=== PATIENT | male | born 1965 | race Caucasian/White ===

== ENCOUNTER 2017-05-22 06:19 | Day surgery (SDC) | payer MEDICARE, MEDICAID ==
[2017-05-19 12:24] VITALS: BMI 47.4
--- NOTE | 2017-05-22 05:51 | HP ---
HISTORY OF PRESENT ILLNESS: Chapin Brown is a 52-year-old male, dialyzes Monday, , a monday at [facility]. He has a hemodialysis catheter that has malfunctioned, they have used Cathflo, cannot get it to work, and plan is to remove the old and place a new one to day. Patient, on 02/21/2017, underwent left zukjf-blh-jomh amputation for a diabetic infection in l t foot and osteomyelitis and placement of right femoral vein Trialysis catheter by Dr. Hernandez on . Again, on 03/01/2017, placed a right internal jugular vein hemodialysis catheter, then pr ovided a right arm fistula, performing a thrombectomy of the basilic vein (previous IV access), righ t arm primary AV fistula perforating branch of basilic vein to proximal radial artery. Excellent ca liber of radial artery was noted with a very large basilic vein. It was recognized at that time he would need a basilic vein transposition fistula. The patient has been dialyzed and has had problems with his catheter, assembler body asked the dialysis unit, [facility], to access his fistula right, which was unsuccessful. I have informed them that this should not be accessed again until i t is transposed. Plan is to replace his hemodialysis catheter today and then next week right arm ba silic vein transposition fistula will be performed as an outpatient. He understands the risks and b enefits and consents. He has acquired prosthesis for his amputation, right leg. He has almost full extension, but not quite. ALLERGIES: None. TOBACCO: None. ALCOHOL: None. SOCIAL HISTORY: Patient is a resident of [facility], [facility]. No history of smoking. He has lived with his sister prior to going to [facility]. PAST MEDICAL HISTORY: Diabetes mellitus, type 2; hypertension; dyslipidemia; obesity; history of ri ght great toe amputation done in 2011; prior cardiac stress test, 5 years ago, essentially normal; h istory of left knee injury during football; right shoulder surgery; dyslipidemia. MEDICATIONS: 1. MiraLax. 2. Dulcolax p.r.n. 3. p.r.n.. 4. Cepacol p.r.n. 5. Tylenol p.r.n.. 6. Tramadol p.r.n. 7. Atorvastatin 80 mg evening. 8. Metoprolol 25 mg b.i.d. 9. Amlodipine 5 mg b.i.d. 10. Hydralazine 50 mg t.i.d. 11. Clonidine 0.1 mg p.r.n. 12. Protonix daily. 13. Tums p.r.n. 14. Zofran p.r.n. REVIEW OF SYSTEMS: Ten-point noncontributory. PHYSICAL EXAMINATION: VITAL SIGNS: Blood pressure 149/62, pulse 59, temperature 97.9 degrees. GENERAL: Arrives in my office in a wheelchair. LUNGS: Clear to auscultation. CARDIAC: Regular rate and rhythm without murmur or gallop. ABDOMEN: Soft, nontender. EXTREMITIES: Hemodialysis catheter, right IJ. The exit site healthy. Right arm fistula, good thri ll and bruit, well-healed surgical incision. Left uilra-fma-omju amputation status, wound well heal ed, stump gas brazer in place. ASSESSMENT AND PLAN: 1. Dysfunctional dialysis catheter. Plan removal of old and placement of new today. 2. In need of basilic vein transposition fistula. We will plan next week. 3. Left clkxs-vly-dbpk amputation status has a prosthesis. 4. Diabetes mellitus. 5. Hypertension. 6. [facility] senior living resident. 7. Dialysis, Monday, , and Monday at [facility], assembler body, Dr. Arredondo.
[2017-05-22] MEDS ORDERED: Protamine Sulfate 50 MG/5 ML VIAL ONE (06:54)
[2017-05-22] MEDS ORDERED: Heparin 5,000 UNITS/ML VIAL ONE (06:54)
[2017-05-22] MEDS ORDERED: Bupivacaine PF 0.5% 30 ML VIAL ONE (06:54)
[2017-05-22] MEDS ORDERED: CEFAZOLIN/Water 2 GM/20 ML SYRINGE ONE (06:56)
[2017-05-22] MEDS ORDERED: Lidocaine 2% w/Epinephrine 1:200K 20 ML VIAL ONE (06:58)
[2017-05-22] MEDS ORDERED: Fentanyl 100 MCG/2 ML VIAL ONE ×2 (07:02→07:43)
[2017-05-22] MEDS ORDERED: Midazolam HCl 2 mg/2 ml Vial ONE ×2 (07:02→07:43)
[2017-05-22 07:15] LABS: Anion Gap 10 mmol/L (10-20); Carbon Dioxide 32 mmol/L (22-29); Chloride 98 mmol/L (98-107)
[2017-05-22] MEDS ORDERED: Insulin Regular 300 UNITS/3 ML VIAL ONE (07:21)
[2017-05-22] MEDS ORDERED: Propofol 200 MG/20 ML VIAL ONE (08:05)
[2017-05-22] MEDS ORDERED: Bupivacaine 0.25% HCL 30 ML VIAL ONE (08:38)
[2017-05-22] MEDS ORDERED: Propofol 500 MG/50 ML VIAL ONE ×2 (08:45→09:30)
--- NOTE | 2017-05-22 10:14 | OP ---
DATE OF PROCEDURE: 05/22/2017 PREOPERATIVE DIAGNOSES: End-stage renal disease in need of basilic vein transposition fistula (thi s has been accessed prior to my approval at the dialysis unit). PROCEDURE: Right arm basilic vein transposition fistula. SURGEON: Dr. Clemente Cope ANESTHESIA: Intravenous sedation and regional anesthesia, local 0.5% Marcaine 30 mL, 0.25% Marcaine 25 mL, 1% Xylocaine with epinephrine, 30 mL total volume mixture used. ESTIMATED BLOOD LOSS: 30 mL. BLOOD TRANSFUSED: None. FINDINGS: Excellent vein. NOTE: Retrograde antecubital vein was slipped over to use for the procedure. PROCEDURE: The patient taken to the operating room where under the above-mentioned anesthesia, righ t upper extremity was prepared with ChloraPrep, draped in routine fashion. Incision made from the p roximal volar forearm across the antecubital fossa into the right axilla. Incision was carried down through the skin and subcutaneous tissue through the basilic vein, dissected free, unroofed from th e proximal forearm to the axilla. The nerves kept free of harm. Hemostasis gained with cautery and clips. Branches divided between 4-0 and 3-0 silk ties and clips. Vein mobilized entirely, marked with a marking pen and a Julianna-Wick tunneler used to create a tunnel from the antecubital fossa late ral to the surgical incision into the axilla. A 12 mm head was used then changed to a 6 mm head wit h the vein was transected at the arterial origin near the proximal volar forearm, marked with a teto ing pen and flushed with heparinized saline solution, connected to the tunneler, brought through the tunnel, released from the tunnel and flushed with heparinized saline solution noted to be in good o rientation. The stump of the harvested basilic vein was closed with continuous to and fro suture of 6-0 Prolene locking suture. Retrograde antecubital vein dissected free. Stump ligated with 2-0 si lk tie, transected and flushed and had excellent flow. It was flipped over and an end-to-end anasto mosis to the basilic vein created after 6000 units of heparin administered an adequate circulation t adrián allowed. Vascular clamp applied. Both ends were spatulated and anastomosis created with contin uous suture of 6-0 Prolene. Once anastomosis was complete, good hemostasis noted. Surgicel applied . The patient was given 50 mg of protamine by Anesthesia. He had good Doppler signal and palpation revealed excellent fistula. Good hemostasis noted. Surgicel placed in the harvest bed. Subcutane ous tissues approximated with 3-0 Monocryl, skin with josephine. Sterile dressing applied. Local ane sthetic infiltrated into skin and subcutaneous tissue about the operative site to facilitate the reg ional anesthesia. The patient tolerated the procedure well.
[2017-05-22] MEDS ORDERED: HYDROcodone/Acetaminophen 5/325 mg Tablet ONE (11:15)
[2017-05-22] MEDS ORDERED: Heparin 10,000 UNITS/ 10 ML VIAL ONE (11:43)
--- NOTE | 2017-05-22 11:45 | EKG ---
Test Reason : PREOP Blood Pressure : / mmHG Vent. Rate : 061 BPM Atrial Rate : 061 BPM P-R Int : 188 ms QRS Dur : 112 ms QT Int : 474 ms P-R-T Axes : 069 -05 118 degrees QTc Int : 477 ms Normal sinus rhythm Prolonged QT Abnormal ECG When compared with ECG of 20-FEB-2017 19:15, T wave inversion more evident in Lateral leads Confirmed by DR. Jessica RONQUILLO ([id number]) on 05/22/2017 11:44:48 AM Referred By: MARIXA Confirmed By:DR. Jessica RONQUILLO
--- OUTSIDE RECORDS SUMMARY | 2017-05-24 14:44 | XMS | Clinical Summary ---
:1965 Author Organization [facility] Address [address] [place] [address] Phone Care Team Providers Name Role Phone , Primary Care Provider Unavailable Allergies No Known Allergies Current Medications Prescription Sig. Disp. Refills Start Date End Date Status aspirin 81 MG EC Take 81 mg by mouth Active tablet daily. insulin aspart Inject 0.03 mLs (3 60 Syringe 0 05/06/2016 Active (NOVOLOG) 100 Units total) unit/mL InPn subcutaneously 3 (three) times daily before meals. insulin detemir Inject 0.15 mLs (15 90 packet 0 05/06/2016 Active (LEVEMIR) 100 Units total) unit/mL (3 mL) subcutaneously InPn injection nightly. amLODIPine Take 1 tablet (10 mg 90 tablet 0 05/06/2016 (NORVASC) 10 MG total) by mouth 7 tablet daily. Active Problems Problem Noted Date Foot abscess 04/29/2016 Hyperglycemia 04/28/2016 Open wound of foot, left, initial encounter 04/28/2016 Diabetes mellitus, type 2 (HCC) Benign essential HTN Hypercholesteremia Social History Tobacco Use Types Packs/Day Years Used Date Never Smoker Alcohol Use Drinks/Week oz/Week Comments Yes socially Sex Assigned at Date Recorded Not on file Last Filed Vital Signs Vital Sign Reading Time Taken Blood Pressure 142/65 05/06/2016 1:00 PM CDT Pulse 50 05/06/2016 1:00 PM CDT Temperature 36.5 C (97.7 F) 05/06/2016 1:00 PM CDT Respiratory Rate 18 05/05/2016 11:53 PM CDT Oxygen Saturation 99% 05/06/2016 1:00 PM CDT Inhaled Oxygen Concentration - - Weight 143 kg (315 lb 3.2 oz) 05/02/2016 4:00 AM CDT Height 190.5 cm (6' 3") 04/29/2016 8:36 AM CDT Body Mass Index 39.4 05/02/2016 4:00 AM CDT Plan of Treatment Not on file Results Not on filefrom Last 3 Months
== END 2017-05-22 12:50 ==
LOC: SDC 06:19
PROVIDERS: ATTEND Specialist
DX: E11.22 Type 2 diabetes mellitus with diabetic chronic kidney disease (principal); I12.0 Hypertensive chronic kidney disease with stage 5 chronic kidney disease or end stage renal disease; N18.6 End stage renal disease; K21.9 Gastro-esophageal reflux disease without esophagitis; E78.5 Hyperlipidemia, unspecified; Z79.4 Long term (current) use of insulin; Z79.899 Other long term (current) drug therapy; Z89.512 Acquired absence of left leg below knee; Z82.49 Family history of ischemic heart disease and other diseases of the circulatory system; Z83.3 Family history of diabetes mellitus; Z80.0 Family history of malignant neoplasm of digestive organs
CPT/HCPCS: 36416; 80051; 93005; 93010; J1644; J1815; J2250; J2704; J2720; J3010; S0020

== ENCOUNTER 2017-07-03 05:50 | Day surgery (SDC) | payer MEDICARE, MEDICAID ==
--- NOTE | 2017-06-29 22:18 | HP ---
HISTORY OF PRESENT ILLNESS: Chapin Brown is a 52-year-old male patient who dialyzes at [facility] on Monday, , Monday, followed by Dr. Arredondo. Patient underwent a right arm fis mya performing a thrombectomy of basilic vein (previous IV access) and a right arm primary fistula w ith perforating branch of the basilic vein to the proximal radial artery, excellent caliber radial ar aarti was noted with a very large basilic vein, it was recognized at that time he would need a basilic vein transposition fistula. The patient has been dialyzed and has had problems with his catheter. Certified Home Health Aide asked them to access his fistula at the dialysis center and the patient never followed u p with me after the operation. He was told postoperatively that he would need a basilic vein transpo sition fistula. By the time I saw him, I informed that she is not to access his fistula again. He h as had a previous amputation of his right leg and has a prosthesis. The patient was taken to the ope rating room on 05/22/2017 undergoing right basilic vein transposition fistula. Dissection was diffic ult due to previous access attempts. He had a good thrill after the procedure and was discharged amber e. The patient states that he was told that he did not have a thrill sometime in the weeks ensuing, but he never reported to see me until followup date 06/26/2017. By this time, his thrill and fistula had resolved. On 02/27/2017 marking ultrasound obtained revealed cephalic vein right 3.1, 3.0, 3.5 and 2.6 antecubital fossa and basilic vein 6.5, 6.5, and 8.4 and a clot in the antecubital fossa, whi ch was removed at that time formation of his fistula. On his left arm, his cephalic vein had been pr eviously accessed and measurements include 4.4 mm nonvisualized mid arm and distal arm cephalic vein left and antecubital fossa and proximal forearm. Basilic vein on the left was 7.6, 9.0, 9.1 mm and 5 .2 mm, antecubital fossa 5.4, proximal forearm 4.1 mm and 4.3 mm. Plan at this time is to perform a left arm fistula or graft. He understands the risks and benefits and consents. The patient is left handed and reluctant to have a fistula in the arm, but this is best chance for nightmute vein fistula, w e reassured him that great care will be taken, but there are risk of ischemia and thrombosis and poss ibility of placing a prosthetic graft. ALLERGIES: None. TOBACCO: None. ALCOHOL: None. SOCIAL: Patient is a resident at a [facility], [facility] and [facility]. SOCIAL HISTORY: He has lived with his sister prior to staying in [facility]. PAST MEDICAL HISTORY: Diabetes mellitus type 2, hypertension, dyslipidemia, obesity, history of righ t great toe amputation in 2011, prior cardiac stenting 5 years ago, history of left knee injury durin g football, right shoulder surgery, dyslipidemia. MEDICATIONS: MiraLax, Dulcolax p.r.n., Cepacol, Tylenol, tramadol, atorvastatin 80 mg evening, metop rolol 25 b.i.d., amlodipine 5 mg b.i.d., hydralazine 50 t.i.d., clonidine 0.1 mg p.r.n., Protonix ayaan ly, Tums p.r.n., Zofran p.r.n. PHYSICAL EXAMINATION: VITAL SIGNS: Blood pressure 148/59, pulse 66, temperature 98.4 degrees. LUNGS: Clear to auscultation. CARDIAC: Regular rate and rhythm without murmur or gallop. ABDOMEN: Soft, nontender. EXTREMITIES: Well-healed incision in medial right arm. No thrill or bruit in the right arm, basilic vein fistula previously placed. Left palpable radial pulses bilaterally. ASSESSMENT AND PLAN: 1. Thrombosed fistula right arm, mechanical dysfunction of fistula. We will plan placement of left arm fistula or graft. He may need a staged fistula in the future. Cephalic vein by ultrasound is no t adequate. We will evaluate him intraoperatively under regional anesthesia and intravenous sedation . He may need a prosthetic graft or a staged fistula pending operative findings.
[2017-06-30 15:07] VITALS: BMI 43.8
[2017-07-03] MEDS ORDERED: Heparin 5,000 UNITS/ML VIAL ONE (06:36)
[2017-07-03] MEDS ORDERED: Bupivacaine/Epinephrine 0.25% 30 ML VIAL ONE (06:36)
[2017-07-03] MEDS ORDERED: Protamine Sulfate 50 MG/5 ML VIAL ONE ×2 (06:36→16:09)
[2017-07-03] MEDS ORDERED: Midazolam HCl 2 mg/2 ml Vial ONE ×2 (07:09→07:17)
[2017-07-03] MEDS ORDERED: Fentanyl 100 MCG/2 ML VIAL ONE ×2 (07:09→07:17)
[2017-07-03 07:13] LABS: Anion Gap 13 mmol/L (10-20); BUN (Urea Nitrogen) 46 mg/dL (8.4-25.7); Calc. Creatinine Clearance 45 mL/min (70-130); Calcium 9.7 mg/dL (7.8-10.44); Carbon Dioxide 28 mmol/L (22-29); Chloride 99 mmol/L (98-107); Estimated GFR-MDRD 19
[2017-07-03] MEDS ORDERED: CEFAZOLIN/Water 2 GM/20 ML SYRINGE ONE (07:23)
[2017-07-03 07:25] LABS: #Eosinphils 0.3 thou/uL (0.0-0.7); #Monocytes 0.6 thou/uL (0.11-0.59); #Neutrophils 5.5 thou/uL (1.40-6.50); %Basophils 0.6 % (0.0-1.0); %Eosinophils 3.7 % (0.0-10.0); %Lymphocytes 13.5 % (21.0-51.0); %Monocytes 8.2 % (0.0-10.0); Hematocrit 33.4 % (42.0-52.0); Mean Platelet Volume 7.7 fL (7.4-10.4); Red Blood Cell (RBC) Count 3.72 mill/uL (4.70-6.10); White Blood Cell (WBC) Count 7.5 thou/uL (4.8-10.8)
[2017-07-03] MEDS ORDERED: Insulin Regular 300 UNITS/3 ML VIAL ONE (07:31)
--- NOTE | 2017-07-03 09:27 | OP ---
PREOPERATIVE DIAGNOSES: End-stage renal disease, status post left below the knee amputation, right a rm dialysis fistula transposition basilic vein type, thrombosed malfunction of dialysis fistula. POSTOPERATIVE DIAGNOSES: End-stage renal disease, status post left below the knee amputation, right arm dialysis fistula transposition basilic vein type, thrombosed malfunction of dialysis fistula. PROCEDURES: Left upper extremity arteriovenous fistula basilic vein, wrist to ulnar artery, outflow basilic vein, calibrated to a 4.5 mm coronary dilator without obstruction, excellent Doppler signal a t the end of the procedure. Most likely, we will need transposition in the future to provide better access. SURGEON: Dr. Clemente Cope ANESTHESIA: General LMA. Local 0.25% Marcaine with epinephrine, 30 mL, mixed with 2% Xylocaine, 10 mL. PROCEDURE IN DETAIL: Patient taken to the operating room where under general anesthesia (The patient refused regional), his left upper extremity was prepared with ChloraPrep, draped in routine fashion. Local anesthetic infiltrated into skin and subcutaneous tissue about the operative site. Incision made over the basilic vein which was very large, visibly seen in the dorsal medial left arm. Incisio n was made at the wrist level and carried down through the skin and subcutaneous tissue. The vein di ssected free, dividing branch between 4-0 silk ties and clips. It was dissected free down to the wri st. It was mobilized, stump ligated with 3-0 silk tie and divided and spatulated and interrogated wi th coronary dilators, passing coronary dilators from a 2.5 mm to a 4.5 mm coronary dilator without ob struction. It was flushed with heparinized saline solution. The patient was given 5000 units of hep georgina intravenously. Ulnar artery dissected free, dividing small medial branch between clips and ties , 4-0 silk and artery mobilized, clamped proximally and distally with vascular clamps. Longitudinal arteriotomy made sharply and elongated with Quiles scissors and basilic vein likewise spatulated accor dingly and continuous suture of 6-0 Prolene used for the anastomosis. Once the anastomosis was compl ete, vascular clamps were released and there was excellent flow in the fistula evident by Doppler int errogation. Good hemostasis obtained with 6-0 Prolene. The patient was given 25 mg of protamine int ravenously by Anesthesia. Surgicel applied. Subcutaneous tissues approximated with 3-0 Monocryl, sk in with subdermal 4-0 Monocryl and DermaGlue applied.
[2017-07-03] MEDS ORDERED: Heparin 10,000 UNITS/ 10 ML VIAL ONE ×2 (10:05→16:09)
[2017-07-03] MEDS ORDERED: Succinylcholine Chloride 20 MG/ML 10 ml SYRINGE FS ONE (16:09)
[2017-07-03] MEDS ORDERED: Propofol 200 MG/20 ML VIAL ONE (16:09)
[2017-07-03] MEDS ORDERED: Ondansetron HCl/PF 4 MG/2 ML Vial ONE (16:09)
[2017-07-03] MEDS ORDERED: ePHEDrine/0.9% NaCl/PF SYRINGE 50 mg/10 ml ONE (16:09)
[2017-07-03] MEDS ORDERED: Lidocaine 1% PF 5 ML VIAL ONE (16:09)
[2017-07-03] MEDS ORDERED: PHENYLEPHRINE-NS 100 MCG/ML 10 ML SYRINGE ONE (16:09)
== END 2017-07-03 11:23 | disposition home or self-care (01) ==
LOC: SDC 05:50
PROVIDERS: ATTEND Specialist
PROC: 031A0ZF Bypass Left Ulnar Artery to Lower Arm Vein, Open Approach (ICD-10-PCS; principal; 2017-07-03)
DX: T82.868A Thrombosis due to vascular prosthetic devices, implants and grafts, initial encounter (principal); I12.0 Hypertensive chronic kidney disease with stage 5 chronic kidney disease or end stage renal disease; E11.22 Type 2 diabetes mellitus with diabetic chronic kidney disease; N18.6 End stage renal disease; E78.5 Hyperlipidemia, unspecified; E66.9 Obesity, unspecified; Z68.41 Body mass index [BMI] 40.0-44.9, adult; Z89.512 Acquired absence of left leg below knee; Z98.890 Other specified postprocedural states; Z95.5 Presence of coronary angioplasty implant and graft; Z79.899 Other long term (current) drug therapy; Z79.4 Long term (current) use of insulin; Z99.2 Dependence on renal dialysis
CPT/HCPCS: 36416; 80048; 85025; J1644; J1815; J2001; J2250; J2405; J2704; J2720; J3010

== ENCOUNTER 2017-07-13 06:05 | Emergency (ER) | payer MEDICARE, MEDICAID ==
[2017-07-13] MEDS ORDERED: Ondansetron ODT 4 MG TAB ONE (06:13)
[2017-07-13] MEDS ORDERED: Adacel (T-DAP) 0.5 ML VIAL ONE (06:26)
[2017-07-13] MEDS ORDERED: Ondansetron HCl/PF 4 MG/2 ML Vial ONE (06:26)
[2017-07-13 06:54] LABS: #Eosinphils 0.3 thou/uL (0.0-0.7); #Lymphocytes 0.6 thou/uL (1.20-3.40); #Monocytes 0.9 thou/uL (0.11-0.59); #Neutrophils 10.9 thou/uL (1.40-6.50); %Eosinophils 2.3 % (0.0-10.0); %Lymphocytes 4.7 % (21.0-51.0); %Monocytes 7.3 % (0.0-10.0); Hematocrit 37.1 % (42.0-52.0); Mean Platelet Volume 7.2 fL (7.4-10.4); Red Blood Cell (RBC) Count 4.12 mill/uL (4.70-6.10); White Blood Cell (WBC) Count 12.7 thou/uL (4.8-10.8)
[2017-07-13 07:10] LABS: Troponin I 0.057 ng/mL (< 0.028)
[2017-07-13 07:25] LABS: BUN (Urea Nitrogen) 46 mg/dL (8.4-25.7); Carbon Dioxide 19 mmol/L (22-29)
[2017-07-13 07:29] LABS: Chloride 103 mmol/L (98-107)
[2017-07-13 07:30] LABS: Calcium 9.9 mg/dL (7.8-10.44); Magnesium 2.3 mg/dL (1.6-2.6)
[2017-07-13 07:31] LABS: Globulin 4.1 g/dL (2.4-3.5); Protein, Total 8.2 g/dL (6.0-8.3)
[2017-07-13 07:32] LABS: Anion Gap 16 mmol/L (10-20)
[2017-07-13 07:33] LABS: Bilirubin, Total 0.9 mg/dL (0.2-1.2)
[2017-07-13 07:34] LABS: Alkaline Phosphatase 102 U/L (40-150); Phosphorus 3.4 mg/dL (2.3-4.7)
--- NOTE | 2017-07-13 07:34 | RAD ---
PORTABLE AP CHEST XRAY: DATE: 07/13/17. HISTORY: Nausea and vomiting. Post fall with laceration to the head. COMPARISON: 03/01/17. FINDINGS: There is a tunneled right internal jugular vein hemodialysis catheter again noted in place. The left internal jugular vein central venous catheter has been removed. The cardiac silhouette is magnified by projection. Pulmonary vasculature is within normal limits. The lungs are clear. No other inter sue change from prior study. IMPRESSION: No acute cardiopulmonary process. POS: [facility]
[2017-07-13 07:35] LABS: Calc. Creatinine Clearance 0 mL/min (70-130); Estimated GFR-MDRD 20
[2017-07-13 07:36] LABS: AST (SGOT) 15 U/L (5-34)
--- NOTE | 2017-07-13 07:36 | CT ---
CT HEAD WITHOUT IV CONTRAST: Date: 07-13-17 History: Vomiting post fall. Laceration of the head. Comparison: 02-25-17 FINDINGS: There is an area of encephalomalacia in the right occipital lobe in the region of prior infarction wi thin distribution of the right posterior cerebral artery. Remote lacunar infarction left basal gangli a is also again present. There is no evidence of an acute cortical infarction, hemorrhage, mass effec t, or midline shift. There is mild cerebral volume loss again present. No other interval change from prior exam. IMPRESSION: 1. No acute intracranial abnormalities demonstrated. 2. Stable remote lacunar infarction left basal ganglia. 3. Encephalomalacia right occipital lobe related to remote area of infarction. POS: [facility]
[2017-07-13 07:37] LABS: ALT (SGPT) 12 U/L (8-55); CK (CPK) 135 U/L (30-200); Lipase 95 U/L (8-78)
[2017-07-13] MEDS ORDERED: Lidocaine 1% w/Epinephrine 1:100K 20 ML VIAL ONE (07:42)
--- NOTE | 2017-07-13 07:46 | CT ---
NONCONTRAST CT CERVICAL SPINE: Date: 07-13-17 History: Vomiting after a fall. Patient hit head and has laceration. Technique: Contiguous axial CT images are obtained through the cervical spine from the skull base to the T2-3 level. Sagittal and coronal reformat images are provided. FINDINGS: There is no evidence of a fracture or subluxation involving the cervical spine. Osteophyte is seen an terior at the C4-5 level. There is no significant bony encroachment of the central spinal canal or ne ural foramina. Prevertebral soft tissues are within normal limits. Mild vascular calcifications are seen in the carotid arteries. Lung apices appear clear. IMPRESSION: No acute fracture or subluxation involving the cervical spine. POS: [facility]
[2017-07-13] MEDS ORDERED: cloNIDine 0.1 MG TAB ONE (08:15)
== END 2017-07-13 08:58 | disposition home or self-care (01) ==
LOC: ERS 06:05
DX: S01.112A Laceration without foreign body of left eyelid and periocular area, initial encounter (principal); I12.9 Hypertensive chronic kidney disease with stage 1 through stage 4 chronic kidney disease, or unspecified chronic kidney disease; E10.22 Type 1 diabetes mellitus with diabetic chronic kidney disease; N18.9 Chronic kidney disease, unspecified; E78.5 Hyperlipidemia, unspecified; R19.7 Diarrhea, unspecified; R11.2 Nausea with vomiting, unspecified; Z23 Encounter for immunization; Z79.899 Other long term (current) drug therapy; W18.30XA Fall on same level, unspecified, initial encounter
CPT/HCPCS: 12001; 70450; 71010; 72125; 80053; 82274; 82553; 83630; 83690; 83735; 84100; 84484; 85025; 87045; 87046; 87324; 87328; 87329; 87449; 87899; 90471; 90715; 93005; J2001; J2405; Q0162

== ENCOUNTER 2017-08-21 05:32 | Day surgery (SDC) | payer MEDICARE, MEDICAID ==
--- NOTE | 2017-08-15 14:40 | HP ---
HISTORY OF PRESENT ILLNESS: Chapin Brown is a 52-year-old male patient who lives at [facility] in [place], dialyzes at [facility], Monday, , and Monday. The maria dolores ent has end-stage renal disease, history of left sgwcf-yjm-sngz amputation and has a hemodialysis cat heter. He has had right basilic vein transposition fistula, eventually had graft, this is thrombosed and nonsalvageable. More recently, he underwent a left ulnar artery basilic vein fistula at the [facility]. Plan is to transpose this in the forearm. He understands the risks and benefits. In the past, we used general anesthesia because he needs 6 hours as she is an amputation patient. MEDICATIONS: Diphenhydramine 25 mg as needed, Cepacol as needed, MiraLax as needed, Colace as needed , loperamide as needed, Zofran as needed, simethicone as needed, Prostat 30 mg twice daily, clonidine 0.1 mg at bedtime and q.i.d. p.r.n., metoprolol 25 mg twice daily, amlodipine 5 mg twice daily, ator vastatin 80 mg a day, Levemir insulin twice day, hydralazine 25 mg 3 times a day, Protonix 40 mg a da y, Tums 500 mg tablets 1-2 tabs orally with meals once or twice a day, and tramadol as needed. PAST SURGICAL HISTORY: Right arm fistula, thrombectomy of basilic vein and right arm primary fistula perforating branch to the basilic vein with proximal radial artery excellent caliber and radial cristina ry was noted and very large basilic vein was recognized at that time. He would need a basilic vein t ransposition fistula. Patient had problems with his catheter and they accessed his fistula at the [facility], and the patient never followed up with me after the operation, he was told that he would need a basilic vein transposition by the time I see him. The patient underwent 05/22/2017 b asilic vein transposition fistula, right. Dissection was difficult due to previous access attempts. He had a good thrill at the procedure and was discharged home. The patient said he was told he did not have a thrill, sometime in weeks ensuin g, but he never reported to see me and nobody called. By this time I saw him, his fistula had thromb osed. It was felt they could not salvage it. His left cephalic vein had been previously accessed an d measurements include 4 mm nonvisualized mid arm distal cephalic vein left antecubital fossa proxima l forearm basilic vein on the left, was of good caliber. The patient was taken to the operating rece ntly, left wrist ulnar artery basilic vein fistula performed. A 4.5 coronary dilators accommodated t his. This was performed 07/03/2017. Patient reports today and his fistula has good thrill and bruit . His surgical wound risks is well healed. Plan is to transpose left wrist basilic vein fistula. Kayley solis understands the risks and benefits and consents. ALLERGIES: None. TOBACCO: None. ALCOHOL: None. SOCIAL HISTORY: Patient is a resident of [facility], [facility] and [facility] . PAST MEDICAL HISTORY: Diabetes mellitus, hypertension, dyslipidemia, obesity, history of right great toe amputation 19/07/2017, prior cardiac stenting five years ago, history of left knee injury during football, right shoulder surgery, and dyslipidemia. PHYSICAL EXAMINATION: HEENT: Unremarkable. LUNGS: Clear to auscultation. CARDIAC: Regular rate and rhythm without murmur or gallop. ABDOMEN: Soft, nontender, obese, amputation stump well healed, sap bpc developer in place, left basilic vein fistula forearm good thrill and bruit. ASSESSMENT AND PLAN: Plan to be basilic vein transposition fistula left forearm. He understands the risks and benefits and consents. He dialyses Monday, and Monday at [facility]. We will plan this as an outpatient on nondialysis day.
[2017-08-18 14:50] VITALS: BMI 46.3
[2017-08-21] MEDS ORDERED: Bupivacaine 0.25% HCL 30 ML VIAL ONE (06:45)
[2017-08-21] MEDS ORDERED: Protamine Sulfate 50 MG/5 ML VIAL ONE (06:45)
[2017-08-21] MEDS ORDERED: Heparin 5,000 UNITS/ML VIAL ONE (06:45)
[2017-08-21] MEDS ORDERED: Lidocaine 2% w/Epinephrine 1:200K 20 ML VIAL ONE (06:46)
[2017-08-21 06:49] LABS: #Basophils 0.1 thou/uL (0.0-0.2); #Eosinphils 0.3 thou/uL (0.0-0.7); #Lymphocytes 1.2 thou/uL (1.20-3.40); #Monocytes 0.7 thou/uL (0.11-0.59); #Neutrophils 4.8 thou/uL (1.40-6.50); %Basophils 1.3 % (0.0-1.0); %Eosinophils 3.9 % (0.0-10.0); %Lymphocytes 17.7 % (21.0-51.0); %Monocytes 9.2 % (0.0-10.0); %Neutrophils 67.9 % (42.0-75.0); Hemoglobin 11.6 g/dL (14.0-18.0); Mean Corpuscular Hemoglobin 30.6 pg (27.0-31.0); Mean Corpuscular Volume 87.4 fl (80.0-94.0); Mean Platelet Volume 7.7 fL (7.4-10.4); Platelet Count 234 thou/uL (130-400); RBC Distribution Width 13.3 % (11.5-14.5)
[2017-08-21] MEDS ORDERED: Midazolam HCl 2 mg/2 ml Vial ONE (07:01)
[2017-08-21] MEDS ORDERED: Fentanyl 100 MCG/2 ML VIAL ONE ×2 (07:01→07:26)
[2017-08-21 07:06] LABS: Anion Gap 17 mmol/L (10-20); BUN (Urea Nitrogen) 56 mg/dL (8.4-25.7); Calc. Creatinine Clearance 36 mL/min (70-130); Calcium 9.2 mg/dL (7.8-10.44); Carbon Dioxide 23 mmol/L (22-29); Chloride 95 mmol/L (98-107); Estimated GFR-MDRD 14; Glucose 333 mg/dL (70-105); Potassium 3.8 mmol/L (3.5-5.1); Sodium 131 mmol/L (136-145)
[2017-08-21] MEDS ORDERED: CEFAZOLIN/Water 2 GM/20 ML SYRINGE ONE (07:28)
[2017-08-21] MEDS ORDERED: Insulin Regular 300 UNITS/3 ML VIAL ONE (07:36)
--- NOTE | 2017-08-21 10:52 | OP ---
DATE OF PROCEDURE: 08/21/2017 PREOPERATIVE DIAGNOSIS: End-stage renal disease, left forearm basilic vein fistula in need of transp osition. POSTOPERATIVE DIAGNOSIS: End-stage renal disease, left forearm basilic vein fistula in need of trans position. PROCEDURE: Left forearm basilic vein transposition fistula. SURGEON: Dr. Clemente Cope ANESTHESIA: Regional TIVA. ESTIMATED BLOOD LOSS: 25 mL. PROCEDURE IN DETAIL: The patient was taken to the operating room where under regional anesthesia, le ft upper extremity was prepared with ChloraPrep, draped in routine fashion. Incision made from overl desiree the ulnar artery at the wrist along the basilic vein course dorsal medial forearm, carried up to the medial upper arm distally and carried down through the skin and subcutaneous tissue. Basilic ve in dissected free, dividing branch between 4-0 silk ties and clips. Vein marked to prevent torsion. A tunnel was then created between the antecubital area in the wrist using a 12 mm tunneler. The pat ient was given 6000 units of heparin intravenously. The vein was then transected at the antecubital area, flushed with heparinized saline solution and then connected to the tunneler, brought through th e tunnel and reanastomosis at the antecubital area end-to-end, spatulating both ends using continuous suture of 6-0 Prolene for the anastomosis. After completing anastomosis, a good Doppler signal was noted. Good hemostasis obtained with the cautery. The patient given 25 mg of protamine intravenousl y by Anesthesia. Surgicel placed in the harvest bed and subcutaneous tissues approximated with 3-0 M onocryl, skin with josephine. Sterile dressing applied.
[2017-08-21] MEDS ORDERED: Heparin 10,000 UNITS/ 10 ML VIAL ONE ×4 (12:21→14:49)
[2017-08-21] MEDS ORDERED: Bupivacaine HCl 0.5%/Epinephrine 1:200,000/PF 30 ml Vial ONE (14:12)
[2017-08-21] MEDS ORDERED: Lidocaine 1% PF 5 ML VIAL ONE (14:49)
[2017-08-21] MEDS ORDERED: Ondansetron HCl/PF 4 MG/2 ML Vial ONE (14:49)
[2017-08-21] MEDS ORDERED: Propofol 200 MG/20 ML VIAL ONE (14:49)
--- NOTE | 2017-08-22 23:34 | EKG ---
Test Reason : PREOP Blood Pressure : / mmHG Vent. Rate : 056 BPM Atrial Rate : 056 BPM P-R Int : 208 ms QRS Dur : 118 ms QT Int : 482 ms P-R-T Axes : 026 -21 042 degrees QTc Int : 465 ms Sinus bradycardia Non-specific intra-ventricular conduction delay Nonspecific T wave abnormality Prolonged QT Abnormal ECG When compared with ECG of 13-JUL-2017 06:33, No significant change was found Confirmed by Lidia HASKINS ([id number]) on 08/22/2017 11:34:30 PM Referred By: MARIXA Confirmed By:Lidia HASKINS
== END 2017-08-21 12:45 | disposition home or self-care (01) ==
LOC: SDC 05:32
PROVIDERS: ATTEND Specialist
PROC: 05SC0ZZ Reposition Left Basilic Vein, Open Approach (ICD-10-PCS; principal; 2017-08-21)
DX: E11.22 Type 2 diabetes mellitus with diabetic chronic kidney disease (principal); N18.6 End stage renal disease; I12.0 Hypertensive chronic kidney disease with stage 5 chronic kidney disease or end stage renal disease; E78.5 Hyperlipidemia, unspecified; E66.9 Obesity, unspecified; Z68.42 Body mass index [BMI] 45.0-49.9, adult; Z79.4 Long term (current) use of insulin; Z79.899 Other long term (current) drug therapy; Z99.2 Dependence on renal dialysis; Z89.512 Acquired absence of left leg below knee; Z89.411 Acquired absence of right great toe; Z98.890 Other specified postprocedural states
CPT/HCPCS: 36416; 80048; 85025; 93005; 93010; J0670; J1644; J1815; J2001; J2250; J2405; J2704; J2720; J3010; S0020

== ENCOUNTER 2017-11-22 06:32 | Day surgery (SDC) | payer MEDICARE, MEDICAID ==
[2017-11-21 12:48] VITALS: BMI 47.0
[2017-11-22 08:08] VITALS: BP 156/68; TEMP 97.6
--- NOTE | 2017-11-22 10:30 | SPC ---
LEFT UPPER EXTREMITY DIALYSIS FISTULOGRAM: History: Renal failure. Inadequate function left upper extremity dialysis fistula. FINDINGS: After explaining the procedure and answering all questions, the left forearm was prepped and draped i n the usual sterile fashion. Sterile technique, local anesthesia, and a 22 gauge needle were used to gain access to the peripheral portion of the left upper extremity dialysis fistula. A 5 Maori sheath was placed for imaging. Serial imaging was performed. Fluoro time equals 0.6 minutes. There is good contrast flow through the forearm basilic fistula. Several scattered small collaterals arise from the venous outflow at the level of the humerus and axilla, without significant steal of fl ow. Superior vena cava is patent. Attempts were made to reflux the arterial end flow but were unsuccessful due to the vigorous flow. Ca theter was removed and hemostatis was obtained using direct pressure. Patient tolerated the procedure well and was eventually dismissed in good condition. IMPRESSION: 1. Good flow and function of left upper extremity dialysis fistula. POS: AD
[2017-11-22] MEDS ORDERED: Iopamidol 300 61% 100 ML VIAL FS ONE (15:13)
== END 2017-11-22 09:00 | disposition home or self-care (01) ==
LOC: SPEC 06:32
PROVIDERS: ATTEND Specialist
PROC: B51W1ZZ Fluoroscopy of Dialysis Shunt/Fistula using Low Osmolar Contrast (ICD-10-PCS; principal; 2017-11-22)
DX: Z45.2 Encounter for adjustment and management of vascular access device (principal); I12.0 Hypertensive chronic kidney disease with stage 5 chronic kidney disease or end stage renal disease; E11.22 Type 2 diabetes mellitus with diabetic chronic kidney disease; N18.6 End stage renal disease; Z99.2 Dependence on renal dialysis; Z79.4 Long term (current) use of insulin; Z79.899 Other long term (current) drug therapy
CPT/HCPCS: 36901

== ENCOUNTER 2018-10-15 07:29 | Day surgery (SDC) | payer MEDICARE, MEDICAID ==
[2018-10-15 09:38] VITALS: BP 176/60; TEMP 97.7
--- NOTE | 2018-10-15 10:50 | SPC ---
LEFT UPPER EXTREMITY FISTULOGRAM: HISTORY: Difficulty with fistula. COMPARISON: 11/22/2017. EXPOSURE: 1.1 minute. [id number]=*^cm2. FINDINGS: Successful left upper extremity fistulogram. There is patency throughout the fistulogram. There is evidence of stenosis or collateralization. There was manual pressure to allow for reflux of contrast . However, contrast did not reflux into the arterial inflow due to brisk flow. TECHNIQUE: Consent was obtained to perform a left upper extremity fistulogram with possible angioplasty. The le ft arm was prepped and draped in sterile fashion. 1% Lidocaine, buffered with sodium bicarbonate was used for local anesthesia. A micropuncture needle was used to cannulate the fistula. Under fluoros copy, a fistulogram was performed. No immediate postprocedure complication. IMPRESSION: Good flow and function of left upper extremity dialysis fistula. POS: JAVON
== END 2018-10-15 09:20 | disposition home or self-care (01) ==
LOC: SPEC 07:29
PROVIDERS: ATTEND Radiology Diagnostic Radiology
PROC: B51W1ZZ Fluoroscopy of Dialysis Shunt/Fistula using Low Osmolar Contrast (ICD-10-PCS; principal; 2018-10-15)
DX: T82.9XXA Unspecified complication of cardiac and vascular prosthetic device, implant and graft, initial encounter (principal); N19 Unspecified kidney failure; Z79.4 Long term (current) use of insulin; Z79.2 Long term (current) use of antibiotics; Z79.899 Other long term (current) drug therapy
CPT/HCPCS: 36901

== ENCOUNTER 2018-12-18 20:38 | Observation (INO) | payer MEDICARE, MEDICAID ==
[2018-12-18 21:11] LABS: #Basophils 0.1 thou/uL (0.0-0.2); #Eosinphils 0.1 thou/uL (0.0-0.7); #Lymphocytes 0.5 thou/uL (1.20-3.40); #Monocytes 0.8 thou/uL (0.11-0.59); #Neutrophils 11.1 thou/uL (1.40-6.50); %Basophils 0.7 % (0.0-1.0); %Eosinophils 0.6 % (0.0-10.0); %Lymphocytes 3.9 % (21.0-51.0); %Monocytes 6.7 % (0.0-10.0); %Neutrophils 88.2 % (42.0-75.0); Hemoglobin 10.2 g/dL (14.0-18.0); Mean Corpuscular Hemoglobin 29.5 pg (27.0-31.0); Mean Corpuscular Volume 86.7 fL (78.0-98.0); Mean Platelet Volume 7.6 fL (7.4-10.4); Platelet Count 237 thou/uL (130-400); RBC Distribution Width 13.8 % (11.5-14.5); Red Blood Cell (RBC) Count 3.46 mill/uL (4.70-6.10); White Blood Cell (WBC) Count 12.6 thou/uL (4.8-10.8)
[2018-12-18 21:32] LABS: ALT (SGPT) 13 U/L (8-55); AST (SGOT) 17 U/L (5-34); Albumin 4.3 g/dL (3.5-5.0); Alkaline Phosphatase 87 U/L (40-150); Anion Gap 14 mmol/L (10-20); BUN (Urea Nitrogen) 26 mg/dL (8.4-25.7); Bilirubin, Total 0.8 mg/dL (0.2-1.2); Calc. Creatinine Clearance 0 mL/min (70-130); Calcium 9.6 mg/dL (7.8-10.44); Carbon Dioxide 33 mmol/L (22-29); Chloride 96 mmol/L (98-107); Estimated GFR-MDRD 20; Globulin 4.2 g/dL (2.4-3.5); Glucose 135 mg/dL (70-105); Protein, Total 8.5 g/dL (6.0-8.3); Sodium 139 mmol/L (136-145)
[2018-12-18] MEDS ORDERED: Acetaminophen 500 MG TAB ONE (21:34)
--- NOTE | 2018-12-18 21:35 | RAD ---
AP view chest. HISTORY: Chest pain AP view chest obtained on 12/18/2018 and comparison made to previous exam from 07/13/2017 AP view chest mistreats marked cardiomegaly. This may represent possible cardiomyopathy. Correlate [facility] echocardiography. No evidence of effusions seen. IMPRESSION: marked cardiomegaly and vascular congestion.
[2018-12-18] MEDS ORDERED: Morphine 2 MG/ML SYRINGE ONE (21:45)
[2018-12-18] MEDS ORDERED: Aspirin 81 mg Enteric Coated Tablet ONE (21:46)
[2018-12-18 21:53] LABS: CKMB 3.2 ng/mL (0-6.6)
[2018-12-18] MEDS ORDERED: Piperacillin/Tazobactam 2.25 GM VIAL ONE (21:59)
--- NOTE | 2018-12-18 23:34 | PDOC.FPRHP ---
- History of Present Illness Chief Complaint: Chest pain History of Present Illness: This is a 53 yo male with a pmh of HLD, DM2, HTN, ESRD who presents to the ED with a cc of chest pain that has been going on for the last 8 hours. He states the pain started when he was at dialysis. He states the pain feels like pressure , like someone is sitting on his chest. The pain is in the center of his chest with no radiation. He reports he has not had this chest pain before. He denies previous heart work up. He denies dizziness, SOB, lightheadedness. Reports fever and chills. Reports non productive cough. Nothing has made this pain better or worse Reports he has been treating his leg for a few months with abx cream and wrap it. Pt is coming from [facility]. ED Course: Aspirin, morphine, vanc, zosyn, 1L bolus, tylenol - Allergies/Adverse Reactions Allergies Allergy/AdvReac Type Severity Reaction Status Date / Time No Known Allergies Allergy Verified 10/15/18 09:31 - Home Medications Medication Instructions Recorded Confirmed Type Atorvastatin Calcium [Lipitor] 80 mg PO DAILY 11/27/16 10/15/18 History Metoprolol Succinate [Toprol XL] 25 mg PO BID 11/27/16 10/15/18 History Amlodipine Besylate [amLODIPine 5 mg PO BID 05/19/17 10/15/18 History Besylate] Insulin Detemir 100 UNITS/ML 85 unit SQ HS 05/19/17 10/15/18 History [Levemir] Insulin Detemir 100 UNITS/ML 85 unit SQ QAM 05/19/17 10/15/18 History [Levemir] Pantoprazole [Protonix] 20 mg PO DAILY-AC 05/19/17 10/15/18 History hydrALAZINE HCl [Hydralazine HCl] 50 mg PO TID 05/19/17 10/15/18 History Acetaminophen [Tylenol Regular 1 tab PO Q4HR PRN 08/18/17 10/15/18 History Strength] Benzocaine/Menthol [Cepacol Sore 1 shanti PO BID PRN 08/18/17 10/15/18 History Throat Lozenge] Calcium Carbonate [Tums] 2 tab PO Q6HR PRN 08/18/17 10/15/18 History Loperamide HCl [Loperamide] 1 cap PO ASDIR PRN 08/18/17 10/15/18 History Metoclopramide HCl [Reglan] 1 tab PO Q6HR PRN 08/18/17 10/15/18 History Ondansetron [Zofran ODT] 1 tab PO Q6HR PRN 08/18/17 10/15/18 History Polyethylene Glycol 3350 [Miralax] 17 gm PO DAILY PRN 08/18/17 10/15/18 History Simethicone 1 tab PO TID PRN 08/18/17 10/15/18 History cloNIDine HCl [cloNIDine HCl ER] 1 tab PO Q6HR PRN 08/18/17 10/15/18 History diphenhydrAMINE [Benadryl] 1 cap PO Q6HR PRN 08/18/17 10/15/18 History guaiFENesin [Guaifenesin] 10 ml PO Q4HR PRN 08/18/17 10/15/18 History Darbepoetin Igor in Polysorbat 60 mcg SC Q7D 11/21/17 10/15/18 History [Aranesp] Docusate [Colace] 100 mg PO BID PRN 11/21/17 10/15/18 History Insulin Regular [HumuLIN R] 5 unit SC TID-WM 11/21/17 10/15/18 History Clindamycin HCl 300 mg PO TID 10/15/18 10/15/18 History Cyanocobalamin (Vitamin B-12) 1,000 mcg PO DAILY 10/15/18 10/15/18 History [Vitamin B12] Gabapentin 200 mg PO QID 10/15/18 10/15/18 History Linagliptin [Tradjenta] 5 mg PO DAILY 10/15/18 10/15/18 History - History PMHx: HLD, ESRD, DM1, HTN PSHx: BKA Left, right big toe, dialysis, left knee, right shoulder, right arm/ left arm FHx: No family history of heart dx, lung cancer Social: Denies smoking, reports previous alcohol not current, denies drug us - Review of Systems General: reports: fever/chills, weight/appetite/sleep changes (Snoring), fatigue. denies: night sweats Eyes: denies: eye pain, vision changes ENT: denies: nasal congestion, rhinorrhea Respiratory: reports: other (Snores at night, never had a sleep study). denies : cough, congestion, shortness of breath Cardiovascular: reports: chest pain, edema. denies: palpitation Gastrointestinal: denies: nausea, vomiting, diarrhea, constipation Skin: reports: rashes, lesions (right lower extremity, he reports it is better than before) Musculoskeletal: reports: pain (left groin pain, similar to a muscle strain) Neurological: denies: numbness, syncope Psychological: denies: depression - Vital signs BP: 116/78 HR: 89 RR: 19 Tmax: 99.1 Pox: 95% on ra Wt: 165 kg - Physical Exam Constitutional: NAD, awake, alert and oriented, other (morbidly obese) HEENT: normocephalic and atraumatic, PERRLA, EOMI, conjunctiva clear, grossly normal hearing, MMM Neck: supple, FROM, trachea midline, no LAD Chest: no-tender to palpation, no lesions Heart: RRR, normal S1/S2, no murmurs/rubs/gallops Lungs: CTAB, no respiratory distress, no wheezing Abdomen: non-tender, bowel sounds present, no masses/distention, other ( enduration of lower panus with no ttp or erythemia) Musculoskeletal: normal structure, normal tone, ROM grossly normal Neurological: no focal deficit, CN II-XII intact Skin: good turgor Heme/Lymphatic: no unusual bruising or bleeding, no purpura Psychiatric: normal mood and affect, good judgment and insight FMR H&P: Results - Labs Result Diagrams: 12/18/18 20:57 12/18/18 20:57 Lab results: WBC 12.6 thou/uL (4.8-10.8) H 12/18/18 20:57 Hgb 10.2 g/dL (14.0-18.0) L 12/18/18 20:57 Hct 30.0 % (42.0-52.0) L 12/18/18 20:57 MCV 86.7 fL (78.0-98.0) 12/18/18 20:57 Plt Count 237 thou/uL (130-400) 12/18/18 20:57 Neutrophils % 88.2 % (42.0-75.0) H 12/18/18 20:57 Sodium 139 mmol/L (136-145) 12/18/18 20:57 Potassium 4.0 mmol/L (3.5-5.1) 12/18/18 20:57 Chloride 96 mmol/L (98-107) L 12/18/18 20:57 Carbon Dioxide 33 mmol/L (22-29) H 12/18/18 20:57 BUN 26 mg/dL (8.4-25.7) H 12/18/18 20:57 Creatinine 3.28 mg/dL (0.7-1.3) H 12/18/18 20:57 Glucose 135 mg/dL (70-105) H 12/18/18 20:57 Lactic Acid 2.1 mmol/L (0.5-2.2) 12/18/18 21:51 Calcium 9.6 mg/dL (7.8-10.44) 12/18/18 20:57 Total Bilirubin 0.8 mg/dL (0.2-1.2) 12/18/18 20:57 AST 17 U/L (5-34) 12/18/18 20:57 ALT 13 U/L (8-55) 12/18/18 20:57 Alkaline Phosphatase 87 U/L (40-150) 12/18/18 20:57 CK-MB (CK-2) 3.2 ng/mL (0-6.6) 12/18/18 20:57 Serum Total Protein 8.5 g/dL (6.0-8.3) H 12/18/18 20:57 Albumin 4.3 g/dL (3.5-5.0) 12/18/18 20:57 Lipase 79 U/L (8-78) H 12/18/18 20:57 - EKG Interpretation EKG: T wave inversions consistent with previous - Radiology Interpretation Chest x-ray Status: report reviewed by me (marked cardiomegaly and vascular congestion) FMR H&P: A/P - Plan his is a 53 yo male with a pmh of HLD, DM2, HTN, ESRD Atypical chest pain ACS R/O -Admit to tele obs -S/P aspirin -Initial troponin 0.035, trend x3 -CXR: Marked cardiomegaly and vascular congestion -Heart score of 5 -Stress test in the AM Fever likely 2/2 cellulitis of RLE -WBC 12.6 -Pending procal -UA pending -S/P vanc and zosyn in ED -Continue abx -Chronic infection vs venous stasis, consider punch biopsy outpt HTN -Continue home meds -Hold BB for stress test DM2 -Continue home meds -ACHS glu checks -moderate SSI ESRD -Consult High[facility] HLD -Continue home atorvastatin Undiagnosed FANTASMA -Consider outpt sleep study Code: full Prophylaxis: lovenox Family: none at bedside Diet: HH, NPO after midnight Fluids SL Disposition: DC in 1-2 days PCP: Dr. Jackman FMR H&P: Upper Level - Pertinent history Pt is a 53 y/o M with ESRD, DM2 presenting w chest pain. Sharp and substernal, but now resolved with morphine. Also describes associated fever. States he has not felt good, but no other pains. - Plan Date/Time: 12/18/18 2429 I, Daniel Salazar, have evaluated this patient and agree with findings/plan as outlined by campus interviews intern resident. Pertinent changes/additions are listed here. # Atypical chest pain ACS R/O - Heart Score 5, Stress in AM. Extensive RF's Initial trops and EKG unremarkable, but will trend. ASA given # Cellulitis of RLE - Continue Broad spectrum abx. Could be chronic changes seen , but significant area or warmth and erythema. Pending UA as another source of fever; Negative CXR. # HTN - No acute issues, will resume home medications # DM2 - Continue home insulin and monitor closely # ESRD -Consult [facility] for HD # HLD -Continue home atorvastatin # Hx/o CVA- Continue ASA/Statin. No acute deficits. # Probably FANTASMA-Recommend outpt sleep study
[2018-12-19] MEDS ORDERED: Acetaminophen 650 MG Suppository PR PRN (01:29)
[2018-12-19] MEDS ORDERED: Ondansetron ODT 4 MG TAB PO PRN ×2 (01:29→05:35)
[2018-12-19] MEDS ORDERED: Dextrose 50% Abboject 50 ML SYRINGE SLOW IVP PRN (01:29)
[2018-12-19] MEDS ORDERED: Dextrose 5% in Water 1,000 ML IV PRN (01:29)
[2018-12-19] MEDS ORDERED: Nitroglycerin 0.4 MG TAB (25 Tab Bottle) PO PRN (01:29)
[2018-12-19] MEDS ORDERED: Acetaminophen 325 MG TAB PO PRN ×2 (01:29→05:35)
[2018-12-19] MEDS ORDERED: HumaLOG 300 UNITS/3 ML VIAL SC PRN ×2 (01:29)
[2018-12-19 01:50] VITALS: BMI 42.6
[2018-12-19 02:15] LABS: #Eosinphils 0.1 thou/uL (0.0-0.7); #Lymphocytes 0.8 thou/uL (1.20-3.40); #Monocytes 1.3 thou/uL (0.11-0.59); #Neutrophils 9.2 thou/uL (1.40-6.50); %Basophils 0.4 % (0.0-1.0); %Eosinophils 0.5 % (0.0-10.0); %Lymphocytes 7.3 % (21.0-51.0); %Monocytes 11.6 % (0.0-10.0); %Neutrophils 80.2 % (42.0-75.0); Hemoglobin 9.2 g/dL (14.0-18.0); Mean Corpuscular Hemoglobin 28.9 pg (27.0-31.0); Mean Corpuscular Volume 87.5 fL (78.0-98.0); Mean Platelet Volume 7.7 fL (7.4-10.4); Platelet Count 203 thou/uL (130-400); RBC Distribution Width 13.8 % (11.5-14.5); Red Blood Cell (RBC) Count 3.18 mill/uL (4.70-6.10); White Blood Cell (WBC) Count 11.4 thou/uL (4.8-10.8)
[2018-12-19 02:30] LABS: Lactic Acid 1.6 mmol/L (0.5-2.2)
[2018-12-19 02:49] LABS: Anion Gap 13 mmol/L (10-20); BUN (Urea Nitrogen) 29 mg/dL (8.4-25.7); Calc. Creatinine Clearance 48 mL/min (70-130); Calcium 8.9 mg/dL (7.8-10.44); Carbon Dioxide 32 mmol/L (22-29); Cardiac Risk 6.5 (Less than 4.5); Chloride 97 mmol/L (98-107); Cholesterol 123 mg/dl (< 200 Desired); Estimated GFR-MDRD 16; Glucose 144 mg/dL (70-105); HDL Cholesterol 19 mg/dL (>60 Neg Risk); LDL Cholesterol, Calculated 72 mg/dL; Potassium 4.1 mmol/L (3.5-5.1); Sodium 138 mmol/L (136-145); Triglycerides 161 mg/dL (Less than 150)
[2018-12-19] MEDS ORDERED: Loperamide HCl 2 MG CAP PO PRN (05:35)
[2018-12-19] MEDS ORDERED: Docusate 100 MG CAP PO PRN (05:35)
[2018-12-19] MEDS ORDERED: Cepastat Lozenges 1 LOZ PO PRN (05:35)
[2018-12-19] MEDS ORDERED: CLONIDINE HCL PO PRN (05:35)
[2018-12-19] MEDS ORDERED: Simethicone Chewable 80 MG TAB PO PRN (05:35)
[2018-12-19] MEDS ORDERED: Acetaminophen 500 MG TAB PO PRN (05:35)
[2018-12-19] MEDS ORDERED: Polyethylene Glycol 3350 17 GM Packet PO PRN (05:35)
[2018-12-19] MEDS ORDERED: diphenhydrAMINE 25 MG CAP PO PRN (05:35)
[2018-12-19] MEDS ORDERED: Diabetic Tussin 200 MG/10 ML UDCUP PO PRN (05:35)
[2018-12-19] MEDS ORDERED: Metoclopramide HCl 10 MG TAB PO PRN (05:35)
[2018-12-19] MEDS ORDERED: DARBEPOETIN ALFA IN POLYSORBAT 60 MCG SC SCH (05:45)
[2018-12-19] MEDS ORDERED: Gabapentin 100 MG CAP PO SCH (05:45)
[2018-12-19] MEDS ORDERED: traMADol HCl 50 MG TAB PO SCH (05:45)
[2018-12-19] MEDS ORDERED: Piperacillin/Tazobactam 2.25 GM in Sodium Chloride 0.9% 100 ML IVPB SCH (06:00)
[2018-12-19] MEDS ORDERED: Non-Formulary Item 1 EACH (Insulin Detemir 100 Units/Ml [Levemir] 80 UNIT) SQ SCH (09:00)
--- NOTE | 2018-12-19 10:46 | PQF ---
CLINICAL DOCUMENTATION IMPROVEMENT CLARIFICATION FORM: ICD-10 Updated PLEASE DO AN ADDENDUM TO THE PROGRESS NOTE WITH ANY DOCUMENTATION UPDATES OR ADDITIONS AND CARRY THROUGH TO DC SUMMARY. THANK YOU. DATE: 12/20/18 ATTN : DR. HUANG Please exercise your independent, professional judgment in responding to the clarification form. Clinical indicators are provided on the bottom of this form for your review Please check appropriate box(s) to clarify if the following diagnosis has been ruled in or ruled out: "SEPSIS" [ ] Ruled in diagnosis [ ] Continue to treat [ ] Resolved [ x ] Ruled out diagnosis [ ] Cannot rule out diagnosis [ ] Other diagnosis [ ] Unable to determine In addition, please specify: Present on Admission (POA): [ ] Yes [ x] No [ ] Unable to determine For continuity of documentation, please document condition throughout progress notes and discharge summary. Thank You. CLINICAL INDICATORS - SIGNS / SYMPTOMS / LABS ER NOTE: "SEPSIS" TEMP 102.2 WBC 12.6 RISKS: CELLULITIS RLE DIABETES TREATMENT: IV VANCOMYCIN (ER) IV ZOSYN (ER-PRESENT) IV FLUIDS (ER) BLOOD CULTURES (This form is maintained as a part of the permanent medical record) [employer] Win[employer] Viewer 2015 [employer]. All Rights Reserved [email or web address] Office: [phone] SANDRINE
[2018-12-19] MEDS: Insulin Regular 300 UNITS/3 ML VIAL SC SCH ×3 (11:11→19:10)
[2018-12-19] MEDS: Amlodipine 5 MG TAB PO SCH ×2 (11:11→20:50)
[2018-12-19] MEDS: Alogliptin 6.25 MG TAB PO SCH (11:11)
[2018-12-19] MEDS: Insulin Glargine 80 UNITS in Pre-Filled Syringe SC SCH ×3 (11:12→20:50)
[2018-12-19] MEDS: Gabapentin 100 MG CAP PO SCH ×4 (11:12→20:50)
[2018-12-19] MEDS: Atorvastatin Calcium 40 MG TAB PO SCH (11:12)
[2018-12-19] MEDS: Famotidine 20 MG TAB PO SCH (11:12)
[2018-12-19] MEDS: hydrALAZINE 25 MG TAB PO SCH ×3 (11:12→20:50)
--- NOTE | 2018-12-19 11:42 | HP ---
HISTORY OF PRESENT ILLNESS: I have discussed the case with Dr. Beck Blount. I have examined the patient. I agree with Dr. Blount's assessment and plan. Mr. Brown is a 53-year-old man on end-stage renal disease, dialysis. He had some chest discomfort like "someone was sitting on my chest." He has had this pain for the last 8 hours prior to admission. He is admitted for evaluation and cardiology evaluation. PHYSICAL EXAMINATION: VITAL SIGNS: On exam, his blood pressure is 116/78, heart rate 90, respirations 19, temperature 99.1, room air pulse ox 95%. GENERAL: He is awake, alert, no distress. CARDIAC: Heart rhythm regular. No gallop or murmur. LUNGS: Breath sound diminished, but clear. No rales or wheezes noted. ABDOMEN: Very obese, but flat. No guarding, rebound, or rigidity. EXTREMITIES: Possible mild cellulitis versus stasis dermatitis, right lower extremity. Neurologic: No focal deficits. LABORATORY DATA: White count initially 12,600, hemoglobin 10.2, hematocrit 30 with an MCV of 86.7. His chemistries; sodium is 138, potassium 4.1, chloride 97, bicarb 32, BUN 29, creatinine 3.83. Troponin initially was 0.035. Others pending. ASSESSMENT: Chest pain. PLAN: Admit for stress testing. Job ID: [id number]
[2018-12-19 12:50] LABS: Hep C IgG Ab Non-Reactive (NonReactive)
[2018-12-19] MEDS: traMADol HCl 50 MG TAB PO PRN (12:59)
[2018-12-19] MEDS: Clindamycin 150 MG CAP PO SCH ×3 (12:59→20:52)
[2018-12-19] MEDS ORDERED: Regadenoson 0.4 MG/5 ML SYRINGE ONE (16:06)
[2018-12-19] MEDS ORDERED: EPOETIN ALFA-EPBX (ESRD) 10,000 UNIT/ML VIAL IVP SCH (16:30)
--- NOTE | 2018-12-19 19:48 | CON ---
DATE OF CONSULTATION: 12/19/2018 CONSULTING PHYSICIAN: Dr. Yates. REASON FOR CONSULTATION: End-stage renal disease evaluation. REASON FOR ADMISSION: Chest pain. HISTORY OF PRESENT ILLNESS: A 53-year-old male with history of end-stage renal disease, hypertension, and type 2 diabetes, came to the hospital. Chest pain has been evaluated. Nephrology consulted, on maintenance dialysis. The patient gets dialysis Monday, , and Monday and due for dialysis tomorrow. The patient is feeling better chest pain barboza and is complaining of right hip pain. The patient is noncompliant with fluid restriction and dialysis, and brings increased amount of fluid each time with huge weight gains. No nausea or vomiting. No palpitation. No abdominal pain. No problem with urination. No skin rash. No fever or chills reported. PAST MEDICAL HISTORY: Positive for end-stage renal disease on hemodialysis Monday, , and Monday; diabetes, hyperlipidemia, and hypertension. PAST SURGICAL HISTORY: Amputation, dialysis access placement, and right shoulder surgery. HOME MEDICATIONS: Include, 1. Atorvastatin. 2. Metoprolol. 3. Amlodipine. 4. Insulin. 5. Hydralazine. 6. Calcium carbonate. 7. Loperamide. 8. Reglan. 9. MiraLAX. 10. Clonidine. 11. Clindamycin. ALLERGIES: NO KNOWN DRUG ALLERGIES. SOCIAL HISTORY: No smoking, alcohol, or illicit drug use. FAMILY HISTORY: No history of any kidney disease. REVIEW OF SYSTEMS: CONSTITUTIONAL: Negative for weight loss or gain, ability to conduct usual activities. SKIN: Negative for rash, itching. EYES: Negative for double vision, pain. ENT/MOUTH: Negative for nose bleeding, neck stiffness, pain, tenderness. CARDIOVASCULAR: Negative for palpitations, dyspnea on exertion, orthopnea. RESPIRATORY: Negative for shortness of breath, wheezing, cough, hemoptysis, fever or night sweats. GASTROINTESTINAL: Negative for poor appetite, abdominal pain, heartburn, nausea, vomiting, constipation, or diarrhea. GENITOURINARY: Negative for urgency, frequency, dysuria, nocturia. MUSCULOSKELETAL: Negative for pain, swelling. NEUROLOGIC/PSYCHIATRIC: Negative for anxiety, depression. ALLERGY/IMMUNOLOGIC: Negative for skin rash, bleeding tendency. PHYSICAL EXAMINATION: GENERAL: This is an obese male, in no apparent distress. VITAL SIGNS: Temperature 98.6, pulse 68, respiratory rate 20, and blood pressure 134/69. HEENT: Atraumatic and normocephalic. Oral mucosa is moist. NECK: Supple. CV: S1 and S2 heard. Rate and rhythm regular. RESPIRATORY: Clear. GI: Abdomen is soft. MUSCULOSKELETAL: 1+ edema. DERMATOLOGIC: No skin rash. NEUROLOGIC: Alert and awake. PSYCHIATRIC: Normal mood and affect. LABORATORY DATA: Hemoglobin is 9.2. Potassium 4.1, BUN is 29, and creatinine is 3.8. ASSESSMENT AND PLAN: 1. End-stage renal disease. Continue on dialysis as tolerated. 2. Edema, controlled. 3. Hypertension. 4. Anemia. 5. Morbid obesity. Plan to continue on dialysis as tolerated. Thank you for the consult. Job ID: [id number]
[2018-12-19] MEDS: Acetaminophen 500 MG TAB PO SCH ×2 (19:57→20:52)
[2018-12-20] MEDS: traMADol HCl 50 MG TAB PO PRN ×2 (02:17→12:30)
[2018-12-20] MEDS: Clindamycin 150 MG CAP PO SCH ×2 (06:09→12:31)
[2018-12-20] MEDS: Acetaminophen 500 MG TAB PO SCH ×2 (06:09→12:31)
--- NOTE | 2018-12-20 08:49 | PRG ---
DATE OF SERVICE: 12/20/2018 SUBJECTIVE: Patient was seen and examined at bedside and overnight events noted. Patient denies any shortness of breath or chest pain or palpitation. No history of nausea or vomiting or diarrhea or fever or chills or cramps. OBJECTIVE: GENERAL: This is a morbidly obese male in no apparent distress. VITAL SIGNS: Temperature 98.9. Pulse 71. Respiratory rate 18. Blood pressure 138/63. HEENT: Atraumatic, normocephalic. Oral mucosa is moist NECK: Supple. CARDIOVASCULAR: S1, S2 heard. Rate and rhythm regular. RESPIRATORY: Clear to auscultation. GASTROINTESTINAL: Abdomen is soft. MUSCULOSKELETAL: No tenderness. No edema. DERMATOLOGIC: No skin rash. NEUROLOGIC: Alert and awake and oriented X3. No focal neurologic deficits. Moving all the extremities. PSYCHIATRIC: Mood and affect normal. LABORATORY DATA: None done today. ASSESSMENT AND PLAN: 1. End-stage renal disease. Continue on dialysis. We will have dialysis . 2. Edema, controlled. 3. Hypertension, stable. 4. Anemia. We will monitor. 5. Morbid obesity. 6. Plan to continue dialysis today and TTS as tolerated. Job ID: [id number]
--- NOTE | 2018-12-20 08:57 | PDOC.FM ---
- Subjective Subjective: Pt reports feeling well, no concerns or complaints. He feels ready for dialysis today and his stress test. - Objective Vital Signs & Weight: Vital Signs (12 hours) Temp Pulse Resp BP BP Pulse Ox 12/20/18 07:34 98.9 F 71 18 123/58 L 95 12/20/18 03:58 98.7 F 72 18 138/63 95 Weight Weight 154.845 kg I&O: 12/19/18 12/20/18 12/21/18 06:59 06:59 06:59 Intake Total 100 640 Output Total 0 880 Balance 100 -240 Result Diagrams: 12/19/18 01:59 12/19/18 01:59 Phys Exam - Physical Examination Constitutional: NAD HEENT: moist MMs, sclera anicteric Neck: supple, full ROM Respiratory: no wheezing, clear to auscultation bilateral Cardiovascular: RRR, no significant murmur Gastrointestinal: soft, positive bowel sounds Musculoskeletal: pulses present Neurological: normal sensation Psychiatric: normal affect Skin: normal turgor Deviation from normal: RLE: erythema improved markedly Dx/Plan (1) ESRD (end stage renal disease) on dialysis Code(s): N18.6 - END STAGE RENAL DISEASE; Z99.2 - DEPENDENCE ON RENAL DIALYSIS Status: Acute (2) Chest pain Code(s): R07.9 - CHEST PAIN, UNSPECIFIED Status: Acute (3) DM type 2 (diabetes mellitus, type 2) Status: Chronic (4) Diabetic nephropathy Status: Chronic (5) Morbid obesity with BMI of 40.0-44.9, adult Code(s): E66.01 - MORBID (SEVERE) OBESITY DUE TO EXCESS CALORIES; Z68.41 - BODY MASS INDEX (BMI) 40.0-44.9, ADULT Status: Chronic - Plan Plan: Typical chest pain likely 2/2 MSK A- pt has multiple complaints of muskuloskeletal pain. trops neg x3. CXR shows no reasons for acute pain, heart score 5. Echo unconcerning. P- continue ASA -stress test today -monitor for recurrence of pain -possible DC after stress Fever likely 2/2 cellulitis of RLE A- WBC 12.6, Pt on clinda since 12/19. S/P vanc and zosyn in ED. Likely some component of stasis involved. 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
--- NOTE | 2018-12-20 09:09 | STRESS ---
Acquisition Time: 2018-12-19 12:16:17 Total Exercise Time: 00:01:00 Test Indications: CHEST PAIN Medications: Protocol: LEXISCAN Max HR: 081 BPM 49% of Pred: 165 BPM Max BP: 156/096 mmHG Max Work Load: 1.0 METS RESTING ECG: NORMAL SINUS RHYTHM AT 71 BPM SYMTPOMS: NONE NORMAL BP RESPONSE ECTOPY: NONE ECG STRESS: NO SIGNIFICANT CHANGES INTERPRETATION: NEGATIVE ECG/AWAIT NUCLEAR IMAGES FOR DEFINITIVE DIAGNOSIS Confirmed by FABY ADAMS ([id number]), web editor ABISAI AMBROSE ([id number]) on 12/20/2018 9:08:48 AM Referred By: DO Eliseo MENDIOLA Confirmed By:FABY ADAMS
[2018-12-20] MEDS ORDERED: Aspirin 81 mg Enteric Coated Tablet PO SCH (10:15)
[2018-12-20] MEDS ORDERED: Heparin 1,000 UNITS/ML VIAL ONE (11:11)
--- NOTE | 2018-12-20 12:21 | PRG ---
DATE OF SERVICE: Mr. Brown is in dialysis, in no distress other than complaining of his bilateral hip pain, which is chronic. He had the pharmaceutical stress part of his heart workup today, but the nuclear study is still pending. We will await these results if he is willing to participate in obtaining them. He states that he cannot sit on a flat table because of his hip pains and may not get the nuclear portion done. Job ID: [id number]
[2018-12-20] MEDS: Alogliptin 6.25 MG TAB PO SCH (12:32)
[2018-12-20] MEDS: Atorvastatin Calcium 40 MG TAB PO SCH (12:32)
[2018-12-20] MEDS: Famotidine 20 MG TAB PO SCH (12:33)
[2018-12-20] MEDS: Gabapentin 100 MG CAP PO SCH ×2 (12:36→14:25)
[2018-12-20] MEDS: Insulin Regular 300 UNITS/3 ML VIAL SC SCH ×2 (12:40→14:47)
[2018-12-20] MEDS: Amlodipine 5 MG TAB PO SCH (12:40)
[2018-12-20] MEDS: hydrALAZINE 25 MG TAB PO SCH ×2 (12:41→15:20)
[2018-12-20] MEDS: Insulin Glargine 80 UNITS in Pre-Filled Syringe SC SCH ×2 (12:41→15:20)
[2018-12-20] MEDS ORDERED: Heparin 5,000 UNITS/ML VIAL SC SCH (15:00)
[2018-12-20 15:45] VITALS: BP 164/83; TEMP 98.2
[2018-12-21] MEDS ORDERED: Aspirin 81 mg Enteric Coated Tablet PO SCH (09:00)
--- NOTE | 2018-12-21 10:54 | DIS ---
DATE OF ADMISSION: 12/19/2018 DATE OF DISCHARGE: 12/20/2018 RESIDENT: Dr. Dean Melendez. CONSULT: Nephrology, Dr. Waterman. PROCEDURES PERFORMED: 1. Dialysis. 2. On 12/18/2018 chest x-ray, impression marked cardiomegaly and vascular congestion. 3. Stress test refused. PRIMARY DIAGNOSIS: Atypical chest pain likely secondary to musculoskeletal etiology. SECONDARY DIAGNOSES: 1. Fever secondary to cellulitis on venous stasis of right lower extremity. 2. Hypertension. 3. Type 2 diabetes. 4. End-stage renal disease. 5. Hyperlipidemia. DISCHARGE MEDICATIONS: 1. Atorvastatin 80 mg p.o. daily. 2. Pantoprazole 20 mg p.o. daily. 3. Hydralazine 50 mg p.o. t.i.d. 4. Amlodipine 5 mg p.o. b.i.d. 5. Insulin detemir subcu t.i.d. 6. Tums 1 to 2 tabs p.o. q.6 hours p.r.n. 7. Reglan 1 tab p.o. q.6 hours p.r.n. 8. Simethicone one tab p.o. t.i.d. p.r.n. 9. Loperamide one cap p.o. p.r.n. as directed. 10. Zofran 1 tab p.o. q.6 hours p.r.n. 11. Guaifenesin 10 mL p.o. q.4 hours p.r.n. 12. Benadryl 1 cap p.o. q.6 hours p.r.n. 13. Tylenol 2 tabs q.4 hours p.r.n. 14. Clonidine 0.1 mg ER 12 hours one tab p.o. q.6 hours p.r.n. 15. MiraLAX 17 g packet p.o. daily p.r.n. 16. Insulin Humulin 5 units subcutaneous t.i.d. with meals. 17. Darbepoetin 60 mcg subcu every seven days. 18. Colace 100 mg p.o. b.i.d. p.r.n. 19. Gabapentin 200 mg p.o. q.i.d. 20. Linagliptin 5 mg p.o. daily. 21. Tramadol 50 mg p.o. q.i.d. p.r.n. 22. Metoprolol 25 mg p.o. b.i.d. 23. Clindamycin 300 mg p.o. q.6 hours for seven days. 24. Aspirin 81 mg p.o. daily. DISCONTINUED MEDICATIONS: None. HISTORY OF PRESENT ILLNESS/HOSPITAL COURSE: This is a 53-year-old male with history of end-stage renal disease on dialysis, who presented with atypical chest pain. It was likely secondary to musculoskeletal reasons but was admitted for chest pain rule out because of HeartScore of 5. Troponins were negative. Meanwhile, the patient complained of musculoskeletal hip pain being his chief complaint. The patient did receive dialysis and when brought to get stress test, the patient refused stress test. I think that it would be too painful to lay on the table even though it was a pharmacologic stress test and it was explained that he would not have to exercise and could be given pain medications prior to stress test. The patient still refused and stated that he wanted to go home. Despite risks, risk of such discharge were explained to the patient in detail, and the patient verbalized understanding still expressing desire to leave. Of note, the patient also had fever in the ER and was noted to have some erythema on right lower extremity. The patient had exam mostly consistent with stasis dermatitis, but it was thought that the patient also had some overlying cellulitis. The patient was started on clindamycin and showed some improvement. The patient also received vancomycin and Zosyn in the ED. The patient was eventually discharged with clindamycin. All other chronic medical problems were controlled with home medications as listed above. DISCHARGE CONDITION: Stable. DISCHARGE INSTRUCTIONS: Location: Home. Activity: As tolerated. Diet: Healthy heart renal diet. FOLLOWUP VISITS: Follow up with Dr. Jackman, Dr. Waterman, and with dialysis. Job ID: [id number]
== END 2018-12-20 17:14 | disposition home or self-care (01) ==
LOC: ERS 20:38 → 2NO 12-19 01:05 → INTOOBSV 12-19 01:05
PROVIDERS: ADMIT Student in an Organized Health Care Education/Training Program; ATTEND Student in an Organized Health Care Education/Training Program
DX: R07.89 Other chest pain (principal); L03.115 Cellulitis of right lower limb; I12.0 Hypertensive chronic kidney disease with stage 5 chronic kidney disease or end stage renal disease; E11.22 Type 2 diabetes mellitus with diabetic chronic kidney disease; N18.6 End stage renal disease; D63.1 Anemia in chronic kidney disease; E78.5 Hyperlipidemia, unspecified; E11.21 Type 2 diabetes mellitus with diabetic nephropathy; E66.01 Morbid (severe) obesity due to excess calories; Z86.73 Personal history of transient ischemic attack (TIA), and cerebral infarction without residual deficits; Z68.41 Body mass index [BMI] 40.0-44.9, adult; Z79.4 Long term (current) use of insulin; Z79.899 Other long term (current) drug therapy; Z99.2 Dependence on renal dialysis
CPT/HCPCS: 71045; 78452; 80048; 80053; 80061; 82553 ×2; 82962 ×2; 83605 ×2; 83690; 83880; 84145; 84484 ×3; 85025 ×2; 86803; 87040; 93005; 93017; 93306; 96365; 96366; 96367; 96375; 99285; A9500; G0378; 36415; 36416; 90935; G0257; J1644; J1815; J1825; J2270; J2543; J2785; J3370; J3490; Q0162

== ENCOUNTER 2018-12-23 11:13 | Emergency (ER) | payer MEDICARE, MEDICAID ==
--- NOTE | 2018-12-23 11:59 | RAD ---
EXAM: Single view of the chest HISTORY: Fever COMPARISON: 12/18/2018 FINDINGS: Single view of the chest shows an enlarged but stable cardiomediastinal silhouette. There i s no evidence of consolidation, mass, or pleural effusion. The bones are unremarkable. IMPRESSION: Cardiomegaly
[2018-12-23 12:05] LABS: #Basophils 0.1 thou/uL (0.0-0.2); #Eosinphils 0.1 thou/uL (0.0-0.7); #Lymphocytes 1.1 thou/uL (1.20-3.40); #Monocytes 1.3 thou/uL (0.11-0.59); #Neutrophils 9.5 thou/uL (1.40-6.50); %Basophils 0.7 % (0.0-1.0); %Eosinophils 0.9 % (0.0-10.0); %Lymphocytes 9.1 % (21.0-51.0); %Monocytes 10.4 % (0.0-10.0); Hemoglobin 9.2 g/dL (14.0-18.0); Mean Corpuscular HGB CONC 33.5 g/dL (32.0-36.0); Mean Corpuscular Hemoglobin 29.7 pg (27.0-31.0); Mean Corpuscular Volume 88.7 fL (78.0-98.0); Mean Platelet Volume 7.8 fL (7.4-10.4); Platelet Count 247 thou/uL (130-400); RBC Distribution Width 13.6 % (11.5-14.5); Red Blood Cell (RBC) Count 3.09 mill/uL (4.70-6.10)
[2018-12-23 12:23] LABS: ALT (SGPT) 31 U/L (8-55); AST (SGOT) 39 U/L (5-34); Albumin 3.6 g/dL (3.5-5.0); Alkaline Phosphatase 102 U/L (40-150); Anion Gap 18 mmol/L (10-20); BUN (Urea Nitrogen) 43 mg/dL (8.4-25.7); Bilirubin, Total 1.1 mg/dL (0.2-1.2); Calc. Creatinine Clearance 0 mL/min (70-130); Calcium 9.2 mg/dL (7.8-10.44); Carbon Dioxide 29 mmol/L (22-29); Chloride 96 mmol/L (98-107); Estimated GFR-MDRD 11; Globulin 4.2 g/dL (2.4-3.5); Glucose 96 mg/dL (70-105); Potassium 4.1 mmol/L (3.5-5.1); Protein, Total 7.8 g/dL (6.0-8.3); Sodium 139 mmol/L (136-145)
[2018-12-23] MEDS ORDERED: cefTRIAXone\\ROCEPHIN 1 GM VIAL ONE (12:29)
[2018-12-23] MEDS ORDERED: Acetaminophen 500 MG TAB ONE (12:56)
[2018-12-23] MEDS ORDERED: traMADol HCl 50 MG TAB ONE (12:56)
[2018-12-23 13:26] LABS: Bilirubin Small (Negative); Blood, Urine Negative (Negative); Clarity CLOUDY (Clear); Glucose, Urine (Dipstick) Negative (Negative); Leukocyte Trace (Negative); Nitrite Negative (Negative); Protein, Urine (Dipstick) 30 mg/dL (Neg-Trace); Specific Gravity, Urine 1.023 (1.002-1.036); Urobilinogen 0.2 mg/dL (0.2-1.0)
[2018-12-23 13:27] LABS: Bacteria/HPF None Seen HPF (None Seen)
[2018-12-23 13:28] LABS: Pathc Cast-AUWi Flag 7.75 (0-2.49)
[2018-12-23 13:45] LABS: Hyaline Casts/LPF 4-6 HYALINE CAST LPF (0-3 Hyaline); Squamous Epithelial 0-3 HPF (0-3)
== END 2018-12-23 15:55 ==
LOC: ERS 11:13
DX: I12.0 Hypertensive chronic kidney disease with stage 5 chronic kidney disease or end stage renal disease (principal); N18.6 End stage renal disease; E11.22 Type 2 diabetes mellitus with diabetic chronic kidney disease; Z79.4 Long term (current) use of insulin
CPT/HCPCS: 36415; 71045; 80053; 81003; 81015; 83605; 85025; 87040; 87086; 87804; 96365; C1776; J0696

== ENCOUNTER 2019-01-01 11:02 | Inpatient (IN) | payer MEDICARE, MEDICAID ==
--- NOTE | 2019-01-01 11:48 | RAD ---
Exam: Chest one view HISTORY:Dyspnea. Shortness of breath x3 days. Patient missed dialysis. Comparison: 12/23/2018 FINDINGS: Cardiac silhouette:Markedly enlarged cardiac silhouette. Pulmonary vessels: Normal Costophrenic angles: Obscuration the left hemidiaphragm due to pleural and parenchymal changes. LUNGS: Opacification in the left lung base. Pneumothorax: None Osseous abnormalities: None IMPRESSION: 1. Cardiomegaly. Opacification of the left lung base which may be due to pleural effusion with superi mposed atelectasis, pneumonia or aspiration.
[2019-01-01 12:06] LABS: #Basophils 0.1 thou/uL (0.0-0.2); #Eosinphils 0.1 thou/uL (0.0-0.7); #Lymphocytes 0.7 thou/uL (1.20-3.40); #Monocytes 1.1 thou/uL (0.11-0.59); #Neutrophils 13.1 thou/uL (1.40-6.50); %Basophils 0.8 % (0.0-1.0); %Eosinophils 0.8 % (0.0-10.0); %Lymphocytes 4.8 % (21.0-51.0); %Monocytes 7.2 % (0.0-10.0); %Neutrophils 86.4 % (42.0-75.0); Hemoglobin 9.5 g/dL (14.0-18.0); Mean Corpuscular HGB CONC 34.1 g/dL (32.0-36.0); Mean Corpuscular Hemoglobin 29.7 pg (27.0-31.0); Mean Corpuscular Volume 87.1 fL (78.0-98.0); Mean Platelet Volume 7.2 fL (7.4-10.4); Platelet Count 412 thou/uL (130-400); RBC Distribution Width 14.9 % (11.5-14.5); Red Blood Cell (RBC) Count 3.19 mill/uL (4.70-6.10); White Blood Cell (WBC) Count 15.2 thou/uL (4.8-10.8)
[2019-01-01 12:39] LABS: ALT (SGPT) 32 U/L (8-55); AST (SGOT) 30 U/L (5-34); Albumin 3.5 g/dL (3.5-5.0); Alkaline Phosphatase 125 U/L (40-150); Anion Gap 21 mmol/L (10-20); BUN (Urea Nitrogen) 92 mg/dL (8.4-25.7); Bilirubin, Total 1.1 mg/dL (0.2-1.2); Calc. Creatinine Clearance 0 mL/min (70-130); Calcium 8.5 mg/dL (7.8-10.44); Carbon Dioxide 24 mmol/L (22-29); Chloride 92 mmol/L (98-107); Estimated GFR-MDRD 6; Globulin 3.8 g/dL (2.4-3.5); Glucose 128 mg/dL (70-105); Magnesium 2.4 mg/dL (1.6-2.6); Potassium 4.5 mmol/L (3.5-5.1); Protein, Total 7.3 g/dL (6.0-8.3); Sodium 132 mmol/L (136-145)
[2019-01-01] MEDS ORDERED: Azithromycin 500 MG VIAL ONE ×2 (12:43→13:26)
[2019-01-01] MEDS ORDERED: Aspirin Chewable 81 MG TAB ONE (12:43)
[2019-01-01] MEDS ORDERED: cefTRIAXone\\ROCEPHIN 2 GM VIAL ONE ×2 (12:44→12:46)
--- NOTE | 2019-01-01 12:57 | PDOC.FPRHP ---
- History of Present Illness Chief Complaint: SOB History of Present Illness: 53 yo M [place] resident with ESRD on HD comes in for SOB past 3 days. Is TTR HD, last session Monday. Has been having SOB the past 3 days, associated with dry cough. Denies fevers, chills. Endorses fluid/diet compliance. Denies chest pain , no lower extremity swelling worse than normal. Of note, patient has left BKA and chronic venous stasis of RLE. In the ER, he was found to be hypoxic at 85% and put on 4L NC. He was given was 1L NS, rocephin and azithromycin, ASA. Dr. Waterman was consulted who plans urgent dialysis. - Allergies/Adverse Reactions Allergies Allergy/AdvReac Type Severity Reaction Status Date / Time No Known Allergies Allergy Verified 01/01/19 14:55 - Home Medications Medication Instructions Recorded Confirmed Type Atorvastatin Calcium [Lipitor] 80 mg PO DAILY 11/27/16 12/19/18 History Amlodipine Besylate [amLODIPine 5 mg PO BID 05/19/17 12/19/18 History Besylate] Insulin Detemir 100 UNITS/ML 80 unit SQ TID 05/19/17 12/19/18 History [Levemir] Pantoprazole [Protonix] 20 mg PO DAILY-AC 05/19/17 12/19/18 History hydrALAZINE HCl [Hydralazine HCl] 50 mg PO TID 05/19/17 12/19/18 History Acetaminophen [Tylenol Regular 2 tab PO Q4HR PRN 08/18/17 12/19/18 History Strength] Benzocaine/Menthol [Cepacol Sore 1 shanti PO BID PRN 08/18/17 12/19/18 History Throat Lozenge] Calcium Carbonate [Tums] 1 - 2 tab PO Q6HR PRN 08/18/17 12/19/18 History Loperamide HCl [Loperamide] 1 cap PO ASDIR PRN 08/18/17 12/19/18 History Metoclopramide HCl [Reglan] 1 tab PO Q6HR PRN 08/18/17 12/19/18 History Ondansetron [Zofran ODT] 1 tab PO Q6HR PRN 08/18/17 12/19/18 History Polyethylene Glycol 3350 [Miralax] 17 gm PO DAILY PRN 08/18/17 12/19/18 History Simethicone 1 tab PO TID PRN 08/18/17 12/19/18 History cloNIDine HCl [cloNIDine HCl ER] 1 tab PO Q6HR PRN 08/18/17 12/19/18 History diphenhydrAMINE [Benadryl] 1 cap PO Q6HR PRN 08/18/17 12/19/18 History guaiFENesin [Guaifenesin] 10 ml PO Q4HR PRN 08/18/17 12/19/18 History Darbepoetin Igor in Polysorbat 60 mcg SC Q7D 11/21/17 12/19/18 History [Aranesp] Docusate [Colace] 100 mg PO BID PRN 11/21/17 12/19/18 History Insulin Regular [HumuLIN R Vial] 5 unit SC TID-WM 11/21/17 12/19/18 History Gabapentin 200 mg PO QID 10/15/18 12/19/18 History Linagliptin [Tradjenta] 5 mg PO DAILY 10/15/18 12/19/18 History Acetaminophen [Tylenol Extra 500 mg PO QID PRN 12/19/18 12/19/18 History Strength] Metoprolol Tartrate 25 mg PO BID 12/19/18 12/19/18 History traMADol HCl [Tramadol HCl] 50 mg PO QID PRN 12/19/18 12/19/18 History Aspirin [Ecotrin Low Strength] 81 mg PO DAILY #14 tab 12/20/18 Rx Clindamycin [Cleocin] 300 mg PO 0030,0630,1230,1830 7 12/20/18 Rx Days #28 cap - History PMHx: HLD, ESRD on TTR HD, DM1, HTN PSHx: BKA left, right big toe, ESRD on HD, left knee, right shoulder, right arm /left arm FHx: No fam hx of heart dz, lung cancer Social: Denies smoking, previous alcohol use, kelly drug use - Review of Systems General: denies: fever/chills, weight/appetite/sleep changes ENT: denies: nasal congestion Respiratory: reports: cough, shortness of breath Cardiovascular: reports: orthopnea. denies: chest pain, palpitation, edema Gastrointestinal: denies: nausea, vomiting, diarrhea, GI bleeding Genitourinary: denies: dysuria Skin: reports: rashes. denies: lesions, jaundice Musculoskeletal: denies: pain, tenderness, swelling Neurological: denies: syncope Psychological: denies: anxiety, depression - Vital signs BP: 121/78, Pulse: 66, Resp: 20, Temp: 98.2 (Oral), Pain: 0, O2 sat: 93 on 4L Oxygen, Time: 01/01/2019 13:36. - Physical Exam Constitutional: awake, alert and oriented -Constitutional: obese, mild distress from breathing HEENT: normocephalic and atraumatic, PERRLA, EOMI, no scleral icterus Neck: supple, FROM Chest: no-tender to palpation Heart: RRR, normal S1/S2 Lungs: good air movement -Lungs: dec left lower lobe sounds inspiratory crackles b/l Abdomen: soft, non-tender Musculoskeletal: normal structure, normal tone, ROM grossly normal -Musculoskeletal: left BKA Neurological: no focal deficit Skin: capillary refill <2 seconds -Skin: chronic venous stasis of RLE with edema 2+ to knee right foot big toe amputation Heme/Lymphatic: no unusual bruising or bleeding Psychiatric: normal mood and affect FMR H&P: Results - Labs Result Diagrams: 01/01/19 11:38 01/01/19 11:38 Lab results: WBC 15.2 thou/uL (4.8-10.8) H 01/01/19 11:38 Hgb 9.5 g/dL (14.0-18.0) L 01/01/19 11:38 Hct 27.8 % (42.0-52.0) L 01/01/19 11:38 MCV 87.1 fL (78.0-98.0) 01/01/19 11:38 Plt Count 412 thou/uL (130-400) H 01/01/19 11:38 Neutrophils % 86.4 % (42.0-75.0) H 01/01/19 11:38 Sodium 132 mmol/L (136-145) L 01/01/19 11:38 Potassium 4.5 mmol/L (3.5-5.1) 01/01/19 11:38 Chloride 92 mmol/L (98-107) L 01/01/19 11:38 Carbon Dioxide 24 mmol/L (22-29) 01/01/19 11:38 BUN 92 mg/dL (8.4-25.7) H 01/01/19 11:38 Creatinine 9.04 mg/dL (0.7-1.3) H 01/01/19 11:38 Glucose 128 mg/dL (70-105) H 01/01/19 11:38 Lactic Acid 1.2 mmol/L (0.5-2.2) 01/01/19 11:38 Calcium 8.5 mg/dL (7.8-10.44) 01/01/19 11:38 Total Bilirubin 1.1 mg/dL (0.2-1.2) 01/01/19 11:38 AST 30 U/L (5-34) 01/01/19 11:38 ALT 32 U/L (8-55) 01/01/19 11:38 Alkaline Phosphatase 125 U/L (40-150) 01/01/19 11:38 B-Natriuretic Peptide 179.6 pg/mL (0-100) H 01/01/19 11:38 Serum Total Protein 7.3 g/dL (6.0-8.3) 01/01/19 11:38 Albumin 3.5 g/dL (3.5-5.0) 01/01/19 11:38 - EKG Interpretation EKG: no acute changes from prior EKG NSR - Radiology Interpretation Chest x-ray Status: image reviewed by me, report reviewed by me Additional comment: left lower lobe atelcatsis vs. effusion vs. PNA FMR H&P: A/P - Problem List (1) ESRD (end stage renal disease) Current Visit: No Status: Acute Code(s): N18.6 - END STAGE RENAL DISEASE (2) Volume overload Current Visit: No Status: Acute Code(s): E87.70 - FLUID OVERLOAD, UNSPECIFIED Comment: Probably iatrogenic in the setting of CKD (3) DM type 2 (diabetes mellitus, type 2) Current Visit: No Status: Chronic (4) Morbid obesity with BMI of 40.0-44.9, adult Current Visit: No Status: Chronic Code(s): E66.01 - MORBID (SEVERE) OBESITY DUE TO EXCESS CALORIES; Z68.41 - BODY MASS INDEX (BMI) 40.0-44.9, ADULT (5) Anemia in ESRD (end-stage renal disease) Current Visit: Yes Status: Acute Code(s): N18.6 - END STAGE RENAL DISEASE; D63.1 - ANEMIA IN CHRONIC KIDNEY DISEASE (6) S/P BKA (below knee amputation) unilateral Current Visit: Yes Status: Acute Code(s): Z89.519 - ACQUIRED ABSENCE OF UNSPECIFIED LEG BELOW KNEE - Plan 53 yo M with ESRD on TTS HD with acute hypoxic respiratory insufficiency #Acute hypoxic respiratory insufficiency on 4L -85% in ED, placed on 4L, not normally on home O2 -likely 2/2 ESRD fluid overload vs. PNA vs. PE -CXR: left sided pleural effusion vs. atelctasis vs. PNA -Afebrile but WBC 15. No bands, could be stress response versus begining signs of infection. s/p: rocephin & azithromycin in ER, will obtain procal to determine whether need to continue abx. Blood cultures otained -Consider fluid overload in light of ESRD, BNP 179. Complaint with HD. Creatinine 9, Dr. Waterman consulted who plans for urgent HD -Wells PE score of 3 due to immobility (left BKA) and prior hx of unprovoked/ provoked DVT. Non-hypoxic on 4L. Not tachycardic nor tachypneic. EKG with no acute changes compared to one from two weeks ago. Will obtain Ddimer and reassess after HD. If breathing unimproved, will obtain CTA with contrast to definitevely r/o PE -Will admit to IMCU in order to monitor for decompensation while arranging for HD. IF patient stabilizes after can consider transfer out this evening or tomorrow. #ESRD on TTS HD -Follows with Dr. Waterman, has been on HD for 17 mos -Continue HD #IDDM2 -continue home meds -ACHS accuchecks -SS to cover #cHTN -continue home medications #HLD -home meds #Chronic venous stasis of right lower extremity -feet elevation -expect improvement with HD #Anemia of ESRD -continue Aranesp dvt ppx: lovenox PCP: Dr. Jackman Dispo: >2 midnights , IMCU FMR H&P: Upper Level - Pertinent history Chapin Brown is a 53 year old M with a PMH of ESRD on // HD (pt of Dr. Waterman), HTN, HLD, DM2, hx of DVT who presented to the ED with a 4 day history of progressive worsening dyspnea and cough. He states that he has been compliant with fluid restrictions and he attended his normally scheduled HD on Monday but he did not go today because he was not feeling well so he decided come to the ER. He denies any productive cough, fever, chills, chest pain, n/v EKG from December 18, 2018 was reviewed and there are no new EKG changes today. In the ER, Dr. Waterman was consulted by ERMD and he recommended hemodialysis. ERMD was concerned for possible pneumonia and pt was given 2 g Rocephin IV, 500 mg IV azithromycin, 1 L NS, and aspirin. - Pertinent findings Laboratory Tests 01/01/19 01/01/19 01/01/19 11:38 11:38 11:38 WBC 15.2 H RBC 3.19 L Hgb 9.5 L Hct 27.8 L Plt Count 412 H Neutrophils % 86.4 H Sodium 132 L Potassium 4.5 Chloride 92 L Carbon Dioxide 24 Anion Gap 21 H BUN 92 H Creatinine 9.04 H Glucose 128 H Lactic Acid 1.2 Calcium 8.5 Magnesium 2.4 Total Bilirubin 1.1 AST 30 ALT 32 Alkaline Phosphatase 125 Troponin I B-Natriuretic Peptide 01/01/19 01/01/19 01/01/19 11:38 11:38 14:28 WBC RBC Hgb Hct Plt Count Neutrophils % Sodium Potassium Chloride Carbon Dioxide Anion Gap BUN Creatinine Glucose Lactic Acid Calcium Magnesium Total Bilirubin AST ALT Alkaline Phosphatase Troponin I 0.024 0.020 B-Natriuretic Peptide 179.6 H - Plan Date/Time: 01/01/19 1257 I, Abelarod Alfonso MD, have evaluated this patient and agree with findings/plan as outlined by landscape maintenance internship resident. Pertinent changes/additions are listed here. Acute hypoxic respiratory failure: - 4 day hx of cough/dyspnea, O2 sat 85% in ED, currently 96% on 4L - likely 2/2 fluid overload from ESRD, admit to IMCU - r/o pneumonia with procal and ddimer, consider CTA if positive - given empiric rocephin and azithromycin in ED - Blood cultures drawn - Dr. Waterman consulted and patient will undergo hemodialysis today - If no improvement in respiratory status, will investigate alternative causes - repeat CXR in AM - Wells PE score of 3 due to immobility (left BKA) and prior hx of unprovoked/ provoked DVT. Non-hypoxic on 4L. ESRD on // HD - Follows with Dr. Waterman - no dangerous electrolyte abnormalities today - plan to undergo normally schedule HD today with goal to remove fluid that may be contributing to poor resp status IDDM2 - continue home meds - ACHS accuchecks - SSI - diabetic diet cHTN - home medications HLD - home meds Anemia of ESRD - continue Aranesp dvt ppx: lovenox PCP: Dr. Jackman Dispo: >2 midnights , IMCU Addendum - Attending - Attending Attestation Date/Time: 01/01/19 3191 I personally evaluated the patient and discussed the management with Dr. Velez. See separate note. I agree with the History, Examination, Assessment and Plan documented above with any addition or exceptions noted below.
--- NOTE | 2019-01-01 14:58 | PDOC.EVN ---
Event Note - Event Note Event Note: Date/Time: 01/01/19 3256 I personally evaluated the patient and discussed the management with Dr. Velez at time of admission. I agree with the History, Examination, Assessment and Plan documented above with any addition or exceptions noted below. Recieved empiric tx for pneumonia in ER. Residents exam suggest pulmonary edema. After HD we will reassess and consider CT scan of chest to better eval for pleural effusion/consolodation. History and clincial data not consistent with PE but he has risk factors. Admit to IMCU until diagnosis confirmed.
[2019-01-01] MEDS ORDERED: Heparin 10,000 UNITS/ 10 ML VIAL ONE (15:00)
[2019-01-01] MEDS ORDERED: Dextrose 50% Abboject 50 ML SYRINGE SLOW IVP PRN (15:51)
[2019-01-01] MEDS ORDERED: Insulin Regular 300 UNITS/3 ML VIAL SC PRN (15:51)
[2019-01-01] MEDS ORDERED: HumaLOG 300 UNITS/3 ML VIAL SC PRN (15:51)
[2019-01-01] MEDS ORDERED: Dextrose 5% in Water 1,000 ML IV PRN (15:51)
[2019-01-01] MEDS: Acetaminophen 325 MG TAB PO PRN ×2 (17:17→23:22)
[2019-01-01 18:11] LABS: Troponin I 0.028 ng/mL (< 0.028)
[2019-01-01] MEDS: Heparin 5,000 UNITS/ML VIAL SC SCH (21:37)
[2019-01-01 22:35] LABS: Strep pneumo Urine Ag NEGATIVE (NEGATIVE)
--- NOTE | 2019-01-01 23:29 | PDOC.EVN ---
Event Note - Event Note Event Note: Patient evaluated after dialysis 5400 ml removed lungs with crackle to LLL BS improved compared to pre- dialysis, Oxygen requirement decreased to 2L/M from 4 L/M. Patient however is not subjectively improved c/o still feels short of breath. Procalcitonin 0.69 and Dimer notably elevated at 14.83 will proceed with CTA if body habitus permits to r/o PE
--- NOTE | 2019-01-02 01:31 | PDOC.EVN ---
Event Note - Event Note Event Note: Patient uncooperative in CT suite, refusing to lay down flat and becoming combative with nursing staff. Spoke with patient about this and he is adamant that he will not lay down at this time. Advised that I cannot definitively test for pulmonary embolism, which is indicated given his D-dimer and symptoms. At the very least I will need to put him on the heparin DVT/PE protocol. He agrees with this plan. Will discuss again in the AM possibly getting the CTA.
[2019-01-02 01:42] LABS: #Basophils 0.1 thou/uL (0.0-0.2); #Eosinphils 0.1 thou/uL (0.0-0.7); #Lymphocytes 0.6 thou/uL (1.20-3.40); #Monocytes 0.9 thou/uL (0.11-0.59); #Neutrophils 11.4 thou/uL (1.40-6.50); %Basophils 0.5 % (0.0-1.0); %Eosinophils 0.7 % (0.0-10.0); %Lymphocytes 4.4 % (21.0-51.0); %Neutrophils 87.5 % (42.0-75.0); Hemoglobin 8.9 g/dL (14.0-18.0); Mean Corpuscular HGB CONC 32.8 g/dL (32.0-36.0); Mean Corpuscular Hemoglobin 28.9 pg (27.0-31.0); Mean Corpuscular Volume 88.2 fL (78.0-98.0); Mean Platelet Volume 6.5 fL (7.4-10.4); Platelet Count 365 thou/uL (130-400); RBC Distribution Width 14.7 % (11.5-14.5); Red Blood Cell (RBC) Count 3.08 mill/uL (4.70-6.10)
[2019-01-02 01:48] LABS: INR-International Normal Ratio 1.3; PTT 40.2 SEC (22.9-36.1); Prothrombin Time 16.7 SEC (12.0-14.7)
--- NOTE | 2019-01-02 01:53 | CON ---
DATE OF CONSULTATION: REASON FOR CONSULTATION: End stage renal disease, for maintenance hemodialysis. HISTORY OF PRESENT ILLNESS: This is a 53-year-old gentleman with past medical history for end stage renal disease who presented to the hospital with increasing dyspnea and missed dialysis. The patient denies any nausea or vomiting. PAST MEDICAL HISTORY: Significant for hypertension, end stage renal disease, diabetes mellitus, BKA on the left, AV fistula, tunneled dialysis catheter. FAMILY HISTORY: Negative for ESRD. ALLERGIES: REVIEWED. MEDICATIONS: Home medications list reviewed. REVIEW OF SYSTEMS: A 15-point review of systems was performed and was negative except for positives noted above. GENERAL: HEAD: NECK: No swelling or lumps. NOSE: No epistaxis or discharge. EYES: No diplopia or pain. 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 NEUROPSYCHIATIC SYSTEMS: No suicidal ideation. No ideation. SKIN: Denies any rash or ulcer. CONSTITUTIONAL: No fever or chills. PHYSICAL EXAMINATION: GENERAL: The patient is awake and alert. VITAL SIGNS: Afebrile, pulse 75, breathing is 16, blood pressure 113/77. MENTAL STATUS: Fair. HEAD/NECK: Normocephalic. Atraumatic. EYES: EOMI. No deformity. EARS: Clear. No ulcers. NOSE: Intact. No lesions. MOUTH: Clear. No discharge. THROAT: Clear. No exudate. LUNGS: Clear. No crackles. CARDIAC: S1, S2. No rub. ABDOMEN: Benign. Bowel sounds positive. GENITALIA/RECTUM: Garcia absent. BACK/EXTREMITIES: Edema 0+. NEUROLOGICAL: Alert and motor intact. SKIN: LYMPHATICS: LABORATORY DATA: Reviewed. ASSESSMENT AND PLAN: 1. Stage 3 chronic kidney disease, planned dialysis. 2. Hypertension, stable. 3. Anemia, stable. Medication based on GFR appropriate. 4. Dyspnea, work up per primary team. Job ID: [id number]
[2019-01-02 02:04] LABS: Anion Gap 18 mmol/L (10-20); BUN (Urea Nitrogen) 44 mg/dL (8.4-25.7); Calc. Creatinine Clearance 32 mL/min (70-130); Carbon Dioxide 27 mmol/L (22-29); Chloride 95 mmol/L (98-107); Estimated GFR-MDRD 11; Glucose 203 mg/dL (70-105); Sodium 136 mmol/L (136-145)
[2019-01-02] MEDS: Heparin 10,000 UNITS/ 10 ML VIAL SLOW IVP SCH ×2 (02:19→16:07)
[2019-01-02] MEDS: Heparin 25,000 units/D5W 500 ML IVPB SCH ×2 (02:20→16:08)
[2019-01-02] MEDS ORDERED: Vancomycin HCl 750 MG in Sodium Chloride 0.9% 250 ML 250 ML IVPB SCH (06:45)
[2019-01-02] MEDS ORDERED: Vancomycin HCl 1.5 GM in Sodium Chloride 0.9% 250 ML 300 ML IVPB SCH (06:45)
[2019-01-02] MEDS ORDERED: Vancomycin HCl 1.25 GM in Sodium Chloride 0.9% 250 ML 250 ML IVPB SCH (06:45)
[2019-01-02] MEDS ORDERED: Vancomycin HCl 1 GM in Premix Bag 1 BAG IVPB SCH (06:45)
[2019-01-02] MEDS ORDERED: Vancomycin Sliding Scale 1 EACH FS ONE (06:45)
[2019-01-02] MEDS ORDERED: HOLD VANCOMYCIN FOR LEVEL >20 FS SCH (06:45)
--- NOTE | 2019-01-02 06:49 | PDOC.FM ---
- Subjective Subjective: Had 5L pulled off of HD yesterday. Still SOB on 2L. Doesn't want to lie flat for V/Q or CTA. No chest pain. - Objective Vital Signs & Weight: Vital Signs (12 hours) Temp Pulse Ox 01/02/19 03:49 98.6 F 01/01/19 23:43 98.2 F 01/01/19 19:50 98.0 F 01/01/19 19:30 96 Weight Weight 149.459 kg Most Recent Monitor Data Heart Rate from ECG 80 NIBP 132/75 NIBP BP-Mean 94 Respiration from ECG 21 SpO2 96 Result Diagrams: 01/02/19 01:35 01/02/19 01:35 Phys Exam - Physical Examination Constitutional: NAD HEENT: PERRLA, moist MMs Neck: full ROM crackles on left side, dec breath sounds on right, no wheezing Cardiovascular: RRR, no significant murmur edema, chronic venous stasis of RLE Neurological: non-focal, moves all 4 limbs Psychiatric: normal affect, A&O x 3 Dx/Plan (1) ESRD (end stage renal disease) Code(s): N18.6 - END STAGE RENAL DISEASE Status: Acute (2) Volume overload Code(s): E87.70 - FLUID OVERLOAD, UNSPECIFIED Status: Acute (3) DM type 2 (diabetes mellitus, type 2) Status: Chronic (4) Morbid obesity with BMI of 40.0-44.9, adult Code(s): E66.01 - MORBID (SEVERE) OBESITY DUE TO EXCESS CALORIES; Z68.41 - BODY MASS INDEX (BMI) 40.0-44.9, ADULT Status: Chronic (5) Anemia in ESRD (end-stage renal disease) Code(s): N18.6 - END STAGE RENAL DISEASE; D63.1 - ANEMIA IN CHRONIC KIDNEY DISEASE Status: Acute (6) S/P BKA (below knee amputation) unilateral Code(s): Z89.519 - ACQUIRED ABSENCE OF UNSPECIFIED LEG BELOW KNEE Status: Acute (7) Acute on chronic respiratory failure with hypoxia Code(s): J96.21 - ACUTE AND CHRONIC RESPIRATORY FAILURE WITH HYPOXIA Status: Acute - Plan Plan: 53 yo M with ESRD on TTS HD with acute hypoxic respiratory insufficiency #Acute hypoxic respiratory insufficiency on 4L -85% in ED, placed on 4L, not normally on home O2 -likely 2/2 ESRD fluid overload vs. PNA vs. PE -CXR: left sided pleural effusion vs. atelctasis vs. PNA -5L taken off yesterday, however still requiring 2L -PNA: Less likely with WBC and procal still elevated but trending down. Continue Rocephin & Azithromycin. Will add Vancomycin to cover MRSA if patient develops fever or still unimproved after HD. -Will repeat CXR to reassess improvement -Will admit to IMCU in order to monitor for decompensation while arranging for HD and CTA, pulm consulted recs appreciated #Concern for PE -Wells PE score of 3 (immobility and hx of DVT), Ddimer 14 -Not tachypneic nor tachycardic, but new 2L oxygen requirment -Pt refusing CTA/V/Q scan -Already on therapeutic heparin, will obtain lower extremity dopplers #ESRD on TTS HD -Follows with Dr. Waterman, has been on HD for 17 mos -Continue HD #IDDM2 -continue home meds -ACHS accuchecks -SS to cover #cHTN -continue home medications #HLD -home meds #Chronic venous stasis of right lower extremity -feet elevation -expect improvement with HD #Anemia of ESRD -continue Aranesp dvt ppx: therapeutic heparin PCP: Dr. Jackman Dispo: >2 midnights , IMCU
[2019-01-02 08:38] LABS: PTT 118.7 SEC (22.9-36.1)
[2019-01-02 08:44] LABS: Vancomycin, Trough Less than 1.1 ug/mL
[2019-01-02] MEDS ORDERED: Enoxaparin Sodium 30 MG/0.3 ML SYRINGE SC SCH (09:00)
[2019-01-02] MEDS ORDERED: Vancomycin HCl 1 GM in Sodium Chloride 0.9% 250 ML 250 ML IVPB SCH ×2 (09:30→22:00)
[2019-01-02] MEDS: Azithromycin 250 MG TAB PO SCH (10:26)
[2019-01-02] MEDS: Heparin 5,000 UNITS/ML VIAL SC SCH (10:26)
--- NOTE | 2019-01-02 11:39 | CON ---
DATE OF CONSULTATION: 01/02/2019 REASON FOR CONSULTATION: Shortness of breath. HISTORY OF PRESENT ILLNESS: The patient is a 53-year-old, who resides at a residential in [place]. He came to the hospital yesterday with increasing shortness of breath. His housing inspector indicates that he missed a dialysis session. The patient claims that he did not miss any dialysis sessions. In any event, the patient underwent emergent dialysis yesterday and had 5 L of fluid removed and his breathing improved. He is still not able to lie down flat because he says he is extremely short of breath when he does that. He says he has no previous history of lung disease. He is quite obese, but has never had any type of testing for FANTASMA. He says he snores, but does not know whether or not he has had witnessed apnea. PAST MEDICAL HISTORY: 1. End-stage renal disease, requiring hemodialysis. 2. Diabetes mellitus. 3. Diabetic retinopathy. 4. Hypertension. 5. Peripheral vascular disease. 6. Hyperlipidemia. PAST SURGICAL HISTORY: He has had a left the below-knee amputation, right big toe amputation. He has had an AV fistula placement. He has had right shoulder surgery, left knee surgery. FAMILY MEDICAL HISTORY: His incision is unremarkable for lung disease. SOCIAL HISTORY: Nonsmoker. Does not consume alcohol. 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 MEDICATIONS PRIOR TO ADMISSION: 1. Atorvastatin 80 mg daily. 2. Amlodipine 5 mg b.i.d. 3. Levemir insulin 80 units t.i.d. 4. Protonix 20 mg daily. 5. Hydralazine 50 mg t.i.d. 6. Acetaminophen 1000 mg every 4 hours as needed. 7. Reglan 10 mg every 6 hours as needed. 8. Aranesp 60 mcg every 7 days subcu. 9. Sliding scale insulin. 10. Gabapentin 100 mg four times day. 11. Tradjenta 5 mg daily. 12. Metoprolol 25 mg b.i.d. 13. Tramadol 50 mg every 6 hours as needed. 14. Aspirin 81 mg daily. 15. Clindamycin. REVIEW OF SYSTEMS: Denies fever, chills, nausea, vomiting, hematemesis, melena, hematochezia, hematuria, or dysuria. ALLERGIES: NONE. PHYSICAL EXAMINATION: VITAL SIGNS: Temperature 97.8, pulse 75, blood pressure 111/70, O2 saturation 99%. The patient is 6 feet 3 inches, weighs 329 pounds. HEENT: His pupils are reactive. Sclerae are muddy. Oropharynx, class 4 Mallampati airway. NECK: No adenopathy. No JVD. LUNGS: Inspiratory crackles at both bases. CARDIAC: S1, S2. Regular. ABDOMEN: Obese. Soft, nontender. EXTREMITIES: Left below-knee amputation. He has stasis changes in the right distal leg. LABORATORY DATA: White blood cell count 13, hematocrit 27.1, and platelet count 365. INR 1.3, PTT 40.2. Sodium 136, potassium 4, chloride 95, CO2 of 27, BUN 44, creatinine 5.5, glucose 203. Procalcitonin 0.54. D-dimer is 14.8. IMAGING STUDIES: His chest x-ray shows extensive cardiomegaly. Last echo done 2 weeks ago showed an EF of about 50% to 55% with a trivial pericardial effusion. ASSESSMENT: 1. Chronic renal failure with volume overload. 2. Acute on chronic hypoxic respiratory failure, which is improved with dialysis. 3. Remote history of a deep vein thrombosis according to the patient. 4. Doubt pneumonitis. RECOMMENDATION: 1. I would suggest Doppler exam of the lower extremities to evaluate for DVT. 2. If the patient could somehow lie down and do a CT angio, that would be preferable, but if he cannot, the Doppler would be the next best thing. 3. I do not think he is infected, so I would suggest stopping his antibiotics. 4. If nothing else is found, I would consider repeating his echocardiogram to make sure that his pericardial effusion is not increased in size. 5. As an outpatient, he needs a sleep study to workup for possible sleep apnea. 6. The patient probably needs further dialysis today. Job ID: [id number]
--- NOTE | 2019-01-02 11:52 | RAD ---
Exam: Chest one view: HISTORY: Shortness of breath COMPARISON: 01/01/2019 FINDINGS: Marked but overall stable cardiomegaly with bilateral vascular congestion and blunting of the costoph renic angles. No new confluent pneumonia. IMPRESSION: Marked but overall stable cardiomegaly with bilateral vascular congestion and probable small pleural effusions
[2019-01-02] MEDS ORDERED: cefTRIAXone\\ROCEPHIN 2 GM in Sodium Chloride 0.9% 100 ML IVPB SCH (13:00)
[2019-01-02] MEDS ORDERED: Polyethylene Glycol 3350 17 GM Packet PO PRN (14:46)
--- NOTE | 2019-01-02 15:18 | PRG ---
DATE OF SERVICE: 01/02/2019 SUBJECTIVE: A 53-year-old gentleman, being seen for end-stage kidney disease. The patient denies any nausea, vomiting, or chest pain. OBJECTIVE: CONSTITUTIONAL: The patient is awake and alert. VITAL SIGNS: Afebrile, pulse 77, breathing 16, and blood pressure 127/76. GENERAL APPEARANCE AND MENTAL STATUS: Fair. HEAD/NECK: Normocephalic. Atraumatic. EYES: EOMI. No deformity. EARS: Clear. No ulcers. NOSE: Intact. No lesions. MOUTH: Clear. No discharge. THROAT: Clear. No exudate. LUNGS: Clear. No crackles. CARDIAC: S1, S2. No rub. ABDOMEN: Benign. Bowel sounds positive. GENITALIA/RECTUM: Garcia absent. BACK/EXTREMITIES: Edema 0+. NEUROLOGICAL: Alert and motor intact. SKIN: LYMPHATICS: LABORATORY DATA: Labs show hemoglobin 8.9. ASSESSMENT AND PLAN: 1. Stage 6 chronic kidney disease, plan dialysis. 2. Hypertension, stable. 3. Anemia, stable. 4. Congestive heart failure. Plan dialysis. Job ID: [id number]
[2019-01-02] MEDS ORDERED: diphenhydrAMINE 25 MG CAP PO PRN (16:00)
[2019-01-02] MEDS ORDERED: Calcium Carbonate 500 MG ChewTAB PO PRN (16:00)
[2019-01-02] MEDS ORDERED: Diabetic Tussin 200 MG/10 ML UDCUP PO PRN (16:00)
[2019-01-02] MEDS ORDERED: Darbepoetin Alfa in Polysorbat 25 MCG/ML VIAL SC SCH (17:00)
[2019-01-02] MEDS ORDERED: Docusate 100 MG CAP PO PRN (21:00)
[2019-01-02] MEDS ORDERED: Simethicone Chewable 80 MG TAB PO PRN (21:00)
[2019-01-03] MEDS: Heparin 25,000 units/D5W 500 ML IVPB SCH (04:15)
[2019-01-03 04:22] LABS: Anion Gap 17 mmol/L (10-20); BUN (Urea Nitrogen) 55 mg/dL (8.4-25.7); Calc. Creatinine Clearance 31 mL/min (70-130); Calcium 8.9 mg/dL (7.8-10.44); Carbon Dioxide 28 mmol/L (22-29); Chloride 95 mmol/L (98-107); Estimated GFR-MDRD 10; Glucose 240 mg/dL (70-105); Potassium 4.2 mmol/L (3.5-5.1); Sodium 136 mmol/L (136-145)
--- NOTE | 2019-01-03 05:41 | PDOC.FM ---
- Subjective Subjective: NAEO. Off of oxygen this morning. Denies fevers, chills. Feels better, closer to baseline. - Objective Vital Signs & Weight: Vital Signs (12 hours) Temp Pulse Ox 01/03/19 03:00 99.2 F 01/02/19 23:00 99.5 F 01/02/19 20:00 95 01/02/19 19:00 99.1 F Weight Weight 149.459 kg Most Recent Monitor Data Heart Rate from ECG 68 NIBP 116/74 NIBP BP-Mean 88 Respiration from ECG 18 SpO2 100 I&O: 01/01/19 01/02/19 01/03/19 06:59 06:59 06:59 Intake Total 480 1410 Output Total 5800 3000 Balance -5320 -1590 Result Diagrams: 01/03/19 07:22 01/03/19 03:43 Phys Exam - Physical Examination Constitutional: NAD HEENT: PERRLA, moist MMs Respiratory: no wheezing CTAB Cardiovascular: RRR, no significant murmur Gastrointestinal: soft, non-tender left lower extremity amputation Neurological: non-focal Skin: cap refill <2 seconds Dx/Plan (1) ESRD (end stage renal disease) Code(s): N18.6 - END STAGE RENAL DISEASE Status: Acute (2) Volume overload Code(s): E87.70 - FLUID OVERLOAD, UNSPECIFIED Status: Acute (3) DM type 2 (diabetes mellitus, type 2) Status: Chronic (4) Morbid obesity with BMI of 40.0-44.9, adult Code(s): E66.01 - MORBID (SEVERE) OBESITY DUE TO EXCESS CALORIES; Z68.41 - BODY MASS INDEX (BMI) 40.0-44.9, ADULT Status: Chronic (5) Anemia in ESRD (end-stage renal disease) Code(s): N18.6 - END STAGE RENAL DISEASE; D63.1 - ANEMIA IN CHRONIC KIDNEY DISEASE Status: Acute (6) S/P BKA (below knee amputation) unilateral Code(s): Z89.519 - ACQUIRED ABSENCE OF UNSPECIFIED LEG BELOW KNEE Status: Acute (7) Acute on chronic respiratory failure with hypoxia Code(s): J96.21 - ACUTE AND CHRONIC RESPIRATORY FAILURE WITH HYPOXIA Status: Acute - Plan Plan: 53 yo M with ESRD on TTS HD with acute hypoxic respiratory insufficiency #Acute hypoxic respiratory insufficiency on 4L -85% in ED, placed on 4L, not normally on home O2 -likely 2/2 ESRD fluid overload vs. PNA vs. PE -CXR repeat this AM with some pleural effusion, better than prior. -Procal elevated but no WBC, afebrile, CXR yesterday negative for confluent PNA - pt clinically improved after HD. Will d/c abx -CXR shows cardiomegaly, will obtain TTE to reassess despite recent one showing minimal pericardial effusion, normal EF -Once CTA performed can consider transition out to floors #Concern for PE -Wells PE score of 3 (immobility and hx of DVT), Ddimer 14 -Still requiring intermittent nasal canula use -Pt okay with CTA -replace order to definitively rule out PE -Dopplers negative for DVT -Already on therapeutic heparin #IDDM2 -elevated glucose -ACHS accuchecks, was not given SS yesterday -communicated with nurse to continue covering with mild SS today #ESRD on TTS HD -Follows with Dr. Waterman, has been on HD for 17 mos -Continue HD -7L pulled off in total -Negative balance #cHTN -BP stable, off home meds -continue monitoring, don't want to cause hypotension by restarting all of HTN meds #HLD -home meds #Chronic venous stasis of right lower extremity -feet elevation -expect improvement with HD #Anemia of ESRD -continue Aranesp dvt ppx: therapeutic heparin PCP: Dr. Jackman Dispo: >2 midnights , IMCU
[2019-01-03] MEDS ORDERED: HumaLOG 300 UNITS/3 ML VIAL SC PRN (05:48)
[2019-01-03] MEDS: HumaLOG 300 UNITS/3 ML VIAL SC PRN ×2 (05:51→11:39)
[2019-01-03 07:40] LABS: #Basophils 0.1 thou/uL (0.0-0.2); #Eosinphils 0.1 thou/uL (0.0-0.7); #Lymphocytes 0.8 thou/uL (1.20-3.40); #Monocytes 1.3 thou/uL (0.11-0.59); #Neutrophils 6.7 thou/uL (1.40-6.50); %Basophils 0.7 % (0.0-1.0); %Eosinophils 1.1 % (0.0-10.0); %Lymphocytes 9.1 % (21.0-51.0); %Neutrophils 75.1 % (42.0-75.0); Hemoglobin 7.6 g/dL (14.0-18.0); Mean Corpuscular HGB CONC 31.3 g/dL (32.0-36.0); Mean Corpuscular Hemoglobin 28.7 pg (27.0-31.0); Mean Corpuscular Volume 91.5 fL (78.0-98.0); Mean Platelet Volume 7.3 fL (7.4-10.4); Platelet Count 300 thou/uL (130-400); Red Blood Cell (RBC) Count 2.65 mill/uL (4.70-6.10); White Blood Cell (WBC) Count 8.9 thou/uL (4.8-10.8)
--- NOTE | 2019-01-03 07:41 | ULT ---
BILATERAL LOWER EXTREMITY VENOUS DOPPLER: 01/02/19 HISTORY: Evaluate for deep venous thrombosis. Edema and pain. COMPARISON: None. TECHNIQUE: Real time coreas scale, color Doppler and spectral analysis of the of the right common femoral, femoral , proximal portion of the greater saphenous and deep femoral veins as well as the popliteal and poste rior tibial veins. The left common femoral, femoral and popliteal vein was interrogated. Normal flow, augmentation, and compression. IMPRESSION: No deep venous thrombosis. POS: TPC
[2019-01-03] MEDS: Pantoprazole 40 MG GRANULES PACKET PO SCH (08:21)
[2019-01-03] MEDS: Azithromycin 250 MG TAB PO SCH (08:32)
[2019-01-03] MEDS ORDERED: Atorvastatin Calcium 40 MG TAB PO SCH (09:00)
--- NOTE | 2019-01-03 09:45 | RAD ---
Exam: Chest one view HISTORY:Shortness of breath. Comparison: 01/02/2019, 01/01/2019, 520 6T FINDINGS: Cardiac silhouette:Persistent marked cardiomegaly. Pulmonary vessels: Upper normal. Costophrenic angles: Obscuration the left hemidiaphragm suggesting pleural effusion. LUNGS: Bibasilar left greater than right parenchymal changes. Partial obscuration of the right heart border possibly due to middle lobe infiltrate. Pneumothorax: None Osseous abnormalities: None IMPRESSION: 1. Congestive heart failure. Marked cardiomegaly.
--- NOTE | 2019-01-03 11:07 | CT ---
Contrast-enhanced CT chest. HISTORY: Shortness of breath evaluate for pulmonary emboli. Contrast-enhanced CTA chest performed with 2-D and 3-D reconstruction images performed. Areas of the patchy airspace opacity seen in the left upper lobe compatible some possible pulmonary e di or pneumonia. Coronary artery calcifications are visualized. A small left-sided pleural effusion is seen. Areas of left lower lobe consolidation seen. No evidence of filling defects seen in the pulmonary arteries to suggest pulmonary emboli. There is a massive pericardial effusion seen. Hyper dense area seen in the gallbladder lumen compatible with gallstones. Moderate degree of mediastinal lymphadenopathy seen. IMPRESSION: 1: Left upper lobe and left lower lobe airspace opacities. 2: Mediastinal lymphadenopathy. 3: Massive pericardial effusion. 4: Cholelithiasis.
--- NOTE | 2019-01-03 11:35 | PRG ---
DATE OF SERVICE: 01/03/2019 SUBJECTIVE: The patient is sitting up in bed. He was able to lay down last night. He got dialysis again yesterday. He says he is breathing better. His Doppler of the lower extremities was negative for DVT. OBJECTIVE: VITAL SIGNS: His temperature is 99.0, pulse 75, blood pressure 148/88, and O2 saturation 93%. HEENT: Unremarkable. NECK: No adenopathy or JVD. LUNGS: Clear. CARDIAC: S1 and S2, regular. ABDOMEN: Soft, obese, and nontender. EXTREMITIES: Decreased edema. LABORATORY DATA: White blood cell count 8.9, hematocrit 24.3, platelet count 300. PTT 64.2. Sodium 136, potassium 4.2, chloride 95, CO2 of 28, BUN 55, creatinine 5.7, and glucose 240. ASSESSMENT: The patient presented with fluid overload from noncompliance with dialysis. He is now better from respiratory standpoint after dialysis. There is no documented deep venous thrombosis in the lower extremities. Therefore, I doubt he has any type of pulmonary embolism. RECOMMENDATIONS: He is stable enough transfer to the floor. I would recommend discontinuing the heparin drip and just putting him on twice daily subcu heparin. I do not see any indication of infection and we, therefore, recommend discontinuing antibiotics. Job ID: [id number]
[2019-01-03] MEDS ORDERED: Alogliptin 25 MG TAB PO SCH (12:00)
[2019-01-03] MEDS ORDERED: Alogliptin 6.25 MG TAB PO SCH (12:00)
--- NOTE | 2019-01-03 12:24 | PQF ---
DATE: 01-03-19 ATTN: DR. ROSARIO SOL Please exercise your independent, professional judgment in responding to the clarification form. Clinical indicators are provided on the bottom of this form for your review Please check appropriate box(s): HEART FAILURE: A. TYPE: [ ] Systolic / HFrEF [ x] Diastolic / HFpEF [ ] Combined Systolic / Diastolic B. ACUITY [ ] Acute [ ] Acute on Chronic [ ] Chronic [ ] Other diagnosis [ ] Unable to determine In addition, please specify: Present on Admission (POA): [ ] Yes [ x] No [ ] Unable to determine For continuity of documentation, please document condition throughout progress notes and discharge summary. Thank You. CLINICAL INDICATORS - SIGNS / SYMPTOMS / LABS: ER DX: PNEUMONIA, HYPOXIA H&P: ESRD, VOLUME OVERLOAD, ACUTE HYPOXIC RESPIRATORY FAILURE LIKELY 2/2 FLUID OVERLOAD FROM ESRD VS PNA VS PE BNP: 01-01-19: 179.6 CXR: 01-03-19: IMPRESSION: CHF. MARKED CARDIOMEGALY CONSULT NOTE DR. PRIDE 01-02-19: CONGESTIVE HEART FAILURE. PLAN DIALYSIS. RISKS: ER: HX OF DM, HTN, HYPERLIPIDEMIA, ESRD, WITH SOB TREATMENTS: CARDIAC MONITORING RT ASSESSMENT 01-01-19: O2 3-5 L NC (This form is maintained as a part of the permanent medical record) 2014 [email or web address]. All Rights Reserved JUNAID [email or web address] Office: [phone] SANDRINE
--- NOTE | 2019-01-03 13:03 | PRG ---
DATE OF SERVICE: 01/03/2019 SUBJECTIVE: A 53-year-old gentleman, being seen for end-stage kidney disease. The patient denies any nausea, vomiting, or chest pain. OBJECTIVE: CONSTITUTIONAL: The patient is awake and alert. VITAL SIGNS: Afebrile, pulse 74, breathing 16, and blood pressure . GENERAL APPEARANCE AND MENTAL STATUS: Fair. HEAD/NECK: Normocephalic. Atraumatic. EYES: EOMI. No deformity. EARS: Clear. No ulcers. NOSE: Intact. No lesions. MOUTH: Clear. No discharge. THROAT: Clear. No exudate. LUNGS: Clear. No crackles. CARDIAC: S1, S2. No rub. ABDOMEN: Benign. Bowel sounds positive. GENITALIA/RECTUM: Garcia absent. BACK/EXTREMITIES: Edema 0+. NEUROLOGICAL: Alert and motor intact. SKIN: LYMPHATICS: LABORATORY DATA: Reviewed. ASSESSMENT AND PLAN: 1. Stage chronic kidney disease. Plan dialysis. 2. Hypertension, stable. 3. Anemia. We would recommend transfusion. 4. Medication based on GFR appropriate. Job ID: [id number]
[2019-01-03] MEDS: cloNIDine 0.1 MG TAB PO SCH ×2 (14:24→21:46)
[2019-01-03] MEDS: Heparin 5,000 UNITS/ML VIAL SC SCH ×2 (14:26→21:46)
[2019-01-03] MEDS: Acetaminophen 325 MG TAB PO PRN (21:43)
--- NOTE | 2019-01-04 01:48 | CON ---
DATE OF CONSULTATION: HISTORY OF PRESENT ILLNESS: Mr. Chapin Brown is a 53-year-old white male with end-stage renal disease on dialysis. He apparently is a detention resident and is admitted for increased shortness of breath for the last several days. He denies any chest discomfort. He denies any fever or chills. He apparently has been noncompliant with fluid intake. In the emergency room, he was hypoxic with O2 saturation of 85%. He has undergone urgent dialysis and his shortness of breath has improved. Today, he underwent chest CTA. He had left upper lobe and left lower lobe opacities, mediastinal lymphadenopathy, cholelithiasis, but no evidence of pulmonary embolism. Coronary artery calcifications were visualized. He also had a fairly large pericardial effusion. Echocardiogram has been ordered, however, has not been performed at this time. PAST MEDICAL HISTORY: End-stage renal disease on dialysis, diabetes, hyperlipidemia, hypertension. OPERATIONS: Left knee, right shoulder, BKA on the left. SOCIAL HISTORY: He does not smoke or drink. FAMILY HISTORY: I take care of his father Silver Brown who has had a coronary stent placement. REVIEW OF SYSTEMS: A 10-point review of systems is otherwise unremarkable. PHYSICAL EXAMINATION: VITAL SIGNS: Blood pressure 148/88 with a paradox of 6, pulse of 70. HEENT: PERRL. NECK: Supple. CHEST: Reveals decreased breath sounds at the base. CARDIOVASCULAR: S1, S2 normal without any S3, S4 or murmur. There is no rub. ABDOMEN: Obese, normal bowel sounds. No tenderness. EXTREMITIES: Revealed 2+ edema of the right leg, 2+ edema of the left stump. NEUROLOGIC: Grossly intact except for his vision. LABORATORY DATA: EKG reveals normal sinus rhythm with low voltage QRS. Nonspecific T wave changes. Chest CT findings as noted above. Hemoglobin is 7.6, hematocrit 24.3, white count 8900, platelets 300,000, Sodium 136, Potassium 4.2, chloride 95, carbon dioxide 28, BUN 55, creatinine 5.77. Troponin I is normal. BNP 179.6. IMAGING: Chest x-ray reveals massive cardiomegaly, effusions and increased pulmonary vascularity. IMPRESSION: 1. Pericardial effusion, probably [id number] although echocardiography has not been performed. At the present time, I do not find any evidence of tamponade. 2. End-stage renal disease on dialysis. 3. Hypertension. 4. Hyperlipidemia. 5. Diabetes. 6. Status post left feysu-awu-tmsb amputation. 7. Obesity. PLAN: The patient will continue dialysis with significant volume. The effusion will decrease in size. Certainly, if he demonstrates evidence of tamponade, consideration should be given to a pericardial window and pericardial biopsy. I will follow the patient with you. Job ID: [id number] MTDD
[2019-01-04 02:05] LABS: #Basophils 0.1 thou/uL (0.0-0.2); #Eosinphils 0.2 thou/uL (0.0-0.7); #Monocytes 1.2 thou/uL (0.11-0.59); #Neutrophils 7.4 thou/uL (1.40-6.50); %Basophils 0.7 % (0.0-1.0); %Eosinophils 1.9 % (0.0-10.0); %Lymphocytes 10.5 % (21.0-51.0); %Monocytes 12.2 % (0.0-10.0); %Neutrophils 74.7 % (42.0-75.0); Hemoglobin 8.9 g/dL (14.0-18.0); Mean Corpuscular HGB CONC 32.9 g/dL (32.0-36.0); Mean Corpuscular Hemoglobin 28.8 pg (27.0-31.0); Mean Corpuscular Volume 87.4 fL (78.0-98.0); Mean Platelet Volume 7.2 fL (7.4-10.4); Platelet Count 348 thou/uL (130-400); RBC Distribution Width 14.5 % (11.5-14.5)
[2019-01-04 02:18] LABS: Anion Gap 16 mmol/L (10-20); BUN (Urea Nitrogen) 42 mg/dL (8.4-25.7); Calc. Creatinine Clearance 40 mL/min (70-130); Calcium 8.8 mg/dL (7.8-10.44); Carbon Dioxide 27 mmol/L (22-29); Chloride 97 mmol/L (98-107); Estimated GFR-MDRD 14; Glucose 197 mg/dL (70-105); Potassium 4.3 mmol/L (3.5-5.1); Sodium 136 mmol/L (136-145)
--- NOTE | 2019-01-04 06:29 | PDOC.FM ---
- Subjective Subjective: NAEO. Breathing much improved, states he's feeling close to baseline. Still difficult to lay flat. Had HD yesterday. - Objective MAR Reviewed: Yes Vital Signs & Weight: Vital Signs (12 hours) Temp Pulse Resp BP Pulse Ox 01/03/19 23:34 97.8 F 01/03/19 22:38 97.8 F 69 13 133/94 H 01/03/19 21:55 98.5 F 72 21 H 144/85 H 01/03/19 21:40 98.9 F 74 18 137/80 01/03/19 20:00 98 01/03/19 19:00 99.0 F Weight Weight 148 kg Most Recent Monitor Data Heart Rate from ECG 64 NIBP 137/82 NIBP BP-Mean 100 Respiration from ECG 24 SpO2 96 I&O: 01/02/19 01/03/19 01/04/19 06:59 06:59 06:59 Intake Total 480 2257.2 830 Output Total 5800 3500 150 Balance -5320 -1242.8 680 Result Diagrams: 01/04/19 01:45 01/04/19 01:45 Phys Exam - Physical Examination Constitutional: NAD obese HEENT: PERRLA, moist MMs fine crackles on the left decreased heart sounds Gastrointestinal: soft, non-tender LLE amputation, right big toe amputation Neurological: non-focal Skin: cap refill <2 seconds Dx/Plan (1) ESRD (end stage renal disease) Code(s): N18.6 - END STAGE RENAL DISEASE Status: Acute (2) Volume overload Code(s): E87.70 - FLUID OVERLOAD, UNSPECIFIED Status: Acute (3) DM type 2 (diabetes mellitus, type 2) Status: Chronic (4) Morbid obesity with BMI of 40.0-44.9, adult Code(s): E66.01 - MORBID (SEVERE) OBESITY DUE TO EXCESS CALORIES; Z68.41 - BODY MASS INDEX (BMI) 40.0-44.9, ADULT Status: Chronic (5) Anemia in ESRD (end-stage renal disease) Code(s): N18.6 - END STAGE RENAL DISEASE; D63.1 - ANEMIA IN CHRONIC KIDNEY DISEASE Status: Acute (6) S/P BKA (below knee amputation) unilateral Code(s): Z89.519 - ACQUIRED ABSENCE OF UNSPECIFIED LEG BELOW KNEE Status: Acute (7) Acute on chronic respiratory failure with hypoxia Code(s): J96.21 - ACUTE AND CHRONIC RESPIRATORY FAILURE WITH HYPOXIA Status: Acute - Plan Plan: 53 yo M with ESRD on TTS HD with acute hypoxic respiratory insufficiency #Acute hypoxic respiratory insufficiency on 4L -85% in ED, placed on 4L, not normally on home O2 -PE ruled out, PNA unlikely (abbreviated abx course) -Respiratory status has been improving with aggressive fluid removal with HD, progressive CXR have shown dec. pleural effusions -Pericardial effusion and ESRD can be contributing to AHRF, pending TTE to further assess -Overall pt much improved, weans himself off of O2 past two days has been sitting up without it, non hypoxic -can consider discharge once TTE returns and no need for surgical intervention #Pericardial effusion -Per CTA -Pending TTE -No signs of tamponade, Dr. Carballo on board -Dr. Waterman on board, further recs appreciated #IDDM2 -elevated glucose -resume alogliptin, getting 30 units long acting today #Anemia of ESRD -continue Aranesp -s/p 1 PRBC -continue H/H #ESRD on TTS HD -Follows with Dr. Waterman, has been on HD for 17 mos -Continue HD -7L pulled off in total -Negative balance #cHTN -BP stable, will start resuming home meds #HLD -home meds #Chronic venous stasis of right lower extremity -feet elevation -expect improvement with HD #Concern for PE, ruled out -Wells PE score of 3 (immobility and hx of DVT), Ddimer 14 -Still requiring intermittent nasal canula use -Pt okay with CTA -replace order to definitively rule out PE -Dopplers negative for DVT -Already on therapeutic heparin dvt ppx: heparin 5000U TID PCP: Dr. Jackman Dispo: >2 midnights , IMCU Addendum - Attending - Attending Attestation Date/Time: 01/04/19 7549 I personally evaluated the patient and discussed the management with Dr. Velez. I agree with the History, Examination, Assessment and Plan documented above with any addition or exceptions noted below. 53 yo M with ESRD on HD found to have substantial pericardial effusion, for evla by CV surg.
[2019-01-04] MEDS: HumaLOG 300 UNITS/3 ML VIAL SC PRN (06:30)
[2019-01-04] MEDS ORDERED: Insulin Glargine 29 UNITS in Pre-Filled Syringe 1 EACH SC SCH (09:00)
[2019-01-04] MEDS ORDERED: Non-Formulary Item 1 EACH (Linagliptin [Tradjenta] 5 MG) PO SCH (09:00)
[2019-01-04] MEDS ORDERED: Non-Formulary Item 1 EACH (Hydralazine Hcl [Hydralazine Hcl] 50 MG) PO SCH (09:00)
--- NOTE | 2019-01-04 10:00 | PRG ---
DATE OF SERVICE: 01/04/2019 SUBJECTIVE: He seems to be doing well. He has been diagnosed with a massive pericardial effusion, still waiting on disposition on that. OBJECTIVE: VITAL SIGNS: Temperature is 98.2, pulse 70, and blood pressure 135/77. HEENT: Unremarkable. NECK: No JVD. LUNGS: Fairly clear. HEART: Muzzled heart sounds. ABDOMEN: Obese and soft. EXTREMITIES: Left kcjfc-fek-ulsn amputation. LABORATORY DATA: White blood cell count 10, hematocrit 27.1, and platelet count 348. Sodium 136, potassium 4.3, BUN 42, creatinine 4.3, and glucose 197. ASSESSMENT: Pericardial effusion. PLAN: I would recommend discontinuing his heparin for the time being. Cardiology is involved and will make further decision regarding the window versus continued treatment with hemodialysis. We will continue following him as long as he is in the [facility]. Job ID: [id number]
[2019-01-04] MEDS: Pantoprazole 40 MG GRANULES PACKET PO SCH (11:13)
[2019-01-04] MEDS: Metoprolol Tartrate 25 MG TAB PO SCH ×2 (11:14→21:53)
[2019-01-04] MEDS: cloNIDine 0.1 MG TAB PO SCH ×3 (11:14→21:52)
[2019-01-04] MEDS: Aspirin 81 mg Enteric Coated Tablet PO SCH (11:14)
[2019-01-04] MEDS: hydrALAZINE 25 MG TAB PO SCH (11:14)
--- NOTE | 2019-01-04 13:06 | PRG ---
DATE OF SERVICE: 01/04/2019 SUBJECTIVE: This is a 53-year-old gentleman, being seen for end-stage renal disease. The patient denied, nausea, vomiting, or chest pain. OBJECTIVE: CONSTITUTIONAL: The patient is awake and alert. VITAL SIGNS: Afebrile. Pulse breathing 16, blood pressure 156/75. GENERAL APPEARANCE AND MENTAL STATUS: Fair. HEAD/NECK: Normocephalic. Atraumatic. EYES: EOMI. No deformity. EARS: Clear. No ulcers. NOSE: Intact. No lesions. MOUTH: Clear. No discharge. THROAT: Clear. No exudate. LUNGS: Clear. No crackles. CARDIAC: S1, S2. No rub. ABDOMEN: Benign. Bowel sounds positive. GENITALIA/RECTUM: Garcia absent. BACK/EXTREMITIES: Edema 0+. NEUROLOGICAL: Alert and motor intact. SKIN: LYMPHATICS: LABORATORY DATA: Reviewed. ASSESSMENT AND PLAN: 1. Stage chronic kidney disease, stable. 2. Hypertension, stable. 3. Anemia, stable. 4. Medications based on GFR, appropriate. Job ID: [id number]
[2019-01-04] MEDS ORDERED: Fentanyl 100 MCG/2 ML VIAL ONE ×2 (15:36→18:45)
[2019-01-04] MEDS ORDERED: Bupivacaine HCl 0.5%/Epinephrine 1:200,000/PF 30 ml Vial ONE (15:37)
[2019-01-04] MEDS ORDERED: Midazolam HCl 2 mg/2 ml Vial ONE (15:58)
[2019-01-04] MEDS ORDERED: Norepinephrine 4 MG/4 ML VIAL ONE (15:59)
[2019-01-04] MEDS ORDERED: Ketamine 50 MG/ML (10ML VIAL) ONE (15:59)
[2019-01-04] MEDS ORDERED: SUGAMMADEX SODIUM 200 MG/2 ML VIAL ONE (17:56)
[2019-01-04] MEDS ORDERED: Ondansetron PF 4 MG/2 ML Vial ONE (18:31)
[2019-01-04] MEDS ORDERED: Promethazine HCl 25 MG/ML VIAL ONE (18:31)
--- NOTE | 2019-01-04 18:35 | RAD ---
RADIOGRAPH CHEST 1 VIEW: DATE: 01/04/2019 TIME: 6:15 PM HISTORY: 53-year-old male status post pericardial window for pericardial effusion COMPARISON: 01/03/2019 FINDINGS: There continues to be severe enlargement of the transverse cardiac shadow diameter, shown to be due t o large pericardial effusion on yesterday's CT angiogram. This severe widening may have minimally improved. There continues to be left pleural effusion and left lower lobe atelectasis, which may have both worsened. New mild patchy infiltrate-like density at left upper lobe. No pneumothorax identified. IMPRESSION: 1. Large pericardial effusion. 2. Interval worsening of left lower lobe atelectasis. 3. Left pleural effusion. 4. New small patchy infiltrate-like density at left upper lobe. 5. No pneumothorax.
[2019-01-04 18:58] LABS: BF Color Red; Body Fluid Source Pericardial Fluid; Clarity Cloudy/Turbid (Clear); Tube # EDTA; WBC Background Count 0.01
[2019-01-04 18:59] LABS: RBC Count-Automated 658000 /cumm; WBC/NonHematic-Auto 701 /cumm
[2019-01-04] MEDS ORDERED: Non-Formulary Medication 1 EACH PO PRN (19:53)
[2019-01-04] MEDS ORDERED: Promethazine HCl 25 MG/ML VIAL IM/IV PRN (19:53)
[2019-01-04] MEDS ORDERED: Ondansetron HCl/PF 4 MG/2 ML Vial IVP PRN (19:53)
[2019-01-04 20:41] LABS: BF Segmented Neutrophils 66 %; Cell Count Non Hematic 7 %; Eosinophils 1 %; Lymphocytes 26 %
[2019-01-04] MEDS ORDERED: Amiodarone 150 MG, Admixture Fee 1 EACH in Dextrose 5% in Water 100 ML IVPB SCH (20:45)
[2019-01-04] MEDS ORDERED: Amiodarone 450 MG, Admixture Fee 1 EACH in Dextrose 5% in Water 250 ML IVPB SCH (21:00)
[2019-01-04 21:24] LABS: Anion Gap 19 mmol/L (10-20); BUN (Urea Nitrogen) 59 mg/dL (8.4-25.7); Calc. Creatinine Clearance 35 mL/min (70-130); Calcium 8.9 mg/dL (7.8-10.44); Carbon Dioxide 24 mmol/L (22-29); Chloride 98 mmol/L (98-107); Estimated GFR-MDRD 12; Glucose 183 mg/dL (70-105); Magnesium 2.1 mg/dL (1.6-2.6); Potassium 4.4 mmol/L (3.5-5.1); Sodium 137 mmol/L (136-145)
[2019-01-04 21:26] LABS: ALT (SGPT) 27 U/L (8-55); AST (SGOT) 30 U/L (5-34); Albumin 3.2 g/dL (3.5-5.0); Alkaline Phosphatase 106 U/L (40-150); Bilirubin, Direct 0.7 mg/dL (0.1-0.3); Bilirubin, Total 1.1 mg/dL (0.2-1.2); Magnesium 1.9 mg/dL (1.6-2.6); Protein, Total 7.4 g/dL (6.0-8.3)
[2019-01-04] MEDS: Atorvastatin Calcium 40 MG TAB PO SCH (21:51)
[2019-01-05] MEDS ORDERED: traMADol HCl 50 MG TAB PO PRN (02:18)
[2019-01-05 05:47] LABS: Anion Gap 15 mmol/L (10-20); BUN (Urea Nitrogen) 63 mg/dL (8.4-25.7); Calc. Creatinine Clearance 34 mL/min (70-130); Calcium 8.8 mg/dL (7.8-10.44); Carbon Dioxide 26 mmol/L (22-29); Chloride 97 mmol/L (98-107); Estimated GFR-MDRD 12; Glucose 176 mg/dL (70-105); Potassium 4.2 mmol/L (3.5-5.1); Sodium 134 mmol/L (136-145)
--- NOTE | 2019-01-05 05:53 | PDOC.FM ---
- Subjective Subjective: Pt with new onset afib after returning from PACU. Given amiodoraone bolus, now in NSR. Reports breathing improved. NO issues or concerns. Chest tube in place - Objective MAR Reviewed: Yes Vital Signs & Weight: Vital Signs (12 hours) Temp Pulse BP Pulse Ox 01/05/19 03:07 98.1 F 01/05/19 00:00 94 L 01/04/19 23:00 98.5 F 01/04/19 21:52 112/84 01/04/19 20:00 94 L 01/04/19 18:17 105 H Weight Admit Weight 149.459 kg Weight 146.3 kg Most Recent Monitor Data Heart Rate from ECG 67 NIBP 127/89 NIBP BP-Mean 101 Respiration from ECG 20 SpO2 97 I&O: 01/03/19 01/04/19 01/05/19 06:59 06:59 06:59 Intake Total 2257.2 830 1120 Output Total 3500 150 550 Balance -1242.8 680 570 Result Diagrams: 01/05/19 06:35 01/05/19 04:45 Phys Exam - Physical Examination Constitutional: NAD obese HEENT: PERRLA, moist MMs Respiratory: no wheezing, clear to auscultation bilateral Cardiovascular: RRR, no significant murmur chronic evnous stasis, tube in chest , serosanguinous drainage Neurological: non-focal, moves all 4 limbs left AKA Dx/Plan (1) Pericardial effusion Code(s): I31.3 - PERICARDIAL EFFUSION (NONINFLAMMATORY) Status: Acute (2) ESRD (end stage renal disease) Code(s): N18.6 - END STAGE RENAL DISEASE Status: Acute (3) Volume overload Code(s): E87.70 - FLUID OVERLOAD, UNSPECIFIED Status: Acute (4) DM type 2 (diabetes mellitus, type 2) Status: Chronic (5) Morbid obesity with BMI of 40.0-44.9, adult Code(s): E66.01 - MORBID (SEVERE) OBESITY DUE TO EXCESS CALORIES; Z68.41 - BODY MASS INDEX (BMI) 40.0-44.9, ADULT Status: Chronic (6) Anemia in ESRD (end-stage renal disease) Code(s): N18.6 - END STAGE RENAL DISEASE; D63.1 - ANEMIA IN CHRONIC KIDNEY DISEASE Status: Acute (7) S/P BKA (below knee amputation) unilateral Code(s): Z89.519 - ACQUIRED ABSENCE OF UNSPECIFIED LEG BELOW KNEE Status: Acute (8) Acute on chronic respiratory failure with hypoxia Code(s): J96.21 - ACUTE AND CHRONIC RESPIRATORY FAILURE WITH HYPOXIA Status: Acute - Plan Plan: 53 yo M with ESRD on TTS HD with acute hypoxic respiratory insufficiency #Acute hypoxic respiratory insufficiency on 4L -85% in ED, placed on 4L, not normally on home O2 -PE ruled out, PNA unlikely (abbreviated abx course) -Pericardial windows on 01/04 -Still requiring 4L, non hypoxic -Will repeat CXR this AM to assess pleural effusion #Pericardial effusion -Per TTE -s/p pericardial window, POD 1 -Dr. Brar on board, further recs appreciated #Afib, paroxysmal -s/p amiodarone bolus -no amiodarone gtt for now since in NSR -Dr. Kumar on board, recs appreciated #IDDM2 -accuchecks 189-203 -resume alogliptin, getting 30 units long acting today -will titrate up as needed #Anemia of ESRD -continue Aranesp -s/p 1 PRBC -continue H/H #ESRD on TTS HD -Follows with Dr. Waterman, has been on HD for 17 mos -Continue HD -7L pulled off in total -Negative balance #cHTN -BP stable, resumed home meds #HLD -home meds #Chronic venous stasis of right lower extremity -feet elevation -expect improvement with HD #Concern for PE, ruled out -Wells PE score of 3 (immobility and hx of DVT), Ddimer 14 -Still requiring intermittent nasal canula use -Pt okay with CTA -replace order to definitively rule out PE -Dopplers negative for DVT -Already on therapeutic heparin dvt ppx: heparin TID PCP: Dr. Jackman Dispo: >2 midnights , IMCU
[2019-01-05] MEDS ORDERED: Insulin Glargine 30 UNITS in Pre-Filled Syringe 1 EACH SC SCH (05:55)
[2019-01-05] MEDS: HumaLOG 300 UNITS/3 ML VIAL SC PRN ×2 (06:42→12:21)
[2019-01-05 06:44] LABS: #Basophils 0.1 thou/uL (0.0-0.2); #Eosinphils 0.1 thou/uL (0.0-0.7); #Lymphocytes 0.8 thou/uL (1.20-3.40); #Monocytes 1.2 thou/uL (0.11-0.59); #Neutrophils 10.1 thou/uL (1.40-6.50); %Basophils 0.6 % (0.0-1.0); %Eosinophils 1.2 % (0.0-10.0); %Lymphocytes 6.2 % (21.0-51.0); %Monocytes 9.9 % (0.0-10.0); %Neutrophils 82.1 % (42.0-75.0); Hemoglobin 9.2 g/dL (14.0-18.0); Mean Corpuscular HGB CONC 32.2 g/dL (32.0-36.0); Mean Corpuscular Volume 86.8 fL (78.0-98.0); Mean Platelet Volume 6.9 fL (7.4-10.4); Platelet Count 364 thou/uL (130-400); RBC Distribution Width 14.5 % (11.5-14.5); Red Blood Cell (RBC) Count 3.28 mill/uL (4.70-6.10); White Blood Cell (WBC) Count 12.3 thou/uL (4.8-10.8)
[2019-01-05] MEDS: Pantoprazole 40 MG GRANULES PACKET PO SCH (07:51)
--- NOTE | 2019-01-05 08:13 | RAD ---
XR Chest 1 View Portable History: [Pleural effusion] Comparison: Radiograph prior day Findings: Heart size mildly enlarged. Enlarging right pleural effusion which is ybzp-cq-rxpzgzja size and moderate/large left pleural effusion. Mild pulmonary edema. No pneumothorax. Impression: Worsening pulmonary and pleural effusions. Large pericardial effusion.
[2019-01-05] MEDS: Metoprolol Tartrate 25 MG TAB PO SCH ×2 (08:55→20:13)
[2019-01-05] MEDS: hydrALAZINE 25 MG TAB PO SCH (08:55)
[2019-01-05] MEDS: cloNIDine 0.1 MG TAB PO SCH ×3 (08:55→20:12)
[2019-01-05] MEDS: Aspirin 81 mg Enteric Coated Tablet PO SCH (08:55)
[2019-01-05] MEDS ORDERED: Heparin 10,000 UNITS/ 10 ML VIAL ONE (09:00)
--- NOTE | 2019-01-05 11:32 | PRG ---
DATE OF SERVICE: 01/05/2019 SUBJECTIVE: This is a 53-year-old gentleman, being seen for end-stage renal disease. The patient denied nausea, vomiting, or chest pain. OBJECTIVE: CONSTITUTIONAL: The patient is awake and alert. VITAL SIGNS: Afebrile, pulse 60, breathing 16, blood pressure 112/84. GENERAL APPEARANCE AND MENTAL STATUS: Fair. HEAD/NECK: Normocephalic. Atraumatic. EYES: EOMI. No deformity. EARS: Clear. No ulcers. NOSE: Intact. No lesions. MOUTH: Clear. No discharge. THROAT: Clear. No exudate. LUNGS: Clear. No crackles. CARDIAC: S1, S2. No rub. ABDOMEN: Benign. Bowel sounds positive. GENITALIA/RECTUM: Garcia absent. BACK/EXTREMITIES: Edema 0+. NEUROLOGICAL: Alert and motor intact. SKIN: LYMPHATICS: LABORATORY DATA: Reviewed. ASSESSMENT AND PLAN: 1. Stage chronic kidney disease, stable. 2. Hypertension, stable. 3. Anemia, stable. 4. Uremic pericardial effusion. Recommend compliance with dialysis. Noncompliance is a major issue. Job ID: [id number]
[2019-01-05] MEDS: Heparin 5,000 UNITS/ML VIAL SC SCH ×2 (15:42→20:13)
[2019-01-05] MEDS: Atorvastatin Calcium 40 MG TAB PO SCH (20:12)
[2019-01-05 20:16] VITALS: BP 131/74
--- NOTE | 2019-01-05 20:59 | PRG ---
DATE OF SERVICE: 01/05/2019 SUBJECTIVE: Mr. Brown is being dialyzed when I evaluated him earlier today. He is in no distress. He was having no hypotension with dialysis. OBJECTIVE: VITAL SIGNS: He is afebrile. Blood pressure 131/74, heart rate is in the 60s, and respiratory rates in the 20s. GENERAL: He is in no distress, laying on his left side. LUNGS: Clear. HEART: Regular rhythm. ABDOMEN: Soft. EXTREMITIES: 2+ edema. LABORATORY DATA: White count 12.3, hemoglobin 9.2, platelets 364. Sodium 134, potassium 4.2, chloride 97, bicarb 26, BUN 63, and creatinine 5.15. I am told he had a pericardial window and I will see an operative note for this. He is felt to have a large uremic pericardial effusion. Apparently, he is noncompliant. Apparently, he had perioperative was started on amiodarone, but he converted back to sinus rhythm. Other problems include zywzm-dti-murl amputation in the past, diabetes, obesity, diabetic retinopathy, hypertension, peripheral vascular disease, right big toe amputation, vascular access procedures in the past, and several orthopedic procedures. Continue to follow the other physicians caring for him. He appears to be stable at this time. Job ID: [id number]
[2019-01-06 03:58] VITALS: BMI 39.4
[2019-01-06 04:54] LABS: #Eosinphils 0.1 thou/uL (0.0-0.7); #Lymphocytes 0.8 thou/uL (1.20-3.40); #Neutrophils 7.9 thou/uL (1.40-6.50); %Basophils 0.2 % (0.0-1.0); %Eosinophils 1.5 % (0.0-10.0); %Lymphocytes 8.3 % (21.0-51.0); %Monocytes 10.4 % (0.0-10.0); %Neutrophils 79.6 % (42.0-75.0); Hemoglobin 9.2 g/dL (14.0-18.0); Mean Corpuscular HGB CONC 32.6 g/dL (32.0-36.0); Mean Corpuscular Hemoglobin 28.5 pg (27.0-31.0); Mean Corpuscular Volume 87.6 fL (78.0-98.0); Platelet Count 351 thou/uL (130-400); RBC Distribution Width 14.5 % (11.5-14.5); Red Blood Cell (RBC) Count 3.22 mill/uL (4.70-6.10); White Blood Cell (WBC) Count 9.9 thou/uL (4.8-10.8)
[2019-01-06 05:14] LABS: Anion Gap 16 mmol/L (10-20); BUN (Urea Nitrogen) 42 mg/dL (8.4-25.7); Calc. Creatinine Clearance 38 mL/min (70-130); Calcium 8.8 mg/dL (7.8-10.44); Carbon Dioxide 25 mmol/L (22-29); Chloride 97 mmol/L (98-107); Estimated GFR-MDRD 14; Glucose 161 mg/dL (70-105); Potassium 3.9 mmol/L (3.5-5.1); Sodium 134 mmol/L (136-145)
[2019-01-06] MEDS: HumaLOG 300 UNITS/3 ML VIAL SC PRN ×2 (06:27→12:17)
[2019-01-06] MEDS ORDERED: Insulin Glargine 38 UNITS in Pre-Filled Syringe 1 EACH SC SCH (06:44)
--- NOTE | 2019-01-06 06:49 | PDOC.FM ---
- Subjective Subjective: NAEO. Had 4L pulled off of HD yesterday. Reports breathing much improved. Able to lay down flat without oxygen. Not quite back to baseline. - Objective MAR Reviewed: Yes Vital Signs & Weight: Vital Signs (12 hours) Temp BP Pulse Ox 01/06/19 04:29 98.6 F 01/05/19 23:49 97.4 F L 01/05/19 20:12 131/74 01/05/19 20:00 98 01/05/19 19:40 99.0 F Weight Admit Weight 149.459 kg Weight 144 kg Most Recent Monitor Data Heart Rate from ECG 68 NIBP 142/72 NIBP BP-Mean 95 Respiration from ECG 15 SpO2 96 I&O: 01/04/19 01/05/19 01/06/19 06:59 06:59 06:59 Intake Total 830 1120 820 Output Total 624 279 2208 Balance 680 979 -8891 Result Diagrams: 01/06/19 04:16 01/06/19 04:16 Phys Exam - Physical Examination Constitutional: NAD morbidly obese HEENT: PERRLA, moist MMs Neck: full ROM bibasilar crackles Cardiovascular: RRR, no significant murmur Gastrointestinal: soft, non-tender tube from chest, minimal serosanguinous drainage Neurological: non-focal, moves all 4 limbs Psychiatric: normal affect, A&O x 3 Skin: cap refill <2 seconds Dx/Plan (1) Pericardial effusion Code(s): I31.3 - PERICARDIAL EFFUSION (NONINFLAMMATORY) Status: Acute (2) ESRD (end stage renal disease) Code(s): N18.6 - END STAGE RENAL DISEASE Status: Acute (3) Volume overload Code(s): E87.70 - FLUID OVERLOAD, UNSPECIFIED Status: Acute (4) DM type 2 (diabetes mellitus, type 2) Status: Chronic (5) Morbid obesity with BMI of 40.0-44.9, adult Code(s): E66.01 - MORBID (SEVERE) OBESITY DUE TO EXCESS CALORIES; Z68.41 - BODY MASS INDEX (BMI) 40.0-44.9, ADULT Status: Chronic (6) Anemia in ESRD (end-stage renal disease) Code(s): N18.6 - END STAGE RENAL DISEASE; D63.1 - ANEMIA IN CHRONIC KIDNEY DISEASE Status: Acute (7) S/P BKA (below knee amputation) unilateral Code(s): Z89.519 - ACQUIRED ABSENCE OF UNSPECIFIED LEG BELOW KNEE Status: Acute (8) Acute on chronic respiratory failure with hypoxia Code(s): J96.21 - ACUTE AND CHRONIC RESPIRATORY FAILURE WITH HYPOXIA Status: Acute - Plan Plan: 53 yo M with ESRD on TTS HD with acute hypoxic respiratory insufficiency #Acute hypoxic respiratory insufficiency on 4L -85% in ED, placed on 4L, not normally on home O2 -PE ruled out, PNA unlikely (abbreviated abx course) -Pericardial window on 01/04 -Clinically improving with aggressive HD and s/p pericardial window -Will repeat CXR this AM to assess pleural effusion since had HD yesterday -Will try weaning O2 -If stays another night will order CPAP #Uremic Pericardial effusion -Per TTE -s/p pericardial window, POD 2 -Dr. Brar on board, further recs appreciated - HD yesterday, 4L pulled off #Afib, paroxysmal, resolved -s/p amiodarone bolus -no amiodarone gtt for now since in NSR -Dr. Kumar on board, recs appreciated #IDDM2 -accuchecks 189-203 -resume alogliptin, inc. lantus to 38 units -added meal time short acting insulin -will titrate up as needed #Anemia of ESRD -continue Aranesp -s/p 1 PRBC -continue H/H #ESRD on TTS HD -Follows with Dr. Waterman, has been on HD for 17 mos -Continue HD #cHTN -BP stable, resumed home meds #HLD -home meds #Chronic venous stasis of right lower extremity -feet elevation -expect improvement with HD #Concern for PE, ruled out -Wells PE score of 3 (immobility and hx of DVT), Ddimer 14 -Still requiring intermittent nasal canula use -Pt okay with CTA -replace order to definitively rule out PE -Dopplers negative for DVT -Already on therapeutic heparin dvt ppx: heparin TID PCP: Dr. Jackman Dispo: Stable
--- NOTE | 2019-01-06 08:25 | RAD ---
XR Chest 1 View Portable History: [Dyspnea] Comparison: Radiograph prior day Findings: Heart size is markedly enlarged with a component of pericardial effusion. Pleural effusions are similar. Moderate edema. No pneumothorax. No acute osseous abnormality. Remote right clavicular injury. Impression: Unchanged examination of the chest.
[2019-01-06] MEDS: Insulin Regular 300 UNITS/3 ML VIAL SC SCH ×2 (08:40→12:17)
[2019-01-06 09:02] VITALS: TEMP 98.4
[2019-01-06] MEDS: Heparin 5,000 UNITS/ML VIAL SC SCH (09:09)
[2019-01-06] MEDS: Pantoprazole 40 MG GRANULES PACKET PO SCH (09:10)
[2019-01-06] MEDS: cloNIDine 0.1 MG TAB PO SCH (09:11)
[2019-01-06] MEDS: Aspirin 81 mg Enteric Coated Tablet PO SCH (09:11)
[2019-01-06] MEDS: hydrALAZINE 25 MG TAB PO SCH (09:11)
[2019-01-06] MEDS: Metoprolol Tartrate 25 MG TAB PO SCH (09:11)
--- NOTE | 2019-01-06 11:30 | PRG ---
DATE OF SERVICE: 01/06/2019 SUBJECTIVE: A 53-year-old gentleman being seen for end-stage renal disease. The patient denies any nausea, vomiting, or chest pain. OBJECTIVE: CONSTITUTIONAL: On examination, the patient is awake, alert. VITAL SIGNS: Afebrile, pulse 95, breathing 16, and blood pressure 131/94. GENERAL APPEARANCE AND MENTAL STATUS: Fair. HEAD/NECK: Normocephalic. Atraumatic. EYES: EOMI. No deformity. EARS: Clear. No ulcers. NOSE: Intact. No lesions. MOUTH: Clear. No discharge. THROAT: Clear. No exudate. LUNGS: Clear. No crackles. CARDIAC: S1, S2. No rub. ABDOMEN: Benign. Bowel sounds positive. GENITALIA/RECTUM: Garcia absent. BACK/EXTREMITIES: Edema 0+. NEUROLOGICAL: Alert and motor intact. LABORATORY DATA: Reviewed. ASSESSMENT AND PLAN: 1. Stage 6 chronic kidney disease. Plan dialysis per schedule. 2. Hypertension, stable. 3. Anemia, stable. 4. Medications based on glomerular filtration rate are appropriate. Job ID: [id number]
--- NOTE | 2019-01-06 21:18 | PRG ---
DATE OF SERVICE: 01/06/2019 SUBJECTIVE: Chapin Brown was evaluated earlier today. He is in no distress. He is doing clinically well. It is anticipated he might go home. There has been no change in his exam. IMPRESSION: Status post uremic pericardial effusion requiring a pericardial window. We will sign off. Job ID: [id number]
--- NOTE | 2019-01-07 09:20 | OP ---
DATE OF PROCEDURE: 01/04/2019 PREOPERATIVE DIAGNOSIS: Pericardial effusion. POSTOPERATIVE DIAGNOSIS: Pericardial effusion secondary to uremic pericarditis. PROCEDURE PERFORMED: Pericardial window. ANESTHESIA: General. FINDINGS: The patient had a 1000 mL of bloody-appearing fluid with fibrinous exudate on the surface of the heart as well as on the pericardial surface and heart was stuck to the pericardium and making placement of a long drain impossible. DESCRIPTION OF PROCEDURE: After prepping and draping, incision was made just below the xiphoid process, dividing the fascia and then using blunt and sharp dissection, a plane developed posterior to the sternum. Pericardium was palpated, but was at least 2.5 inches from the fascia. Tediously with blunt dissection and [employer] personnel associate, the pericardium was finally entered in one small area and about a liter of bloody fluid was removed. The opening was then enlarged and some fibrinous exudate removed from the right ventricle, and sent for permanent section. Unfortunately, I could not advance a drain into the pericardial sac and was unable to get my finger into the pericardial sac due to the distance between the fascia and the pericardium. A 19 Dwain drain was advanced gently into the pericardial well, but only for about 1 inch and would not go further. Fascia was then reapproximated with interrupted Vicryl suture and the subcutaneous tissue and skin were closed in layers. Job ID: [id number]
--- NOTE | 2019-01-07 12:51 | PRG ---
DATE OF SERVICE: 01/06/2019 ADDENDUM: Please see note from Dr. Velez for which I agree. The patient was seen, evaluated, and discussed and examined with the residents by bedside. This gentleman, as we saw him this morning, was having his pericardial drain removed by Dr. Brar. Still getting dialysis, got a lot of fluid off again yesterday and oxygen level has been good. In general, was doing fine, may be able to go back to the custodial facility that current management in the next day or so. Otherwise, some supportive care and continuing on the same medications. Job ID: [id number]
--- NOTE | 2019-01-07 15:26 | DIS ---
DATE OF ADMISSION: 01/01/2019 DATE OF DISCHARGE: 01/06/2019 ADMITTING ATTENDING: Dean Husain MD DISCHARGE ATTENDING: Dean Husain MD RESIDENT: Myriam Velez MD, PGY-1. PROCEDURES AND IMAGIN. CTA: Massive pericardial effusion. Negative for pulmonary embolism. 2. Transthoracic echo, ejection fraction 55% to 60%. Diastolic dysfunction. Severe pericardial effusion. 3. Pericardial window with Dr. Brar. 4. Venogram negative for deep venous thrombosis. PRIMARY DIAGNOSES: 1. Acute hypoxic respiratory failure requiring 4 L secondary to fluid overload. 2. Uremic pericardial effusion, status post pericardial window. 3. Fluid overload secondary to end-stage renal disease, requiring hemodialysis. 4. Paroxysmal atrial fibrillation, resolved. SECONDARY DIAGNOSES: 1. Insulin-dependent diabetes mellitus 2. 2. Anemia of end-stage renal disease. 3. End-stage renal disease on TTS hemodialysis. 4. Chronic hypertension. 5. Hyperlipidemia. 6. Chronic venous stasis of right lower extremity. 7. Concern for pulmonary embolism, ruled out. DISCHARGE MEDICATIONS: New home medications include: 1. Glargine 38 units subcu q.a.m. Resume home medications: 1. Atorvastatin 80 mg p.o. daily. 2. Protonix 20 mg p.o. daily. 3. Hydralazine 50 mg p.o. daily. 4. Metoclopramide. 5. Simethicone. 6. Loperamide. 7. Zofran 1 tab p.o. q.6 hours p.r.n. for nausea. 8. Guaifenesin 10 mL p.o. q.4 hours p.r.n. for cough, congestion. 9. Cepacol sore throat lozenges. 10. Benadryl 1 cap p.o. q.6 hours p.r.n. for allergic reaction. 11. Acetaminophen 2 tabs p.o. q.4 hours p.r.n. for fever or pain. 12. Clonidine one tab p.o. t.i.d. 13. MiraLAX 17 g p.o. daily p.r.n. for constipation. 14. Humulin 5 units subcu t.i.d. with meals. 15. Darbepoetin meghan 60 mcg subcu q.7 days. 16. Colace. 17. Tradjenta 5 mg p.o. daily. 18. Metoprolol tartrate 25 mg p.o. b.i.d. 19. Aspirin 81 mg p.o. b.i.d. DISCONTINUED MEDICATIONS: Levemir 80 units subcu t.i.d. HISTORY OF PRESENT ILLNESS/HOSPITAL COURSE: Mr. Chapin Brown is a 53-year-old senior care patient with ESRD on hemodialysis, who presents to the ER for feeling short of breath. He is found to be hypoxic at 85% and put on 4 L nasal cannula. Chest x-ray imaging showed left lobe effusion. There is concern for PE since the patient has left BKA and is static and obese. Due to inability to tolerate lying flat for the CTA, it was not performed on admission. He had an elevated D-dimer. Eventually, he was admitted for hypoxic respiratory failure to the unit. Venogram negative for DVT. CTA negative for PE. However, there was a massive pericardial effusion found. Cardiovascular surgery was consulted and patient underwent a pericardial window. During this time, he also was aggressively dialyzed with Dr. Waterman. Serial chest x-ray imaging showed pleural effusion that did not improve. However, clinically, his respiratory status improved back to baseline, no longer requiring supplemental O2. Shortly after the pericardial window, the patient went into atrial fibrillation. Cardiology was consulted and received bolus of amiodarone, which resolved the atrial fibrillation. For the rest of hospitalization, he remained in normal sinus rhythm and was not sent home on any medication . It was thought that patient had uremic pericardial effusion likely due to his severe ESRD. He is instructed to continue hemodialysis and follow up with both Dr. Brar and Dr. Waterman . In addition, the patient's insulin was changed due to lower requirement which is listed above. Please titrate as needed. DISPOSITION: Stable. DISCHARGE INSTRUCTIONS: 1. Location: retirement. 2. Diet: Heart healthy, low-sodium, fluid-restricted, carb consistent. 3. Activity: Ad sarita as tolerated. FOLLOWUP: 1. Please follow up with Dr. Farrar in 3 to 5 days. 2. Please follow up with Dr. Waterman to continue regular hemodialysis. 3. Please follow up with Dr. Brar for post pericardial window checkup. 4. Please titrate insulin as needed for diabetes. Job ID: [id number]
--- NOTE | 2019-01-07 15:52 | PRG ---
DATE OF SERVICE: 01/05/2019 ADDENDUM: SUBJECTIVE: This is a 53-year-old gentleman with dialysis, who has been in the ICU after having a pericardial window done for a severe pericardial effusion. It sounds like we think it is all from just either noncompliance with dialysis or just under diuresis with dialysis. Postoperatively, did go into atrial fibrillation, but ended up getting amiodarone bolus and sounds like potentially x2, which put him back in a sinus rhythm, and because of the extremely high dose of amiodarone, none was restarted, but tolerated it fine. No issues or arrhythmias, now back in sinus rhythm. Breathing is better, less short of breath. Not complaining of any pain today. OBJECTIVE: CHEST: Clear. CARDIOVASCULAR: Extremely distant heart sounds, but is regular on the monitor. EXTREMITIES: Show trace to 1+ pitting edema. Little bit of stasis dermatitis. PLAN: Plan is to continue supportive care in the ICU. Continue monitoring heart, make sure that he did not go back in atrial fibrillation and continue drainage of the pericardium to the drain that Cardiovascular Surgery put in. He is on DVT prophylaxis and is back on all his home medications for diabetes, etc. Job ID: [id number]
--- NOTE | 2019-01-08 08:53 | EKG ---
Test Reason : STAT TACHYCARDIA Blood Pressure : / mmHG Vent. Rate : 097 BPM Atrial Rate : 100 BPM P-R Int : 000 ms QRS Dur : 116 ms QT Int : 380 ms P-R-T Axes : 000 -22 170 degrees QTc Int : 482 ms Atrial fibrillation Prolonged QT Abnormal ECG When compared with ECG of 01-JAN-2019 11:23, (Unconfirmed) Atrial fibrillation has replaced Sinus rhythm ST now depressed in Lateral leads Inverted T waves have replaced nonspecific T wave abnormality in Lateral leads Confirmed by CJ QUICK, DR. Pepe ([id number]) on 01/08/2019 8:53:19 AM Referred By: Stanislav BAILEY Confirmed By:DR. Afshin CORONA MD
== END 2019-01-06 12:45 | DRG 270 ==
LOC: ERS 11:02 → IMCU/EMU 14:53
PROVIDERS: ADMIT Family Medicine; ATTEND Family Medicine
PROC: B50DYZZ Plain Radiography of Bilateral Lower Extremity Veins using Other Contrast (ICD-10-PCS; principal; 2019-01-01)
PROC: 0W9D00Z Drainage of Pericardial Cavity with Drainage Device, Open Approach (ICD-10-PCS; 2019-01-04)
DX: I13.2 Hypertensive heart and chronic kidney disease with heart failure and with stage 5 chronic kidney disease, or end stage renal disease (principal); N18.6 End stage renal disease; J96.21 Acute and chronic respiratory failure with hypoxia; J18.9 Pneumonia, unspecified organism; I50.30 Unspecified diastolic (congestive) heart failure; I31.3 Pericardial effusion (noninflammatory); I32 Pericarditis in diseases classified elsewhere; E11.22 Type 2 diabetes mellitus with diabetic chronic kidney disease; Z99.2 Dependence on renal dialysis; Z91.15 Patient's noncompliance with renal dialysis; Z89.512 Acquired absence of left leg below knee; I87.8 Other specified disorders of veins; E78.5 Hyperlipidemia, unspecified; E11.319 Type 2 diabetes mellitus with unspecified diabetic retinopathy without macular edema; Z86.718 Personal history of other venous thrombosis and embolism; E11.51 Type 2 diabetes mellitus with diabetic peripheral angiopathy without gangrene; D63.1 Anemia in chronic kidney disease; E66.01 Morbid (severe) obesity due to excess calories; Z68.39 Body mass index [BMI] 39.0-39.9, adult
CPT/HCPCS: 36415; 36416; 36430; 71045; 71275; 80048; 80053; 80076; 80202; 83605; 83735; 83880; 84145; 84443; 84484; 85025; 85060; 85379; 85610; 85730; 86850; 86900; 86901; 87040; 87070; 87149; 87205; 87899; 89051; 93005; 93010; 93306; 93970; 94660; 96365; 96367; J0282; J0456; J0670; J0696; J0881; J1644; J1815; J1825; J2250; J2405; J2550; J3010; J3370; J3490; J7050; J7070; P9016

== ENCOUNTER 2019-09-13 23:33 | Inpatient (IN) | payer MEDICARE, MEDICAID ==
--- NOTE | 2019-09-13 23:58 | RAD ---
Exam: Chest one view HISTORY:Dyspnea Comparison: 01/06/2019 FINDINGS: Cardiac silhouette:Cardiomegaly. Aorta: Unremarkable Pulmonary vessels: Normal Costophrenic angles: Clear LUNGS: Diffuse interstitial and alveolar opacities, superimposed upon chronic change. Correlate for e di or infiltrate. Pneumothorax: None Osseous abnormalities: None IMPRESSION: 1. Presumed congestive heart failure, given cardiomegaly. Superimposed pneumonia cannot be excluded. Continued surveillance is recommended
[2019-09-14 00:10] LABS: #Basophils 0.1 thou/uL (0.0-0.2); #Eosinphils 0.3 thou/uL (0.0-0.7); #Lymphocytes 1.3 thou/uL (1.20-3.40); #Monocytes 0.5 thou/uL (0.11-0.59); #Neutrophils 5.5 thou/uL (1.40-6.50); %Eosinophils 4.5 % (0.0-10.0); %Lymphocytes 17.1 % (21.0-51.0); %Monocytes 5.9 % (0.0-10.0); %Neutrophils 71.5 % (42.0-75.0); Hemoglobin 12.2 g/dL (14.0-18.0); Mean Corpuscular HGB CONC 35.5 g/dL (32.0-36.0); Mean Corpuscular Hemoglobin 31.8 pg (27.0-31.0); Mean Corpuscular Volume 89.5 fL (78.0-98.0); Mean Platelet Volume 9.1 fL (7.4-10.4); Platelet Count 199 thou/uL (130-400); RBC Distribution Width 12.2 % (11.5-14.5); Red Blood Cell (RBC) Count 3.82 mill/uL (4.70-6.10); White Blood Cell (WBC) Count 7.6 thou/uL (4.8-10.8)
[2019-09-14 00:25] LABS: Actual Bicarbonate (HCO3a) 18.3 mEq/L (22-28); Analyzer IN Cardio ER; Base Excess (BEa) -8.4 mEq/L (-2.0 to +3.0); CO2 Tension 42.3 mmHg (35.0-45.0); Calcium, Ionized 1.19 mmol/L (1.12-1.30); Carboxyhemoglobin (COHb) 0.1 gm% (0.0-3.0); Hemoglobin (Hb) 12.3 g/dL (14.0-18.0); O2 Tension (PaO2) 88.3 mmHg (80.0-100.0); Potassium - ABG Lab 4.97 mmol/L (3.70-5.30); pH, Arterial 7.25 (7.35-7.45)
[2019-09-14 00:26] LABS: ALV-art Gradient 144.025 (0-20); Puncture Site RRA
[2019-09-14 00:29] LABS: ALT (SGPT) 13 U/L (8-55); AST (SGOT) 14 U/L (5-34); Albumin 4.1 g/dL (3.5-5.0); Alkaline Phosphatase 87 U/L (40-110); Anion Gap 14 mmol/L (10-20); BUN (Urea Nitrogen) 49 mg/dL (8.4-25.7); Bilirubin, Total 0.6 mg/dL (0.2-1.2); Calc. Creatinine Clearance 0 mL/min (70-130); Calcium 8.4 mg/dL (7.8-10.44); Carbon Dioxide 17 mmol/L (22-29); Chloride 107 mmol/L (98-107); Estimated GFR-MDRD 20; Globulin 3.3 g/dL (2.4-3.5); Glucose 433 mg/dL (70-105); Potassium 5.2 mmol/L (3.5-5.1); Protein, Total 7.4 g/dL (6.0-8.3); Sodium 133 mmol/L (136-145)
[2019-09-14 00:51] LABS: CKMB 6.1 ng/mL (0-6.6)
[2019-09-14] MEDS ORDERED: Furosemide 40 MG/4 ML VIAL ONE (01:18)
--- NOTE | 2019-09-14 02:32 | PDOC.FPRHP ---
- History of Present Illness Chief Complaint: shortness of breath History of Present Illness: 54yo CM with h/o IDDMII s/p R BKA, ESRD, HTN who presents for acute onset SOB earlier in the day on 09/13. Pt states he was previous dialysis patient for 3 years, followed by Dr. Arredondo, but about 2 weeks ago was taken off HD 2/2 recovery of his kidneys. He states he has always produced urine, even on HD. States was going well off dialysis until acute onset of dyspnea today. Endorses dry cough over past 3 days. Denies any fever/chills, CP, n/v, diarrhea/ constipation, abd pain, ANDINO, vision changes. Does endorse acute orthopnea, unable to lie flat at all. However no previous orthopnea or PND. ED Course: CXR with cardiomegaly and diffuse interstitial infiltrates and pulm edma. Dr. Arredondo contacted by EDMD and plan for urgent dialysis. Satting mid 80s on BiPap. Admitted to CCU for close management. - Allergies/Adverse Reactions Allergies Allergy/AdvReac Type Severity Reaction Status Date / Time No Known Allergies Allergy Verified 01/01/19 14:55 - Home Medications Medication Instructions Recorded Confirmed Type Atorvastatin Calcium [Lipitor] 80 mg PO DAILY 11/27/16 01/01/19 History Pantoprazole [Protonix] 20 mg PO DAILY-AC 05/19/17 01/01/19 History hydrALAZINE HCl [Hydralazine HCl] 50 mg PO DAILY 05/19/17 01/01/19 History Acetaminophen [Tylenol Regular 2 tab PO Q4HR PRN 08/18/17 01/01/19 History Strength] Benzocaine/Menthol [Cepacol Sore 1 shanti PO BID PRN 08/18/17 01/01/19 History Throat Lozenge] Calcium Carbonate [Tums] 1 - 2 tab PO Q6HR PRN 08/18/17 01/01/19 History Loperamide HCl [Loperamide] 1 cap PO ASDIR PRN 08/18/17 01/01/19 History Metoclopramide HCl [Reglan] 1 tab PO Q6HR PRN 08/18/17 01/01/19 History Ondansetron [Zofran ODT] 1 tab PO Q6HR PRN 08/18/17 01/01/19 History Polyethylene Glycol 3350 [Miralax] 17 gm PO DAILY PRN 08/18/17 01/01/19 History Simethicone 1 tab PO TID PRN 08/18/17 01/01/19 History cloNIDine HCl [cloNIDine HCl ER] 1 tab PO TID 08/18/17 01/01/19 History diphenhydrAMINE [Benadryl] 1 cap PO Q6HR PRN 08/18/17 01/01/19 History guaiFENesin [Guaifenesin] 10 ml PO Q4HR PRN 08/18/17 01/01/19 History Darbepoetin Igor in Polysorbat 60 mcg SC Q7D 11/21/17 01/01/19 History [Aranesp] Docusate [Colace] 100 mg PO BID PRN 11/21/17 01/01/19 History Insulin Regular [HumuLIN R Vial] 5 unit SC TID-WM 11/21/17 01/01/19 History Linagliptin [Tradjenta] 5 mg PO DAILY 10/15/18 01/01/19 History Metoprolol Tartrate 25 mg PO BID 12/19/18 01/01/19 History Aspirin [Ecotrin Low Strength] 81 mg PO DAILY #14 tab 12/20/18 01/01/19 Rx Insulin Glargine [Lantus Vial] 38 units SC QAM vial 01/06/19 Rx Comments: Pt unsure of home medications, some home meds rec'ed from previous admission. Pt does state he takes 110u for levamir daily - History PMHx: IDDMII, ESRD on HD (taken off 2 wks ago), HTN, HLD, RLE venous stasis, Paroxysmal afib in December 201809/01 pericardial effusion PSHx: L BKA, pericardial window 12/2018, L lower arm fistula, R great toe amputation FHx: No FM heart failure Social: Lives with sister. No history of drugs, EtOH, tob. - Review of Systems General: reports: fatigue. denies: fever/chills, weight/appetite/sleep changes , night sweats Eyes: denies: vision changes ENT: denies: nasal congestion, rhinorrhea Respiratory: reports: cough, shortness of breath, exercise intolerance. denies : congestion Cardiovascular: reports: orthopnea. denies: chest pain, palpitation, edema, paroxysmal nocturnal dyspnea Gastrointestinal: denies: nausea, vomiting, diarrhea, constipation, abdominal pain Skin: denies: rashes - Vital signs BP: 190/90 HR: 70 RR: 30 Tmax: 97 Pox: 83% on RA Wt: 128kg - Physical Exam Constitutional: NAD, awake, alert and oriented, well developed, other (obese, on Bipap without any resipatory distress) HEENT: PERRLA, EOMI, conjunctiva clear, grossly normal vision, grossly normal hearing, MMM Neck: supple, trachea midline Heart: RRR, normal S1/S2, no murmurs/rubs/gallops, pulses present, no edema Lungs: CTAB, no rales/rhonchi, no wheezing, no retractions, other (decreased aeration throughout, no focal consolidation, no distress on Bipap) Abdomen: soft, non-tender, bowel sounds present, no masses/distention Musculoskeletal: normal structure, normal tone, other (L BKA) Neurological: no focal deficit Skin: other (chronic venous changes to RLE, decreased pulses to RLE) Psychiatric: normal mood and affect, good judgment and insight, intact recent and remote memory FMR H&P: Results - Labs Result Diagrams: 09/13/19 23:57 09/13/19 23:57 Lab results: WBC 7.6 thou/uL (4.8-10.8) 09/13/19 23:57 Hgb 12.2 g/dL (14.0-18.0) L 09/13/19 23:57 Hct 34.2 % (42.0-52.0) L 09/13/19 23:57 MCV 89.5 fL (78.0-98.0) 09/13/19 23:57 Plt Count 199 thou/uL (130-400) 09/13/19 23:57 Neutrophils % 71.5 % (42.0-75.0) 09/13/19 23:57 ABG pH 7.25 (7.35-7.45) L* 09/14/19 00:17 ABG pCO2 42.3 mmHg (35.0-45.0) 09/14/19 00:17 ABG pO2 88.3 mmHg (80.0-100.0) 09/14/19 00:17 Sodium 133 mmol/L (136-145) L 09/13/19 23:57 Potassium 5.2 mmol/L (3.5-5.1) H 09/13/19 23:57 Chloride 107 mmol/L (98-107) 09/13/19 23:57 Carbon Dioxide 17 mmol/L (22-29) L 09/13/19 23:57 BUN 49 mg/dL (8.4-25.7) H 09/13/19 23:57 Creatinine 3.23 mg/dL (0.7-1.3) H 09/13/19 23:57 Glucose 433 mg/dL (70-105) H 09/13/19 23:57 Calcium 8.4 mg/dL (7.8-10.44) 09/13/19 23:57 Total Bilirubin 0.6 mg/dL (0.2-1.2) 09/13/19 23:57 AST 14 U/L (5-34) 09/13/19 23:57 ALT 13 U/L (8-55) 09/13/19 23:57 Alkaline Phosphatase 87 U/L (40-110) 09/13/19 23:57 CK-MB (CK-2) 6.1 ng/mL (0-6.6) 09/13/19 23:57 B-Natriuretic Peptide 671.2 pg/mL (0-100) H 09/13/19 23:57 Serum Total Protein 7.4 g/dL (6.0-8.3) 09/13/19 23:57 Albumin 4.1 g/dL (3.5-5.0) 09/13/19 23:57 - EKG Interpretation EK lead EKG shows, first degree AV Block, Rate (beats per minute): 93, with no ectopics, Conduction with, nonspecific intraventricular conduction delay, ST, consider lateral ischemia, T waves, consider lateral ischemia, Charlton normal, - Radiology Interpretation Chest x-ray Status: image reviewed by me, report reviewed by me (cardiomegaly, suggestive CHF, diffuse interstitial infiltrates) FMR H&P: A/P - Problem List (1) Acute on chronic respiratory failure with hypoxia Current Visit: Yes Status: Acute Code(s): J96.21 - ACUTE AND CHRONIC RESPIRATORY FAILURE WITH HYPOXIA (2) ESRD (end stage renal disease) on dialysis Current Visit: Yes Status: Acute Code(s): N18.6 - END STAGE RENAL DISEASE; Z99.2 - DEPENDENCE ON RENAL DIALYSIS (3) Anemia in ESRD (end-stage renal disease) Current Visit: Yes Status: Chronic Code(s): N18.6 - END STAGE RENAL DISEASE ; D63.1 - ANEMIA IN CHRONIC KIDNEY DISEASE (4) DM type 2 (diabetes mellitus, type 2) Current Visit: Yes Status: Chronic Qualifiers: Diabetes mellitus termination clerk insulin use: with fpc use Diabetes mellitus complication status: with circulatory complication (5) Morbid obesity with BMI of 40.0-44.9, adult Current Visit: Yes Status: Chronic Code(s): E66.01 - MORBID (SEVERE) OBESITY DUE TO EXCESS CALORIES; Z68.41 - BODY MASS INDEX (BMI) 40.0-44.9, ADULT - Plan 54yo CM with h/o IDDMII s/p R BKA, ESRD, HTN who presents for acute hypoxic respiratory failure #Acute hypoxic respiratory failure - satting 85% on RA, CXR with pulmonary edema, cardiomegaly, suspected CHF - placed on Bipap and now satting well without acute respiratory distress - 2wks off dialysis, suspect 2/2 ESRD volume overload as well as possible newonset CHF - Admit to CCU for monitoring on BiPap - Elevated BNP to 671, Echo ordered - TSH pending #ESRD with acute pulmonary edema - Dr. Arredondo consulted from ED, plan for urgent dialysis, apprec recs and assistance - Has fistula on L UE - monitor lytes - Cr 3.23 #Suspected new-onset CHF - BNP 671, acute pulmonary edema and acute hypoxic respiratory failure per above - Echo ordered - strict I's and O's with daily weights - monitor volume status post dialysis - consider cardiology consult #Elevated trop - no CP sxs, nonspecific ST and T wave changes on EKG - will trend trops #IDDMII - States uses 110u levemir at home - will place on hyperglycemic protocol, q6h accuchecks while NPO - will cont lantus at 100u with aggressive SS #HTN - elevated BP on presentation - per record review was previously only on metoprolol for BP - will likely need titration of BP meds #HLD - cont home lipitor #h/o Afib - Paroxysmal with pericardial effusion in hospitalization in December 2018 post procedure - currently sinus, will cont to monitor on tele #Anemia of chronic disease and ESRD - stable, hb 12.2 PCP: [facility] - [place] Code: Full Diet: NPO until respiratory status improves IVF: SL VTE: Heparin Disposition/LOS: Admit to CCU for acute hypoxic resp failure, urgent dialysis. Expected LOS > 48hrs. FMR H&P: Upper Level - Pertinent history 54 year old male presents with sudden onset shortness of breath just prior to arrival. Patient states he was feeling fine up to this point. He has had a dry cough for the past 3-4 days but no associated fever, chills, congestion, chest pain, N/V, abdominal pain. Patient has a history of ESRD on HD. He has been on HD for the last 3 years but was taken off 2 weeks ago as his kidney function had improved. He has been doing well up until this afternoon. Patient does endorse orthopnea currently, but he has not experienced it up to this point. - Pertinent findings General: Alert and oriented x3. Talking through BiPAP but appears comfortable. HEENT: MMM Resp: Bilateral basilar crackles, does not appear to be in any respiratory distress on BiPAP, satting well Card: SUNIL heard on auscultation, RRR Abdomen: Obese, non-tender Ext: Left AKA, no skin changes. RLE with no edema but chronic venous changes noted - Plan Date/Time: 09/14/19221 IShaniqua, have evaluated this patient and agree with findings/plan as outlined by research intern resident. Pertinent changes/additions are listed here. Acute hypoxic respiratory failure 2/2 pulmonary edema from possible new onset CHF vs. worsening ESRD - Satting 80's on room air, placed on BiPAP and sats improved - CXR consistent with bilateral pulmonary edema - Suspect new onset CHF; will obtain echo - Patient going for emergent dialysis, Dr. Milner contacted in ED - Patient does produce urine and can undergo diuresis with lasix if needed - Will consult pulm in AM if patient stays in ICU Suspect new onset CHF - Will obtain echo - HF meds as indicated - Strict I&O's - Daily weights - Fluid restriction when able to take PO ESRD with acute pulmonary edema - Dr. Arredondo consulted from ED, plan for urgent dialysis, apprec recs and assistance - Has fistula on L UE - Monitor electrolytes - Cr 3.23 Elevated trop - No CP sxs, nonspecific ST and T wave changes on EKG, ST depression leads V5, V6 with no reciprocal changes - Will trend trops IDDMII - States uses 110u levemir at home - Will place on hyperglycemic protocol, q6h accuchecks while NPO - Will cont lantus at 100u with aggressive SS HTN - Elevated BP on presentation - Per record review was previously only on metoprolol for BP - Will likely need titration of BP meds HLD - Continue home statin h/o Afib - Paroxysmal with pericardial effusion in hospitalization in December 2018 post procedure - Currently sinus, will cont to monitor on telemetry Anemia of chronic disease and ESRD - Stable, Hb 12.2 DVT PPX: Heparin Code status: Full Dispo: Admit to CCU. Anticipate LOS >48 hours.
[2019-09-14] MEDS ORDERED: Acetaminophen 650 MG Suppository PR PRN (04:53)
[2019-09-14] MEDS ORDERED: HumaLOG 300 UNITS/3 ML VIAL SC PRN (04:53)
[2019-09-14] MEDS ORDERED: CCU Electrolyte Replacement 1 EACH IVPB ONE (04:53)
[2019-09-14] MEDS ORDERED: Dextrose 50% Abboject 50 ML SYRINGE SLOW IVP PRN (04:53)
[2019-09-14] MEDS ORDERED: Calcium Carbonate 500 MG ChewTAB PO PRN (04:53)
[2019-09-14] MEDS ORDERED: Acetaminophen 325 MG TAB PO PRN (04:53)
[2019-09-14] MEDS ORDERED: Dextrose 5% in Water 1,000 ML IV PRN (04:53)
[2019-09-14] MEDS ORDERED: Magnesium 2 GM/50 ML 2 GM in Premix Bag 1 BAG IVPB PRN (05:05)
[2019-09-14] MEDS ORDERED: PHOS-NAK 1 PKT PACK PO PRN ×2 (05:05)
[2019-09-14] MEDS ORDERED: Potassium Chloride 40 MEQ in Premix Bag 1 BAG IVPB PRN (05:05)
[2019-09-14] MEDS ORDERED: Potassium Phosphate 9 MMOL in Sodium Chloride 0.9% 100 ML IVPB PRN (05:05)
[2019-09-14] MEDS ORDERED: Potassium Chloride 20 MEQ TAB PO PRN (05:05)
[2019-09-14] MEDS ORDERED: Potassium Phosphate 12 MMOL in Sodium Chloride 0.9% 250 ML 250 ML IV PRN (05:05)
[2019-09-14] MEDS ORDERED: CCU ELECTROLYTE REPLACEMENT PROTOCOL FS PRN (05:05)
[2019-09-14] MEDS ORDERED: Potassium Chloride 40 MEQ in Sodium Chloride 0.9% 250 ML 250 ML IVPB PRN (05:05)
[2019-09-14] MEDS ORDERED: Potassium Phosphate 15 MMOL in Sodium Chloride 0.9% 250 ML 250 ML IV PRN (05:05)
[2019-09-14] MEDS ORDERED: Magnesium Oxide 400 MG TAB PO PRN ×2 (05:05)
[2019-09-14 07:09] LABS: HBSAB Concentration 1.93 mIU/mL; HBSAg Index 0.14 S/CO (0-0.99); Hep B Core Total Ab Non-Reactive (NonReactive); Hep B Core Total Index 0.06 S/CO (0-0.79); Hep B Surf AB Non-Reactive (NonReactive); Hep B Surf Ag Non-Reactive S/CO (NonReactive)
[2019-09-14 08:11] LABS: Hemoglobin A1c 12.4 % (4.0-6.0)
[2019-09-14 08:13] LABS: ALT (SGPT) 10 U/L (8-55); AST (SGOT) 12 U/L (5-34); Albumin 3.7 g/dL (3.5-5.0); Alkaline Phosphatase 73 U/L (40-110); Anion Gap 14 mmol/L (10-20); BUN (Urea Nitrogen) 29 mg/dL (8.4-25.7); Calc. Creatinine Clearance 0 mL/min (70-130); Calcium 8.6 mg/dL (7.8-10.44); Carbon Dioxide 25 mmol/L (22-29); Chloride 102 mmol/L (98-107); Estimated GFR-MDRD 30; Globulin 3.3 g/dL (2.4-3.5); Glucose 258 mg/dL (70-105); Phosphorus 3.1 mg/dL (2.3-4.7); Potassium 4.1 mmol/L (3.5-5.1); Sodium 137 mmol/L (136-145)
[2019-09-14] MEDS ORDERED: HumaLOG 300 UNITS/3 ML VIAL ONE (08:45)
[2019-09-14] MEDS ORDERED: Heparin 1,000 UNITS/ML VIAL ONE (08:46)
[2019-09-14] MEDS ORDERED: Famotidine 20 MG TAB ONE (08:46)
[2019-09-14] MEDS ORDERED: Insulin Glargine 100 UNITS in Pre-Filled Syringe 1 EACH SC SCH (09:00)
[2019-09-14] MEDS: Famotidine 20 MG TAB PO SCH (09:17)
[2019-09-14] MEDS ORDERED: Furosemide 100 MG/10 ML VIAL SLOW IVP SCH (09:30)
[2019-09-14] MEDS ORDERED: Furosemide 20 MG/2 ML VIAL ONE (09:40)
[2019-09-14] MEDS: Heparin 5,000 UNITS/ML VIAL SC SCH ×3 (09:50→20:31)
[2019-09-14] MEDS: Insulin Glargine 50 UNITS in Pre-Filled Syringe 1 EACH SC SCH (12:00)
--- NOTE | 2019-09-14 14:59 | PRG ---
DATE OF SERVICE: Please see the note done by Dr. Beck Blount this morning, for which I agree. The patient was seen, evaluated, discussed, and examined with the residents by bedside. Overnight, he tolerated BiPAP, tolerated dialysis, and is breathing much better, able to get him off BiPAP this morning. Lungs sounded a lot clearer as well and less edema. So basically, anticipate just nasal cannula O2 today and get him back on dialysis and I imagined he will probably be able to be discharged back on dialysis soon. We will just monitor his breathing and monitor electrolytes today. Job ID: [id number]
--- NOTE | 2019-09-14 15:51 | CON ---
DATE OF CONSULTATION: REASON FOR CONSULTATION: Hyperkalemia, respiratory failure. HISTORY OF PRESENT ILLNESS: This is a very pleasant 54-year-old gentleman, seen a few days ago, presented to the hospital after being off dialysis and sudden onset of shortness of breath. The patient denies any nausea at this time, but is having severe dyspnea and can give no further history. PAST MEDICAL HISTORY: Significant for end-stage renal disease, hypertension, anemia, BKA, diabetes mellitus, venous stasis, and pericardial window. SOCIOECONOMIC HISTORY: No alcohol or drug use. FAMILY HISTORY: Negative for ESRD. REVIEW OF SYSTEMS: Unobtainable. PHYSICAL EXAMINATION: CONSTITUTIONAL: On examination, the patient is resting. VITAL SIGNS: Afebrile, pulse 80, breathing 16, and blood pressure 170/80. GENERAL APPEARANCE AND MENTAL STATUS: Fair. HEAD/NECK: Normocephalic. Atraumatic. EYES: EOMI. No deformity. EARS: Clear. No ulcers. NOSE: Intact. No lesions. MOUTH: Clear. No discharge. THROAT: Clear. No exudate. LUNGS: Clear. No crackles. CARDIAC: S1, S2. No rub. ABDOMEN: Benign. Bowel sounds positive. GENITALIA/RECTUM: Garcia absent. BACK/EXTREMITIES: Edema 0+. NEUROLOGICAL: Alert and motor intact. SKIN: LYMPHATICS: LABORATORY DATA: Reviewed. ASSESSMENT AND PLAN: 1. Stage 6 chronic kidney disease with respiratory failure. Plan urgent dialysis. 2. Hyperkalemia. Plan dialysis. 3. Anemia, stable. 4. Medications based on glomerular filtration rate are appropriate. Job ID: [id number]
[2019-09-14] MEDS: hydrALAZINE 25 MG TAB PO SCH (18:37)
[2019-09-15 04:07] LABS: #Basophils 0.1 thou/uL (0.0-0.2); #Eosinphils 0.4 thou/uL (0.0-0.7); #Lymphocytes 1.8 thou/uL (1.20-3.40); #Monocytes 0.6 thou/uL (0.11-0.59); #Neutrophils 4.5 thou/uL (1.40-6.50); %Basophils 1.3 % (0.0-1.0); %Eosinophils 5.7 % (0.0-10.0); %Monocytes 8.5 % (0.0-10.0); %Neutrophils 60.4 % (42.0-75.0); Hemoglobin 10.6 g/dL (14.0-18.0); Mean Corpuscular HGB CONC 35.6 g/dL (32.0-36.0); Mean Corpuscular Hemoglobin 31.6 pg (27.0-31.0); Mean Corpuscular Volume 88.7 fL (78.0-98.0); Mean Platelet Volume 9.1 fL (7.4-10.4); Platelet Count 155 thou/uL (130-400); RBC Distribution Width 12.1 % (11.5-14.5); Red Blood Cell (RBC) Count 3.34 mill/uL (4.70-6.10); White Blood Cell (WBC) Count 7.5 thou/uL (4.8-10.8)
[2019-09-15 04:24] LABS: Anion Gap 12 mmol/L (10-20); BUN (Urea Nitrogen) 37 mg/dL (8.4-25.7); Calc. Creatinine Clearance 52 mL/min (70-130); Calcium 8.3 mg/dL (7.8-10.44); Carbon Dioxide 24 mmol/L (22-29); Chloride 104 mmol/L (98-107); Estimated GFR-MDRD 21; Glucose 101 mg/dL (70-105); Potassium 3.7 mmol/L (3.5-5.1); Sodium 136 mmol/L (136-145)
[2019-09-15 04:47] VITALS: BMI 37.6
--- NOTE | 2019-09-15 06:03 | HP ---
ADDENDUM: Please see the history and physical done by the resident, which I agree. The patient was seen, evaluated, discussed and examined with the resident at bedside. HISTORY OF PRESENT ILLNESS: This is a 54-year-old gentleman who was on dialysis consistently until about two weeks ago. According to the patient, Nephrology told him that his kidney function had improved, so they thought he can get off dialysis and then slowly has been having more shortness of breath that worsened over the last three days to the point of almost respiratory distress, came in to the emergency room with obvious pulmonary edema and is now on BiPAP, but breathing a lot better on the BiPAP. Renal has already been called for emergent dialysis. Denies fever recently. Denies chest pain, just the tightness. No other shortness of breath. Past medical history, past surgical history, current medications, social history, and review of systems all per the resident's history and physical for which I agree. PHYSICAL EXAMINATION: VITAL SIGNS: Blood pressure is stable. GENERAL: Sitting upright and leaning forward, wearing the BiPAP, breathing fairly comfortable, was able to speak even into the BiPAP. Alert and oriented x3. Obese. ENT: Conjunctivae not particularly pale. Anicteric. NECK: No JVD or lymphadenopathy. CHEST: Slightly decreased breath sounds, but overall not too bad. HEART: Regular rate and rhythm. ABDOMEN: Benign. EXTREMITIES: Left leg amputation. Right leg 1+ pitting edema. LABORATORY DATA: Chest x-ray is significant for obvious pulmonary edema. Blood workup significant for hemoglobin being slightly low at 12.2. Blood gas shows a metabolic acidosis with a pH of 7.25 and pCO2 fine at 42 and a PO2 of 88, that is on the BiPAP. Basic metabolic panel shows potassium high at 5.2, sodium low at 133, bicarb of 17, chloride of 107, so a non-anion gap acidosis. Sugar is 433, creatinine is 3.2. Troponin level is high. BNP is high at 671. ASSESSMENT: 1. Pulmonary edema, likely from end-stage renal disease and his lack of dialysis. 2. End-stage renal disease, off dialysis now for a few weeks. 3. Obesity. 4. Diabetes. 5. History of pericardial effusion, even had a pericardial window last summer. PLAN: Admitted to the ICU wearing BiPAP. Emergent dialysis. Renal has been consulted. We will certainly resume his home medication, then watch him closely for any respiratory compromise. Job ID: [id number]
--- NOTE | 2019-09-15 06:14 | PDOC.FM ---
- Subjective Subjective: Pt states his breathing is much better. He denies chest pain this morning. - Objective MAR Reviewed: Yes Vital Signs & Weight: Vital Signs (12 hours) Temp Pulse Resp BP BP Pulse Ox 09/15/19 04:42 98 09/15/19 04:00 98.3 F 61 23 H 152/69 H 98 09/15/19 00:00 73 168/81 H 09/14/19 20:28 98.7 F 70 17 175/83 H 95 09/14/19 20:05 95 09/14/19 18:37 70 Weight Weight 136.667 kg I&O: 09/13/19 09/14/19 09/15/19 06:59 06:59 06:59 Intake Total 600 Output Total 700 Balance -100 Result Diagrams: 09/15/19 03:39 09/15/19 03:39 Phys Exam - Physical Examination Constitutional: NAD sitting up in bed HEENT: moist MMs Neck: no JVD Respiratory: no wheezing, clear to auscultation bilateral Cardiovascular: RRR 2/6 systolic murmur Gastrointestinal: soft, no distention, positive bowel sounds Musculoskeletal: edema present Neurological: moves all 4 limbs Psychiatric: A&O x 3 Skin: cap refill <2 seconds Dx/Plan (1) Acute on chronic respiratory failure with hypoxia Code(s): J96.21 - ACUTE AND CHRONIC RESPIRATORY FAILURE WITH HYPOXIA Status: Acute (2) ESRD (end stage renal disease) on dialysis Code(s): N18.6 - END STAGE RENAL DISEASE; Z99.2 - DEPENDENCE ON RENAL DIALYSIS Status: Acute (3) Anemia in ESRD (end-stage renal disease) Code(s): N18.6 - END STAGE RENAL DISEASE; D63.1 - ANEMIA IN CHRONIC KIDNEY DISEASE Status: Chronic (4) DM type 2 (diabetes mellitus, type 2) Status: Chronic Qualifiers: Diabetes mellitus long term care social worker insulin use: with senior living use Diabetes mellitus complication status: with circulatory complication (5) Morbid obesity with BMI of 40.0-44.9, adult Code(s): E66.01 - MORBID (SEVERE) OBESITY DUE TO EXCESS CALORIES; Z68.41 - BODY MASS INDEX (BMI) 40.0-44.9, ADULT Status: Chronic (6) ESRD (end stage renal disease) Code(s): N18.6 - END STAGE RENAL DISEASE Status: Acute - Plan Plan: This is a 54 yo male with a pmh of IDDMw, ESRD on HD, HTN Plan: Likely discharge once cleared by nephrology. Will titrate BP meds. Acute hypoxic respiratory failure 2/2 fluid overload from ESRD -S/P dialysis, O2 sat at 98 on room air -Pt will likely need to continue dialysis ESRD -Dr. Arredondo consulted -Continue HD HFpEF -Strict I&Os, daily weights Elevated troponin -Likely related to stress and ESRD IDDM2 -Lantus 100u with aggressive SSI -Hypoglycemic protocol in place HTN -Continue home meds HLD -Continue lipitor Hx of Afib -Will monitor Anemia of chronic disease -Continue epogen injections outpt
[2019-09-15] MEDS ORDERED: CLONIDINE HCL PO SCH (09:00)
[2019-09-15] MEDS: Famotidine 20 MG TAB PO SCH (09:34)
[2019-09-15] MEDS: Atorvastatin Calcium 40 MG TAB PO SCH (09:34)
[2019-09-15] MEDS: hydrALAZINE 25 MG TAB PO SCH ×2 (09:35→21:08)
[2019-09-15] MEDS: Heparin 5,000 UNITS/ML VIAL SC SCH ×3 (09:35→21:08)
[2019-09-15] MEDS: Insulin Glargine 50 UNITS in Pre-Filled Syringe 1 EACH SC SCH ×2 (09:36→09:39)
[2019-09-15] MEDS: Metoprolol Tartrate 25 MG TAB PO SCH (09:38)
[2019-09-15] MEDS: NIFEdipine XL 30 MG TAB PO SCH (09:41)
[2019-09-15] MEDS ORDERED: Ondansetron PF 4 MG/2 ML Vial IVP PRN (09:46)
[2019-09-15] MEDS ORDERED: Ondansetron PF 4 MG/2 ML Vial IVP SCH (10:00)
[2019-09-15] MEDS ORDERED: CLONIDINE HCL 0.1 MG PO SCH (14:06)
--- NOTE | 2019-09-15 15:15 | PRG ---
DATE OF SERVICE: 09/15/2019 SUBJECTIVE: This is a 54-year-old male, being seen for stage chronic kidney disease. The patient denied nausea, vomiting, or chest pain. The patient is making urine. OBJECTIVE: CONSTITUTIONAL: The patient is awake and alert. VITAL SIGNS: Afebrile, pulse 62, breathing 16, and blood pressure 161/74. GENERAL APPEARANCE AND MENTAL STATUS: Fair. HEAD/NECK: Normocephalic. Atraumatic. EYES: EOMI. No deformity. EARS: Clear. No ulcers. NOSE: Intact. No lesions. MOUTH: Clear. No discharge. THROAT: Clear. No exudate. LUNGS: Clear. No crackles. CARDIAC: S1, S2. No rub. ABDOMEN: Benign. Bowel sounds positive. GENITALIA/RECTUM: Garcia absent. BACK/EXTREMITIES: Edema 0+. NEUROLOGICAL: Alert and motor intact. SKIN: LYMPHATICS: LABORATORY DATA: Hemoglobin 10.6. Creatinine 3.0. ASSESSMENT AND PLAN: 1. Chronic kidney disease stage , stable. 2. Hypertension, stable. 3. Anemia, stable. 4. Congestive heart failure, management per primary team. Continue aggressive diuresis and 1.5 L fluid restriction. Job ID: [id number]
--- NOTE | 2019-09-15 17:34 | PRG ---
DATE OF SERVICE: 09/15/2019 Please see note from Dr. Beck Blount, for which I agree. The patient is seen, evaluated, discussed and examined with the residents by bedside. Basically, this gentleman is doing great off BiPAP, sleeping comfortably, lying flat. Had the emergent diuresis, got the fluid off and seems fine now. There is some question of he had an episode of ventricular tachycardia, but on further looking at the strip, it was a run of SVT. It is not that unusual and entirely asymptomatic, so we are going to see what Renal says. I assume he is going to get back on dialysis t.i.weekly., but we will see if they want to dialyze him before he leaves. Otherwise, probably he is ready to go today. Job ID: [id number]
[2019-09-15] MEDS: HumaLOG 300 UNITS/3 ML VIAL SC PRN ×2 (17:51→21:09)
[2019-09-16] MEDS ORDERED: hydrALAZINE 25 MG TAB PO SCH (03:30)
[2019-09-16 04:35] LABS: Anion Gap 12 mmol/L (10-20); BUN (Urea Nitrogen) 45 mg/dL (8.4-25.7); Calc. Creatinine Clearance 50 mL/min (70-130); Calcium 8.5 mg/dL (7.8-10.44); Carbon Dioxide 23 mmol/L (22-29); Chloride 104 mmol/L (98-107); Estimated GFR-MDRD 20; Glucose 121 mg/dL (70-105); Potassium 3.8 mmol/L (3.5-5.1); Sodium 135 mmol/L (136-145)
[2019-09-16 04:37] LABS: #Basophils 0.1 thou/uL (0.0-0.2); #Eosinphils 0.4 thou/uL (0.0-0.7); #Lymphocytes 1.5 thou/uL (1.20-3.40); #Monocytes 0.7 thou/uL (0.11-0.59); #Neutrophils 4.6 thou/uL (1.40-6.50); %Basophils 1.3 % (0.0-1.0); %Lymphocytes 21.2 % (21.0-51.0); %Monocytes 9.2 % (0.0-10.0); %Neutrophils 63.3 % (42.0-75.0); Hemoglobin 10.3 g/dL (14.0-18.0); Mean Corpuscular HGB CONC 36.2 g/dL (32.0-36.0); Mean Corpuscular Hemoglobin 31.9 pg (27.0-31.0); Mean Corpuscular Volume 88.1 fL (78.0-98.0); Mean Platelet Volume 9.1 fL (7.4-10.4); Platelet Count 178 thou/uL (130-400); Red Blood Cell (RBC) Count 3.24 mill/uL (4.70-6.10); White Blood Cell (WBC) Count 7.3 thou/uL (4.8-10.8)
[2019-09-16] MEDS ORDERED: Furosemide 40 MG/4 ML VIAL SLOW IVP SCH (06:00)
--- NOTE | 2019-09-16 06:52 | PDOC.FM ---
- Subjective Subjective: He is doing well. He says he is not SOB. He feels well. He has no complaints. He denies any swelling. - Objective MAR Reviewed: Yes Vital Signs & Weight: Vital Signs (12 hours) Temp Pulse Resp BP Pulse Ox 09/16/19 04:33 62 09/16/19 04:30 98 09/16/19 03:18 97.3 F L 62 16 178/84 H 98 09/15/19 23:43 71 159/74 H 09/15/19 21:08 65 09/15/19 20:30 97.9 F 67 17 182/79 H 96 Weight Weight 137.257 kg I&O: 09/14/19 09/15/19 09/16/19 06:59 06:59 06:59 Intake Total 600 720 Output Total 700 600 Balance -100 120 Result Diagrams: 09/16/19 03:58 09/16/19 03:58 EKG Reviewed by me: Yes (Sinus rhythm, 70s) Phys Exam - Physical Examination Constitutional: NAD HEENT: moist MMs, oral pharynx no lesions Neck: no nodes, supple Respiratory: no wheezing, no rales, no rhonchi, clear to auscultation bilateral Cardiovascular: RRR, no significant murmur Gastrointestinal: soft, non-tender, positive bowel sounds Musculoskeletal: no edema Moves all 3 limbs Psychiatric: normal affect Skin: no rash, normal turgor Dx/Plan (1) Acute on chronic respiratory failure with hypoxia Code(s): J96.21 - ACUTE AND CHRONIC RESPIRATORY FAILURE WITH HYPOXIA Status: Acute (2) Anemia in ESRD (end-stage renal disease) Code(s): N18.6 - END STAGE RENAL DISEASE; D63.1 - ANEMIA IN CHRONIC KIDNEY DISEASE Status: Chronic (3) DM type 2 (diabetes mellitus, type 2) Status: Chronic Qualifiers: Diabetes mellitus half-way insulin use: with half-way use Diabetes mellitus complication status: with circulatory complication (4) CKD (chronic kidney disease) stage 4, GFR 15-29 ml/min Code(s): N18.4 - CHRONIC KIDNEY DISEASE, STAGE 4 (SEVERE) Status: Chronic - Plan Plan: This is a 54 yo male with a pmh of IDDMw, ESRD on HD, HTN 1. Acute hypoxic respiratory failure 2/2 fluid overload from ESRD * S/P dialysis, O2 sat at 100 on room air 2. ESRD/CKD IV * Dr. Arredondo consulted * Recommends diuresis * Fluid restrict * Lasix PO 40 daily 3. HFpEF * Strict I&Os, daily weights 4. Elevated troponin * Likely related to stress and ESRD 5. IDDM2 * Lantus 100u with aggressive SSI * Hypoglycemic protocol in place 6. HTN * Continue home meds * Increased Nifedipine from 30 to 60 7. HLD * Continue lipitor 8. Hx of Afib * Will monitor 9. Anemia of chronic disease * Continue epogen injections outpt Code Status: Full Lines: SL DVT PPx: Heparin PCP: [facility]- JOSE GUADALUPE Dispo: Tele obs, Likely discharge once cleared by nephrology. Will monitor BP. LOS < 48H.
[2019-09-16] MEDS: Heparin 5,000 UNITS/ML VIAL SC SCH ×3 (09:33→20:53)
[2019-09-16] MEDS: NIFEdipine XL 60 MG TAB PO SCH ×2 (09:34→12:51)
[2019-09-16] MEDS: Insulin Glargine 50 UNITS in Pre-Filled Syringe 1 EACH SC SCH ×2 (12:34→12:35)
[2019-09-16] MEDS: Atorvastatin Calcium 40 MG TAB PO SCH (12:45)
[2019-09-16] MEDS: Famotidine 20 MG TAB PO SCH (12:46)
[2019-09-16] MEDS: Metoprolol Tartrate 25 MG TAB PO SCH (12:46)
--- NOTE | 2019-09-16 12:46 | PRG ---
DATE OF SERVICE: 09/16/2019 SUBJECTIVE: Patient was seen and examined at bedside and overnight events noted. Patient denies any shortness of breath or chest pain or palpitation. No history of nausea or vomiting or diarrhea or fever or chills or cramps. OBJECTIVE: GENERAL: This is an obese male, in no apparent distress. VITAL SIGNS: Temperature 97. Pulse 70. Respiratory rate 14. Blood pressure 134/86. HEENT: Atraumatic, normocephalic. Oral mucosa is moist NECK: Supple. CARDIOVASCULAR: S1, S2 heard. Rate and rhythm regular. RESPIRATORY: Clear to auscultation. GASTROINTESTINAL: Abdomen is soft. MUSCULOSKELETAL: No tenderness. No edema. DERMATOLOGIC: No skin rash. NEUROLOGIC: Alert and awake and oriented X3. No focal neurologic deficits. Moving all the extremities. PSYCHIATRIC: Mood and affect normal. LABORATORY DATA: Potassium 3.8, BUN is 45, creatinine is 3.1. ASSESSMENT AND PLAN: 1. Acute kidney injury on chronic kidney stage 4. Had one session of dialysis. He is stable on diuretics. 2. Fluid overload, stable. Advised to limit fluid intake. Continue on Lasix 40 p.o. daily. 3. Anemia. Monitor hemoglobin. 4. Cardiorenal syndrome. 5. Plan is to hold dialysis and monitor cardiorespiratory status, on fluid restriction, and Lasix 40 mg p.o. daily to b.i.d. Plan discussed with the rest and we will follow. Job ID: [id number] MTDD
[2019-09-16] MEDS: NIFEdipine XL 30 MG TAB PO SCH (12:47)
[2019-09-16] MEDS: hydrALAZINE 25 MG TAB PO SCH ×2 (12:47→20:52)
--- NOTE | 2019-09-16 12:53 | PRG ---
DATE OF SERVICE: 09/16/2019 ADDENDUM: This is an addendum to the note of Dr. Chris Salgado. Mr. Brown is a pleasant 54-year-old man with advanced stage 6 CKD. He had recently had his dialysis discontinued as he was making urine. He shortly thereafter, within a few days, developed acute onset of shortness of breath that necessitated a visit here to the ER. He was given appropriate treatment and subsequently seen by Nephrology who took him for urgent dialysis. This morning, he is awake, alert, pleasant, no distress, no shortness of breath, and we are awaiting further input from Nephrology regarding the need for either further dialysis or discharge home. Job ID: [id number]
--- NOTE | 2019-09-16 16:17 | PQF ---
CLINICAL DOCUMENTATION IMPROVEMENT CLARIFICATION FORM: ICD-10 Updated PLEASE DO AN ADDENDUM TO THE PROGRESS NOTE WITH ANY DOCUMENTATION UPDATES OR ADDITIONS AND CARRY THROUGH TO DC SUMMARY. THANK YOU. DATE: 09/16/2019; 09/17/2019 ATTN: Dr. Chris Salgado/ Attending Dr. Yates Please exercise your independent, professional judgment in responding to the clarification form. Clinical indicators are provided on the bottom of this form for your review Please check appropriate box(s): HEART FAILURE: A. ACUITY [ ] Acute [ ] Acute on Chronic [ x ] Chronic B. TYPE [ ] Systolic / HFrEF [ x ] Diastolic / HFpEF [ ] Combined Systolic / Diastolic [ ] Other diagnosis [ ] Unable to determine In addition, please specify: Present on Admission (POA): [ x ] Yes [ ] No [ ] Unable to determine For continuity of documentation, please document condition throughout progress notes and discharge summary. Thank You. CLINICAL INDICATORS - SIGNS / SYMPTOMS / LABS / RESULTS AND LOCATION IN EMR H&P 09/14: Acute hypoxic respiratory failure. CXR with pulmonary edema, cardiomegaly, suspected CHF PN 09/16: Acute hypoxic respiratory failure 2/ fluid overload from ESRD HFpEF RISKS: H&P 09/14: PMHx: IDDM 2, ESRD on HD (taken off 2 wks ago), HTN TREATMENT: H&P 09/14: Admit to CCU for acute hypoxic resp failure, urgent dialysis. MAR: Order 09/15-09/16: Lasix 40mg slow IVP MAR: Order 09/16: Lasix 40 mg po daily Thank you, Umu (This form is maintained as a part of the permanent medical record) 2015 [employer]. All Rights Reserved Umu Negro RN, BSN [email or web address] Office: [phone] [facility] HOSPITALTimmy
[2019-09-16] MEDS: HumaLOG 300 UNITS/3 ML VIAL SC PRN ×2 (16:25→20:54)
[2019-09-17 04:17] LABS: #Basophils 0.1 thou/uL (0.0-0.2); #Eosinphils 0.3 thou/uL (0.0-0.7); #Lymphocytes 1.5 thou/uL (1.20-3.40); #Monocytes 0.7 thou/uL (0.11-0.59); %Basophils 1.5 % (0.0-1.0); %Eosinophils 4.2 % (0.0-10.0); %Lymphocytes 19.9 % (21.0-51.0); %Monocytes 9.1 % (0.0-10.0); %Neutrophils 65.4 % (42.0-75.0); Hemoglobin 10.7 g/dL (14.0-18.0); Mean Corpuscular HGB CONC 36.3 g/dL (32.0-36.0); Mean Platelet Volume 9.1 fL (7.4-10.4); Platelet Count 187 thou/uL (130-400); RBC Distribution Width 11.9 % (11.5-14.5); Red Blood Cell (RBC) Count 3.34 mill/uL (4.70-6.10); White Blood Cell (WBC) Count 7.6 thou/uL (4.8-10.8)
[2019-09-17 04:18] LABS: Anion Gap 14 mmol/L (10-20); BUN (Urea Nitrogen) 52 mg/dL (8.4-25.7); Calc. Creatinine Clearance 46 mL/min (70-130); Carbon Dioxide 22 mmol/L (22-29); Chloride 104 mmol/L (98-107); Estimated GFR-MDRD 18; Glucose 262 mg/dL (70-105); Potassium 4.4 mmol/L (3.5-5.1); Sodium 136 mmol/L (136-145)
--- NOTE | 2019-09-17 06:02 | PDOC.FM ---
- Subjective Subjective: He is doing well this morning. Denies SOB or edema. He says he was feeling warm this morning. - Objective MAR Reviewed: Yes Vital Signs & Weight: Vital Signs (12 hours) Temp Pulse Resp BP BP Pulse Ox 09/17/19 04:31 98 09/17/19 04:08 97.8 F 62 18 177/81 H 98 09/16/19 23:15 153/74 H 09/16/19 20:45 98.1 F 66 17 144/70 H 98 Weight Weight 136.894 kg I&O: 09/15/19 09/16/19 09/17/19 06:59 06:59 06:59 Intake Total 742 395 6767 Output Total 824 369 9637 Balance -100 120 -754 Result Diagrams: 09/17/19 03:45 09/17/19 03:45 EKG Reviewed by me: Yes (Sinus rhythm in the 60s) Phys Exam - Physical Examination Constitutional: NAD HEENT: PERRLA, moist MMs Neck: no nodes, no JVD Respiratory: no wheezing, no rales, no rhonchi, clear to auscultation bilateral Cardiovascular: RRR Gastrointestinal: soft, non-tender, positive bowel sounds Musculoskeletal: no edema, pulses present Neurological: moves all 4 limbs Lymphatic: no nodes Psychiatric: normal affect Skin: no rash, normal turgor Dx/Plan (1) Acute on chronic respiratory failure with hypoxia Code(s): J96.21 - ACUTE AND CHRONIC RESPIRATORY FAILURE WITH HYPOXIA Status: Acute (2) Anemia in ESRD (end-stage renal disease) Code(s): N18.6 - END STAGE RENAL DISEASE; D63.1 - ANEMIA IN CHRONIC KIDNEY DISEASE Status: Chronic (3) DM type 2 (diabetes mellitus, type 2) Status: Chronic Qualifiers: Diabetes mellitus fpc insulin use: with fpc use Diabetes mellitus complication status: with circulatory complication (4) CKD (chronic kidney disease) stage 4, GFR 15-29 ml/min Code(s): N18.4 - CHRONIC KIDNEY DISEASE, STAGE 4 (SEVERE) Status: Chronic - Plan Plan: This is a 54 yo male with a pmh of IDDMw, ESRD on HD, HTN 1. Acute hypoxic respiratory failure 2/2 fluid overload from ESRD * S/P dialysis, O2 sat at 100 on room air 2. ESRD/CKD IV * Dr. Arredondo consulted * Recommends diuresis with PO lasix * Fluid restriction at 1500 mL * Lasix PO 40 daily 3. HFpEF * Strict I&Os, daily weights 4. Elevated troponin * Likely related to stress and ESRD 5. IDDM2 * Lantus 100u with aggressive SSI * Hypoglycemic protocol in place 6. HTN * Continue home meds * Increased Nifedipine from 30 to 60 7. HLD * Continue lipitor 8. Hx of Afib * Will monitor 9. Anemia of chronic disease * Continue epogen injections outpt Code Status: Full Lines: SL DVT PPx: Heparin PCP: JAY SHI Dispo: Tele obs, Likely discharge today with close f/u with nephrololy. LOS < 48H.
[2019-09-17] MEDS ORDERED: Furosemide 40 MG TAB PO SCH (07:30)
[2019-09-17] MEDS ORDERED: NIFEdipine XL 60 MG TAB PO SCH (09:00)
[2019-09-17] MEDS: Heparin 5,000 UNITS/ML VIAL SC SCH (09:14)
[2019-09-17] MEDS: Insulin Glargine 50 UNITS in Pre-Filled Syringe 1 EACH SC SCH (09:14)
[2019-09-17] MEDS: Famotidine 20 MG TAB PO SCH (09:15)
[2019-09-17] MEDS: Atorvastatin Calcium 40 MG TAB PO SCH (09:15)
[2019-09-17] MEDS: Metoprolol Tartrate 25 MG TAB PO SCH (09:16)
[2019-09-17] MEDS: hydrALAZINE 25 MG TAB PO SCH (09:16)
[2019-09-17 09:21] VITALS: TEMP 97.9
[2019-09-17 11:34] VITALS: BP 153/70
--- NOTE | 2019-09-17 11:54 | PRG ---
DATE OF SERVICE: 09/17/2019 Mr. Brown is sitting in his wheelchair, in no distress. He is in need of no further dialysis and will be discharged today. Job ID: [id number]
--- NOTE | 2019-09-17 17:25 | PRG ---
DATE OF SERVICE: SUBJECTIVE: Patient was seen and examined at bedside and overnight events noted. Patient denies any shortness of breath or chest pain or palpitation. No history of nausea or vomiting or diarrhea or fever or chills or cramps. OBJECTIVE: GENERAL: This is an obese male, in no apparent distress. VITAL SIGNS: Temperature 97.9. Heart rate 62. Respiratory rate 20. Blood pressure 153/70. HEENT: Atraumatic, normocephalic. Oral mucosa is moist NECK: Supple. CARDIOVASCULAR: S1, S2 heard. Rate and rhythm regular. RESPIRATORY: Clear to auscultation. GASTROINTESTINAL: Abdomen is soft. MUSCULOSKELETAL: No tenderness. No edema. DERMATOLOGIC: No skin rash. NEUROLOGIC: Alert and awake and oriented X3. No focal neurologic deficits. Moving all the extremities. PSYCHIATRIC: Mood and affect normal. LABORATORY DATA: Potassium 4.4, BUN is 52, and creatinine is 3.5. ASSESSMENT AND PLAN: 1. Acute kidney injury on chronic kidney disease, stage 4. Renal function stable. 2. Edema with fluid overload. Limit fluid intake and okay with Lasix 40 mg p.o. daily to every other day. Advised patient to monitor fluid status closely and if started having shortness of air, report to the ER immediately. 3. Anemia. 4. Cardiorenal syndrome. 5. The patient was recently taken off dialysis, seems to be a doing stable and fluid status is controlled with Lasix. Plan to have close monitor as outpatient. The patient was advised to show up to the ER if started having shortness of breath. Job ID: [id number]
--- NOTE | 2019-09-17 20:06 | DIS ---
DATE OF ADMISSION: 09/14/2019 DATE OF DISCHARGE: 09/17/2019 RESIDENT: Chris Salgado MD ADMITTING ATTENDING: Jamie Alexander MD DISCHARGE ATTENDING: Henry Yates MD CONSULTS: * Nephrology seen by Dr. Waterman and Dr. Arredondo. Currently want to hold off on dialysis, although the patient received dialysis initially on admission. We can continue on dose of Lasix of 40 mg daily and fluid restriction of 1500 mL daily. Follow up with them in the office next Monday. PROCEDURES PERFORMED: * Chest x-ray on 09/13 shows presumed congestive heart failure, given cardiomegaly, superimposed pneumonia cannot be excluded. Continued surveillance. * Echo on 09/14 showed EF of 55% to 60%. Grade 2/3 diastolic dysfunction. Mild tricuspid regurg. Could not assess for regional wall motion abnormalities. PRIMARY DIAGNOSES: 1. Acute hypoxic respiratory failure secondary to fluid overload from end-stage renal disease/chronic kidney disease stage IV 2. Heart failure with preserved ejection fraction 3. Elevated troponins. SECONDARY DIAGNOSES: 1. Diabetes type 2 2. Hypertension 3. Hyperlipidemia 4. History of atrial fibrillation 5. Anemia of chronic disease. DISCHARGE MEDICATIONS: Continue home medications except Procardia should be increased from 30 to 60 mg daily and started on Lasix 40 mg p.o. daily. DISCONTINUED MEDICATIONS: Heparin, IV Lasix, Tums, Tylenol. HISTORY OF PRESENT ILLNESS: The patient is a 54-year-old male with a history of diabetes type 2 status post right BKA, end-stage renal disease, hypertension, who presents for acute onset shortness of breath earlier in the day on 09/13. The patient states he was a previous dialysis patient for the past three years followed by Dr. Arredondo, but about two weeks ago was taken off hemodialysis secondary to recovery of his kidneys. He states he has always produced urine even on hemodialysis. States he was doing well off dialysis until acute onset of shortness of breath today. Endorses dry cough over the past three days. Denies any fevers, chills, chest pain, nausea, vomiting, diarrhea, constipation , abdominal pain, headache, or vision changes. Does endorse acute orthopnea, unable to lie flat at all, however. No previous orthopnea or paroxysmal nocturnal dyspnea. In the ED, chest x-ray shows cardiomegaly and diffuse interstitial infiltrates and pulmonary edema. Dr. Arredondo contacted by emergency room doctor and plan for urgent dialysis saturating mid 80s on BiPAP and admitted to CCU for close management initially. 1. Acute hypoxic respiratory failure secondary to end-stage renal disease/ chronic kidney disease stage 4. * The patient was initially on BiPAP, but received dialysis in the ED and has been off BiPAP since the first day of admission. * After dialysis he was on 1.5 L of oxygen , but is currently saturating 90s to 100s onroom air. 2. End-stage renal disease/chronic kidney disease 4. * Dr. Arredondo was consulted. * He recommended diuresis with IV initially, then p.o. Lasix. * Continue fluid restriction at 1500 mL. * Sent home with 40 mg of p.o. Lasix daily. * We will follow up with Dr. Arredondo in next week. 3. Heart failure with preserved ejection fraction, has been having a negative output, has no signs of edema or fluid overload currently. 4. Elevated troponin, likely related to stress and end-stage renal disease. * Troponins trended down during hospital stay and were indeterminate. 5. Diabetes type 2. * Lantus 100 units with aggressive sliding scale insulin. * Continue home doses. 6. Hypertension. * Continue home medications except for nifedipine, which was increased from 30 to 60. 7. Hyperlipidemia. * Continue Lipitor. 8. History of atrial fibrillation. * Pt was sinus rhythm during hospital stay; therefore, no anticoagulation at d/ c. 9. Anemia of chronic disease. * Continue Epogen injections as an outpatient. DISPOSITION: Stable. DISCHARGE INSTRUCTIONS: 1. Location: Home. 2. Activity: As tolerated. 3. Diet: Heart healthy, low-sodium, diabetic diet. 4. Followup: Cardiac rehab in [place] at the [facility] on 09/27/2019 at 1:00 p.m., Dr. Edgar Carballo in 2 to 3 weeks, and Dr. Arredondo on 09/24. Job ID: [id number] [facility]
--- NOTE | 2019-09-18 21:45 | PQF ---
[employer] Crystal Reports [employer] CORINNE ARREDONDO [id number] [facility]286 [id number] CLINICAL DOCUMENTATION CLARIFICATION FORM: POST DISCHARGE Addendum to original discharge summary date: ____ Late entry note date: __ DATE: 09/18/19 ATTN:Corinne Arredondo Please exercise your independent, professional judgment in responding to the clarification form. Clinical indicators are provided on the bottom of this form for your review Can you please further clarify the Etiology of Pulmonary Edema? Please check appropriate box(s): [ ] Acute Pulmonary Edema due to Acute respiratory failure [ x ] Acute Pulmonary Edema due to VIKKI on ESRD [ ] Acute Pulmonary Edema due to CHF Exacerbation [ ] Chronic Pulmonary Edema due to CHF [ ] Other diagnosis [ ] Unable to determine In addition, please specify: Present on Admission (POA): [x ] Yes [ ] No [ ] Unable to determine For continuity of documentation, please document condition throughout progress notes and discharge summary. Thank You. CLINICAL INDICATORS - SIGNS / SYMPTOMS / LABS Family H and P pg.1- Shortness of breath H and P pg.1- CXR with cardiomegaly and diffuse interstitial infiltrates and pulm edema. Family H and P pg.5- ESRD with acute Pulmonary Edema Family H and P pg.5- Suspected new-onset CHF Family H and P pg.5- BNP 671, acute pulmonary edema and acute hypoxic respiratory failure H and P pg.1- Pulmonary edema, likely from ESRD and his lack of dialysis DS pg.1- Acute respiratory failure 2/2 fluid overload from ESRD RISK FACTORS ESRD- H and P pg.1 HTN- H and P pg.1 Acute on chronic respiratory failure with hypoxia- H and P pg.4 Morbid Obesity- H and P pg.5 CHF- DS [g.2 DM type2 DS pg.2 TREATMENTS: BiPAP- H and P pg.2 Emergent Dialysis- H and P pg.2 Chest X ray 09/13 Nephrology Consult- 09/14 Furosemide (Lasix) 40mg IV- MAR (This form is maintained as a part of the permanent medical record) 2014 [employer] All Rights Reserved [email or web address]
== END 2019-09-17 14:52 | disposition home or self-care (01) | DRG 682 ==
LOC: ERS 23:33 → ERHOLD 09-14 00:58 → 2NO 09-14 11:31
PROVIDERS: ADMIT Family Medicine; ATTEND Family Medicine
PROC: 5A09457 Assistance with Respiratory Ventilation, 24-96 Consecutive Hours, Continuous Positive Airway Pressure (ICD-10-PCS; principal; 2019-09-14)
PROC: 5A1D70Z Performance of Urinary Filtration, Intermittent, Less than 6 Hours Per Day (ICD-10-PCS; 2019-09-14)
DX: N17.9 Acute kidney failure, unspecified (principal); J96.21 Acute and chronic respiratory failure with hypoxia; J81.0 Acute pulmonary edema; I13.2 Hypertensive heart and chronic kidney disease with heart failure and with stage 5 chronic kidney disease, or end stage renal disease; Z68.41 Body mass index [BMI] 40.0-44.9, adult; I47.1 Supraventricular tachycardia; I50.32 Chronic diastolic (congestive) heart failure; N18.6 End stage renal disease; E11.22 Type 2 diabetes mellitus with diabetic chronic kidney disease; E78.5 Hyperlipidemia, unspecified; I87.8 Other specified disorders of veins; I48.0 Paroxysmal atrial fibrillation; D63.1 Anemia in chronic kidney disease; E66.01 Morbid (severe) obesity due to excess calories; E87.5 Hyperkalemia; Z79.4 Long term (current) use of insulin; Z99.2 Dependence on renal dialysis; Z79.899 Other long term (current) drug therapy; Z89.511 Acquired absence of right leg below knee; Z79.82 Long term (current) use of aspirin
CPT/HCPCS: 36415; 36416; 71045; 80048; 80053; 82553; 82805; 83036; 83735; 83880; 84100; 84443; 84484; 85025; 86704; 86706; 87340; 90935; 93005; 93306; 94660; 96374; G0257; J1644; J1815; J1940; J3475; J3490

== ENCOUNTER 2019-09-18 23:40 | Observation (INO) | payer MEDICARE, MEDICAID ==
[2019-09-18] MEDS ORDERED: Nitroglycerin 2% Ointment 1 INCH/1 GM Packet ONE (23:56)
[2019-09-19 00:22] LABS: #Basophils 0.1 thou/uL (0.0-0.2); #Eosinphils 0.3 thou/uL (0.0-0.7); #Lymphocytes 1.2 thou/uL (1.20-3.40); #Monocytes 0.4 thou/uL (0.11-0.59); #Neutrophils 5.9 thou/uL (1.40-6.50); %Basophils 1.2 % (0.0-1.0); %Eosinophils 3.4 % (0.0-10.0); %Lymphocytes 15.3 % (21.0-51.0); %Monocytes 5.6 % (0.0-10.0); %Neutrophils 74.5 % (42.0-75.0); Hemoglobin 10.5 g/dL (14.0-18.0); Mean Corpuscular HGB CONC 33.5 g/dL (32.0-36.0); Mean Corpuscular Hemoglobin 29.9 pg (27.0-31.0); Mean Corpuscular Volume 89.3 fL (78.0-98.0); Platelet Count 200 thou/uL (130-400); RBC Distribution Width 12.1 % (11.5-14.5); White Blood Cell (WBC) Count 7.9 thou/uL (4.8-10.8)
[2019-09-19 01:29] LABS: Albumin 3.6 g/dL (3.5-5.0)
[2019-09-19 01:30] LABS: Chloride 109 mmol/L (98-107); Potassium 5.2 mmol/L (3.5-5.1); Sodium 138 mmol/L (136-145)
[2019-09-19 01:31] LABS: Calcium 8.9 mg/dL (7.8-10.44)
[2019-09-19 01:32] LABS: Globulin 3.7 g/dL (2.4-3.5); Glucose 217 mg/dL (70-105); Protein, Total 7.3 g/dL (6.0-8.3)
[2019-09-19 01:33] LABS: Anion Gap 14 mmol/L (10-20); Bilirubin, Total 0.6 mg/dL (0.2-1.2); Carbon Dioxide 20 mmol/L (22-29)
[2019-09-19 01:34] LABS: Alkaline Phosphatase 64 U/L (40-110)
[2019-09-19 01:35] LABS: Calc. Creatinine Clearance 0 mL/min (70-130); Estimated GFR-MDRD 17
[2019-09-19 01:36] LABS: BUN (Urea Nitrogen) 61 mg/dL (8.4-25.7)
[2019-09-19 01:37] LABS: ALT (SGPT) 13 U/L (8-55); AST (SGOT) 21 U/L (5-34)
[2019-09-19] MEDS ORDERED: Enoxaparin Sodium 40 MG/0.4 ML SYRINGE ONE (01:38)
[2019-09-19] MEDS ORDERED: Furosemide 40 MG/4 ML VIAL ONE (01:38)
[2019-09-19] MEDS ORDERED: Enoxaparin Sodium 100 MG/ML SYRINGE ONE (01:38)
[2019-09-19] MEDS ORDERED: Aspirin Chewable 81 MG TAB ONE (01:38)
[2019-09-19] MEDS ORDERED: Enoxaparin Sodium 30 MG/0.3 ML SYRINGE ONE (02:42)
--- NOTE | 2019-09-19 03:56 | PDOC.FPRHP ---
- History of Present Illness Chief Complaint: dyspnea History of Present Illness: 54yo CM with h/o HFpEF, IDDMII s/p L BKA, ESRD, HTN who presents for acute onset SOB earlier in the day on 09/18. Recently discharged from [facility] for volume overload 2/2 ESRD and HFpEF requiring urgent dialysis. Since discharge pt states he was doing well until earlier today. On discharge pt recommended 1500cc /day fluid restriction and lasix 40 PO daily. Pt states he has been drinking 2000cc/day and has not started taking his lasix. Denies any CP, fever/chills, cough, congestion, LE edema, abd pain, PND or orthopnea. States he has been urinating well without any hestitation, decreased stream, or dysuria. ED Course: Received lasix with resolution of dyspnea and states he is now at baseline. Satting well on RA. - Allergies/Adverse Reactions Allergies Allergy/AdvReac Type Severity Reaction Status Date / Time No Known Allergies Allergy Verified 09/14/19 12:03 - Home Medications Medication Instructions Recorded Confirmed Type Atorvastatin Calcium [Lipitor] 80 mg PO DAILY 11/27/16 09/19/19 History hydrALAZINE HCl [Hydralazine HCl] 50 mg PO BID 05/19/17 09/19/19 History cloNIDine HCl [cloNIDine HCl ER] 1 tab PO TID 08/18/17 09/19/19 History Darbepoetin Igor in Polysorbat 60 mcg SC Q7D 11/21/17 09/19/19 History [Aranesp] Insulin Regular [HumuLIN R Vial] 5 unit SC TID-WM 11/21/17 09/19/19 History Linagliptin [Tradjenta] 5 mg PO DAILY 10/15/18 09/19/19 History Metoprolol Tartrate 25 mg PO DAILY 12/19/18 09/19/19 History Insulin Detemir [Levemir] 110 unit SQ TID 09/14/19 09/19/19 History Furosemide [Lasix] 40 mg PO DAILY-AC 30 Days #30 tab 09/17/19 09/19/19 Rx NIFEdipine [Procardia XL] 60 mg PO DAILY 30 Days #30 tab 09/17/19 09/19/19 Rx - History PMHx: HFpEF, IDDMII, ESRD on HD (taken off 2 wks ago), HTN, HLD, RLE venous stasis, Paroxysmal afib in December 201809/01 pericardial effusion PSHx: L BKA, pericardial window 12/2018, L lower arm fistula, R great toe amputation FHx: No FM heart failure Social: Lives with sister. No history of drugs, EtOH, tob. - Review of Systems General: denies: fever/chills, weight/appetite/sleep changes, fatigue Eyes: denies: vision changes Respiratory: reports: shortness of breath. denies: cough, congestion Cardiovascular: denies: chest pain, palpitation, edema, paroxysmal nocturnal dyspnea, orthopnea Gastrointestinal: denies: nausea, vomiting, diarrhea, constipation, abdominal pain Genitourinary: denies: incontinence, dysuria Skin: denies: rashes - Vital signs BP: 137/57 HR: 93 RR: 15 Tmax: 97.8 Pox: 95% on RA Wt: 121kg - Physical Exam Constitutional: NAD, awake, alert and oriented, well developed HEENT: conjunctiva clear, grossly normal vision, grossly normal hearing, MMM Neck: supple, trachea midline Heart: RRR, normal S1/S2, pulses present, no edema, other (2/6 SUNIL) Lungs: no respiratory distress, good air movement, no wheezing, no retractions, other (no focal consolidation, pt lying on left side with mild crackles on L) Abdomen: soft, non-tender Musculoskeletal: normal structure, normal tone, other (L BKA) Neurological: no focal deficit Skin: no rash/lesions Psychiatric: normal mood and affect, good judgment and insight, intact recent and remote memory FMR H&P: Results - Labs Result Diagrams: 09/18/19 23:59 09/19/19 01:04 Lab results: WBC 7.9 thou/uL (4.8-10.8) 09/18/19 23:59 Hgb 10.5 g/dL (14.0-18.0) L 09/18/19 23:59 Hct 31.2 % (42.0-52.0) L 09/18/19 23:59 MCV 89.3 fL (78.0-98.0) 09/18/19 23:59 Plt Count 200 thou/uL (130-400) 09/18/19 23:59 Neutrophils % 74.5 % (42.0-75.0) 09/18/19 23:59 Sodium 138 mmol/L (136-145) 09/19/19 01:04 Potassium 5.2 mmol/L (3.5-5.1) H 09/19/19 01:04 Chloride 109 mmol/L (98-107) H 09/19/19 01:04 Carbon Dioxide 20 mmol/L (22-29) L 09/19/19 01:04 BUN 61 mg/dL (8.4-25.7) H 09/19/19 01:04 Creatinine 3.81 mg/dL (0.7-1.3) H 09/19/19 01:04 Glucose 217 mg/dL (70-105) H 09/19/19 01:04 Calcium 8.9 mg/dL (7.8-10.44) 09/19/19 01:04 Total Bilirubin 0.6 mg/dL (0.2-1.2) 09/19/19 01:04 AST 21 U/L (5-34) 09/19/19 01:04 ALT 13 U/L (8-55) 09/19/19 01:04 Alkaline Phosphatase 64 U/L (40-110) 09/19/19 01:04 CK-MB (CK-2) 4.0 ng/mL (0-6.6) 09/18/19 23:59 B-Natriuretic Peptide 476.2 pg/mL (0-100) H 09/19/19 00:06 Serum Total Protein 7.3 g/dL (6.0-8.3) 09/19/19 01:04 Albumin 3.6 g/dL (3.5-5.0) 09/19/19 01:04 - EKG Interpretation EKG: Sinus bradycardia, Rate (beats per minute): 58, ST segments normal, T waves normal, [place] normal, Clinical impression:, non-specific EKG, Left ventricular hypertrophy with repolarization abnormality. - Radiology Interpretation Chest x-ray Status: image reviewed by me (Mild increased BL lower lob pulmonary interstial markings suggestive of fluid overload, no focal consolidation or pleural effusion. Comparing to previous hospitalization CXR, not as volume overloaded.) FMR H&P: A/P - Problem List (1) Volume overload Current Visit: Yes Status: Acute Code(s): E87.70 - FLUID OVERLOAD, UNSPECIFIED Comment: Probably iatrogenic in the setting of CKD (2) (HFpEF) heart failure with preserved ejection fraction Current Visit: Yes Status: Chronic Code(s): I50.30 - UNSPECIFIED DIASTOLIC ( CONGESTIVE) HEART FAILURE (3) ESRD (end stage renal disease) Current Visit: Yes Status: Chronic Code(s): N18.6 - END STAGE RENAL DISEASE (4) S/P BKA (below knee amputation) unilateral Current Visit: Yes Status: Chronic Code(s): Z89.519 - ACQUIRED ABSENCE OF UNSPECIFIED LEG BELOW KNEE (5) DM type 2 (diabetes mellitus, type 2) Current Visit: Yes Status: Chronic Qualifiers: Diabetes mellitus correction insulin use: with rn long term care use Diabetes mellitus complication status: with circulatory complication - Plan 54yo CM with h/o HFpEF, IDDMII s/p L BKA, ESRD, HTN who presents for volume overload 2/2 medication and fluid restriction noncompliance. #Volume overload 2/2 HFpEF - Sx of dyspnea, found to have mild interstitial lung markings on exam - satting mid to high 90s on RA - BNP 476, lower than previous admission (600s) - Given lasix 40 in ED with resolution of sxs - Pt states he has not been adhering to fluid restriction, has been restricting to 2L/day when recommended to restrict to 1.5L/day - Pt also states has not been taking lasix since discharge 3 days ago - will restart home lasix in AM - monitor resp staus - HF clinic consult and CM for HH to assist with resources as outpatient to prevent future admissions and assist with medication compliance - Echo at recent admission with EF 55/60%, grade 2/3 diastolic dysfunction - cont home medications - strict I's and O's, daily weights, fluid restrict - will need close OP monitoring #Elevated trop 2/2 ESRD and HFpEF - no CP, no acute changes on EKG - Trops appear at baseline, will trend and monitor on tele #ESRD - Known to Dr. Arredondo, had recent dialysis 2/2 volume overload at recent hospitalization, does not appear in similar state - will monitor fluid status - Cr 3.81 which appears near baseline #IDDMII - States uses 110u levemir at home - will place on hyperglycemic protocol, ACHS accuchecks - will cont lantus at 100u with aggressive SS - needs close monitoring of home insulin regime as patient states uses levemir TID and instructed levemir is usually not dosed this way and recommended dosing similar to hospitalization as doing well at previous hospitalization #HTN - Cont nifedipine from previous hospitalization - On clonidine and metoprolol for BP control. Holding clonidine 2/2 risk of rebound HTN, consider changing regime. Metoprolol tartrate usually BID dosing, consider change if BP tolerates. - Has HFpEF, consider spirinolactone in future - monitor and adjust as necessary #HLD - cont home lipitor #h/o Afib - Paroxysmal with pericardial effusion in hospitalization in December 2018 post procedure - currently sinus, will cont to monitor on tele #Anemia of chronic disease and ESRD - stable, hb 12.2 - on Epo PCP: [facility] - [place] Code: Full Diet: HH, 1500cc/day fluid restriction IVF: SL VTE: Heparin Disposition/LOS: Admit to tele obs for volume overload. Restart home lasix and fluid restriction. Anticipate LOS <48hrs. FMR H&P: Upper Level - Pertinent history 54yo CM with h/o HFpEF, IDDMII s/p L BKA, ESRD, HTN who presents for acute onset SOB earlier in the day on 09/18. Recently discharged from [facility] for acute hypoxic respiratory failure due to volume overload 2/2 ESRD and HFpEF requiring urgent dialysis. Since discharge pt states he was doing well until earlier today. On discharge it was recoemmended pt limit fluid intake to 1500cc/day and take lasix 40 PO daily. Pt states he has been drinking 2000cc/day and has not started taking his lasix. Denies any CP, fever/chills, cough, congestion, LE edema, abd pain, PND or orthopnea. States he has been urinating well without any hestitation, decreased stream, or dysuria. - Pertinent findings General: Alert and oriented x3. No acute distress. HEENT: MMM. Card: 10/03 SUNIL. RRR. Resp: Bibasilar crackles. No respiratory distress. Abdomen: Obese, soft, non-tender Ext: Left BKA. No edema of right LE. - Plan Date/Time: 09/19/19 0356 Shaniqua Mckeon, have evaluated this patient and agree with findings/plan as outlined by legal intern resident. Pertinent changes/additions are listed here. Volume overload 2/2 HFpEF and ESRD and non-compliance with medication - Sx of dyspnea, found to have mild interstitial lung markings on exam, improved from recent hospitalization - Satting mid to high 90s on RA - BNP 476, lower than previous admission (600s) - Given lasix 40 in ED with resolution of sxs - Pt states he has not been adhering to fluid restriction, has been restricting to 2L/day when recommended to restrict to 1.5L/day - Pt also states has not been taking lasix since discharge 3 days ago - Will restart home lasix in AM - HF clinic consult and CM for HH to assist with resources as outpatient to prevent future admissions and assist with medication compliance - Echo at recent admission with EF 55/60%, grade 2/3 diastolic dysfunction - Cont home medications - strict I's and O's, daily weights, fluid restrict Elevated trop 2/2 ESRD and HFpEF - No CP, no acute changes on EKG - Appears at baseline ESRD - Known to Dr. Arredondo, had recent dialysis 2/2 volume overload at recent hospitalization - Will monitor fluid status - Cr 3.81 which appears near baseline - Patient taken off dialysis 2 weeks ago; he had urgent dialysis during recent hospitalization but no plans for dialysis scheduled at this point going forward IDDMII - States uses 110u levemir at home - Will place on hyperglycemic protocol, ACHS accuchecks - Will cont lantus at 100u with aggressive SS - Needs close monitoring of home insulin regimen as patient states uses levemir TID and instructed levemir is usually not dosed this way and recommended dosing similar to hospitalization as doing well at previous hospitalization - Needs good med rec on d/c HTN - Cont nifedipine from previous hospitalization - On clonidine and metoprolol for BP control. Holding clonidine 2/2 risk of rebound HTN, consider changing regimen. Metoprolol tartrate usually BID dosing, consider change if BP tolerates. - Monitor and adjust as necessary HLD - Cont home lipitor h/o Afib - Paroxysmal with pericardial effusion in hospitalization in December 2018 post procedure - Currently sinus, will cont to monitor on tele Anemia of chronic disease and ESRD - stable, hb 12.2 - on Epogen DVT PPX: Lovenox Code: Full Dispo: Obs on telemetry. Anticipate LOS <48 hours.
[2019-09-19 04:47] LABS: Troponin I 0.067 ng/mL (< 0.028)
[2019-09-19] MEDS ORDERED: Acetaminophen 325 MG TAB PO PRN (05:03)
[2019-09-19] MEDS ORDERED: Dextrose 5% in Water 1,000 ML IV PRN (05:03)
[2019-09-19] MEDS ORDERED: Dextrose 50% Abboject 50 ML SYRINGE SLOW IVP PRN (05:03)
[2019-09-19] MEDS ORDERED: Calcium Carbonate 500 MG ChewTAB PO PRN (05:03)
[2019-09-19] MEDS ORDERED: HumaLOG 300 UNITS/3 ML VIAL SC PRN ×2 (05:03)
[2019-09-19] MEDS ORDERED: Furosemide 40 MG TAB PO SCH (07:30)
--- NOTE | 2019-09-19 07:52 | RAD ---
Portable frontal chest radiograph: 09/18/2019 COMPARISON: 09/13/2019 HISTORY: Difficulty breathing FINDINGS: Stable prominent diffuse interstitial opacity bilaterally. No pneumothorax. No large volume pleural effusion. Stable prominence of the cardiac silhouette. IMPRESSION: Stable nonspecific diffuse interstitial opacity with prominence of the cardiac silhouette . Findings may represent acute on chronic interstitial disease, including interstitial pneumonitis and/or acute interstitial edema.
[2019-09-19 08:19] LABS: Anion Gap 15 mmol/L (10-20); BUN (Urea Nitrogen) 60 mg/dL (8.4-25.7); Calc. Creatinine Clearance 0 mL/min (70-130); Calcium 8.8 mg/dL (7.8-10.44); Carbon Dioxide 18 mmol/L (22-29); Chloride 110 mmol/L (98-107); Estimated GFR-MDRD 17; Glucose 187 mg/dL (70-105); Potassium 5.1 mmol/L (3.5-5.1); Sodium 138 mmol/L (136-145)
[2019-09-19 08:23] LABS: Troponin I 0.067 ng/mL (< 0.028)
[2019-09-19] MEDS ORDERED: NIFEdipine XL 60 MG TAB PO SCH (09:00)
[2019-09-19] MEDS ORDERED: Atorvastatin Calcium 40 MG TAB PO SCH (09:00)
[2019-09-19] MEDS ORDERED: Insulin Glargine 100 UNITS in Pre-Filled Syringe 1 EACH SC SCH (09:00)
[2019-09-19] MEDS ORDERED: Metoprolol Tartrate 25 MG TAB PO SCH (09:00)
[2019-09-19] MEDS ORDERED: Insulin Glargine 50 UNITS in Pre-Filled Syringe 1 EACH SC SCH (09:00)
[2019-09-19] MEDS ORDERED: Alogliptin 25 MG TAB PO SCH (09:00)
[2019-09-19] MEDS ORDERED: hydrALAZINE 25 MG TAB PO SCH (09:00)
[2019-09-19] MEDS ORDERED: Alogliptin 6.25 MG TAB PO SCH (09:00)
[2019-09-19 09:07] VITALS: BMI 37.6
[2019-09-19] MEDS: Heparin 5,000 UNITS/ML VIAL SC SCH ×2 (11:00→15:57)
--- NOTE | 2019-09-19 11:55 | HP ---
I have examined the patient and discussed the case with Dr. Florencio Salgado. I agree with his assessment and plan. Mr. Brown is a 54-year-old white male patient, recently released from this hospital with a fluid overload state related to stage 5 CKD. He did not parts picker Lasix as instructed and became volume overloaded again. He was also not fluid restricting himself. He presented back to ER early this morning with acute pulmonary congestion. He was given some Lasix and already feels and looks much better. PHYSICAL EXAMINATION: VITAL SIGNS: Blood pressure is now 137/60, his heart rate is 85, respirations are 15 and not labored, and his room air pulse ox is 95%. GENERAL: He is awake and alert. He is in no distress and certainly not in any respiratory distress. EAR, NOSE, AND THROAT: Mucous membranes moist. No erythema. NECK: Supple. CARDIAC: PMI is in the fifth intercostal space, S4 gallop, 2/6 systolic ejection murmur. LUNGS: Clear, but diminished without rales or wheezes. No distress or use of accessory muscles. ABDOMEN: Flat and soft. NEUROLOGICAL: He has no focal deficits. LABORATORY DATA: His white count is 7900, hemoglobin 10.5, and hematocrit 31.2. Chemistries; sodium 138, potassium 5.2, chloride 109, bicarb 20, BUN 61, and creatinine 3.81. Troponins level at 0.067. His BNP slightly elevated at 476. DIAGNOSTIC DATA: His chest x-ray demonstrated a prominent cardiac silhouette and chronic interstitial changes. He may have had a mild degree of interstitial edema as well. ASSESSMENT: Mild hypervolemia secondary to medical noncompliance. PLAN: He already feels better after his Lasix. We will get complex case manager to see him to try to arrange him getting his medications, and afterwards, he will be discharged. Job ID: [id number]
[2019-09-19] MEDS ORDERED: Insulin Glargine 34 UNITS in Pre-Filled Syringe 1 EACH SC SCH (12:30)
[2019-09-19 15:30] VITALS: BP 149/68; TEMP 97.7
[2019-09-20] MEDS ORDERED: Insulin Glargine 34 UNITS in Pre-Filled Syringe 1 EACH SC SCH (09:00)
--- NOTE | 2019-09-23 11:20 | DIS ---
DATE OF ADMISSION: 09/19/2019 DATE OF DISCHARGE: 09/19/2019 This is a readmission from previous discharge on 09/17. The patient was discharged and sent home with Lasix 40 mg daily, which he never picked up. He also did not adhere to his 1500 mL restriction and instead was adhering to 2000 mL restriction. For more information, you can refer to discharge summary from 09/17/2019. The patient was given 40 mg IV Lasix during this hospitalization and set up with the [facility] and home health as well as he was set up with a mail delivery service that would provide his prescription since he was unable to get his medication because he did not have a ride. However, during this hospitalization, we discovered that the patient was not getting the medications from the pharmacies who provided, so we sent home. We sent his medications to the mail delivery service. He was sent home with: 1. Hydralazine 50 mg p.o. b.i.d. 2. Clonidine one tab p.o. t.i.d. 3. Procardia 60 mg p.o. daily. 4. Metoprolol Tartrate 25 mg daily. 5. Tradjenta 5 mg daily. 6. Lantus 34 units q.a.m. 7. Lasix 40 mg daily. 8. subcu q.7 days. 9. Lipitor 80 mg daily. It was also discovered on this hospital stay that he was not sure of his current insulin regimen, so the patient was sent home with a long-acting insulin Lantus 34 units instead of the patient's Levemir, so the patient would have increased compliance. Please refer to the dictation from hospital stay on 09/17 for further information. Job ID: [id number]
== END 2019-09-19 16:51 | disposition home or self-care (01) ==
LOC: ERS 23:40 → ERHOLD 09-19 02:17 → 2SW 09-19 08:42
PROVIDERS: ADMIT Family Medicine; ATTEND Family Medicine
DX: I13.2 Hypertensive heart and chronic kidney disease with heart failure and with stage 5 chronic kidney disease, or end stage renal disease (principal); E11.22 Type 2 diabetes mellitus with diabetic chronic kidney disease; N18.6 End stage renal disease; I50.32 Chronic diastolic (congestive) heart failure; D63.1 Anemia in chronic kidney disease; E87.70 Fluid overload, unspecified; E78.5 Hyperlipidemia, unspecified; I48.0 Paroxysmal atrial fibrillation; Z79.4 Long term (current) use of insulin; Z79.899 Other long term (current) drug therapy; Z89.411 Acquired absence of right great toe; Z89.512 Acquired absence of left leg below knee; Z91.14 Patient's other noncompliance with medication regimen; Z91.19 Patient's noncompliance with other medical treatment and regimen; Z99.2 Dependence on renal dialysis
CPT/HCPCS: 36415; 36416; 71045; 80053; 82553; 83880; 84484; 85025; 93005; 94640; 96372; 96374; G0378; J1644; J1650; J1815; J1940; J7620

== ENCOUNTER 2019-09-26 06:41 | Inpatient (IN) | payer MEDICARE, MEDICAID ==
[2019-09-26 07:20] LABS: #Basophils 0.1 thou/uL (0.0-0.2); #Eosinphils 0.2 thou/uL (0.0-0.7); #Lymphocytes 0.9 thou/uL (1.20-3.40); #Monocytes 0.5 thou/uL (0.11-0.59); #Neutrophils 5.3 thou/uL (1.40-6.50); %Basophils 0.9 % (0.0-1.0); %Eosinophils 3.2 % (0.0-10.0); %Lymphocytes 12.8 % (21.0-51.0); %Monocytes 7.7 % (0.0-10.0); %Neutrophils 75.4 % (42.0-75.0); Hemoglobin 11.7 g/dL (14.0-18.0); Mean Corpuscular HGB CONC 35.4 g/dL (32.0-36.0); Mean Corpuscular Volume 90.3 fL (78.0-98.0); Mean Platelet Volume 8.9 fL (7.4-10.4); Platelet Count 194 thou/uL (130-400); RBC Distribution Width 12.3 % (11.5-14.5); Red Blood Cell (RBC) Count 3.67 mill/uL (4.70-6.10); White Blood Cell (WBC) Count 7.1 thou/uL (4.8-10.8)
[2019-09-26 07:29] LABS: ALT (SGPT) 13 U/L (8-55); AST (SGOT) 12 U/L (5-34); Albumin 4.1 g/dL (3.5-5.0); Alkaline Phosphatase 80 U/L (40-110); Anion Gap 16 mmol/L (10-20); BUN (Urea Nitrogen) 51 mg/dL (8.4-25.7); Bilirubin, Total 0.6 mg/dL (0.2-1.2); Calc. Creatinine Clearance 0 mL/min (70-130); Calcium 9.3 mg/dL (7.8-10.44); Carbon Dioxide 18 mmol/L (22-29); Chloride 110 mmol/L (98-107); Estimated GFR-MDRD 20; Globulin 3.7 g/dL (2.4-3.5); Glucose 289 mg/dL (70-105); Protein, Total 7.8 g/dL (6.0-8.3); Sodium 139 mmol/L (136-145)
--- NOTE | 2019-09-26 07:39 | RAD ---
EXAM: XR Chest 1 View Portable PROVIDED CLINICAL HISTORY: Dyspnea COMPARISON: 09/18/2019 FINDINGS: Cardiac silhouette remains enlarged. Prominence of the pulmonary vasculature and pulmonary interstiti um redemonstrated. Bilateral perihilar airspace disease, predominating at the right lower lung zone. Blunting of each costophrenic angle may reflect pleural fluid. There is no evidence for pneumot horax. IMPRESSION: Findings compatible with congestive failure and alveolar edema. Superimposed infectious process canno t be excluded. Follow-up is recommended.
[2019-09-26 07:40] LABS: Actual Bicarbonate (HCO3a) 19.4 mEq/L (22-28); Analyzer IN Cardio ER; Base Excess (BEa) -5.5 mEq/L (-2.0 to +3.0); CO2 Tension 36.2 mmHg (35.0-45.0); Calcium, Ionized 1.21 mmol/L (1.12-1.30); Carboxyhemoglobin (COHb) 0.3 gm% (0.0-3.0); Hemoglobin (Hb) 11.4 g/dL (14.0-18.0); O2 Tension (PaO2) 66.4 mmHg (80.0-100.0); Potassium - ABG Lab 5.09 mmol/L (3.70-5.30); pH, Arterial 7.35 (7.35-7.45)
[2019-09-26 07:41] LABS: Puncture Site RRA
[2019-09-26 07:52] LABS: CKMB 4.4 ng/mL (0-6.6)
[2019-09-26] MEDS ORDERED: Ondansetron PF 4 MG/2 ML Vial ONE (08:25)
[2019-09-26] MEDS ORDERED: Furosemide 40 MG/4 ML VIAL ONE (08:49)
[2019-09-26] MEDS ORDERED: Nitroglycerin 2% Ointment 1 INCH/1 GM Packet ONE (08:52)
--- NOTE | 2019-09-26 10:32 | PDOC.FPRHP ---
- History of Present Illness Chief Complaint: SOB History of Present Illness: 54YOM with a PMH significant for HFpEF w/ 2/3 diastolic dysfunction, cardiorenal syndrome w/ CKD IV, HTN & IDDMII who presents to the ED with a CC of sudden onset SOB at home around 0500 today. Reports he was just sitting at home and suddenly felt short of breath so came to the ED to be evaluated. Was reportedly hypoxic into the 80s on RA on arrival to the ED so was placed on BiPap for respiratory support & has been maintaining sats in the mid to low 90s on Bipap since. Per chart review the patient was recently admitted x2 this month for similar complaints requiring HD for volume overload the first visit and only temporary Bipap the most recent time. Patient reports up until this AM he was in his usual state of health. Reports he has been compliant with his home meds since his most recent d/c. Denies any sore throat, arthralgias, fever/ chills, abdominal or leg swelling, N/V/D or chest pain. Does endorse associated cough productive of clear sputum & runny and stuffy nose. No hemoptysis. No recent sick contacts. ED Course: 40m IV lasix x1, nitropaste, zofran - Allergies/Adverse Reactions Allergies Allergy/AdvReac Type Severity Reaction Status Date / Time No Known Allergies Allergy Verified 09/14/19 12:03 - Home Medications Medication Instructions Recorded Confirmed Type cloNIDine HCl [cloNIDine HCl ER] 1 tab PO TID 08/18/17 09/19/19 History Darbepoetin Igor in Polysorbat 60 mcg SC Q7D 11/21/17 09/19/19 History [Aranesp] Atorvastatin Calcium [Lipitor] 80 mg PO DAILY 30 Days #30 tablet 09/19/19 Rx Furosemide [Lasix] 40 mg PO DAILY-AC 30 Days #30 tab 09/19/19 Rx Insulin Glargine [Lantus Vial] 34 units SC QAM 30 Days #1 vial 09/19/19 Rx Linagliptin [Tradjenta] 5 mg PO DAILY 30 Days #30 tablet 09/19/19 Rx Metoprolol Tartrate 25 mg PO DAILY 30 Days #30 tablet 09/19/19 Rx NIFEdipine [Procardia XL] 60 mg PO DAILY 30 Days #30 tab 09/19/19 Rx hydrALAZINE HCl [Hydralazine HCl] 50 mg PO BID 30 Days #60 tablet 09/19/19 Rx - History PMHx: HFpEF (55-60% on 09/14 w/ 09/02 diastolic dysfunction), IDDMII, HTN, CKD IV, HLD, h/o paroxysmal a fib s/p pericardial window in 2019, anemia of chronic disease, RLE venous stasis PSHx: left aka /2 DMII infection, pericardial window December of 2018, L lower arm fistula placement & removal, R great to amputation FHx: Father & sister- HTN Social: No TAD. Former heavy EtOH use when in the [employer]. Lives in [place] with his sister - Review of Systems General: denies: fever/chills, weight/appetite/sleep changes, fatigue Eyes: denies: eye pain, vision changes ENT: reports: nasal congestion, rhinorrhea Respiratory: reports: cough, shortness of breath Cardiovascular: denies: chest pain, edema, paroxysmal nocturnal dyspnea, orthopnea Gastrointestinal: denies: nausea, vomiting, diarrhea, abdominal pain Genitourinary: reports: other (no hematuria). denies: dysuria Skin: denies: rashes, itching Musculoskeletal: denies: pain, arthritis/arthralgias Neurological: denies: numbness, weakness Psychological: denies: anxiety, depression - Vital signs BP: 152/57 HR: 68 RR: 20 Tmax: Pox: 93% on BiPap - Physical Exam Constitutional: NAD, awake, alert and oriented, well developed, other ( breathing comfortably on Bipap) HEENT: normocephalic and atraumatic, grossly normal vision, grossly normal hearing, normal nasal mucosa, MMM Heart: RRR, normal S1/S2, no murmurs/rubs/gallops, no edema Lungs: CTAB, no respiratory distress, good air movement, no rales/rhonchi, no wheezing, other (no crackles) Abdomen: soft, non-tender, bowel sounds present, no masses/distention Musculoskeletal: normal structure, ROM grossly normal, other (left AKA & R toe amputation; RLE erythema but no warmth, TTP or pitting edema noted) Neurological: no focal deficit, CN II-XII intact (grossly) Skin: no rash/lesions, good turgor, no jaundice Heme/Lymphatic: no unusual bruising or bleeding, no purpura, no petechia, no LAD Psychiatric: normal mood and affect, good judgment and insight, intact recent and remote memory FMR H&P: Results - Labs Result Diagrams: 09/26/19 07:04 09/26/19 07:04 Lab results: WBC 7.1 thou/uL (4.8-10.8) 09/26/19 07:04 Hgb 11.7 g/dL (14.0-18.0) L 09/26/19 07:04 Hct 33.2 % (42.0-52.0) L 09/26/19 07:04 MCV 90.3 fL (78.0-98.0) 09/26/19 07:04 Plt Count 194 thou/uL (130-400) 09/26/19 07:04 Neutrophils % 75.4 % (42.0-75.0) H 09/26/19 07:04 ABG pH 7.35 (7.35-7.45) 09/26/19 07:38 ABG pCO2 36.2 mmHg (35.0-45.0) 09/26/19 07:38 ABG pO2 66.4 mmHg (80.0-100.0) L 09/26/19 07:38 Sodium 139 mmol/L (136-145) 09/26/19 07:04 Potassium 5.0 mmol/L (3.5-5.1) 09/26/19 07:04 Chloride 110 mmol/L (98-107) H 09/26/19 07:04 Carbon Dioxide 18 mmol/L (22-29) L 09/26/19 07:04 BUN 51 mg/dL (8.4-25.7) H 09/26/19 07:04 Creatinine 3.24 mg/dL (0.7-1.3) H 09/26/19 07:04 Glucose 289 mg/dL (70-105) H 09/26/19 07:04 Calcium 9.3 mg/dL (7.8-10.44) 09/26/19 07:04 Total Bilirubin 0.6 mg/dL (0.2-1.2) 09/26/19 07:04 AST 12 U/L (5-34) 09/26/19 07:04 ALT 13 U/L (8-55) 09/26/19 07:04 Alkaline Phosphatase 80 U/L (40-110) 09/26/19 07:04 CK-MB (CK-2) 4.4 ng/mL (0-6.6) 09/26/19 07:04 B-Natriuretic Peptide 827.2 pg/mL (0-100) H 09/26/19 07:04 Serum Total Protein 7.8 g/dL (6.0-8.3) 09/26/19 07:04 Albumin 4.1 g/dL (3.5-5.0) 09/26/19 07:04 - EKG Interpretation EKG: Nonspecific ST & T wave changes but NL rate & rhythm - Radiology Interpretation Chest x-ray Status: image reviewed by me, report reviewed by me (pulmonary edema & vascular congestion c/w CHF exacerbation but underlying infection cannot be excluded) FMR H&P: A/P - Problem List (1) Acute respiratory failure with hypoxia Current Visit: Yes Status: Acute Code(s): J96.01 - ACUTE RESPIRATORY FAILURE WITH HYPOXIA (2) Normocytic anemia Current Visit: Yes Status: Acute Code(s): D64.9 - ANEMIA, UNSPECIFIED (3) Hypertension Current Visit: Yes Status: Acute Code(s): I10 - ESSENTIAL (PRIMARY) HYPERTENSION (4) Hyperlipidemia Current Visit: Yes Status: Acute Code(s): E78.5 - HYPERLIPIDEMIA, UNSPECIFIED (5) CHF exacerbation Current Visit: Yes Status: Acute Code(s): I50.9 - HEART FAILURE, UNSPECIFIED (6) (HFpEF) heart failure with preserved ejection fraction Current Visit: No Status: Chronic Code(s): I50.30 - UNSPECIFIED DIASTOLIC ( CONGESTIVE) HEART FAILURE (7) CKD (chronic kidney disease) stage 4, GFR 15-29 ml/min Current Visit: No Status: Chronic Code(s): N18.4 - CHRONIC KIDNEY DISEASE, STAGE 4 (SEVERE) (8) DM type 2 (diabetes mellitus, type 2) Current Visit: No Status: Chronic Qualifiers: Diabetes mellitus prison insulin use: with prison use Diabetes mellitus complication status: with circulatory complication (9) Morbid obesity with BMI of 40.0-44.9, adult Current Visit: No Status: Chronic Code(s): E66.01 - MORBID (SEVERE) OBESITY DUE TO EXCESS CALORIES; Z68.41 - BODY MASS INDEX (BMI) 40.0-44.9, ADULT (10) S/P BKA (below knee amputation) unilateral Current Visit: No Status: Chronic Code(s): Z89.519 - ACQUIRED ABSENCE OF UNSPECIFIED LEG BELOW KNEE - Plan 54YOM with a PMH significant for HFpEF w/ 2/3 diastolic dysfunction, cardiorenal syndrome w/ CKD IV, HTN & IDDMII who presents to the ED with a CC of sudden onset SOB at home & found to be in an acute on chronic CHF exacerbation. Acute hypoxic respiratory failure 2/2 pulmonary edema from an acute on chronic CHF exacerbation: - Patient presented hypoxic in the 80s to the ED and was placed on Bipap for respiratory support. Maintaining sats in the low 90s in Bipap currently. s/p 40mg IV lasix in the ED. Will given an additional 40mg IV later this afternoon & wean from Bipap as tolerated. - Repeat CXR in the AM & will obtain a flu swab and/or procal should patient fever as CXR also could not r/o an acute underlying infectious process. - Will monitor closely in the IMCU while requiring Bipap. Acute on chronic CHF exacerbation: - EF 55-60% w/ 2/3 diastolic dysfunction per ECHO from 09/14/19. - See plan above but will also fluid restrict once tolerating PO & get QD weights. - Will educate on HF diet and importance of med compliance & consult CM for assistance with HH and/or home nursing due to frequent readmissions. Elevated troponin: - initial trop bumped at 0.031 and trended up to 0.054. Per chart review has been higher previously. Likely demand ischemia in setting of acute respiratory failure. - Will get a repeat EKG & troponins should patient report any chest pain. Uncontrolled HTN: - BP initially in the 200s systolic on presentation. Much better at 150s on exam s/p nitropaste. Will give IV PRNs while NPO on Bipap but will resume home meds immediately once tolerating PO. CKDIV: - eGFR appears to be within patient's baseline limits. Will continue to trend & avoid all nephrotoxic meds. IDDMII: - Will resume home meds once tolerating PO. Mild SSI, hypoglycemic protocol & CC diet once tolerating PO. HLD: - Resume home statin once tolerating PO. Normocytic anemia: - Hgb 11.7. Likely 2/2 CKD but will get iron studies & folate & B12 levels & treat PRN based on results. h/o paroxysmal 2/2 pericardial effusion in December of 2018: - Aware, s/p ericardial window done when patient presented in a fib. - will resume home metoprolol once tolerating PO. Dispo: Admit to IMCU for continued aggressive diuresis w/ IV lasix & close monitoring while on Bipap. FMR H&P: Upper Level - Plan Date/Time: 09/26/19 1031 I, [], have evaluated this patient and agree with findings/plan as outlined by manager of internal resident. Pertinent changes/additions are listed here. Addendum - Attending - Attending Attestation Date/Time: 09/26/19 3322 I personally evaluated the patient and discussed the management with Dr. Martínez I agree with the History, Examination, Assessment and Plan documented above with any addition or exceptions noted below - 54 yo M with h/o HFpEF w/ 2/3 diastolic dysfunction, cardiorenal syndrome w/ CKD IV, HTN & IDDMII who presents to the ED with a CC of sudden onset SOB at home around 0500 today. has been recently 2 times this month for similar episodes. Reports he is taking his medication at home as prescribed. Initial O2 sats in 80s in ER and placed on BiPap. PMH/PSH/Meds/SH reviewed and agree with resident's documentation. Afebrile VSS Exam repeated by me and agree with resident's findings. A/P: 1) Acute hypoxic respiratory failure secondary to acute diastolic heart failure exacerbation- admit to IMCU. Continue lasix and wean BiPap as tolerated. Multiple recent admissions will have case management see pateint about possible assistance with nurse home program.
[2019-09-26] MEDS ORDERED: hydrALAZINE 20 MG/ML VIAL SLOW IVP PRN (10:49)
[2019-09-26] MEDS ORDERED: Labetalol HCl 100 MG/20 ML VIAL SLOW IVP PRN (10:51)
[2019-09-26] MEDS ORDERED: Ondansetron PF 4 MG/2 ML Vial IVP PRN (10:54)
[2019-09-26] MEDS ORDERED: Calcium Carbonate 500 MG ChewTAB PO PRN (10:54)
[2019-09-26] MEDS ORDERED: Acetaminophen 650 MG Suppository PR PRN (10:54)
[2019-09-26] MEDS ORDERED: Dextrose 5% in Water 1,000 ML IV PRN (10:54)
[2019-09-26] MEDS ORDERED: Acetaminophen 325 MG TAB PO PRN (10:54)
[2019-09-26] MEDS ORDERED: Dextrose 50% Abboject 50 ML SYRINGE SLOW IVP PRN (10:54)
[2019-09-26] MEDS ORDERED: HumaLOG 300 UNITS/3 ML VIAL SC PRN ×2 (10:54)
[2019-09-26 10:56] LABS: Troponin I 0.054 ng/mL (< 0.028)
[2019-09-26 12:43] LABS: Iron 47 ug/dL (65-175); Iron Binding Capacity, Total 271 mcg/dL (261-462)
[2019-09-26 13:02] LABS: Thyroid Stimulating Hormone 2.3352 uIU/mL (0.35-4.94)
[2019-09-26] MEDS ORDERED: hydrALAZINE 20 MG/ML VIAL ONE (15:10)
[2019-09-26] MEDS ORDERED: Furosemide 40 MG/4 ML VIAL SLOW IVP SCH (16:00)
[2019-09-26 17:20] VITALS: BMI 37.8
[2019-09-26] MEDS: Sodium Chloride 0.9% 10 ML ONE (18:01)
[2019-09-26] MEDS: Heparin 5,000 UNITS/ML VIAL SC SCH ×2 (20:33→20:34)
[2019-09-26] MEDS: hydrALAZINE 25 MG TAB PO SCH (20:34)
[2019-09-26] MEDS: Atorvastatin Calcium 40 MG TAB PO SCH (20:34)
[2019-09-27 04:59] LABS: Anion Gap 16 mmol/L (10-20); BUN (Urea Nitrogen) 63 mg/dL (8.4-25.7); Calc. Creatinine Clearance 43 mL/min (70-130); Calcium 8.6 mg/dL (7.8-10.44); Carbon Dioxide 18 mmol/L (22-29); Chloride 107 mmol/L (98-107); Estimated GFR-MDRD 17; Glucose 204 mg/dL (70-105); Potassium 4.7 mmol/L (3.5-5.1); Sodium 136 mmol/L (136-145)
--- NOTE | 2019-09-27 06:54 | PDOC.FM ---
- Subjective Subjective: NAEO. Patient sitting up in bed on exam. States he feels much better this morning. Reports one episode last night where he felt SOB. Denies any chest pain , palpitations, NVD, SOB. - Objective MAR Reviewed: Yes Vital Signs & Weight: Vital Signs (12 hours) Temp Pulse Resp BP BP Pulse Ox 09/27/19 04:32 98.1 F 64 16 138/64 97 09/26/19 20:34 66 164/73 H 09/26/19 20:00 98 Weight Weight 138.346 kg I&O: 09/25/19 09/26/19 09/27/19 06:59 06:59 06:59 Intake Total 738 Output Total 900 Balance -162 Result Diagrams: 09/26/19 07:04 09/27/19 04:21 Phys Exam - Physical Examination Constitutional: NAD HEENT: PERRLA, moist MMs, sclera anicteric Neck: supple, full ROM minimal crackles at the lung bases Cardiovascular: RRR, no significant murmur Gastrointestinal: soft, non-tender, no distention, positive bowel sounds Musculoskeletal: no edema LLE BKA, trace edema RLE Neurological: non-focal, moves all 4 limbs Psychiatric: normal affect, A&O x 3 Skin: no rash, normal turgor, cap refill <2 seconds Dx/Plan (1) Acute respiratory failure with hypoxia Code(s): J96.01 - ACUTE RESPIRATORY FAILURE WITH HYPOXIA Status: Acute (2) CHF exacerbation Code(s): I50.9 - HEART FAILURE, UNSPECIFIED Status: Acute (3) Hyperlipidemia Code(s): E78.5 - HYPERLIPIDEMIA, UNSPECIFIED Status: Acute (4) Hypertension Code(s): I10 - ESSENTIAL (PRIMARY) HYPERTENSION Status: Acute (5) Normocytic anemia Code(s): D64.9 - ANEMIA, UNSPECIFIED Status: Acute (6) (HFpEF) heart failure with preserved ejection fraction Code(s): I50.30 - UNSPECIFIED DIASTOLIC (CONGESTIVE) HEART FAILURE Status: Chronic (7) Anemia in ESRD (end-stage renal disease) Code(s): N18.6 - END STAGE RENAL DISEASE; D63.1 - ANEMIA IN CHRONIC KIDNEY DISEASE Status: Chronic (8) DM type 2 (diabetes mellitus, type 2) Status: Chronic Qualifiers: Diabetes mellitus oysterman insulin use: with detention use Diabetes mellitus complication status: with circulatory complication (9) Morbid obesity with BMI of 40.0-44.9, adult Code(s): E66.01 - MORBID (SEVERE) OBESITY DUE TO EXCESS CALORIES; Z68.41 - BODY MASS INDEX (BMI) 40.0-44.9, ADULT Status: Chronic - Plan Plan: 54YOM with a PMH significant for HFpEF w/ 2/3 diastolic dysfunction, cardiorenal syndrome w/ CKD IV, HTN & IDDMII who presents to the ED with a CC of sudden onset SOB at home & found to be in an acute on chronic CHF exacerbation. Acute hypoxic respiratory failure 2/2 pulmonary edema from an acute on chronic CHF exacerbation Patient presented hypoxic in the 80s to the ED and was placed on Bipap for respiratory support. Maintaining sats in the low 90s in Bipap. s/p 40mg IV lasix in the ED. EF 55-60% w/ 2/3 diastolic dysfunction per ECHO from 09/14/19. - Weaned off bipap. Lasix 40mg IV daily scheduled -> can transition to oral. He is now satting well on room air. Ween as tolerated. - Repeat CXR in this AM. - See plan above. Fluid restrictions. Strict I/Os. I/o from last 24hrs: -162ml. - Will educate on HF diet and importance of med compliance. - Consult CM for assistance with HH and/or home nursing due to frequent readmissions. Elevated troponin Initial trop bumped at 0.031 and trended up to 0.054. Per chart review has been higher previously. Likely demand ischemia in setting of acute respiratory failure. - Will get a repeat EKG & troponins should patient report any chest pain. Uncontrolled HTN BP initially in the 200s systolic on presentation. Improved s/p nitropaste. - Will resume home meds - PRNs available CKDIV eGFR appears to be within patient's baseline limits. - BUN/Cr slightly bumped today. Will continue to trend & avoid all nephrotoxic meds. IDDMII - Will resume home meds - Mild SSI, hypoglycemic protocol & CC diet HLD - Resume home statin once tolerating PO. Normocytic anemia Hgb 11.7. Likely 2/2 CKD. B12 and folate nml. - Iron and iron sat low. Will start iron q2days. h/o paroxysmal 2/2 pericardial effusion in December of 2018 Aware, s/p ericardial window done when patient presented in a fib. - will resume home metoprolol Code:FULL diet: CC VTE: heparin Dispo: stable, dc in 1-2 days Case discussed with Dr. Jackson Addendum - Attending - Attending Attestation Date/Time: 09/27/19 1044 I personally evaluated the patient and discussed the management with Dr. Serrano I agree with the History, Examination, Assessment and Plan documented above with any addition or exceptions noted below - Patient sitting up in bed; feeling much better; no SOB currently. States that he did have an episode last night. Afebrile VSS. A/P: 1) Acute hypoxic resp failure secondary to #2 - resolved; weaned off BiPap; 2) Acute exacerbation of HFpEF - transition back to home regimen and continue to monitor; 3) DM - adjust insulin as needed, 3)
--- NOTE | 2019-09-27 08:46 | RAD ---
PA AND LATERAL VIEWS CHEST: Date: 09/27/2019 HISTORY: Volume overload. FINDINGS: Comparison made with exam from previous day. The heart size is enlarged. The aorta is tortuous. There is interval improvement in the pulmonary marcos ma. There are small bilateral pleural effusions. No pneumothoraces or lobar consolidation seen. IMPRESSION: Improving CHF. POS: OFF
[2019-09-27] MEDS: Alogliptin 25 MG TAB PO SCH (08:53)
[2019-09-27] MEDS: hydrALAZINE 25 MG TAB PO SCH ×3 (08:53→21:40)
[2019-09-27] MEDS: NIFEdipine XL 60 MG TAB PO SCH (08:53)
[2019-09-27] MEDS: Metoprolol Tartrate 25 MG TAB PO SCH ×2 (08:53→21:40)
[2019-09-27] MEDS: Sodium Chloride 0.9% 10 ML ONE (08:54)
[2019-09-27] MEDS ORDERED: Insulin Glargine 34 UNITS in Pre-Filled Syringe 1 EACH SC SCH (09:00)
[2019-09-27] MEDS ORDERED: Ferrous Sulfate 325 MG TAB PO SCH (09:00)
[2019-09-27] MEDS: Heparin 5,000 UNITS/ML VIAL SC SCH ×3 (09:00→21:39)
[2019-09-27] MEDS ORDERED: HYDRALAZINE HCL PO SCH (09:00)
[2019-09-27] MEDS ORDERED: Metoprolol Tartrate 25 MG TAB PO SCH (09:00)
[2019-09-27] MEDS ORDERED: Furosemide 40 MG/4 ML VIAL IVP SCH (09:00)
[2019-09-27] MEDS: Insulin Glargine 34 UNITS in Pre-Filled Syringe 1 EACH SC SCH ×3 (09:01→21:40)
[2019-09-27] MEDS: Atorvastatin Calcium 40 MG TAB PO SCH (21:39)
[2019-09-28 05:05] LABS: Anion Gap 14 mmol/L (10-20); BUN (Urea Nitrogen) 71 mg/dL (8.4-25.7); Calc. Creatinine Clearance 40 mL/min (70-130); Calcium 8.8 mg/dL (7.8-10.44); Carbon Dioxide 21 mmol/L (22-29); Chloride 109 mmol/L (98-107); Estimated GFR-MDRD 16; Glucose 111 mg/dL (70-105); Potassium 4.9 mmol/L (3.5-5.1); Sodium 139 mmol/L (136-145)
[2019-09-28] MEDS ORDERED: Furosemide 40 MG TAB PO SCH (07:30)
[2019-09-28] MEDS ORDERED: Sodium Chloride 0.9% 10 ML ONE (07:37)
--- NOTE | 2019-09-28 07:40 | PDOC.FM ---
- Subjective Subjective: Resting well this morning. Denies any new complaints. - Objective MAR Reviewed: Yes Vital Signs & Weight: Vital Signs (12 hours) Temp Pulse Resp BP BP BP Pulse Ox 09/28/19 03:10 97.5 F L 63 20 130/63 95 09/27/19 21:40 62 175/79 H 09/27/19 20:00 97.6 F 62 18 175/79 H 98 Weight Weight 138.618 kg I&O: 09/27/19 09/28/19 09/29/19 06:59 06:59 06:59 Intake Total 738 1670 Output Total 900 1515 Balance -162 155 Result Diagrams: 09/26/19 07:04 09/28/19 04:36 Phys Exam - Physical Examination Constitutional: NAD HEENT: moist MMs, sclera anicteric Neck: supple, full ROM Respiratory: no wheezing, no rales, no rhonchi, clear to auscultation bilateral Cardiovascular: RRR, no significant murmur, no rub Gastrointestinal: soft, non-tender Musculoskeletal: pulses present Neurological: moves all 4 limbs Psychiatric: normal affect, A&O x 3 Skin: no rash, normal turgor Dx/Plan (1) Volume overload Code(s): E87.70 - FLUID OVERLOAD, UNSPECIFIED Status: Acute (2) ESRD (end stage renal disease) Code(s): N18.6 - END STAGE RENAL DISEASE Status: Chronic (3) Chest pain Code(s): R07.9 - CHEST PAIN, UNSPECIFIED Status: Acute (4) Anemia in ESRD (end-stage renal disease) Code(s): N18.6 - END STAGE RENAL DISEASE; D63.1 - ANEMIA IN CHRONIC KIDNEY DISEASE Status: Chronic (5) S/P BKA (below knee amputation) unilateral Code(s): Z89.519 - ACQUIRED ABSENCE OF UNSPECIFIED LEG BELOW KNEE Status: Chronic (6) Acute on chronic respiratory failure with hypoxia Code(s): J96.21 - ACUTE AND CHRONIC RESPIRATORY FAILURE WITH HYPOXIA Status: Acute (7) (HFpEF) heart failure with preserved ejection fraction Code(s): I50.30 - UNSPECIFIED DIASTOLIC (CONGESTIVE) HEART FAILURE Status: Chronic (8) Acute respiratory failure with hypoxia Code(s): J96.01 - ACUTE RESPIRATORY FAILURE WITH HYPOXIA Status: Acute (9) Normocytic anemia Code(s): D64.9 - ANEMIA, UNSPECIFIED Status: Acute (10) Hypertension Code(s): I10 - ESSENTIAL (PRIMARY) HYPERTENSION Status: Acute (11) Hyperlipidemia Code(s): E78.5 - HYPERLIPIDEMIA, UNSPECIFIED Status: Acute (12) CHF exacerbation Code(s): I50.9 - HEART FAILURE, UNSPECIFIED Status: Acute (13) CKD (chronic kidney disease) stage 4, GFR 15-29 ml/min Code(s): N18.4 - CHRONIC KIDNEY DISEASE, STAGE 4 (SEVERE) Status: Chronic (14) Morbid obesity with BMI of 40.0-44.9, adult Code(s): E66.01 - MORBID (SEVERE) OBESITY DUE TO EXCESS CALORIES; Z68.41 - BODY MASS INDEX (BMI) 40.0-44.9, ADULT Status: Chronic (15) Former smoker Status: Chronic (16) Diabetic nephropathy Status: Chronic (17) DM type 2 (diabetes mellitus, type 2) Status: Chronic Qualifiers: Diabetes mellitus mcc insulin use: with mcc use Diabetes mellitus complication status: with circulatory complication - Plan Plan: Acute hypoxic respiratory failure Acute on chronic CHF exacerbation Patient presented hypoxic in the 80s to the ED and was placed on Bipap for respiratory support. Maintaining sats in the low 90s in Bipap. s/p 40mg IV lasix in the ED. EF 55-60% w/ 2/3 diastolic dysfunction per ECHO from 09/14/19. Repeat CXR showed improvement. Patient appears euvolemic. Elevated troponin - Likely 2/2 demand. Will monitor for chest pain. Uncontrolled HTN BP initially in the 200s systolic on presentation. Improved s/p nitropaste. - Will resume home meds - PRNs available CKDIV eGFR appears to be within patient's baseline limits. - BUN/Cr slightly bumped today. Will continue to trend & avoid all nephrotoxic meds. IDDMII - Will resume home meds - Mild SSI, hypoglycemic protocol & CC diet HLD - Resume home statin Normocytic anemia Hgb 11.7. Likely 2/2 CKD. B12 and folate nml. - Iron and iron sat low. Will start iron q2days. h/o paroxysmal a-fib 2/2 pericardial effusion in December of 2018 Aware, s/p pericardial window done when patient presented in a fib. - will resume home metoprolol Code:FULL diet: CC VTE: heparin Dispo: stable Addendum - Attending - Attending Attestation Date/Time: 09/28/19 1203 I personally evaluated the patient and discussed the management with Dr. Barber I agree with the History, Examination, Assessment and Plan documented above with any addition or exceptions noted below. Will ask for Nephrology consultation.
[2019-09-28] MEDS: Alogliptin 25 MG TAB PO SCH (08:55)
[2019-09-28] MEDS: hydrALAZINE 25 MG TAB PO SCH ×2 (08:55→10:09)
[2019-09-28] MEDS: NIFEdipine XL 60 MG TAB PO SCH (08:55)
[2019-09-28] MEDS: Metoprolol Tartrate 25 MG TAB PO SCH (08:55)
[2019-09-28] MEDS: Heparin 5,000 UNITS/ML VIAL SC SCH ×2 (08:56→15:01)
[2019-09-28] MEDS: Insulin Glargine 34 UNITS in Pre-Filled Syringe 1 EACH SC SCH (10:13)
[2019-09-28 15:08] VITALS: BP 166/74; TEMP 98.2
[2019-09-28] MEDS: CLONIDINE HCL PO SCH ×3 (16:19→16:21)
--- NOTE | 2019-09-29 00:53 | EKG ---
Test Reason : Blood Pressure : / mmHG Vent. Rate : 088 BPM Atrial Rate : 088 BPM P-R Int : 192 ms QRS Dur : 114 ms QT Int : 406 ms P-R-T Axes : 091 016 146 degrees QTc Int : 491 ms Normal sinus rhythm Nonspecific ST and T wave abnormality Prolonged QT Abnormal ECG Confirmed by ABDIAZIZ MATSON ([id number]), editor farm journal NAVNEET CUELLAR ([id number]) on 09/29/2019 12:52:54 AM Referred By: Confirmed By:ABDIAZIZ MATSON
--- NOTE | 2019-09-30 12:00 | DIS ---
DATE OF ADMISSION: 09/26/2019 DATE OF DISCHARGE: 09/28/2019 ADMITTING ATTENDING: Tomas Stout MD DISCHARGE ATTENDING: Tomas Stout MD RESIDENT: Ninfa Sandy MD CONSULT: Contacted Dr. Waterman, Nephrology for recommendation. PROCEDURES: None. PRIMARY DIAGNOSIS: Acute hypoxic respiratory failure secondary to pulmonary edema from acute on chronic CHF exacerbation. SECONDARY DIAGNOSES: Acute on chronic congestive heart failure, heart failure with preserved ejection fraction, elevated troponin, uncontrolled hypertension, chronic kidney disease 4, insulin-dependent diabetes, hyperlipidemia, and paroxysmal atrial fibrillation. DISCHARGE MEDICATIONS: 1. Clonidine. 2. Hydralazine. 3. Insulin. 4. Metoprolol. 5. Alogliptin. 6. Atorvastatin. 7. Iron. 8. Lasix. 9. Nifedipine. DISCONTINUED MEDICATIONS: None. HISTORY OF PRESENT ILLNESS/HOSPITAL COURSE: Mr. Brown is a 54-year-old male, who presented to the emergency department for sudden onset of shortness of breath. Upon arrival, he was found to be 80% on room air. He required BiPAP support initially. The patient has had frequent admissions for similar complaints of fluid overload status for emergent dialysis or diuresis. The patient was on dialysis from 2017 to 2019. His kidney has improved on dialysis and he was taken off. On arrival, his BNP was noted to be 827, which is his highest on record here. His creatinine was noted to be 3.24. On discharge, his creatinine was 4.01. However, his community resource officer recommended outpatient followup as the patient would likely not need emergent dialysis while hospitalized. He has known CKD 4. The patient was diuresed slightly and his symptoms resolved. DISPOSITION: Stable. DISCHARGE INSTRUCTIONS: 1. Location: Home. 2. Diet: Heart healthy. 3. Activity: Ad sarita. 4. Followup: With primary care physician and community resource officer after discharge. Job ID: [id number]
--- NOTE | 2019-10-01 10:27 | PQF ---
KIM MANZO GRADY *r [id number] [facility]-296 [id number] CLINICAL DOCUMENTATION CLARIFICATION FORM: POST DISCHARGE Addendum to original discharge summary date: ____ Late entry note date: __ DATE:10/01/2019 ATTN: ERIC RAWLS Please exercise your independent, professional judgment in responding to the clarification form. Clinical indicators are provided on the bottom of this form for your review Please check appropriate box(s): AMI TYPE: [ ] Acute Coronary Syndrome (ACS) without Acute GA meaning Unstable Angina [ ] NSTEMI (GA type I) [ x ] NSTEMI due to Demand Ischemia (AMI Type II) [ x ] Demand Ischemia without GA [ ] STEMI (please also specify site and arterysee below) If STEMI, SITE:[ ] Anterior [ ] Apical [ ] Lateral [ ] Inferior [ ] Posterior [ ] Q Wave [ ] Septal [ ] Unable to Determine [ ] Other diagnosis [ ] Unable to determine In addition, please specify: Present on Admission (POA): [ x ] Yes [ ] No [ ] Unable to determine CLINICAL INDICATORS - SIGNS / SYMPTOMS / LABS Elevated troponin: Initial trop bumped at 0.031 and trended up to 0.054. Per chart review has been higher previously. likely demand ischemia in setting of acute respiratory failure -Documented in Family medicine H&P on 09/26 by Mauricio Lucas MD EKG-Nonspecific ST &T Wave changes but NL rate & rhythm-Documented in Family medicine H&P on 09/26 by Mauricio Lucas MD Acute diastolic CHF exacerbation -Documented in Family medicine H&P on 09/26 by Mauricio Lucas MD Will get a repeat EKG & troponins should patient report any chest pain- Documented in Family medicine H&P on 09/26 by Mauricio Lucas MD Elevated troponin likely 2/2 demand . Will monitor for chest pain -Documented in Family medicine PN on by Marvin Sandy MD Paroxysmal atrial fibrillation -Documented in Discharge summary on by morgan Sandy MD RISKS: Acute diastolic CHF exacerbation -Documented in Family medicine H&P on 09/26 by Mauricio Lucas MD Paroxysmal atrial fibrillation -Documented in Discharge summary on by morgan Sandy MD Elevated troponin likely 2/2 demand-Documented in Family medicine PN on by Marvin Sandy MD TREATMENTS: Lasix 40 mg IV -Medication Snapshot Heparin 5000 units SC TID-Medication Snapshot SAP [employer] Winform Viewer (This form is maintained as a part of the permanent medical record) 2014 [employer]. All Rights Reserved [email or web address] [phone] MTDD
--- NOTE | 2019-10-02 08:53 | PQF ---
KIM MANZO GRADY *r [id number] [facility]-296 [id number] CLINICAL DOCUMENTATION CLARIFICATION FORM: POST DISCHARGE Addendum to original discharge summary date: ____ Late entry note date: __ DATE:10/02/2019 ATTN: ERIC RAWLS Please exercise your independent, professional judgment in responding to the clarification form. Clinical indicators are provided on the bottom of this form for your review Please check appropriate box(s): Thanks for prompt response. kindly clarify the the conflicting response [ x ] NSTEMI due to Demand Ischemia (AMI Type II) [ ] Demand Ischemia without MS [ ] Other diagnosis [ ] Unable to determine CLINICAL INDICATORS - SIGNS / SYMPTOMS / LABS NSTEMI due to Demand Ischemia (AMI Type II) and Demand Ischemia without MS- Documented in Query on 09/30 Elevated troponin:Initial trop bumped at 0.031 and trended up to 0.054. Per chart review has been higher previously likely demand ischemia in setting of acute respiratory failure -Documented in Family medicine H&P on 09/26 by Shayy Martínez MD EKG-Nonspecific ST & T wave changed but NL rate & rhythm-Documented in Family medicine H&P on 09/26 by Shayy Martínez MD Acute diastolic CHF exacerbation-Documented in Family medicine H&P on 09/26 by Shayy Martínez MD Will get a repeat EKG & troponin should patient report any chest pain - Documented in Family medicine H&P on 09/26 by Shayy Martínez MD Elevated troponin likely 2/2 demand. Will monitor for chest pain-Documented in Family medicine PN on by Marvin patel MD Paroxysmal atrial fibrillation-Documented in discharge summary on by Marvin patel MD RISKS: Acute diastolic CHF exacerbation-Documented in Family medicine H&P on 09/26 by Shayy Martínez MD Elevated troponin likely 2/2 demand. Will monitor for chest pain-Documented in Family medicine PN on by Marvin patel MD Paroxysmal atrial fibrillation-Documented in discharge summary on by Marvni patel MD TREATMENTS: Lasix 40 mg IV-Documented in medication snapshot Heparin 5000 units SC TID-Documented in medication snapshot (This form is maintained as a part of the permanent medical record) 2014 [employer], [employer]. All Rights Reserved [email or web address] [phone] MTDD
== END 2019-09-28 16:17 | disposition home or self-care (01) | DRG 280 ==
LOC: ERS 06:41 → ERHOLD 08:36 → 2NO 17:07
PROVIDERS: ADMIT Family Medicine; ATTEND Family Medicine
DX: I13.0 Hypertensive heart and chronic kidney disease with heart failure and stage 1 through stage 4 chronic kidney disease, or unspecified chronic kidney disease (principal); I50.33 Acute on chronic diastolic (congestive) heart failure; I21.A1 Myocardial infarction type 2; J96.21 Acute and chronic respiratory failure with hypoxia; N18.4 Chronic kidney disease, stage 4 (severe); E11.22 Type 2 diabetes mellitus with diabetic chronic kidney disease; Z79.4 Long term (current) use of insulin; Z79.84 Long term (current) use of oral hypoglycemic drugs; E78.5 Hyperlipidemia, unspecified; I48.0 Paroxysmal atrial fibrillation; Z89.519 Acquired absence of unspecified leg below knee; E66.01 Morbid (severe) obesity due to excess calories; Z68.38 Body mass index [BMI] 38.0-38.9, adult; D63.1 Anemia in chronic kidney disease; Z87.891 Personal history of nicotine dependence; E11.21 Type 2 diabetes mellitus with diabetic nephropathy; R07.9 Chest pain, unspecified
CPT/HCPCS: 36415; 36416; 71045; 71046; 80048; 80053; 82553; 82607; 82746; 82805; 83540; 83550; 83880; 84443; 84484; 85025; 93005; 93798; 94660; 96374; 96375; J0360; J1644; J1815; J1940; J2405

== ENCOUNTER 2019-10-06 00:01 | Inpatient (IN) | payer MEDICARE, MEDICAID ==
[2019-10-06] MEDS ORDERED: Albuterol Sulfate 2.5 mg/3 ml Neb ONE (00:10)
[2019-10-06] MEDS ORDERED: Albuterol Sulfate 2.5 mg/0.5 ml Neb ONE (00:10)
[2019-10-06] MEDS ORDERED: Vancomycin 1 GM/200 ML BAG ONE (00:49)
[2019-10-06] MEDS ORDERED: Cefepime 2 GM VIAL ONE (00:49)
[2019-10-06 00:56] LABS: #Basophils 0.1 thou/uL (0.0-0.2); #Eosinphils 0.3 thou/uL (0.0-0.7); #Lymphocytes 1.2 thou/uL (1.20-3.40); #Monocytes 0.6 thou/uL (0.11-0.59); #Neutrophils 6.2 thou/uL (1.40-6.50); %Basophils 0.9 % (0.0-1.0); %Eosinophils 3.2 % (0.0-10.0); %Lymphocytes 14.5 % (21.0-51.0); %Monocytes 6.7 % (0.0-10.0); %Neutrophils 74.7 % (42.0-75.0); Hemoglobin 11.1 g/dL (14.0-18.0); Mean Corpuscular HGB CONC 34.9 g/dL (32.0-36.0); Mean Corpuscular Hemoglobin 31.5 pg (27.0-31.0); Mean Corpuscular Volume 90.2 fL (78.0-98.0); Mean Platelet Volume 8.8 fL (7.4-10.4); Platelet Count 188 thou/uL (130-400); RBC Distribution Width 12.4 % (11.5-14.5); Red Blood Cell (RBC) Count 3.51 mill/uL (4.70-6.10); White Blood Cell (WBC) Count 8.3 thou/uL (4.8-10.8)
[2019-10-06 01:17] LABS: ALT (SGPT) 12 U/L (8-55); AST (SGOT) 11 U/L (5-34); Albumin 4.1 g/dL (3.5-5.0); Alkaline Phosphatase 68 U/L (40-110); Anion Gap 13 mmol/L (10-20); BUN (Urea Nitrogen) 53 mg/dL (8.4-25.7); Bilirubin, Total 0.5 mg/dL (0.2-1.2); Calc. Creatinine Clearance 0 mL/min (70-130); Calcium 8.8 mg/dL (7.8-10.44); Carbon Dioxide 19 mmol/L (22-29); Chloride 112 mmol/L (98-107); Estimated GFR-MDRD 20; Globulin 2.8 g/dL (2.4-3.5); Glucose 247 mg/dL (70-105); Potassium 4.7 mmol/L (3.5-5.1); Protein, Total 6.9 g/dL (6.0-8.3); Sodium 139 mmol/L (136-145)
[2019-10-06 01:38] LABS: CKMB 4.7 ng/mL (0-6.6)
--- NOTE | 2019-10-06 01:46 | PDOC.FPRHP ---
- History of Present Illness Chief Complaint: Shortness of Breath History of Present Illness: Pt is a 54 yo male with PMH significant for HFpEF, IDDMII, HTN, CKD IV, HLD, h/ o paroxysmal a-fib s/p pericardial window in 2019, anemia of chronic disease who presents to the emergency department with abrupt shortness of breath. He states he all of sudden became short of breath at 2200 prompting him to call EMS. He denies chest pain, palpitations, fever, chills. He was noted to have oxygen saturations in the 80's, increased work of breathing so he was placed on Bipap. During the interview he states he feels much better and no longer sob on Bipap. He asked if he could try coming off the bipap. Otherwise he states he is taking his medications routinely. He does not check his bp's daily. Of note he is a patient who required dialysis from [id number] but was taken off recently. He has been hospitalized for similar events over the last month. On his previous hospitalizations he required bipap and dialysis. ED Course: In the ED pt was started on bipap. CXR was noted to have possible pneumonia and started on vanc, cefepime. - Allergies/Adverse Reactions Allergies Allergy/AdvReac Type Severity Reaction Status Date / Time No Known Allergies Allergy Verified 10/06/19 05:24 - Home Medications Medication Instructions Recorded Confirmed Type cloNIDine HCl [cloNIDine HCl ER] 1 tab PO Q6HR PRN 08/18/17 10/06/19 History Atorvastatin Calcium [Lipitor] 80 mg PO DAILY 30 Days #30 tablet 09/19/19 Rx Furosemide [Lasix] 40 mg PO DAILY-AC 30 Days #30 tab 09/19/19 10/06/19 Rx Insulin Glargine [Lantus Vial] 34 units SC TID-WM 09/26/19 10/06/19 History Metoprolol Tartrate [Lopressor] 25 mg PO BID 09/26/19 10/06/19 History hydrALAZINE HCl [Hydralazine HCl] 1 tab PO DAILY 09/26/19 10/06/19 History NIFEdipine [Procardia XL] 60 mg PO DAILY #30 tab 09/28/19 10/06/19 Rx Calcifediol [Rayaldee] 1 cap PO DAILY 10/06/19 10/06/19 History - History PMHx: HFpEF, IDDMII, HTN, CKD IV, HLD, h/o paroxysmal a-fib s/p pericardial window in 2019, anemia of chronic disease, RLE venous stasis changes PSHx: left aka 2/2 DMII infection, pericardial window December 2018, L Lower arm fistula placement and removal, R Great toe amputation FHx: father and sister - HTN Social: no TAD, former heavy EtOH use in the [employer]. Lives in [place] with sister. - Review of Systems General: denies: fever/chills, weight/appetite/sleep changes Eyes: denies: eye pain, vision changes ENT: denies: nasal congestion, rhinorrhea Respiratory: reports: cough, shortness of breath, exercise intolerance. denies : congestion Cardiovascular: reports: edema, paroxysmal nocturnal dyspnea. denies: chest pain, palpitation Gastrointestinal: denies: nausea, vomiting, diarrhea, constipation, abdominal pain Genitourinary: denies: incontinence, dysuria Skin: denies: rashes, lesions Musculoskeletal: denies: pain, tenderness Neurological: denies: numbness, syncope Psychological: denies: anxiety, depression - Vital signs BP: 172/82 HR: 86 RR: 20 Tmax: 97.9 Pox: 98% on bipap Wt: 137 kg - Physical Exam Constitutional: NAD, awake, alert and oriented -Constitutional: Pt on bipap HEENT: PERRLA, EOMI Neck: FROM, trachea midline, no JVD Chest: no-tender to palpation, no lesions Heart: RRR, normal S1/S2 -Heart: 1+ LE edema to R leg Lungs: no respiratory distress, no wheezing, no retractions -Lungs: Bibasilar crackles Abdomen: soft, non-tender, bowel sounds present Musculoskeletal: normal structure, normal tone Neurological: no focal deficit, CN II-XII intact Skin: no rash/lesions, no jaundice Heme/Lymphatic: no purpura, no petechia Psychiatric: normal mood and affect, intact recent and remote memory FMR H&P: Results - Labs Result Diagrams: 10/06/19 00:43 10/06/19 00:43 Lab results: WBC 8.3 thou/uL (4.8-10.8) 10/06/19 00:43 Hgb 11.1 g/dL (14.0-18.0) L 10/06/19 00:43 Hct 31.7 % (42.0-52.0) L 10/06/19 00:43 MCV 90.2 fL (78.0-98.0) 10/06/19 00:43 Plt Count 188 thou/uL (130-400) 10/06/19 00:43 Neutrophils % 74.7 % (42.0-75.0) 10/06/19 00:43 Sodium 139 mmol/L (136-145) 10/06/19 00:43 Potassium 4.7 mmol/L (3.5-5.1) 10/06/19 00:43 Chloride 112 mmol/L (98-107) H 10/06/19 00:43 Carbon Dioxide 19 mmol/L (22-29) L 10/06/19 00:43 BUN 53 mg/dL (8.4-25.7) H 10/06/19 00:43 Creatinine 3.25 mg/dL (0.7-1.3) H 10/06/19 00:43 Glucose 247 mg/dL (70-105) H 10/06/19 00:43 Lactic Acid 1.0 mmol/L (0.5-2.2) 10/06/19 00:42 Calcium 8.8 mg/dL (7.8-10.44) 10/06/19 00:43 Total Bilirubin 0.5 mg/dL (0.2-1.2) 10/06/19 00:43 AST 11 U/L (5-34) 10/06/19 00:43 ALT 12 U/L (8-55) 10/06/19 00:43 Alkaline Phosphatase 68 U/L (40-110) 10/06/19 00:43 CK-MB (CK-2) 4.7 ng/mL (0-6.6) 10/06/19 00:43 B-Natriuretic Peptide 514.0 pg/mL (0-100) H 10/06/19 00:43 Serum Total Protein 6.9 g/dL (6.0-8.3) 10/06/19 00:43 Albumin 4.1 g/dL (3.5-5.0) 10/06/19 00:43 - Radiology Interpretation Chest x-ray Status: image reviewed by me Additional comment: CXR revealed vascular congestion, no apparent consolidation FMR H&P: A/P - Problem List (1) Acute on chronic respiratory failure with hypoxia Current Visit: No Status: Acute Code(s): J96.21 - ACUTE AND CHRONIC RESPIRATORY FAILURE WITH HYPOXIA (2) Acute respiratory failure with hypoxia Current Visit: No Status: Acute Code(s): J96.01 - ACUTE RESPIRATORY FAILURE WITH HYPOXIA (3) CHF exacerbation Current Visit: No Status: Acute Code(s): I50.9 - HEART FAILURE, UNSPECIFIED (4) Hyperlipidemia Current Visit: No Status: Acute Code(s): E78.5 - HYPERLIPIDEMIA, UNSPECIFIED (5) Hypertension Current Visit: No Status: Acute Code(s): I10 - ESSENTIAL (PRIMARY) HYPERTENSION (6) Volume overload Current Visit: No Status: Acute Code(s): E87.70 - FLUID OVERLOAD, UNSPECIFIED Comment: Probably iatrogenic in the setting of CKD (7) (HFpEF) heart failure with preserved ejection fraction Current Visit: No Status: Chronic Code(s): I50.30 - UNSPECIFIED DIASTOLIC ( CONGESTIVE) HEART FAILURE (8) CKD (chronic kidney disease) stage 4, GFR 15-29 ml/min Current Visit: No Status: Chronic Code(s): N18.4 - CHRONIC KIDNEY DISEASE, STAGE 4 (SEVERE) (9) DM type 2 (diabetes mellitus, type 2) Current Visit: No Status: Chronic Qualifiers: Diabetes mellitus terminologist insulin use: with terminologist use Diabetes mellitus complication status: with circulatory complication - Plan Pt is a 54 yo male who presents for acute onset dyspnea at rest similar to prior admission in the last month, likely non-compliant with meds: # Acute Hypoxic Respiratory Failure 2/2 Pulm Edema, Diastolic Dysfunction, Poor medication compliance BNP 514, bibasilar crackles, lactic 1.0, WBC WNL, 1+ edema on exam. Story is similar in nature to previous admissions. - continue bipap, wean as tolerated - pt started on abx in the ED for pneumonia but appears to have vascular congestion, no apparent consolidation. He does not have a fever, productive cough. - discussed PE as source but pt has a low risk Well's score. will not order d- dimer at this time. - continue home medications for BP control, double home lasix dose to help with fluid - fluid restrict, daily weights, I&O's # DM II - unsure of pt's home medications. He was discharged with Lantus 34 TID, alogliptin on most recent visit. Pt was taking tradjenta 5 mg on prior to his last admission but we do not carry medication which could be why he was switched to alogliptin which our pharmacy does carry. Prior admissions he was only taking Lantus 34 qam. Will restart lantus 34 qam at this time, aggressive sliding scale and will titrate Lantus as necessary. Will not start alogliptin 2 /2 heart failure. Pt cannot tolerate jardiance with kidney failure stage 4. # HTN - continue nifedipine 60 mg daily, metoprolol 25 mg BID, hydralazine 50 mg BID, clonidine 0.1 mg q6h # Paroxysmal A-Fib - not currently on anti-coag - NSR at this time, continue home med # Normocytic Anemia - continue home meds # HFpEF - as above - 55-60% w/ 2/3 diastolic dysfunction # HLD - continue home meds # h/o Pericardial effusion in 12/2018 s/p pericardial window done when pt presented in a-fib # CKD IV - at baseline # Indeterminate Trop - trend, likely elevated with CKD Fluids: restrict Diet: NPO until no longer requiring bipap VTE: Heparin Code: Full Dispo: admit to IMCU for bipap FMR H&P: Upper Level - Pertinent history 54 year old male with PMH HFpEF, uncontrolled DM2, HTN, HLD presents with sudden onset shortness of breath at 22:00 this evening. Patient states he was feeling fine prior to this evening. He states he has an unproductive cough in the mornings when he wakes up, but he does not continue to have coughing throughout the day. He denies fever, chills, chest pain, N/V. Patient states that he drinks specifically 48 oz of fluids a day. He endorses compliance with medications. Patient reports improvement in symptoms on BiPAP. He states that he is urinating frequently throughout the day and this has not changed over the last several days. - Pertinent findings General: Alert, oriented x3. No acute distress on BiPAP. Talking through BiPAP. HEENT: MMM Card: RRR, 2/6 systolic murmur Resp: Bibasilar crackles, does not appear to be in any respiratory distress on BiPAP or 2L NC Abdomen: Soft, non-tender, non-distended, obese Ext: Left BKA, Right lower extremity with 1+ pitting edema and chronic venous stasis changes Skin: Diaphoretic - Plan Date/Time: 10/06/19 0145 IShaniqua, have evaluated this patient and agree with findings/plan as outlined by analysis intern resident. Pertinent changes/additions are listed here. Acute hypoxic respiratory failure 2/2 acute on chronic HFpEF - Requiring BiPAP due to tachypnea and respiratory distress not improved on NC - Satting 98% on NC, but with tachypnea and respiratory distress - Will continue lasix but give IV so dose is doubled (40 mg IV); can switch to oral and consider increase in daily dose pending response and fluid status - CXR consistent with pulmonary congestion, no obvious consolidations - Patient not on CHIKA-I, likely because this is HFpEF. - Echo on 09/14/2019: EF 55-60% w/ grade 2/3 diastolic dysfunction. Mild TR. - Continue BiPAP until patient tolerating NC, and then titrate off as tolerated - Fluid restriction - Strict I&O's - Patient with very similar presentation on past admissions - Patient without diagnosis of FANTASMA, but given body habitus, I suspect there is some degree of FANTASMA contributing to current clinical picture Suspect FANTASMA - No formal diagnosis, but given body habitus, suspect some degree of FANTASMA contributing to current clinical picture - Would benefit from sleep study if not already done DM type II uncontrolled - HgA1c in 08/2019 12.4% - Patient on TID dosing of Lantus; this doesn't make much sense, will switch to BID dosing and consider short acting insulin - Patient reports compliance with medication and states BG runs in 250's at home - ACHS accuchecks - CC diet HTN - Uncontrolled - Continue home medications - Suspect non-compliance - Titrate medications as appropriate HLD - Continue statin CKD stage 4 - GFR 16, patient previously ESRD on HD T, Mon. He was taken off of HD due to improvement in renal function - Patient has had several admissions for HF requiring dialysis with improvement in symptoms - Nephro has been consulted previously regarding re-initiation of dialysis; no plans at this time pAfib - Uncertain regarding this history; patient reports no history - Not currently on anticoagulation - May touch base with PCP, Dr. Jackman, to further investigate. May be candidate for ppx if truly history of afib DVT PPX: Heparin GI PPX: None Code Status: Full code Dispo: Admit to IMCU. Anticipate LOS >48 hours. Addendum - Attending - Attending Attestation Date/Time: 10/06/19 2873 I personally evaluated the patient and discussed the management with Dr. Nunez /Prabhu. I agree with the History, Examination, Assessment and Plan documented above with any addition or exceptions noted below.
[2019-10-06] MEDS ORDERED: Ondansetron PF 4 MG/2 ML Vial ONE (03:21)
[2019-10-06] MEDS ORDERED: CLONIDINE HCL PO PRN (03:34)
[2019-10-06] MEDS ORDERED: Furosemide 40 MG/4 ML VIAL SLOW IVP SCH ×3 (04:00→14:00)
[2019-10-06 04:21] LABS: Troponin I 0.041 ng/mL (< 0.028)
[2019-10-06] MEDS ORDERED: Dextrose 50% Abboject 50 ML SYRINGE SLOW IVP PRN (04:23)
[2019-10-06] MEDS ORDERED: Dextrose 5% in Water 1,000 ML IV PRN (04:23)
[2019-10-06] MEDS ORDERED: HumaLOG 300 UNITS/3 ML VIAL SC PRN (04:23)
[2019-10-06] MEDS: HumaLOG 300 UNITS/3 ML VIAL SC PRN ×3 (04:39→17:28)
[2019-10-06 07:40] LABS: Troponin I 0.103 ng/mL (< 0.028)
--- NOTE | 2019-10-06 08:05 | RAD ---
RADIOGRAPH CHEST 1 VIEW: DATE: 10/06/2019 TIME: 12:01 AM HISTORY: 54-year-old male with dyspnea COMPARISON: 09/19/2019 FINDINGS: New finding of shallow inspiration. Diffuse pulmonary vascular congestion. Probable pulmonary interst itial edema. Focal airspace density, small, at left central-basilar region. No pneumothorax. IMPRESSION: Pulmonary interstitial edema Airspace density at left lower lung zone
[2019-10-06] MEDS ORDERED: Alogliptin 25 MG TAB PO SCH (09:00)
[2019-10-06] MEDS ORDERED: Atorvastatin Calcium 40 MG TAB PO SCH (09:00)
[2019-10-06] MEDS ORDERED: Insulin Glargine 50 UNITS in Pre-Filled Syringe 1 EACH SC SCH ×2 (09:00→10:01)
[2019-10-06] MEDS ORDERED: Insulin Glargine 34 UNITS in Pre-Filled Syringe 1 EACH SC SCH ×2 (09:00→09:51)
[2019-10-06] MEDS: hydrALAZINE 25 MG TAB PO SCH (09:39)
[2019-10-06] MEDS: Heparin 5,000 UNITS/ML VIAL SC SCH ×3 (09:45→20:42)
[2019-10-06] MEDS: NIFEdipine XL 60 MG TAB PO SCH (09:48)
[2019-10-06] MEDS: Ferrous Sulfate 325 MG TAB PO SCH (09:48)
[2019-10-06] MEDS: Metoprolol Tartrate 25 MG TAB PO SCH ×2 (09:48→20:42)
[2019-10-06] MEDS ORDERED: Labetalol HCl 100 MG/20 ML VIAL SLOW IVP PRN (10:00)
[2019-10-06] MEDS: Furosemide 40 MG/4 ML VIAL SLOW IVP SCH (14:41)
[2019-10-06] MEDS: Atorvastatin Calcium 40 MG TAB PO SCH (20:41)
[2019-10-06] MEDS ORDERED: Tuberculin PPD 0.1 ML VIAL I-DERMAL SCH (21:00)
--- NOTE | 2019-10-06 21:33 | CON ---
DATE OF CONSULTATION: 10/06/2019 CONSULTING PHYSICIAN: Erik Hollins MD REASON FOR CONSULT: Worsening renal labs and fluid overload. REASON FOR ADMISSION: Shortness of breath. HISTORY OF PRESENT ILLNESS: A 54-year-old white male with history of chronic kidney disease stage 4, type 2 diabetes, and hypertension, came to the hospital with shortness of breath. The patient was on dialysis, but he was found to have improvement in urine output and renal labs and was taken off dialysis, but since taken of dialysis, he had four admissions almost every week for fluid overload and is requesting to be put back on dialysis. The patient seems to be needing dialysis again. We will start back on dialysis. We will have dialysis tomorrow morning and we will also have Case Management consult for dialysis placement. PAST MEDICAL HISTORY: Positive for CHF, type 2 diabetes, hypertension, CKD, hyperlipidemia, and anemia. PAST SURGICAL HISTORY: Left AKA, left arm fistula placement, and great toe amputation. HOME MEDICATION: Reviewed. ALLERGIES: NO KNOWN DRUG ALLERGIES. SOCIAL HISTORY: No smoking, alcohol, or illicit drug use. FAMILY HISTORY: No history of kidney disease REVIEW OF SYSTEMS: The following complete review of systems was negative, unless otherwise mentioned in the HPI or below: Constitutional: Weight loss or gain, ability to conduct usual activities. Skin: Rash, itching. Eyes: Double vision, pain. ENT/Mouth: Nose bleeding, neck stiffness, pain, tenderness. Cardiovascular: Palpitations, dyspnea on exertion, orthopnea. Respiratory: Shortness of breath, wheezing, cough, hemoptysis, fever or night sweats. Gastrointestinal: Poor appetite, abdominal pain, heartburn, nausea, vomiting, constipation, or diarrhea. Genitourinary: Urgency, frequency, dysuria, nocturia. Musculoskeletal: Pain, swelling. Neurologic/Psychiatric: Anxiety, depression. Allergy/Immunologic: Skin rash, bleeding tendency. PHYSICAL EXAMINATION: GENERAL: This is an obese male, in no apparent distress. VITAL SIGNS: Temperature 98.2, pulse 71, respirations 18, and blood pressure 157/72. HEENT: Atraumatic and normocephalic. NECK: Supple. CV: S1 and S2. Regular rate and rhythm. RESPIRATORY: Clear. GI: Abdomen is soft. MUSCULOSKELETAL: 1+ edema. DERMATOLOGIC: No skin rash. NEUROLOGIC: Alert and awake. PSYCHIATRIC: Mood and affect normal. LABORATORY DATA: Potassium is 4.7, BUN is 53, and creatinine is 3.2. Hemoglobin is 11.1. ASSESSMENT AND PLAN: 1. End-stage renal disease. Plan is to start on dialysis. The patient is not able to tolerate fluid status without dialysis and is having repeated admission for fluid overload, almost had four admissions in the last month. Plan is to start back on dialysis. We will order labs and Case Management consult for outpatient placement. Plan is to have dialysis in the morning. 2. Acidosis. We will have dialysis. 3. Elevated BUN. 4. Hyperglycemia. 5. Chronic anemia. 6. History of hypertension, stable. 7. Fluid overload. Limit fluid intake and we will start back on dialysis. Plan is to start back on dialysis. Dialysis team is aware. We will follow. Thank you for the consult. Job ID: [id number]
[2019-10-07] MEDS: Melatonin 3 MG TAB PO PRN ×2 (01:44→22:25)
[2019-10-07 03:40] LABS: #Eosinphils 0.1 thou/uL (0.0-0.7); #Monocytes 0.7 thou/uL (0.11-0.59); #Neutrophils 9.8 thou/uL (1.40-6.50); %Basophils 0.4 % (0.0-1.0); %Eosinophils 0.4 % (0.0-10.0); %Lymphocytes 8.5 % (21.0-51.0); %Monocytes 6.1 % (0.0-10.0); %Neutrophils 84.6 % (42.0-75.0); Hemoglobin 9.3 g/dL (14.0-18.0); Mean Corpuscular HGB CONC 35.1 g/dL (32.0-36.0); Mean Corpuscular Hemoglobin 31.6 pg (27.0-31.0); Mean Corpuscular Volume 90.1 fL (78.0-98.0); Platelet Count 162 thou/uL (130-400); RBC Distribution Width 12.4 % (11.5-14.5); Red Blood Cell (RBC) Count 2.94 mill/uL (4.70-6.10); White Blood Cell (WBC) Count 11.6 thou/uL (4.8-10.8)
[2019-10-07 04:02] LABS: Anion Gap 13 mmol/L (10-20); BUN (Urea Nitrogen) 71 mg/dL (8.4-25.7); Calc. Creatinine Clearance 46 mL/min (70-130); Carbon Dioxide 20 mmol/L (22-29); Chloride 107 mmol/L (98-107); Estimated GFR-MDRD 18; Glucose 225 mg/dL (70-105); Magnesium 1.7 mg/dL (1.6-2.6); Potassium 4.6 mmol/L (3.5-5.1); Sodium 135 mmol/L (136-145)
[2019-10-07 04:20] LABS: HBSAB Concentration 0.46 mIU/mL; HBSAg Index 0.26 S/CO (0-0.99); Hep B Core Total Ab Non-Reactive (NonReactive); Hep B Core Total Index 0.06 S/CO (0-0.79); Hep B Surf AB Non-Reactive (NonReactive); Hep B Surf Ag Non-Reactive S/CO (NonReactive); Hep C IgG Ab Non-Reactive (NonReactive); Hep C Index 0.08 S/CO (0-0.79)
[2019-10-07] MEDS: HumaLOG 300 UNITS/3 ML VIAL SC PRN ×2 (06:10→21:17)
[2019-10-07] MEDS: NIFEdipine XL 60 MG TAB PO SCH (08:19)
[2019-10-07] MEDS: Metoprolol Tartrate 25 MG TAB PO SCH ×2 (08:22→19:56)
[2019-10-07] MEDS: hydrALAZINE 25 MG TAB PO SCH (08:22)
[2019-10-07] MEDS: Heparin 5,000 UNITS/ML VIAL SC SCH ×3 (08:23→19:56)
[2019-10-07] MEDS: Insulin Glargine 50 UNITS in Pre-Filled Syringe 1 EACH SC SCH (08:23)
--- NOTE | 2019-10-07 08:45 | RAD ---
CHEST 1 VIEW PORTABLE: HISTORY: Congestive heart failure. COMPARISON: 10/06/2019. FINDINGS: There is some mild bilateral vascular congestion but overall improved. No confluent pneumonia, signi ficnat pleural effusion, or other new process. IMPRESSION: Cardiomegaly with some vascular congestion overall improving in appearance from prior study. POS: [facility]
--- NOTE | 2019-10-07 09:03 | PDOC.FM ---
- Subjective Subjective: Pt feeling much better, he is off O2, denies SOB. States he plans for scheduled dialysis now. no acute complaints no fever/chills, no CP/SOB - Objective Vital Signs & Weight: Vital Signs (12 hours) Temp Pulse BP 10/07/19 08:22 63 125/63 10/07/19 08:19 62 127/63 10/07/19 07:13 97.2 F L 10/07/19 03:30 98.0 F 10/06/19 23:23 99.0 F Weight Weight 139.706 kg Most Recent Monitor Data Heart Rate from ECG 62 NIBP 111/55 NIBP BP-Mean 73 Respiration from ECG 12 SpO2 93 I&O: 10/06/19 10/07/19 10/08/19 06:59 06:59 06:59 Intake Total 1450 Output Total 1650 Balance -200 Result Diagrams: 10/07/19 03:15 10/07/19 03:15 Phys Exam - Physical Examination Constitutional: NAD HEENT: moist MMs, sclera anicteric Neck: supple, full ROM Respiratory: no wheezing, clear to auscultation bilateral Cardiovascular: RRR, no significant murmur Gastrointestinal: soft, non-tender Musculoskeletal: pulses present Neurological: normal sensation, moves all 4 limbs Psychiatric: normal affect, A&O x 3 Skin: no rash, normal turgor Dx/Plan (1) Acute on chronic respiratory failure with hypoxia Code(s): J96.21 - ACUTE AND CHRONIC RESPIRATORY FAILURE WITH HYPOXIA Status: Acute (2) CHF exacerbation Code(s): I50.9 - HEART FAILURE, UNSPECIFIED Status: Acute (3) ESRD (end stage renal disease) on dialysis Code(s): N18.6 - END STAGE RENAL DISEASE; Z99.2 - DEPENDENCE ON RENAL DIALYSIS Status: Acute (4) Hyperlipidemia Code(s): E78.5 - HYPERLIPIDEMIA, UNSPECIFIED Status: Acute (5) Hypertension Code(s): I10 - ESSENTIAL (PRIMARY) HYPERTENSION Status: Acute (6) DM type 2 (diabetes mellitus, type 2) Status: Chronic Qualifiers: Diabetes mellitus retirement insulin use: with intermediate card tender use Diabetes mellitus complication status: with circulatory complication - Plan Plan: Acute hypoxic respiratory failure 2/2 acute on chronic HFpEF A- resolved. Pt is now on RA. Will get dialysis today per nephro P- dialysis today, plans for scheduled dialysis outpt. -CM consulted to aid in above plan -transfer to tele, possible DC today CKD stage 4 A- GFR 16, patient previously ESRD on HD T, TH, Sat. He was taken off of HD due to improvement in renal function. nephro consulted. Considering multiple admissions in last month plans for restarting scheduled dialysis. Pt has LUE access P- dialysis per nephro Suspect FANTASMA A- No formal diagnosis, but given body habitus, suspect some degree of FANTASMA contributing to current clinical picture. Would benefit from sleep study if not already done P- ouptt f/u DM type II uncontrolled A- HgA1c in 08/2019 12.4%. Was on TID dosing of lasix, switched to BID dosing. P- will titrate up on lantus as necessary -ACHS accuchecks -CC diet HTN A- Uncontrolled. suspect noncompliance P- will tritrate home meds as necessary HLD - Continue statin pAfib -Uncertain regarding this history; patient reports no history. Not currently on anticoagulation. will advise to touch base with PCP, Dr. Jackman, to further investigate. May be candidate for ppx if truly history of afib DVT PPX: Heparin GI PPX: None Code Status: Full code Dispo: Possibly home today after dialysis Addendum - Attending - Attending Attestation Date/Time: 10/07/19 1011 I personally evaluated the patient and discussed the management with Dr. Melendez I agree with the History, Examination, Assessment and Plan documented above with any addition or exceptions noted below. HD#1 Will transfer patient to tele. HD to be performed later today. Patient with obvious undiagnosed FANTASMA. Needs testing and CPAP titration outpatient. Adjust home meds as indicated. Will need to be set up for out patient HD. Osmani
--- NOTE | 2019-10-07 09:19 | CON ---
DATE OF CONSULTATION: HISTORY OF PRESENT ILLNESS: Chapin Brown is a 54-year-old morbidly obese gentleman, 137 kg, who presented yesterday with shortness of breath. X-ray shows diffuse pulmonary infiltrates. He has a cough, nonproductive. This is going on for several days, received several neb treatments. He has been in the hospital here numerous times, has seen Dr. Solis in office. This morning, he said he is feeling better. He has diuresed a large amount of fluid. PAST MEDICAL HISTORY: Peripheral vascular disease, diabetes, hyperlipidemia, renal failure, and stopped dialysis recently. PAST SURGICAL HISTORY: Previous surgeries; amputation, left BKA, right shoulder, left knee, and access. SOCIAL HISTORY: Alcohol, none. Tobacco, none. HOME MEDICINES: Includes: 1. Hydralazine. 2. Catapres. 3. Procardia. 4. Lopressor. 5. Insulin Lantus 34. 6. Lasix 40. ALLERGIES: NONE. REVIEW OF SYSTEMS: Ten-point negative. PHYSICAL EXAMINATION: VITAL SIGNS: Pulse 77, blood pressure 175/85, respirations 18, . His I's and O's have been noted in the chart. CHEST: Decreased breath sounds. Bilateral rhonchi and crackles. CARDIAC: Normal S1 and S2. No gallops. ABDOMEN: No masses. LABORATORY DATA: X-ray shows pulmonary edema. White count 8000, H and H 11 and 31, and platelet count is normal. Creatinine 3.2. ASSESSMENT: Acute on chronic respiratory failure, morbid obesity, probably sleep apnea, renal failure, and congestive heart failure. PLAN: I agree with present aggressive diuretics. Input from Nephrology. Follow up chest x-ray. PT and supportive care. We will follow. Consultation note, 70 minutes, 50% direct patient care. Job ID: [id number]
--- NOTE | 2019-10-07 09:45 | PRG ---
DATE OF SERVICE: 10/07/2019 SUBJECTIVE: This morning, he is better. He is less short of breath. OBJECTIVE: VITAL SIGNS: Temperature 97, pulse 62, blood pressure 125/63, and saturations are 94% on room air. CHEST: Decreased breath sounds. No wheezing. CARDIAC: Normal S1 and S2. No gallops. ABDOMEN: Soft. LABORATORY DATA: White count 11,000, H and H of 9 and 26, and platelet count 162. Creatinine 3.5. ASSESSMENT: Multiorgan failure: 1. Congestive heart failure. 2. Chronic obstructive pulmonary disease. 3. Renal failure. PLAN: He is for dialysis today. Otherwise, continue supportive care, PT. Job ID: [id number]
--- NOTE | 2019-10-07 11:10 | PRG ---
DATE OF SERVICE: 10/07/2019 SUBJECTIVE: A 54-year-old male, being seen for end-stage renal disease. The patient denies any nausea, vomiting, or chest pain. OBJECTIVE: GENERAL: The patient is awake and alert. VITAL SIGNS: Afebrile, pulse 75, breathing at 16, blood pressure is 124/60. HEENT: Head normocephalic and atraumatic. Eyes intact, no ulcers. Nose intact, no ulcers. Ears intact, no ulcers. NECK: Supple. No JVD. CHEST: Symmetrical and clear. CARDIOVASCULAR: Shows S1 and S2, no rub, no murmur. GASTROINTESTINAL: Abdomen is soft, bowel sounds positive. EXTREMITIES: Show no edema or ulcers. SKIN: Shows no rash or petechiae. MUSCULOSKELETAL: Shows no joint swelling or stiffness. GENITOURINARY: Shows no Garcia or CVA tenderness. NEUROLOGIC: Motor intact. Cranial nerves intact. LABORATORY DATA: Reviewed. ASSESSMENT AND PLAN: 1. Stage 6 chronic kidney disease. Plan hemodialysis. 2. Hypertension, stable. 3. Anemia, stable. 4. Medications based on GFR, appropriate. Job ID: [id number]
[2019-10-07] MEDS: Furosemide 40 MG/4 ML VIAL SLOW IVP SCH (17:37)
[2019-10-07] MEDS: Atorvastatin Calcium 40 MG TAB PO SCH (19:56)
[2019-10-07] MEDS ORDERED: Insulin Glargine 50 UNITS in Pre-Filled Syringe 1 EACH SC SCH (21:00)
[2019-10-08 04:38] LABS: #Basophils 0.1 thou/uL (0.0-0.2); #Eosinphils 0.2 thou/uL (0.0-0.7); #Monocytes 0.6 thou/uL (0.11-0.59); #Neutrophils 7.3 thou/uL (1.40-6.50); %Basophils 0.7 % (0.0-1.0); %Eosinophils 1.9 % (0.0-10.0); %Lymphocytes 10.9 % (21.0-51.0); %Monocytes 6.2 % (0.0-10.0); %Neutrophils 80.3 % (42.0-75.0); Hemoglobin 9.6 g/dL (14.0-18.0); Mean Corpuscular HGB CONC 33.3 g/dL (32.0-36.0); Mean Corpuscular Hemoglobin 30.2 pg (27.0-31.0); Mean Corpuscular Volume 90.6 fL (78.0-98.0); Mean Platelet Volume 8.6 fL (7.4-10.4); Platelet Count 154 thou/uL (130-400); RBC Distribution Width 12.5 % (11.5-14.5); Red Blood Cell (RBC) Count 3.17 mill/uL (4.70-6.10)
[2019-10-08 05:02] LABS: Anion Gap 12 mmol/L (10-20); BUN (Urea Nitrogen) 49 mg/dL (8.4-25.7); Calc. Creatinine Clearance 58 mL/min (70-130); Calcium 8.6 mg/dL (7.8-10.44); Carbon Dioxide 30 mmol/L (22-29); Chloride 101 mmol/L (98-107); Estimated GFR-MDRD 23; Glucose 78 mg/dL (70-105); Magnesium 1.9 mg/dL (1.6-2.6); Potassium 3.7 mmol/L (3.5-5.1); Sodium 139 mmol/L (136-145)
--- NOTE | 2019-10-08 08:32 | PDOC.FM ---
- Subjective Subjective: doing well, resting comfortably. No SOB, no CP. no new complaints - Objective Vital Signs & Weight: Vital Signs (12 hours) Temp Pulse Resp BP BP Pulse Ox 10/08/19 07:51 97.6 F 57 L 16 162/72 H 97 10/08/19 03:25 98.1 F 64 19 140/65 92 L Weight Weight 138.709 kg Most Recent Monitor Data Heart Rate from ECG 73 NIBP 147/70 NIBP BP-Mean 95 Respiration from ECG 22 SpO2 98 I&O: 10/07/19 10/08/19 10/09/19 06:59 06:59 06:59 Intake Total 1450 1200 Output Total 1650 3670 Balance -200 -2470 Result Diagrams: 10/08/19 04:21 10/08/19 04:21 Phys Exam - Physical Examination Constitutional: NAD HEENT: moist MMs, sclera anicteric Neck: no JVD, supple Respiratory: no wheezing, clear to auscultation bilateral Cardiovascular: RRR, no significant murmur Gastrointestinal: soft, non-tender Musculoskeletal: no edema, pulses present Neurological: non-focal, normal sensation Psychiatric: normal affect, A&O x 3 Skin: no rash, normal turgor Dx/Plan (1) Acute on chronic respiratory failure with hypoxia Code(s): J96.21 - ACUTE AND CHRONIC RESPIRATORY FAILURE WITH HYPOXIA Status: Acute (2) CHF exacerbation Code(s): I50.9 - HEART FAILURE, UNSPECIFIED Status: Acute (3) ESRD (end stage renal disease) on dialysis Code(s): N18.6 - END STAGE RENAL DISEASE; Z99.2 - DEPENDENCE ON RENAL DIALYSIS Status: Acute (4) Hyperlipidemia Code(s): E78.5 - HYPERLIPIDEMIA, UNSPECIFIED Status: Acute (5) Hypertension Code(s): I10 - ESSENTIAL (PRIMARY) HYPERTENSION Status: Acute (6) DM type 2 (diabetes mellitus, type 2) Status: Chronic Qualifiers: Diabetes mellitus group home insulin use: with group home use Diabetes mellitus complication status: with circulatory complication - Plan Plan: Acute hypoxic respiratory failure 2/2 acute on chronic HFpEF A- resolved. Pt is now on RA. got dialysis yesterday P- plans for scheduled dialysis outpt. will check with CM -possible DC today CKD stage 6 A- Plans for scheduled outpt dailysis. Pt has LUE access P- dialysis per nephro Suspect FANTASMA A- No formal diagnosis, but given body habitus, suspect some degree of FANTASMA contributing to current clinical picture. Would benefit from sleep study if not already done P- ouptt f/u DM type II uncontrolled A- hypoglycemic this AM P- will reduce HS lantus dosing 10% -ACHS accuchecks -CC diet HTN A- Uncontrolled. suspect noncompliance P- will tritrate home meds as necessary HLD - Continue statin pAfib -Uncertain regarding this history; patient reports no history. Not currently on anticoagulation. will advise to touch base with PCP, Dr. Jackman, to further investigate. May be candidate for ppx if truly history of afib DVT PPX: Heparin GI PPX: None Code Status: Full code
[2019-10-08] MEDS: Heparin 5,000 UNITS/ML VIAL SC SCH ×3 (09:15→20:58)
[2019-10-08] MEDS: hydrALAZINE 25 MG TAB PO SCH (09:15)
[2019-10-08] MEDS: Insulin Glargine 50 UNITS in Pre-Filled Syringe 1 EACH SC SCH (09:15)
[2019-10-08] MEDS: Ferrous Sulfate 325 MG TAB PO SCH (09:15)
[2019-10-08] MEDS: Metoprolol Tartrate 25 MG TAB PO SCH ×2 (09:16→20:58)
[2019-10-08] MEDS: NIFEdipine XL 60 MG TAB PO SCH (09:16)
--- NOTE | 2019-10-08 09:33 | PRG ---
DATE OF SERVICE: 10/08/2019 SUBJECTIVE: This morning, the patient is awake, alert, responsive, in no distress. OBJECTIVE: VITAL SIGNS: Temperature 97, pulse 57, respirations 16, sats 97% on room air, blood pressure 160/72. CHEST: No wheezing or crackles. CARDIAC: Normal S1 and S2. No gallops. No murmurs. ABDOMEN: No masses. LABORATORY DATA: White count 9000. Creatinine is 2.8. IMPRESSION: 1. Chronic renal failure. 2. Diabetes. 3. Obesity. 4. Congestive heart failure. 5. Renal failure, on dialysis. PLAN: Pulmonary nothing to offer at this time. Home any time. Disposition as per primary care physician. Job ID: [id number]
--- NOTE | 2019-10-08 09:58 | PRG ---
DATE OF SERVICE: 10/08/2019 SUBJECTIVE: A 54-year-old male, being seen for end-stage renal disease. The patient denied nausea, vomiting, or chest pain. PHYSICAL EXAMINATION: GENERAL: The patient is awake and alert. VITAL SIGNS: Afebrile, pulse 57, breathing at 16, blood pressure 140/64. HEENT: Head normocephalic and atraumatic. Eyes intact, no ulcers. Nose intact, no ulcers. Ears intact, no ulcers. NECK: Supple. No JVD. CHEST: Symmetrical and clear. CARDIOVASCULAR: Shows S1 and S2, no rub, no murmur. GASTROINTESTINAL: Abdomen is soft, bowel sounds positive. EXTREMITIES: Show no edema or ulcers. SKIN: Shows no rash or petechiae. MUSCULOSKELETAL: Shows no joint swelling or stiffness. GENITOURINARY: Shows no Garcia or CVA tenderness. NEUROLOGIC: Motor intact. Cranial nerves intact. LABORATORY DATA: Hemoglobin 9.6. IMPRESSION AND PLAN: 1. Stage 6 chronic kidney disease, plan dialysis as scheduled. 2. Hypertension, stable. 3. Anemia, stable. 4. Medications based on GFR appropriate. Job ID: [id number]
--- NOTE | 2019-10-08 10:24 | PRG ---
DATE OF SERVICE: 10/08/2019 Mr. Brown is a 54-year-old man with a history of CKD, stage 4. He has made multiple trips and admissions to the hospital for repeat dialysis in the last month. He is unable evidently to maintain fluid balance without dialysis and he is being considered for chronic dialysis and has already been seen by the Nephrology Service. In the event today, clinically he has much improved, has no complaints of difficulty breathing. He will be scheduled for thrice weekly dialysis. Job ID: [id number]
[2019-10-08] MEDS: HumaLOG 300 UNITS/3 ML VIAL SC PRN (17:01)
[2019-10-08] MEDS: Atorvastatin Calcium 40 MG TAB PO SCH (20:58)
[2019-10-08] MEDS: READ PPD TEST SITE PO SCH (20:59)
[2019-10-08] MEDS: Insulin Glargine 45 UNITS in Pre-Filled Syringe 1 EACH SC SCH (21:00)
[2019-10-08] MEDS: Melatonin 3 MG TAB PO PRN (21:06)
[2019-10-09 04:44] LABS: #Basophils 0.1 thou/uL (0.0-0.2); #Eosinphils 0.2 thou/uL (0.0-0.7); #Lymphocytes 1.4 thou/uL (1.20-3.40); #Monocytes 0.7 thou/uL (0.11-0.59); #Neutrophils 5.7 thou/uL (1.40-6.50); %Basophils 0.9 % (0.0-1.0); %Eosinophils 2.5 % (0.0-10.0); %Lymphocytes 17.4 % (21.0-51.0); %Monocytes 8.5 % (0.0-10.0); %Neutrophils 70.7 % (42.0-75.0); Hemoglobin 9.3 g/dL (14.0-18.0); Mean Corpuscular HGB CONC 33.7 g/dL (32.0-36.0); Mean Corpuscular Hemoglobin 30.6 pg (27.0-31.0); Mean Corpuscular Volume 90.8 fL (78.0-98.0); Mean Platelet Volume 8.8 fL (7.4-10.4); Platelet Count 159 thou/uL (130-400); RBC Distribution Width 12.3 % (11.5-14.5); Red Blood Cell (RBC) Count 3.05 mill/uL (4.70-6.10); White Blood Cell (WBC) Count 8.1 thou/uL (4.8-10.8)
[2019-10-09 05:09] LABS: Anion Gap 13 mmol/L (10-20); BUN (Urea Nitrogen) 56 mg/dL (8.4-25.7); Calc. Creatinine Clearance 54 mL/min (70-130); Calcium 8.5 mg/dL (7.8-10.44); Carbon Dioxide 26 mmol/L (22-29); Chloride 104 mmol/L (98-107); Estimated GFR-MDRD 21; Glucose 115 mg/dL (70-105); Potassium 3.9 mmol/L (3.5-5.1); Sodium 139 mmol/L (136-145)
--- NOTE | 2019-10-09 08:51 | PDOC.FM ---
- Subjective Subjective: Resting comfortably in dialysis, no acute distress, no events overnight - Objective Vital Signs & Weight: Vital Signs (12 hours) Temp Pulse Resp BP BP Pulse Ox 10/09/19 08:11 92 L 10/09/19 07:14 98.1 F 63 16 157/72 H 92 L 10/09/19 04:00 98.1 F 58 L 18 176/79 H 97 Weight Weight 142.473 kg Most Recent Monitor Data Heart Rate from ECG 73 NIBP 147/70 NIBP BP-Mean 95 Respiration from ECG 22 SpO2 98 I&O: 10/08/19 10/09/19 10/10/19 06:59 06:59 06:59 Intake Total 1200 1440 Output Total 3670 1840 Balance -2470 -400 Result Diagrams: 10/09/19 04:30 10/09/19 04:30 Phys Exam - Physical Examination Constitutional: NAD HEENT: moist MMs, sclera anicteric Neck: supple, full ROM Respiratory: no wheezing, clear to auscultation bilateral Cardiovascular: RRR, no significant murmur Gastrointestinal: soft, non-tender Musculoskeletal: no edema, pulses present Neurological: normal sensation, moves all 4 limbs Psychiatric: normal affect, A&O x 3 Skin: no rash, normal turgor Dx/Plan (1) Acute on chronic respiratory failure with hypoxia Code(s): J96.21 - ACUTE AND CHRONIC RESPIRATORY FAILURE WITH HYPOXIA Status: Acute (2) CHF exacerbation Code(s): I50.9 - HEART FAILURE, UNSPECIFIED Status: Acute (3) ESRD (end stage renal disease) on dialysis Code(s): N18.6 - END STAGE RENAL DISEASE; Z99.2 - DEPENDENCE ON RENAL DIALYSIS Status: Acute (4) Hyperlipidemia Code(s): E78.5 - HYPERLIPIDEMIA, UNSPECIFIED Status: Acute (5) Hypertension Code(s): I10 - ESSENTIAL (PRIMARY) HYPERTENSION Status: Acute (6) DM type 2 (diabetes mellitus, type 2) Status: Chronic Qualifiers: Diabetes mellitus detention insulin use: with detention use Diabetes mellitus complication status: with circulatory complication - Plan Plan: Acute hypoxic respiratory failure 2/2 acute on chronic HFpEF A- resolved. Pt is on RA. P- plans for scheduled dialysis outpt. will check with CM -possible DC today CKD stage 6 A- Plans for scheduled outpt dailysis. Pt has LUE access P- dialysis per nephro Suspect FANTASMA A- No formal diagnosis, but given body habitus, suspect some degree of FANTASMA contributing to current clinical picture. Would benefit from sleep study if not already done P- ouptt f/u DM type II uncontrolled A- fasting was at goal this AM P- lantus 50u QAM, 45u QHS -ACHS accuchecks -CC diet HTN A- Uncontrolled. suspect noncompliance P- will tritrate home meds as necessary HLD - Continue statin pAfib -Uncertain regarding this history; patient reports no history. Not currently on anticoagulation. will advise to touch base with PCP, Dr. Jackman, to further investigate. May be candidate for ppx if truly history of afib DVT PPX: Heparin GI PPX: None Code Status: Full code
--- NOTE | 2019-10-09 10:37 | PRG ---
DATE OF SERVICE: 10/09/2019 Mr. Brown is asleep during his dialysis and is in no distress. We are still awaiting a dialysis bed for discharge. He seems to be tolerating his dialysis this morning well, and we will continue to follow with Nephrology Service. Mr. Brown told us yesterday that he was advised to be worked up for sleep apnea, but did not follow through. I believe as an outpatient, he should have a sleep study as he drops his O2 saturations during sleep. Otherwise, from a clinical standpoint, he is stable, and we will as stated follow with Nephrology. Job ID: [id number]
[2019-10-09] MEDS: Ondansetron ODT 4 MG TAB SL PRN (10:50)
[2019-10-09] MEDS: Heparin 5,000 UNITS/ML VIAL SC SCH ×3 (12:04→20:48)
[2019-10-09] MEDS: NIFEdipine XL 60 MG TAB PO SCH (12:40)
[2019-10-09] MEDS: Metoprolol Tartrate 25 MG TAB PO SCH ×2 (12:40→20:48)
[2019-10-09] MEDS: Insulin Glargine 50 UNITS in Pre-Filled Syringe 1 EACH SC SCH (12:40)
[2019-10-09] MEDS: hydrALAZINE 25 MG TAB PO SCH ×2 (12:41→20:47)
--- NOTE | 2019-10-09 14:19 | PRG ---
DATE OF SERVICE: 10/09/2019 SUBJECTIVE: This is a 54-year-old male being seen for end-stage renal disease. The patient denied nausea, vomiting, or chest pain. OBJECTIVE: See above. The patient is awake and alert. VITAL SIGNS: Pulse 59, breathing 16, blood pressure 157/72. GENERAL APPEARANCE AND MENTAL STATUS: Fair. HEAD/NECK: Normocephalic. Atraumatic. EYES: EOMI. No deformity. EARS: Clear. No ulcers. NOSE: Intact. No lesions. MOUTH: Clear. No discharge. THROAT: Clear. No exudate. LUNGS: Clear. No crackles. CARDIAC: S1, S2. No rub. ABDOMEN: Benign. Bowel sounds positive. GENITALIA/RECTUM: Garcia absent. BACK/EXTREMITIES: Edema 0+. NEUROLOGICAL: Alert and motor intact. SKIN: LYMPHATICS: LABORATORY DATA: Reviewed. ASSESSMENT: 1. Stage 6 chronic kidney disease. Plan dialysis. 2. Hypertension, stable. 3. Anemia, stable. 4. Medication based on GFR appropriate. Job ID: [id number]
[2019-10-09] MEDS: HumaLOG 300 UNITS/3 ML VIAL SC PRN (17:33)
[2019-10-09] MEDS: Atorvastatin Calcium 40 MG TAB PO SCH (20:48)
[2019-10-09] MEDS: Insulin Glargine 45 UNITS in Pre-Filled Syringe 1 EACH SC SCH (20:49)
[2019-10-09] MEDS: READ PPD TEST SITE PO SCH (22:12)
[2019-10-09] MEDS: Melatonin 3 MG TAB PO PRN (23:51)
[2019-10-10 04:11] LABS: #Basophils 0.1 thou/uL (0.0-0.2); #Eosinphils 0.3 thou/uL (0.0-0.7); #Lymphocytes 1.6 thou/uL (1.20-3.40); #Monocytes 0.6 thou/uL (0.11-0.59); #Neutrophils 6.1 thou/uL (1.40-6.50); %Eosinophils 3.1 % (0.0-10.0); %Lymphocytes 18.7 % (21.0-51.0); %Neutrophils 70.3 % (42.0-75.0); Hemoglobin 9.4 g/dL (14.0-18.0); Mean Corpuscular HGB CONC 35.5 g/dL (32.0-36.0); Mean Corpuscular Hemoglobin 31.9 pg (27.0-31.0); Mean Corpuscular Volume 90.1 fL (78.0-98.0); Mean Platelet Volume 9.1 fL (7.4-10.4); Platelet Count 165 thou/uL (130-400); RBC Distribution Width 12.2 % (11.5-14.5); Red Blood Cell (RBC) Count 2.95 mill/uL (4.70-6.10); White Blood Cell (WBC) Count 8.7 thou/uL (4.8-10.8)
[2019-10-10 04:33] LABS: Anion Gap 13 mmol/L (10-20); BUN (Urea Nitrogen) 38 mg/dL (8.4-25.7); Calc. Creatinine Clearance 53 mL/min (70-130); Calcium 8.8 mg/dL (7.8-10.44); Carbon Dioxide 28 mmol/L (22-29); Chloride 100 mmol/L (98-107); Estimated GFR-MDRD 21; Glucose 165 mg/dL (70-105); Magnesium 1.9 mg/dL (1.6-2.6); Potassium 3.8 mmol/L (3.5-5.1); Sodium 137 mmol/L (136-145)
[2019-10-10 07:22] VITALS: BMI 38.7
[2019-10-10] MEDS: Metoprolol Tartrate 25 MG TAB PO SCH ×2 (09:03→20:06)
[2019-10-10] MEDS: hydrALAZINE 25 MG TAB PO SCH ×2 (09:03→20:06)
[2019-10-10] MEDS: NIFEdipine XL 60 MG TAB PO SCH (09:03)
--- NOTE | 2019-10-10 09:03 | PDOC.FM ---
- Subjective Subjective: no acute events overnight, no complaints, no concerns - Objective Vital Signs & Weight: Vital Signs (12 hours) Temp Pulse Resp BP BP Pulse Ox 10/10/19 08:02 94 L 10/10/19 08:00 97.9 F 64 20 164/78 H 94 L 10/10/19 04:32 97.7 F 62 23 H 141/63 H 94 L 10/10/19 03:02 96 Weight Weight 140.6 kg Most Recent Monitor Data Heart Rate from ECG 73 NIBP 147/70 NIBP BP-Mean 95 Respiration from ECG 22 SpO2 98 I&O: 10/09/19 10/10/19 10/11/19 06:59 06:59 06:59 Intake Total 1440 1200 Output Total 1840 920 Balance -400 280 Result Diagrams: 10/11/19 04:25 10/11/19 04:25 Phys Exam - Physical Examination Constitutional: NAD HEENT: moist MMs, sclera anicteric Neck: no nodes, no JVD Respiratory: no wheezing, clear to auscultation bilateral Cardiovascular: RRR, no significant murmur Gastrointestinal: soft, non-tender Musculoskeletal: no edema, pulses present Neurological: normal sensation, moves all 4 limbs Psychiatric: normal affect, A&O x 3 Skin: no rash, normal turgor Dx/Plan (1) Acute on chronic respiratory failure with hypoxia Code(s): J96.21 - ACUTE AND CHRONIC RESPIRATORY FAILURE WITH HYPOXIA Status: Acute (2) CHF exacerbation Code(s): I50.9 - HEART FAILURE, UNSPECIFIED Status: Acute (3) ESRD (end stage renal disease) on dialysis Code(s): N18.6 - END STAGE RENAL DISEASE; Z99.2 - DEPENDENCE ON RENAL DIALYSIS Status: Acute (4) Hyperlipidemia Code(s): E78.5 - HYPERLIPIDEMIA, UNSPECIFIED Status: Acute (5) Hypertension Code(s): I10 - ESSENTIAL (PRIMARY) HYPERTENSION Status: Acute (6) DM type 2 (diabetes mellitus, type 2) Status: Chronic Qualifiers: Diabetes mellitus detention insulin use: with detention use Diabetes mellitus complication status: with circulatory complication - Plan Plan: Acute hypoxic respiratory failure 2/2 acute on chronic HFpEF A- resolved. Pt is on RA. P- plans for scheduled dialysis outpt. will check with CM -possible DC today CKD stage 6 A- Plans for scheduled outpt dailysis. Pt has LUE access P- dialysis per nephro Suspect FANTASMA A- No formal diagnosis, but given body habitus, suspect some degree of FANTASMA contributing to current clinical picture. Would benefit from sleep study if not already done P- ouptt f/u DM type II uncontrolled A- fasting was at goal this AM P- lantus 50u QAM, 45u QHS -ACHS accuchecks -CC diet HTN A- Uncontrolled. suspect noncompliance P- will tritrate home meds as necessary HLD - Continue statin pAfib -Uncertain regarding this history; patient reports no history. Not currently on anticoagulation. will advise to touch base with PCP, Dr. Jackman, to further investigate. May be candidate for ppx if truly history of afib DVT PPX: Heparin GI PPX: None Code Status: Full code Addendum - Attending - Attending Attestation Date/Time: 10/10/19 0909 I personally evaluated the patient and discussed the management with Dr. Melendez I agree with the History, Examination, Assessment and Plan documented above with any addition or exceptions noted below. HD#4 Patient doing well. No acute events overnight. Will adjust insulin dosing due to worsening renal function. Adjust BP meds in outpatient setting once HD becomes routine. Still awaiting HD spot for d/c. Osmani
[2019-10-10] MEDS: Insulin Glargine 50 UNITS in Pre-Filled Syringe 1 EACH SC SCH (09:04)
[2019-10-10] MEDS: Ferrous Sulfate 325 MG TAB PO SCH (09:04)
[2019-10-10] MEDS: Heparin 5,000 UNITS/ML VIAL SC SCH ×3 (09:05→20:07)
--- NOTE | 2019-10-10 12:43 | PRG ---
DATE OF SERVICE: 10/10/2019 SUBJECTIVE: A 54-year-old gentleman, being seen for end-stage renal disease. The patient denied nausea, vomiting, or chest pain. PHYSICAL EXAMINATION: General: The patient is awake and alert. Vital Signs: Afebrile, pulse 95, breathing at 16, blood pressure 141/68. HEENT: Head normocephalic and atraumatic. Eyes intact, no ulcers. Nose intact, no ulcers. Ears intact, no ulcers. Neck: Supple. No JVD. Chest: Symmetrical and clear. Cardiovascular: Shows S1 and S2, no rub, no murmur. Gastrointestinal: Abdomen is soft, bowel sounds positive. Extremities: Show no edema or ulcers. Skin: Shows no rash or petechiae. Musculoskeletal: Shows no joint swelling or stiffness. Genitourinary: Shows no Garcia or CVA tenderness. Neurologic: Motor intact. Cranial nerves intact. LABORATORY DATA: Hemoglobin 9.4. IMPRESSION AND PLAN: 1. Stage 6 chronic kidney disease, stable. 2. Hypertension, stable. 3. Anemia, stable. Discharge planning is in progress. The patient has been accepted at outpatient dialysis. Job ID: [id number]
[2019-10-10] MEDS: Insulin Glargine 45 UNITS in Pre-Filled Syringe 1 EACH SC SCH (20:06)
[2019-10-10] MEDS: Atorvastatin Calcium 40 MG TAB PO SCH (20:06)
[2019-10-10] MEDS: Melatonin 3 MG TAB PO PRN (23:03)
[2019-10-11 04:34] LABS: #Basophils 0.1 thou/uL (0.0-0.2); #Eosinphils 0.3 thou/uL (0.0-0.7); #Lymphocytes 1.4 thou/uL (1.20-3.40); #Monocytes 0.7 thou/uL (0.11-0.59); #Neutrophils 6.8 thou/uL (1.40-6.50); %Basophils 1.1 % (0.0-1.0); %Eosinophils 2.9 % (0.0-10.0); %Lymphocytes 15.1 % (21.0-51.0); %Monocytes 7.2 % (0.0-10.0); %Neutrophils 73.7 % (42.0-75.0); Hemoglobin 9.3 g/dL (14.0-18.0); Mean Corpuscular HGB CONC 35.1 g/dL (32.0-36.0); Mean Corpuscular Hemoglobin 31.9 pg (27.0-31.0); Mean Corpuscular Volume 90.9 fL (78.0-98.0); Mean Platelet Volume 8.8 fL (7.4-10.4); Platelet Count 155 thou/uL (130-400); RBC Distribution Width 12.3 % (11.5-14.5); Red Blood Cell (RBC) Count 2.92 mill/uL (4.70-6.10); White Blood Cell (WBC) Count 9.3 thou/uL (4.8-10.8)
[2019-10-11 05:00] LABS: Anion Gap 13 mmol/L (10-20); BUN (Urea Nitrogen) 49 mg/dL (8.4-25.7); Calc. Creatinine Clearance 48 mL/min (70-130); Calcium 9.2 mg/dL (7.8-10.44); Carbon Dioxide 28 mmol/L (22-29); Chloride 104 mmol/L (98-107); Estimated GFR-MDRD 19; Glucose 115 mg/dL (70-105); Potassium 4.1 mmol/L (3.5-5.1); Sodium 141 mmol/L (136-145)
[2019-10-11] MEDS: Ondansetron ODT 4 MG TAB SL PRN (05:26)
--- NOTE | 2019-10-11 09:15 | PDOC.FM ---
- Subjective Subjective: resting comfortably, in dialysis, no new complaints - Objective Vital Signs & Weight: Vital Signs (12 hours) Temp Pulse Resp BP BP Pulse Ox 10/11/19 07:40 97 10/11/19 07:10 97.6 F 61 12 175/84 H 97 10/11/19 03:06 97.4 F L 64 18 165/71 H 94 L Weight Weight 140 kg Most Recent Monitor Data Heart Rate from ECG 73 NIBP 147/70 NIBP BP-Mean 95 Respiration from ECG 22 SpO2 98 I&O: 10/10/19 10/11/19 10/12/19 06:59 06:59 06:59 Intake Total 1200 1210 Output Total 920 1600 Balance 280 -390 Result Diagrams: 10/11/19 04:25 10/11/19 04:25 Phys Exam - Physical Examination Constitutional: NAD HEENT: moist MMs, sclera anicteric Neck: no JVD, supple Respiratory: no wheezing, clear to auscultation bilateral Cardiovascular: RRR, no significant murmur Gastrointestinal: non-tender, no distention Musculoskeletal: no edema, pulses present Neurological: normal sensation, moves all 4 limbs Psychiatric: normal affect, A&O x 3 Skin: no rash, normal turgor Dx/Plan (1) Acute on chronic respiratory failure with hypoxia Code(s): J96.21 - ACUTE AND CHRONIC RESPIRATORY FAILURE WITH HYPOXIA Status: Acute (2) CHF exacerbation Code(s): I50.9 - HEART FAILURE, UNSPECIFIED Status: Acute (3) ESRD (end stage renal disease) on dialysis Code(s): N18.6 - END STAGE RENAL DISEASE; Z99.2 - DEPENDENCE ON RENAL DIALYSIS Status: Acute (4) Hyperlipidemia Code(s): E78.5 - HYPERLIPIDEMIA, UNSPECIFIED Status: Acute (5) Hypertension Code(s): I10 - ESSENTIAL (PRIMARY) HYPERTENSION Status: Acute (6) DM type 2 (diabetes mellitus, type 2) Status: Chronic Qualifiers: Diabetes mellitus terminologist insulin use: with terminologist use Diabetes mellitus complication status: with circulatory complication - Plan Plan: Acute hypoxic respiratory failure 2/2 acute on chronic HFpEF A- resolved. Pt is on RA. P- plans for scheduled dialysis outpt. will check with CM -possible DC today CKD stage 6 A- Plans for scheduled outpt dailysis. Pt has LUE access P- dialysis per nephro Suspect FANTASMA A- No formal diagnosis, but given body habitus, suspect some degree of FANTASMA contributing to current clinical picture. Would benefit from sleep study if not already done P- ouptt f/u DM type II uncontrolled A- fasting was at goal this AM P- lantus 50u QAM, 45u QHS -ACHS accuchecks -CC diet HTN A- Uncontrolled. suspect noncompliance P- will tritrate home meds as necessary HLD - Continue statin pAfib -Uncertain regarding this history; patient reports no history. Not currently on anticoagulation. will advise to touch base with PCP, Dr. Jackman, to further investigate. May be candidate for ppx if truly history of afib DVT PPX: Heparin GI PPX: None Code Status: Full code Addendum - Attending - Attending Attestation Date/Time: 10/11/19 6547 I personally evaluated the patient and discussed the management with Dr. Melendez I agree with the History, Examination, Assessment and Plan documented above with any addition or exceptions noted below. HD#5 No acute events overnight. Continue to adjust insulin regiment. Now has MWF HD setup for outpatient. Ok to dc to home. Will need to continue to adjust BP meds and insulin. Osmani
[2019-10-11] MEDS: Heparin 5,000 UNITS/ML VIAL SC SCH ×2 (11:08→14:34)
--- NOTE | 2019-10-11 12:43 | PRG ---
DATE OF SERVICE: 10/11/2019 SUBJECTIVE: A 54-year-old male, being seen for end-stage renal disease. The patient denied nausea, vomiting, or chest pain. PHYSICAL EXAMINATION: General: The patient is awake and alert. Vital Signs: Afebrile, pulse 71, breathing at 16, blood pressure 175/84. HEENT: Head normocephalic and atraumatic. Eyes intact, no ulcers. Nose intact, no ulcers. Ears intact, no ulcers. Neck: Supple. No JVD. Chest: Symmetrical and clear. Cardiovascular: Shows S1 and S2, no rub, no murmur. Gastrointestinal: Abdomen is soft, bowel sounds positive. Extremities: Show no edema or ulcers. Skin: Shows no rash or petechiae. Musculoskeletal: Shows no joint swelling or stiffness. Genitourinary: Shows no Garcia or CVA tenderness. Neurologic: Motor intact. Cranial nerves intact. LABORATORY DATA: Reviewed. ASSESSMENT AND PLAN: 1. Stage 6 chronic kidney disease, continue hemodialysis. 2. Hypertension, stable. 3. Anemia, stable. 4. Medication based on GFR, appropriate. Job ID: [id number]
[2019-10-11] MEDS: Insulin Glargine 50 UNITS in Pre-Filled Syringe 1 EACH SC SCH (13:06)
[2019-10-11] MEDS: hydrALAZINE 25 MG TAB PO SCH (13:17)
[2019-10-11] MEDS: NIFEdipine XL 60 MG TAB PO SCH (13:17)
[2019-10-11] MEDS: Metoprolol Tartrate 25 MG TAB PO SCH (13:17)
[2019-10-11] MEDS ORDERED: Heparin 10,000 UNITS/ 10 ML VIAL ONE (13:39)
[2019-10-11 16:09] VITALS: BP 154/72; TEMP 98.5
--- NOTE | 2019-10-12 03:18 | DIS ---
DATE OF ADMISSION: 10/06/2019 DATE OF DISCHARGE: 10/11/2019 ADMITTING ATTENDING: Dr. Erik Hollins. DISCHARGE ATTENDING: Nathaly Leung MD RESIDENT: Dean Melendez MD I saw the patient personally for a total of five days. CONSULTS: 1. Dr. Sellers. 2. Dr. Waterman. PROCEDURES: On 10/07/2019, chest x-ray, impression; cardiomegaly with some vascular congestion, overall improving in appearance from prior study. DISCHARGE MEDICATIONS: 1. Atorvastatin 80 mg p.o. daily. 2. Hydralazine 50 mg p.o. daily. 3. Metoprolol tartrate 25 mg p.o. b.i.d. 4. Nifedipine 60 mg p.o. daily. 5. Calcifediol 30 mcg one tablet p.o. daily. 6. Ferrous sulfate 325 mg p.o. q.2 days. 7. Insulin glargine 45 units subcutaneous q.a.m. DISCONTINUED MEDICATIONS: 1. Clonidine 0.1 mg p.o. q.6 hours p.r.n. 2. Furosemide 40 mg p.o. daily. 3. Insulin glargine 34 units subcutaneous t.i.d. with meals. 4. Insulin glargine 45 units subcutaneous as directed. PRIMARY DIAGNOSIS: Acute hypoxic respiratory failure secondary to acute on chronic heart failure with preserved ejection fraction. SECONDARY DIAGNOSES: Chronic kidney disease, stage ; obstructive sleep apnea suspected; type 2 diabetes; hypertension; hyperlipidemia; possible paroxysmal atrial fibrillation, uncertain diagnosis. HISTORY OF PRESENT ILLNESS AND HOSPITAL COURSE: This is a 54-year-old male with history of CKD, stage , who presented in hypoxic respiratory failure secondary to volume overload. Of note, this patient has had several admissions in the last couple of months for the same presentation and same problem. In the past, the patient has had hemodialysis and was stable on that regimen but kidney function improved and he did not require dialysis any more. The patient was admitted for dialysis, however and Nephrology was consulted. Considering the frequent bounce-back readmissions he has been having, Nephrology decided with the patient to go ahead and resume his normal dialysis schedule. He already had access in his left upper extremity. The patient had fluid removed via dialysis, was weaned off BiPAP to nasal cannula, to room air very quickly after this and was moved to medical floor. Case Management was consulted to arrange outpatient dialysis through the [facility], who is his primary care physician. Once this was approved, the patient was deemed stable and ready for discharge. Of note, his antihypertensive regimen had adjustments made to it during the hospitalization for better control. Clonidine was discontinued altogether as listed above. Of note, his diabetes medications were also adjusted as with his worsening kidney failure, he did not require as much insulin and now was discharged with 45 units of long-acting insulin q.a.m., which is an overall reduction of medical management. Regarding his questionable history of atrial fibrillation, the patient denies any history of atrial fibrillation and so, he was instructed to be discharged without anticoagulation as this would be contraindicated if he does not actually have atrial fibrillation and was instructed to go and follow up with his primary care physician at the [facility] to clarify if this is in his medical history. DISPOSITION: Stable. DISCHARGE INSTRUCTIONS: LOCATION: Home. ACTIVITY: As tolerated. DIET: Renal diet. FOLLOWUP: Follow up with Dr. Edgar Carballo in 2 to 3 weeks, the [facility] in 7 days, [facility], [facility], [facility] Failure [facility], and Cardiac Rehab. Job ID: [id number]
--- NOTE | 2019-10-12 14:47 | EKG ---
Test Reason : Blood Pressure : / mmHG Vent. Rate : 093 BPM Atrial Rate : 093 BPM P-R Int : 170 ms QRS Dur : 108 ms QT Int : 404 ms P-R-T Axes : 045 -10 103 degrees QTc Int : 502 ms Normal sinus rhythm Nonspecific ST and T wave abnormality Prolonged QT Abnormal ECG Confirmed by JERRY SMITH M.D. ([id number]), marketing editor BILL ESCALANTE ([id number]) on 10/12/2019 2:47:27 PM Referred By: Confirmed By:JERRY SMITH M.D.
== END 2019-10-11 16:25 | disposition home health service (06) | DRG 291 ==
LOC: ERS 00:01 → IMCU/EMU 01:48 → 2NO 10-07 20:29
PROVIDERS: ADMIT Student in an Organized Health Care Education/Training Program; ATTEND Student in an Organized Health Care Education/Training Program
PROC: 5A09357 Assistance with Respiratory Ventilation, Less than 24 Consecutive Hours, Continuous Positive Airway Pressure (ICD-10-PCS; principal; 2019-10-06)
PROC: 5A1D70Z Performance of Urinary Filtration, Intermittent, Less than 6 Hours Per Day (ICD-10-PCS; 2019-10-07)
DX: I13.2 Hypertensive heart and chronic kidney disease with heart failure and with stage 5 chronic kidney disease, or end stage renal disease (principal); I50.33 Acute on chronic diastolic (congestive) heart failure; N18.6 End stage renal disease; J96.21 Acute and chronic respiratory failure with hypoxia; E87.2 Acidosis; G47.33 Obstructive sleep apnea (adult) (pediatric); E11.22 Type 2 diabetes mellitus with diabetic chronic kidney disease; E78.5 Hyperlipidemia, unspecified; I48.0 Paroxysmal atrial fibrillation; D63.1 Anemia in chronic kidney disease; E11.65 Type 2 diabetes mellitus with hyperglycemia; E11.51 Type 2 diabetes mellitus with diabetic peripheral angiopathy without gangrene; E66.01 Morbid (severe) obesity due to excess calories; Z99.2 Dependence on renal dialysis; Z79.899 Other long term (current) drug therapy; Z79.4 Long term (current) use of insulin; Z91.14 Patient's other noncompliance with medication regimen; Z89.512 Acquired absence of left leg below knee; Z68.38 Body mass index [BMI] 38.0-38.9, adult
CPT/HCPCS: 36415; 36416; 71045; 80048; 80053; 82553; 83605; 83735; 83880; 84145; 84484; 85025; 86580; 86704; 86706; 86803; 87040; 87340; 90935; 93005; 94640; 94660; 96365; 96366; 96367; 96374; G0257; J0692; J1644; J1815; J1940; J2405; J3370; J7611; Q0162

== ENCOUNTER 2020-09-06 23:47 | Inpatient (IN) | payer MEDICARE, MEDICAID ==
[2020-09-07] MEDS ORDERED: Furosemide 100 MG/10 ML VIAL ONE (00:02)
[2020-09-07] MEDS ORDERED: Nitroglycerin 50 MG/250 ML BOT 250 ML ONE (00:10)
--- NOTE | 2020-09-07 00:10 | RAD ---
RADIOGRAPH CHEST 1 VIEW: DATE: 09/07/2020 TIME: 11:54 PM HISTORY: 55-year-old male with dyspnea COMPARISON: 02/11/2020 FINDINGS: New finding of diffuse bilateral mixed interstitial and alveolar infiltrates, with greatest density a t central-perihilar regions and left lower lung zone. No pneumothorax. No effacement of lateral costophrenic angles. IMPRESSION: Bilateral pulmonary opacities: Pulmonary edema of congestive heart failure versus bilateral pneumonia .
[2020-09-07 00:19] LABS: Actual Bicarbonate (HCO3a) 29.2 mEq/L (22-28); Analyzer IN Cardio ER; Base Excess (BEa) 3.2 mEq/L (-2.0 to +3.0); CO2 Tension 51.4 mmHg (35.0-45.0); Calcium, Ionized (arterial) 1.07 mmol/L (1.12-1.30); Carboxyhemoglobin (COHb) 0.3 gm% (0.0-3.0); Hemoglobin (Hb) 11.3 g/dL (14.0-18.0); Potassium - ABG Lab 3.58 mmol/L (3.70-5.30); pH, Arterial 7.37 (7.35-7.45)
[2020-09-07 00:20] LABS: O2 Tension (PaO2), arterial 53.8 mmHg (80.0-100.0)
[2020-09-07 00:21] LABS: Puncture Site RRA
[2020-09-07 00:35] LABS: #Basophils 0.1 thou/uL (0.0-0.2); #Eosinphils 0.2 thou/uL (0.0-0.7); #Lymphocytes 1.2 thou/uL (1.20-3.40); #Monocytes 0.4 thou/uL (0.11-0.59); #Neutrophils 4.2 thou/uL (1.40-6.50); %Basophils 1.5 % (0.0-1.0); %Eosinophils 3.9 % (0.0-10.0); %Lymphocytes 20.1 % (21.0-51.0); %Monocytes 6.1 % (0.0-10.0); %Neutrophils 68.4 % (42.0-75.0); Hemoglobin 10.7 g/dL (14.0-18.0); Mean Corpuscular Hemoglobin 31.2 pg (27.0-31.0); Mean Platelet Volume 8.8 fL (7.4-10.4); Platelet Count 177 thou/uL (130-400); RBC Distribution Width 12.6 % (11.5-14.5); Red Blood Cell (RBC) Count 3.44 mill/uL (4.70-6.10); White Blood Cell (WBC) Count 6.2 thou/uL (4.8-10.8)
[2020-09-07 00:56] LABS: ALT (SGPT) 11 U/L (8-55); AST (SGOT) 15 U/L (5-34); Albumin 3.8 g/dL (3.5-5.0); Alkaline Phosphatase 82 U/L (40-110); Anion Gap 20 mmol/L (10-20); BUN (Urea Nitrogen) 38 mg/dL (8.4-25.7); Bilirubin, Total 0.6 mg/dL (0.2-1.2); Calc. Creatinine Clearance 0 mL/min (70-130); Calcium 8.4 mg/dL (7.8-10.44); Carbon Dioxide 24 mmol/L (22-29); Chloride 91 mmol/L (98-107); Globulin 3.5 g/dL (2.4-3.5); Potassium 3.6 mmol/L (3.5-5.1); Protein, Total 7.3 g/dL (6.0-8.3); Sodium 131 mmol/L (136-145)
[2020-09-07 01:01] LABS: Glucose 706 mg/dL (70-105)
[2020-09-07 01:16] LABS: CKMB 3.7 ng/mL (0-6.6)
[2020-09-07] MEDS ORDERED: Insulin Regular 300 UNITS/3 ML VIAL ONE (01:18)
[2020-09-07 01:25] LABS: SARS-CoV-2 NAA Rapid Test Not Detected (NotDetected)
--- NOTE | 2020-09-07 02:34 | PDOC.FPRHP ---
- History of Present Illness Chief Complaint: SOB History of Present Illness: Pt is a 55 yo M with PMH of HFpEF, DMII requiring insulin, HTN, ESRD requiring dialysis (, , Sat), HLD, h/o paroxysmal a-fib, CAD s/p 2 stent, s/p pericardial window in 2019 who presents with SOB. He states it started about 20 minutes after the [employer] this evening. He says he drank alot of fluid today. He went to dialysis yesterday. Endorses compliance usually with his medications but did not take his home Lasix today because he was at a hotel. He arrived via EMS and was unresponsive with them but still had a pulse and they just assisted his breathing by bagging him and gave 1mg of Atropine. In the ED he was started on BiPAP and given 80 IV Lasix and 10U Novolin and states he feels much better. He denies any recent illness or any other symptoms like CP, ANDINO, vision changes, N/V, abdominal pain, edema. He does not take his BP at home. ED Course: 1mg Atropine with EMS 80 IV Lasix, 10U Novolin, started on Nitro gtt in ED - Allergies/Adverse Reactions Allergies Allergy/AdvReac Type Severity Reaction Status Date / Time No Known Drug Allergies Allergy Verified 09/07/20 04:36 - History PMHx: HFpEF, DMII requiring insulin, HTN, ESRD requiring dialysis (, , Sat), HLD, h/o paroxysmal a-fib, CAD s/p 2 stent, s/p pericardial window in 2019 PSHx: BKA of LLE, R. Shoulder, L. Knee, amputation of R. big toe, fistula ins ertion on L. Arm FHx: noncontributory Social: Lives with his sister in [place]. Denies tobacco, alcohol, drug use. - Review of Systems General: denies: fever/chills, weight/appetite/sleep changes, fatigue ENT: denies: nasal congestion Respiratory: reports: shortness of breath. denies: cough, congestion Cardiovascular: denies: chest pain, palpitation, edema Gastrointestinal: denies: nausea, vomiting, abdominal pain Genitourinary: denies: dysuria Skin: denies: lesions Musculoskeletal: denies: tenderness Neurological: denies: numbness, syncope, weakness Psychological: denies: anxiety, depression - Vital signs BP: 252/122 HR:80 RR: 23 Tmax: 97.8 Pox: 99% on BiPAP Wt: 141kg - Physical Exam Constitutional: NAD, awake, alert and oriented HEENT: normocephalic and atraumatic, EOMI Neck: supple, FROM Heart: RRR, normal S1/S2 Lungs: no wheezing -Lungs: crackles auscultated on exam b/l. on BiPAP Abdomen: soft, non-tender, bowel sounds present, no masses/distention Musculoskeletal: normal structure, normal tone -Musculoskeletal: left BKA Neurological: no focal deficit, CN II-XII intact -Skin: bullae and slight redness on right LE likely 2/2 tension from fluid overload Heme/Lymphatic: no unusual bruising or bleeding Psychiatric: normal mood and affect, good judgment and insight, intact recent and remote memory FMR H&P: Results - Labs Result Diagrams: 09/07/20 00:16 09/07/20 03:02 Lab results: WBC 6.2 thou/uL (4.8-10.8) 09/07/20 00:16 Hgb 10.7 g/dL (14.0-18.0) L 09/07/20 00:16 Hct 30.7 % (42.0-52.0) L 09/07/20 00:16 MCV 89.0 fL (78.0-98.0) 09/07/20 00:16 Plt Count 177 thou/uL (130-400) 09/07/20 00:16 Neutrophils % 68.4 % (42.0-75.0) 09/07/20 00:16 ABG pH 7.37 (7.35-7.45) 09/07/20 00:04 ABG pCO2 51.4 mmHg (35.0-45.0) H 09/07/20 00:04 ABG pO2 53.8 mmHg (80.0-100.0) L* 09/07/20 00:04 Sodium 131 mmol/L (136-145) L 09/07/20 00:15 Potassium 3.6 mmol/L (3.5-5.1) 09/07/20 00:15 Chloride 91 mmol/L (98-107) L 09/07/20 00:15 Carbon Dioxide 24 mmol/L (22-29) 09/07/20 00:15 BUN 38 mg/dL (8.4-25.7) H 09/07/20 00:15 Creatinine 3.95 mg/dL (0.7-1.3) H 09/07/20 00:15 Glucose 706 mg/dL (70-105) H* 09/07/20 00:15 Lactic Acid 2.8 mmol/L (0.5-2.2) H 09/07/20 00:16 Calcium 8.4 mg/dL (7.8-10.44) 09/07/20 00:15 Total Bilirubin 0.6 mg/dL (0.2-1.2) 09/07/20 00:15 AST 15 U/L (5-34) 09/07/20 00:15 ALT 11 U/L (8-55) 09/07/20 00:15 Alkaline Phosphatase 82 U/L (40-110) 09/07/20 00:15 CK-MB (CK-2) 3.7 ng/mL (0-6.6) 09/07/20 00:15 B-Natriuretic Peptide 596.6 pg/mL (0-100) H 09/07/20 00:16 Serum Total Protein 7.3 g/dL (6.0-8.3) 09/07/20 00:15 Albumin 3.8 g/dL (3.5-5.0) 09/07/20 00:15 - EKG Interpretation EKG: sinus tach, no ST changes FMR H&P: A/P - Plan #Acute hypoxic respiratory failure 2/2 CHF exacerbation -pulmonary edema on CXR, elevated BNP, history of increase PO intake -satting well on BiPap -s/p 80IV Lasix in ED, good output. Patient still makes urine -will continue to diurese as clinically indicated -strict I/Os -will consult nephro -procal to rule out b/l PNA, COVID neg #Hypertensive emergency -SBP >200 -started on Nitro gtt in ED -continue to monitor -goal to reduce BP by no more than 25% #Repiratory acidosis with metabolic compensation -ABG with pH of 7.37 with hypercapnia, hypoxemia, base excess -aware, patient on BiPAP #Hyperglycemia -patients pH is normal, not comatose, bicarb of 24 -s/p 10U insulin in ED -AGAP of 16 -patient does have a history of DM, will continue to monitor to make sure patient does not go into DKA -ACCU checks #HFpEF -aware -55-60% with diastolic dysfunction on last echo 02/16 #ESRD on dialysis -T//Sat -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, will consult #indeterminate trop -.06 on admission, denies CP - EKG -trend trops #elevated lactic acid -2.8 on admission -follow up repeat #DMII -insulin dependent -continue home meds -SSI #HTN -aware, on Nitro gtt -transition to home meds after off gtt #h/o paroxysmal a-fib -aware, continue home meds #CAD s/p 2 stent -aware, continue home meds #s/p pericardial window in 2019 -aware Dispo admit to ICU inpatient, LOS > 48 hours DVT PPx Heparin Fluids KVO Diet Renal, Fluid restrict 1800mL Code FULL PCP Vera Attending Demetrius FMStanislav H&P: Upper Level - Plan Date/Time: 09/07/20 0230 I, [Myriam Velez], have evaluated this patient and agree with findings/plan as outlined by exercise science internship resident. Pertinent changes/additions are listed here. Mr. Brown is a54 yo M with ESRD on TTS HD, HFpEF & DM2 who was brought by EMS for unresponsiveness. Patient is A&O x3 on Bipap at time of assessment. He states he had been feeling more SOB today, he didnt take his Lasix & admitted to drinking more fluids than normal. En route he was given 1mg of atropine and bagged for unresponsiveness. In the ER he was 86% on 4L of N.C with ABG showing hypoxia, CXR/CT was neg for PE but showed signs of bilateral pleural effusions. Patient was given 80mg IV Lasix & started on Bipap. He reports compliance with HD and underwent session yesterday. In addition he was found to have severely elevated BPs 227/130 and was started on an nitro drip. He denies chest pain, abdominal pain. He also has hyperglycemia with normal pH and given 10units of insulin. PE: Gen- NAD, resting comfortably on Bipap CV- RRR, no murmurs CTAB- b/l crackles. Abd- Soft, ND, NT Extrem- 2+ edema, left BKA CTA: Small bilateral effusions. Mild cardiomegaly. Multifocal b/l groundglass & airspace opacities worrisome for diffuse edema vs. pneumonia A/P: #Acute hypoxic respiratory failure 2/2 CHF exacerbation: CXR & CTA consistent with pulmonary edema: ABG with pO2 53.8. Negative COVID. Suspect non-compliance component. Continue Bipap for respiratory support & IV Lasix for diuresing. Fluid restrict with strict I/O. Consult nephron in AM to assess need for HD while inpatient. #Hypertensive emergency: 227/130 and with pulmonary edema. Started on nitro drip, continue. Admit to CCU. BP down to 170s, at goal, continue with gradual lowering over the next day. Consider restarting home meds in AM #Hyperglycemia in T2DM: Likely 2/2 noncompliance. Last A1c 13.6% in January 2020. Will recheck. Mentation at baseline, no acidosis. Given 10u insulin, will check glucose q2 hours and giving sliding scale. Restart home meds in AM. #ERSD on HD: Sees Dr. Arredondo. Consult Nephro in AM. #Chronic respiratory acidosis with metabolic compensation: Stable. Pt with likely FANTASMA. #Paroxysmal Afib Code: full dvt ppx: Heparin abx: none admit: ICU/inpt Please see exercise science internship note for rest of chronic conditions Addendum - Attending - Attending Attestation Date/Time: 09/07/20 0051 I personally evaluated the patient and discussed the management with Dr. Rogel/Agustin. I agree with the History, Examination, Assessment and Plan documented above with any addition or exceptions noted below. Presents for fluid HTN emergency, flash pulmonary edema, and fluid overload. did not take lasix yesterday and drank too much fluid at [employer]. Now requiring bipap and nitro gtt. continue nitro gtt and bipap. IV lasix given to help with diuresis. I feel this is more related to his BP then pure volume overload. CXR and CTA concerning for edema v infection procal pending which will direct antibiotic therapy. Approximately 35 minutes of critical care time spent by me in the care of this patient.
[2020-09-07] MEDS ORDERED: Ondansetron PF 4 MG/2 ML Vial ONE (03:00)
[2020-09-07] MEDS ORDERED: Dextrose 50% Abboject 50 ML SYRINGE SLOW IVP PRN (03:16)
[2020-09-07] MEDS ORDERED: HumaLOG 300 UNITS/3 ML VIAL SC PRN ×2 (03:16)
[2020-09-07] MEDS ORDERED: Acetaminophen 325 MG TAB PO PRN (03:16)
[2020-09-07] MEDS ORDERED: Dextrose 5% in Water 1,000 ML IV PRN (03:16)
[2020-09-07 03:30] LABS: Lactic Acid 2.6 mmol/L (0.5-2.2)
[2020-09-07 04:03] LABS: Troponin I 0.224 ng/mL (< 0.028)
[2020-09-07 04:09] LABS: ALT (SGPT) 11 U/L (8-55); AST (SGOT) 14 U/L (5-34); Albumin 3.8 g/dL (3.5-5.0); Alkaline Phosphatase 82 U/L (40-110); Anion Gap 18 mmol/L (10-20); BUN (Urea Nitrogen) 41 mg/dL (8.4-25.7); Bilirubin, Total 0.7 mg/dL (0.2-1.2); Calc. Creatinine Clearance 0 mL/min (70-130); Calcium 8.6 mg/dL (7.8-10.44); Carbon Dioxide 27 mmol/L (22-29); Chloride 91 mmol/L (98-107); Globulin 3.5 g/dL (2.4-3.5); Potassium 3.9 mmol/L (3.5-5.1); Protein, Total 7.3 g/dL (6.0-8.3); Sodium 132 mmol/L (136-145)
[2020-09-07 04:19] LABS: Glucose 681 mg/dL (70-105)
[2020-09-07 04:35] VITALS: BMI 37.0
[2020-09-07] MEDS ORDERED: HumaLOG 300 UNITS/3 ML VIAL ONE ×2 (04:56→09:40)
[2020-09-07] MEDS: HumaLOG 300 UNITS/3 ML VIAL SC PRN ×8 (04:58→22:21)
[2020-09-07] MEDS ORDERED: Nitroglycerin 50 MG/250 ML BOT 250 ML IVPB SCH (05:00)
[2020-09-07 07:31] LABS: Hemoglobin A1c 11.2 % (4.0-6.0)
[2020-09-07 07:53] LABS: Troponin I 0.904 ng/mL (< 0.028)
[2020-09-07 08:15] LABS: #Basophils 0.1 thou/uL (0.0-0.2); #Lymphocytes 0.5 thou/uL (1.20-3.40); #Monocytes 0.7 thou/uL (0.11-0.59); #Neutrophils 12.6 thou/uL (1.40-6.50); %Basophils 0.4 % (0.0-1.0); %Eosinophils 0.3 % (0.0-10.0); %Lymphocytes 3.3 % (21.0-51.0); %Monocytes 4.8 % (0.0-10.0); %Neutrophils 91.2 % (42.0-75.0); Hemoglobin 9.8 g/dL (14.0-18.0); Mean Corpuscular HGB CONC 34.5 g/dL (32.0-36.0); Mean Corpuscular Hemoglobin 30.8 pg (27.0-31.0); Mean Corpuscular Volume 89.1 fL (78.0-98.0); Mean Platelet Volume 9.3 fL (7.4-10.4); Platelet Count 156 thou/uL (130-400); RBC Distribution Width 12.4 % (11.5-14.5); Red Blood Cell (RBC) Count 3.17 mill/uL (4.70-6.10); White Blood Cell (WBC) Count 13.8 thou/uL (4.8-10.8)
--- NOTE | 2020-09-07 08:34 | CT ---
PRELIMINARY REPORT/[facility]/EMERGENCY AFTER HOURS PROCEDURE: EXAM: CTA Chest with Intravenous Contrast CLINICAL HISTORY: ATROPINE 1 MG UNRESPONSIVE CURRENTLY BEING BAGGED. EMS NEVER LOST PULSES//PT NOW O N BIPAP AND ALERT. TECHNIQUE: Axial CTA images of the chest with intravenous contrast. Three-dimensional MIP/volume rend ered reformations were performed. CONTRAST: With; ISOVUE 370 60mL COMPARISON: None provided. FINDINGS: PULMONARY ARTERIES There is no intraluminal filling defect suspicious for PE. AORTA No thoracic aortic aneurysm or dissection. LUNGS Multifocal bilateral groundglass and airspace opacities noted most prominent in the lower lobes worri some for diffuse edema versus pneumonia. PLEURAL SPACES Small bilateral effusions.. No pneumothorax. HEART AND MEDIASTINUM Mild cardiomegaly. Coronary calcifications noted. No significant pericardial effusion. LYMPH NODES Enlarged lymph nodes measuring up to 1.5 cm, likely reactive. BONES No focal osseous abnormality or acute fracture. CHEST WALL AND UPPER ABDOMEN Images through the upper abdomen are unremarkable. The chest wall is unremarkable. IMPRESSION: No evidence for acute pulmonary embolus. Multifocal bilateral groundglass and airspace opacities noted worrisome for diffuse edema versus pneu monia. Small bilateral effusions. Mild cardiomegaly. Coronary calcifications. ELECTRONICALLY SIGNED BY: Crys Kelley MD Sep 07, 2020 2:20:15 AM [employer] This report is intended for review by the ordering physician only, in accordance of law. If you recei ve this report in error, please call [facility] at [phone]. FINAL REPORT EMERGENCY AFTER HOURS CTA CHEST: COMPARISON: 01/03/2019. FINDINGS/IMPRESSION: I agree with the findings and impression given in the preliminary report per [facility] physici an. 1. No evidence of pulmonary thromboembolism. 2. Scattered multifocal infiltrates. 3. Slightly prominent mediastinal lymph nodes. 4. Hyperdensity in the dependent aspect of gallbladder may represent gallstones. POS: EAA
[2020-09-07] MEDS: Insulin Glargine 30 UNITS in Pre-Filled Syringe 1 EACH SC SCH (09:34)
[2020-09-07] MEDS ORDERED: Heparin 5,000 UNITS/ML VIAL ONE ×3 (09:40→21:12)
[2020-09-07] MEDS: Heparin 5,000 UNITS/ML VIAL SC SCH ×3 (09:42→21:24)
[2020-09-07] MEDS ORDERED: Iopamidol 370 76% 100 ML VIAL ONE (09:58)
--- NOTE | 2020-09-07 12:00 | PDOC.BPN ---
- Brief Progress Note Troponin increased from 0.2 to 0.9. EKG repeated and showed changes in AVR from inverted to upright T wave. T wave changes also in lateral leads. Patient does not have chest pain. Consult for cardiology placed.
[2020-09-07 12:36] LABS: HBSAg Index 0.25 S/CO (0-0.99); Hep B Surf Ag Non-Reactive S/CO (NonReactive)
--- NOTE | 2020-09-07 12:36 | CON ---
DATE OF CONSULTATION: REASON FOR CONSULTATION: End-stage renal disease. HISTORY OF PRESENT ILLNESS: This is a 55-year-old gentleman, presented to the hospital with increasing shortness of breath. The patient does dialysis Monday, , and Monday, but has been drinking excessive amounts of fluid. The patient denies any nausea, vomiting, or chest pain. PAST MEDICAL HISTORY: Coronary artery disease, atrial fibrillation, hypertension, end-stage renal disease, anemia, diabetes mellitus, stents, pericardial window, BKA, right shoulder repair, right left knee amputation, fistula, tunneled dialysis catheter. SOCIOECONOMIC HISTORY: No alcohol or drug use. FAMILY HISTORY: Negative for ESRD. ALLERGIES: REVIEWED. HOME MEDICATIONS: List reviewed. HOSPITAL MEDICATIONS: List reviewed. REVIEW OF SYSTEMS: 15-point review of systems was performed, was negative except for positives noted above. HEENT: Eyes intact, no diplopia. Ears: No hearing loss or earache. Nose: No discharge or bleeding. CHEST: No cough or phlegm. ABDOMEN: No nausea or vomiting. GENITOURINARY: No hematuria. No Garcia catheter. MUSCULOSKELETAL: No low back pain. No joint swelling or pain. NEUROLOGICAL: No syncope. No seizures. SKIN: No complaints of rash or itching. PSYCHIATRIC: No depression. CONSTITUTIONAL: No weight loss or loss of appetite. PHYSICAL EXAMINATION: GENERAL: The patient is awake and alert. VITAL SIGNS: Afebrile, pulse 74, breathing at 16, blood pressure 151/80. HEENT: Head normocephalic and atraumatic. Eyes intact, no ulcers. Nose intact, no ulcers. Ears intact, no ulcers. NECK: Supple. No JVD. CHEST: Symmetrical and clear. CARDIOVASCULAR: Shows S1 and S2, no rub, no murmur. GASTROINTESTINAL: Abdomen is soft, bowel sounds positive. EXTREMITIES: Show no edema or ulcers. SKIN: Shows no rash or petechiae. MUSCULOSKELETAL: Shows no joint swelling or stiffness. GENITOURINARY: Shows no Garcia or CVA tenderness. NEUROLOGIC: Motor intact. Cranial nerves intact. LABORATORY DATA: Reviewed. ASSESSMENT AND PLAN: 1. Stage 6 chronic kidney disease. Plan dialysis. 2. Hyperkalemia, stable. 3. Anemia, stable. 4. Medication based on GFR appropriate. 5. Congestive heart failure. Plan dialysis. Educated about fluid intake. Job ID: [id number]
[2020-09-07 12:53] LABS: CKMB 4.1 ng/mL (0-6.6)
--- NOTE | 2020-09-07 15:48 | CON ---
DATE OF CONSULTATION: REASON FOR CONSULTATION: Shortness of breath and elevated troponin. PRIMARY COLLAR PACKER: Edgar Carballo MD HISTORY OF PRESENT ILLNESS: Mr. Brown is a 55-year-old gentleman with past history of CAD status post stent placement to the intermediate ramus branch and completely occluded right coronary artery. He recently presented with shortness of breath. He states he had increase in fluid indiscretion yesterday. He had increased amounts of tea. His blood pressure is also markedly elevated. He presented to the emergency room. Troponin was slightly elevated. He did require IV nitroglycerin to a decreased blood pressure. He is now asymptomatic with no current symptoms. He is scheduled for dialysis this afternoon. PAST MEDICAL HISTORY: 1. CAD status post stent placement. 2. End-stage renal disease. 3. Hyperlipidemia. 4. Hypertension. 5. Diabetes mellitus. PAST SURGICAL HISTORY: 1. Shoulder surgery. 2. Knee surgery. 3. Left BKA. HOME MEDICATIONS: 1. Include: Atorvastatin. 1. Hydralazine. 2. Iron. 3. Insulin. 4. Metoprolol. 5. Nifedipine. ALLERGIES: NONE. SOCIAL HISTORY: No current tobacco or alcohol use. REVIEW OF SYSTEMS: A 10-point review of systems is reviewed as above, otherwise negative. PHYSICAL EXAMINATION: GENERAL: Patient is a pleasant gentleman who is in no acute distress. The patient appears older than stated age. VITAL SIGNS: Blood pressure 153/75, pulse 63, temperature afebrile. He is currently on 80 mcg of nitroglycerin. NEUROLOGIC: The patient is alert and oriented x3 with no focal neurologic deficits. HEENT: Sclerae without icterus. Mouth has moist mucous membranes with normal pallor. NECK: No JVD. Carotid upstroke brisk. No bruits bilaterally. LUNGS: Clear to auscultation with unlabored respirations. BACK: No scoliosis or kyphosis. CARDIAC: Regular rate and rhythm with normal S1 and S2. No S3 or S4 noted. No significant rubs, murmurs, thrills, or gallops noted throughout the precordium. PMI is not displaced. There is no parasternal heave. ABDOMEN: Soft, nontender, nondistended. No peritoneal signs present. No hepatosplenomegaly. No abnormal striae. EXTREMITIES: 2+ femoral and 2+ dorsalis pedis pulses. No cyanosis, clubbing, or edema. SKIN: No gross abnormalities. PERTINENT LABORATORY DATA: Hemoglobin 9.8. Peak troponin 1.3. COVID negative. IMPRESSION: 1. Hypertensive urgency. 2. Shortness of breath. 3. End-stage renal disease. 4. Elevated troponin. RECOMMENDATIONS: Mr. Brown's elevated troponin is secondary to hypertensive crisis. Blood pressure was markedly elevated, requiring IV nitroglycerin. Continue to titrate down IV nitroglycerin. He appears to be much more comfortable. We will supplement with p.o. medications per Nephrology. Recommend adding aspirin. We will also recommend adding Norvasc. Otherwise, further recommendations per Dr. Edgar Carballo. Job ID: [id number]
[2020-09-07 16:28] LABS: CKMB 3.7 ng/mL (0-6.6)
[2020-09-08] MEDS: HumaLOG 300 UNITS/3 ML VIAL SC PRN ×5 (00:31→21:28)
--- NOTE | 2020-09-08 06:08 | PDOC.FM ---
- Subjective Subjective: Patient feeling well this AM. No acute events overnight. Still on nitro gtt. - Objective MAR Reviewed: Yes Vital Signs & Weight: Vital Signs (12 hours) Temp Pulse Resp Pulse Ox 09/08/20 04:00 98.3 F 68 18 97 09/08/20 03:38 93 L 09/08/20 00:00 97.3 F L 71 20 97 09/07/20 20:00 98.1 F 80 20 98 Weight Weight 134.263 kg Most Recent Monitor Data Heart Rate from ECG 67 NIBP 161/71 NIBP BP-Mean 101 Respiration from ECG 21 SpO2 100 I&O: 09/06/20 09/07/20 09/08/20 06:59 06:59 06:59 Intake Total 116 740 Output Total 2400 1025 Balance -2284 -285 Result Diagrams: 09/08/20 08:53 09/08/20 08:53 Phys Exam - Physical Examination Constitutional: NAD Respiratory: no rhonchi mildly coarse breath sounds bilaterally Cardiovascular: RRR, no significant murmur Gastrointestinal: soft, non-tender, no distention Musculoskeletal: no edema Psychiatric: normal affect, A&O x 3 Dx/Plan - Plan Plan: # Acute hypoxic respiratory failure 2/2 CHF exacerbation, improved - strict I/Os - Nephro consulted for removal of fluid with dialysis - HD yesterday and again planned for today - fluid restriction 1.8 L/day # Hypertensive emergency, improved - asymptomatic - nitro gtt at 45, continue to wean - cardiology consulted and restarted amlodipine and aspirin # HFpEF -55-60% with diastolic dysfunction on last echo 02/16 # ESRD on dialysis - normal schedule T//Mon - Nephro consulted, appreciate help with dialysis # Indeterminate trop -had increased, no chest pain, no symptoms, likely secondary to ESRD # DMII -insulin dependent -continue insulin - CC diet -SSI #HTN -aware, on Nitro gtt -transition to home meds after off gtt # h/o paroxysmal a-fib #CAD s/p 2 stent #s/p pericardial window in 2019 Dispo: ICU inpatient, LOS > 48 hours DVT PPx Heparin Fluids KVO Diet Renal, CC, Fluid restrict 1800mL Code FULL PCP Vera Addendum - Attending - Attending Attestation Date/Time: 09/08/20 [id number] I personally evaluated the patient and discussed the management with Dr. Martin. I agree with the History, Examination, Assessment and Plan documented above with any addition or exceptions noted below. We will try to wean from nitro gtt today.
[2020-09-08] MEDS ORDERED: Ondansetron PF 4 MG/2 ML Vial ONE (08:02)
[2020-09-08] MEDS ORDERED: Amlodipine 5 MG TAB ONE (08:02)
[2020-09-08] MEDS ORDERED: Heparin 5,000 UNITS/ML VIAL ONE ×3 (08:03→20:46)
[2020-09-08] MEDS ORDERED: Aspirin 81 mg Enteric Coated Tablet ONE (08:03)
[2020-09-08] MEDS: Aspirin 81 mg Enteric Coated Tablet PO SCH (08:12)
[2020-09-08] MEDS: Amlodipine 5 MG TAB PO SCH (08:12)
[2020-09-08] MEDS: Ondansetron PF 4 MG/2 ML Vial IVP PRN (08:12)
[2020-09-08] MEDS: Insulin Glargine 30 UNITS in Pre-Filled Syringe 1 EACH SC SCH (08:13)
[2020-09-08] MEDS: Heparin 5,000 UNITS/ML VIAL SC SCH ×3 (08:13→21:09)
[2020-09-08 09:41] LABS: #Eosinphils 0.2 thou/uL (0.0-0.7); #Monocytes 0.6 thou/uL (0.11-0.59); #Neutrophils 8.2 thou/uL (1.40-6.50); %Basophils 0.5 % (0.0-1.0); %Eosinophils 2.4 % (0.0-10.0); %Monocytes 5.8 % (0.0-10.0); %Neutrophils 81.3 % (42.0-75.0); Hemoglobin 9.4 g/dL (14.0-18.0); Mean Corpuscular HGB CONC 34.9 g/dL (32.0-36.0); Mean Corpuscular Hemoglobin 31.2 pg (27.0-31.0); Mean Corpuscular Volume 89.5 fL (78.0-98.0); Mean Platelet Volume 9.2 fL (7.4-10.4); Platelet Count 158 thou/uL (130-400); RBC Distribution Width 12.5 % (11.5-14.5); Red Blood Cell (RBC) Count 2.99 mill/uL (4.70-6.10); White Blood Cell (WBC) Count 10.1 thou/uL (4.8-10.8)
[2020-09-08 09:58] LABS: Anion Gap 15 mmol/L (10-20); BUN (Urea Nitrogen) 31 mg/dL (8.4-25.7); Calc. Creatinine Clearance 42 mL/min (70-130); Calcium 8.8 mg/dL (7.8-10.44); Carbon Dioxide 28 mmol/L (22-29); Chloride 99 mmol/L (98-107); Glucose 247 mg/dL (70-105); Potassium 3.7 mmol/L (3.5-5.1); Sodium 138 mmol/L (136-145)
[2020-09-08] MEDS ORDERED: NIFEdipine XL 60 MG TAB PO SCH (11:45)
--- NOTE | 2020-09-08 15:40 | PRG ---
DATE OF SERVICE: 09/08/2020 SUBJECTIVE: This is a 55-year-old gentleman being seen for end-stage renal disease. The patient denied nausea, vomiting, or chest pain. OBJECTIVE: GENERAL: The patient is awake and alert. VITAL SIGNS: Afebrile, pulse 68, breathing at 16, blood pressure 165/78. HEENT: Head normocephalic and atraumatic. Eyes intact, no ulcers. Nose intact, no ulcers. Ears intact, no ulcers. NECK: Supple. No JVD. CHEST: Symmetrical and clear. CARDIOVASCULAR: Shows S1 and S2, no rub, no murmur. GASTROINTESTINAL: Abdomen is soft, bowel sounds positive. EXTREMITIES: Show no edema or ulcers. SKIN: Shows no rash or petechiae. MUSCULOSKELETAL: Shows no joint swelling or stiffness. GENITOURINARY: Shows no Garcia or CVA tenderness. NEUROLOGIC: Motor intact. Cranial nerves intact. LABORATORY DATA: Labs reviewed. ASSESSMENT AND PLAN: 1. Diabetes. 2. Stage 2 chronic kidney disease. Plan dialysis. 3. Hypertension, stable. 4. Anemia, stable. 5. Medication based on GFR appropriate. Job ID: [id number]
[2020-09-08] MEDS ORDERED: Clopidogrel Bisulfate 300 MG TAB PO SCH (19:30)
[2020-09-08] MEDS ORDERED: Carvedilol 6.25 MG TAB ONE (20:46)
[2020-09-08] MEDS ORDERED: Clopidogrel Bisulfate 75 MG TAB ONE (20:51)
[2020-09-08] MEDS ORDERED: Carvedilol 6.25 MG TAB PO SCH (21:00)
[2020-09-09 03:24] LABS: #Eosinphils 0.3 thou/uL (0.0-0.7); #Lymphocytes 1.1 thou/uL (1.20-3.40); #Monocytes 0.6 thou/uL (0.11-0.59); #Neutrophils 6.4 thou/uL (1.40-6.50); %Basophils 0.5 % (0.0-1.0); %Eosinophils 3.2 % (0.0-10.0); %Neutrophils 76.3 % (42.0-75.0); Hemoglobin 9.8 g/dL (14.0-18.0); Mean Corpuscular HGB CONC 35.5 g/dL (32.0-36.0); Mean Corpuscular Hemoglobin 31.7 pg (27.0-31.0); Mean Corpuscular Volume 89.5 fL (78.0-98.0); Mean Platelet Volume 8.8 fL (7.4-10.4); Platelet Count 176 thou/uL (130-400); RBC Distribution Width 12.4 % (11.5-14.5); White Blood Cell (WBC) Count 8.4 thou/uL (4.8-10.8)
[2020-09-09] MEDS ORDERED: Ondansetron PF 4 MG/2 ML Vial ONE (03:43)
[2020-09-09 03:45] LABS: Anion Gap 15 mmol/L (10-20); BUN (Urea Nitrogen) 24 mg/dL (8.4-25.7); Calc. Creatinine Clearance 43 mL/min (70-130); Calcium 9.1 mg/dL (7.8-10.44); Carbon Dioxide 27 mmol/L (22-29); Chloride 97 mmol/L (98-107); Glucose 244 mg/dL (70-105); Potassium 3.8 mmol/L (3.5-5.1); Sodium 135 mmol/L (136-145)
[2020-09-09] MEDS: Ondansetron PF 4 MG/2 ML Vial IVP PRN (03:46)
[2020-09-09] MEDS: HumaLOG 300 UNITS/3 ML VIAL SC PRN ×3 (03:58→21:02)
--- NOTE | 2020-09-09 05:22 | PDOC.FM ---
- Subjective Subjective: Mr. Brown is doing well this morning. He denies SOB or chest discomfort, stating all of his sxs have resolved. He has no questions or concerns at this time. - Objective Vital Signs & Weight: Vital Signs (12 hours) Temp BP Pulse Ox 09/09/20 04:00 98.3 F 09/09/20 00:00 98.4 F 09/08/20 21:10 126/65 09/08/20 20:45 98.3 F 09/08/20 19:34 96 Weight Weight 134.263 kg Most Recent Monitor Data Heart Rate from ECG 69 NIBP 160/71 NIBP BP-Mean 100 Respiration from ECG 27 SpO2 82 I&O: 09/07/20 09/08/20 09/09/20 06:59 06:59 06:59 Intake Total 116 819 742 Output Total 2400 1075 410 Balance -2284 -256 332 Result Diagrams: 09/09/20 03:12 09/09/20 03:12 Phys Exam - Physical Examination Constitutional: NAD Neck: supple Respiratory: no wheezing, no rales, clear to auscultation bilateral (body habitus may limit accuracy of exam findings) Cardiovascular: RRR, no significant murmur (Difficult to auscultate. body habitus may limit accuracy of exam findings) Gastrointestinal: soft, non-tender, no distention, positive bowel sounds No fluid wave. Pt states abdomen looks normal size to him Musculoskeletal: no edema Neurological: non-focal, moves all 4 limbs Psychiatric: normal affect, A&O x 3 Skin: no rash Dx/Plan - Plan Plan: This is a 55M who presented to the ED with SOB and was found to be in a CHF exacerbation. Acute hypoxic respiratory failure 2/2 CHF exacerbation, improved - strict I/Os. Overall balance currently -2.2L - Nephro consulted for removal of fluid with dialysis, see below - fluid restriction 1.8 L/day - restart home Lasix - euvolemic on exam despite continued increased O2 requirement Hypertensive emergency, improved - off nitro gtt - BPs remain elevated. Continue to monitor - cardiology consulted. Appreciate continued recs for BP management * Restarted home coreg, amlodipine, and nifedipine * Will await cardiology recs in regards to restarting home hydralazine - d/c amlodipine and increased nifedipine dose HFpEF - 55-60% with diastolic dysfunction on last echo 02/16 - Caution with fluid resuscitation - Strict I/Os and fluid restriction, as above - euvolemic on exam today ESRD on dialysis - normal schedule T//Mon - Nephro consulted, appreciate help with dialysis * HD x2 on 09/07 and 09/08 * Will follow nephro recs regarding need for repeat HD Indeterminate trop - had increase, asymptomatic - cardiology consulted and feel it is likely 2/2 hypertensive emergency DMII - insulin dependent. Increase Lantus to 40u qAM given SSI use. continue to adjust, as needed - Aggressive SSI and bedtime SSI - q6h accu checks - CC diet HTN - Meds as consistent with cardiology recs, as above h/o paroxysmal a-fib CAD s/p 2 stent s/p pericardial window in 2019 Dispo: Transfer from ICU to IMCU inpatient. eLOS > 48 hours DVT PPx: Heparin Fluids: KVO Diet: Renal, CC, Fluid restrict 1800mL Code: FULL PCP: Chuy Addendum - Attending - Attending Attestation Date/Time: 09/10/20 4729 I personally evaluated the patient and discussed the management with Dr. Simona Rangel yesterday. I agree with the History, Examination, Assessment and Plan documented above with any addition or exceptions noted below.
[2020-09-09] MEDS ORDERED: Carvedilol 6.25 MG TAB ONE (07:42)
[2020-09-09] MEDS ORDERED: Amlodipine 5 MG TAB ONE (07:44)
[2020-09-09] MEDS ORDERED: hydrALAZINE 25 MG TAB ONE ×2 (07:44→09:28)
[2020-09-09] MEDS ORDERED: Clopidogrel Bisulfate 75 MG TAB ONE (07:45)
[2020-09-09] MEDS ORDERED: Heparin 5,000 UNITS/ML VIAL ONE (07:46)
[2020-09-09] MEDS: Amlodipine 5 MG TAB PO SCH (07:54)
[2020-09-09] MEDS: Heparin 5,000 UNITS/ML VIAL SC SCH ×3 (07:56→20:59)
[2020-09-09] MEDS: Insulin Glargine 40 UNITS in Pre-Filled Syringe 1 EACH SC SCH (07:56)
[2020-09-09] MEDS: Carvedilol 6.25 MG TAB PO SCH ×2 (08:01→16:56)
[2020-09-09] MEDS: Clopidogrel Bisulfate 75 MG TAB PO SCH (08:01)
[2020-09-09] MEDS: Atorvastatin Calcium 40 MG TAB PO SCH ×2 (08:02→08:07)
[2020-09-09] MEDS ORDERED: Atorvastatin Calcium 40 MG TAB ONE (08:05)
[2020-09-09] MEDS ORDERED: NIFEdipine XL 60 MG TAB PO SCH (09:00)
[2020-09-09] MEDS ORDERED: hydrALAZINE 25 MG TAB PO SCH (09:00)
[2020-09-09] MEDS ORDERED: Aspirin 81 mg Enteric Coated Tablet ONE (09:27)
[2020-09-09] MEDS: Aspirin 81 mg Enteric Coated Tablet PO SCH (09:38)
[2020-09-09] MEDS ORDERED: Furosemide 40 MG TAB PO SCH (10:15)
[2020-09-09] MEDS ORDERED: NIFEdipine XL 30 MG TAB PO SCH (10:15)
--- NOTE | 2020-09-09 16:14 | PRG ---
DATE OF SERVICE: 09/09/2020 SUBJECTIVE: A 55-year-old gentleman, being seen for end-stage renal disease. The patient denied any nausea, vomiting, or chest pain. OBJECTIVE: General: The patient is awake and alert. Vital Signs: Afebrile, pulse 66, breathing at 16, blood pressure 130/70. HEENT: Head normocephalic and atraumatic. Eyes intact, no ulcers. Nose intact, no ulcers. Ears intact, no ulcers. Neck: Supple. No JVD. Chest: Symmetrical and clear. Cardiovascular: Shows S1 and S2, no rub, no murmur. Gastrointestinal: Abdomen is soft, bowel sounds positive. Extremities: Show no edema or ulcers. Skin: Shows no rash or petechiae. Musculoskeletal: Shows no joint swelling or stiffness. Genitourinary: Shows no Garcia or CVA tenderness. Neurologic: Motor intact. Cranial nerves intact. LABORATORY DATA: Reviewed. ASSESSMENT AND PLAN: 1. plan dialysis. 2. Hypertension, stable. 3. Anemia, stable. 4. Medication based on GFR appropriate. Job ID: [id number]
[2020-09-10] MEDS: HumaLOG 300 UNITS/3 ML VIAL SC PRN ×2 (05:46→18:11)
--- NOTE | 2020-09-10 05:54 | PDOC.FM ---
- Subjective Subjective: Mr. Brown is doing well this morning. He denies chest discomfort, CP, SOB. He is satting 99% on 1L NC, so I turned it off and he maintained at 96% with conversation. He is aware - Objective Vital Signs & Weight: Vital Signs (12 hours) Temp Pulse Resp BP BP Pulse Ox 09/10/20 05:43 175/78 H 94 L 09/10/20 04:00 98.3 F 65 17 179/79 H 92 L 09/10/20 00:50 147/67 H 93 L 09/09/20 23:43 98.2 F 68 19 184/91 H 19 L 09/09/20 20:00 95 09/09/20 19:30 98.7 F 64 10 L 134/61 95 Weight Weight 134.263 kg Most Recent Monitor Data Heart Rate from ECG 66 NIBP 139/66 NIBP BP-Mean 90 Respiration from ECG 13 SpO2 99 I&O: 09/08/20 09/09/20 09/10/20 06:59 06:59 06:59 Intake Total 819 742 920 Output Total 1075 547 315 Balance -256 195 605 Result Diagrams: 09/11/20 04:05 09/11/20 04:05 Dx/Plan - Plan Plan: This is a 55M who presented to the ED with SOB and was found to be in a CHF exacerbation. Acute hypoxic respiratory failure 2/2 CHF exacerbation, improved - strict I/Os. Overall balance currently -1.74L - fluid restriction 1.8 L/day - restart home Lasix - euvolemic on exam and back to baseline RA Hx of HTN Hypertensive emergency, resolved - off nitro gtt - BPs remain elevated. Continue to monitor. Goal of <160/100 - coreg, nifedipine, hydralazine - cardiology consulted. Appreciate continued recs for BP management HFpEF - 55-60% with diastolic dysfunction on last echo 02/16 - Caution with fluid resuscitation - Strict I/Os and fluid restriction, as above - euvolemic on exam today ESRD on dialysis - normal schedule T//Mon - Nephro consulted, appreciate help with dialysis Indeterminate trop - cardiology consulted and feel it is likely 2/2 hypertensive emergency DMII - insulin dependent. - Lantus 40u qAM. Will add 12u qHS given SSI use. continue to adjust, as needed - Aggressive SSI and bedtime SSI - q6h accu checks - CC diet h/o paroxysmal a-fib CAD s/p 2 stent s/p pericardial window in 2019 Dispo: Transfer from [facility] to tele. Discharge pending improved BP and BG control. DVT PPx: Heparin Fluids: KVO Diet: Renal, CC, Fluid restrict 1800mL Code: FULL PCP: Chuy Addendum - Attending - Attending Attestation Date/Time: 09/11/20 6710 I personally evaluated the patient and discussed the management with Dr. Yogesh Rangel yesterday. I agree with the History, Examination, Assessment and Plan documented above with any addition or exceptions noted below.
[2020-09-10 07:08] LABS: #Basophils 0.1 thou/uL (0.0-0.2); #Eosinphils 0.2 thou/uL (0.0-0.7); #Lymphocytes 0.9 thou/uL (1.20-3.40); #Monocytes 0.6 thou/uL (0.11-0.59); #Neutrophils 6.8 thou/uL (1.40-6.50); %Eosinophils 2.7 % (0.0-10.0); %Lymphocytes 10.2 % (21.0-51.0); %Monocytes 7.4 % (0.0-10.0); %Neutrophils 78.7 % (42.0-75.0); Hemoglobin 9.7 g/dL (14.0-18.0); Mean Corpuscular HGB CONC 34.6 g/dL (32.0-36.0); Mean Corpuscular Hemoglobin 30.9 pg (27.0-31.0); Mean Corpuscular Volume 89.2 fL (78.0-98.0); Mean Platelet Volume 8.3 fL (7.4-10.4); Platelet Count 178 thou/uL (130-400); RBC Distribution Width 12.2 % (11.5-14.5); Red Blood Cell (RBC) Count 3.14 mill/uL (4.70-6.10); White Blood Cell (WBC) Count 8.6 thou/uL (4.8-10.8)
[2020-09-10 07:30] LABS: Anion Gap 16 mmol/L (10-20); BUN (Urea Nitrogen) 44 mg/dL (8.4-25.7); Calc. Creatinine Clearance 28 mL/min (70-130); Carbon Dioxide 27 mmol/L (22-29); Chloride 96 mmol/L (98-107); Glucose 290 mg/dL (70-105); Sodium 135 mmol/L (136-145)
[2020-09-10] MEDS: Furosemide 40 MG TAB PO SCH ×2 (08:12→13:56)
[2020-09-10] MEDS: Aspirin 81 mg Enteric Coated Tablet PO SCH ×2 (08:12→13:58)
[2020-09-10] MEDS: Clopidogrel Bisulfate 75 MG TAB PO SCH ×2 (08:12→13:56)
[2020-09-10] MEDS: Carvedilol 6.25 MG TAB PO SCH ×3 (08:12→17:18)
[2020-09-10] MEDS: hydrALAZINE 25 MG TAB PO SCH ×4 (08:13→21:38)
[2020-09-10] MEDS: Senokot S 8.6-50 MG TAB PO SCH ×3 (08:13→13:58)
[2020-09-10] MEDS: NIFEdipine XL 90 MG TAB PO SCH ×2 (08:13→13:56)
[2020-09-10] MEDS: Heparin 5,000 UNITS/ML VIAL SC SCH ×3 (08:13→21:37)
[2020-09-10] MEDS ORDERED: Non-Formulary Item 1 EACH (Hydralazine Hcl [Hydralazine Hcl] 50 MG Tablet) PO SCH (09:00)
[2020-09-10] MEDS ORDERED: NIFEdipine XL 60 MG TAB PO SCH (09:00)
[2020-09-10] MEDS ORDERED: hydrALAZINE 25 MG TAB PO SCH (09:00)
[2020-09-10] MEDS ORDERED: Furosemide 40 MG TAB PO SCH (09:00)
--- NOTE | 2020-09-10 13:20 | PQF ---
CLINICAL DOCUMENTATION CLARIFICATION FORM: Dear Dr. Rodriguez / Attending Dr. Null Date: 09/10/2020 Please exercise your independent, professional judgment in responding to the clarification form. Clinical indicators are provided on the bottom of this form for your review. Please check appropriate box(es): [ X ] Type 2 MT (T2MI) likely secondary to hypertensive emergency. [ ] Hypertensive emergency without MT. [ ] Other diagnosis [ ] Unable to determine In addition, please specify: Present on Admission (POA): [ X ] Yes [ ] No [ ] Unable to determine For continuity of documentation, please document condition throughout progress notes and discharge summary. Thank You. To be completed by CDI/Coding staff for physician review: CLINICAL INDICATORS - SIGNS / SYMPTOMS / LABS / RESULTS AND LOCATION IN EMR *09/07 pn (Mario): Troponin increased from 0.2 to 0.9. EKG repeated showed changes in AVR from inverted to upright T wave. T wave changes also in lateral leads. *09/07 LAB (EMR) Troponin I: 0.060, 0.224, 0.904, 1.339, 1.492 *09/07 Consultation (Kristopher): Lab: Peak troponin 1.3. Recommendations: elevated troponin is secondary to hypertensive crisis. Blood pressure was markedly elevated, requiring IV nitroglycerin. *09/10 pn (Michael) Indeterminate trop -cardiology consulted and feel it is likely 2/2 hypertensive emergency. RISKS / RESULTS AND LOCATION IN EMR H&P 09/07 (Light): HPI: PMH of HFpEF; DM2, HTN, ESRD, CAD. A/P: Hypertensive emergency TREATMENTS / RESULTS AND LOCATION IN EMR 09/07 pn (Mario) Consult cardiology 09/07 Consult (Kristopher) HPI: He did require IV nitroglycerin to decrease BP Thank you, Umu Negro, RN, BSN [email or web address] This is a permanent part of the Medical Record [facility]
[2020-09-10] MEDS: Atorvastatin Calcium 40 MG TAB PO SCH ×2 (13:55→13:57)
[2020-09-10] MEDS: Insulin Glargine 40 UNITS in Pre-Filled Syringe 1 EACH SC SCH (13:59)
--- NOTE | 2020-09-10 15:20 | PRG ---
DATE OF SERVICE: 09/10/2020 SUBJECTIVE: A 55-year-old gentleman, being seen for end-stage renal disease. The patient denied nausea, vomiting, or chest pain. OBJECTIVE: GENERAL: The patient is awake and alert. VITAL SIGNS: Afebrile, pulse 61, breathing 16, blood pressure 161/72. HEENT: Head normocephalic and atraumatic. Eyes intact, no ulcers. Nose intact, no ulcers. Ears intact, no ulcers. NECK: Supple. No JVD. CHEST: Symmetrical and clear. CARDIOVASCULAR: Shows S1 and S2, no rub, no murmur. GASTROINTESTINAL: Abdomen is soft, bowel sounds positive. EXTREMITIES: Show no edema or ulcers. SKIN: Shows no rash or petechiae. MUSCULOSKELETAL: Shows no joint swelling or stiffness. GENITOURINARY: Shows no Garcia or CVA tenderness. NEUROLOGIC: Motor intact. Cranial nerves intact. LABORATORY DATA: Hemoglobin 9.7. ASSESSMENT AND RECOMMENDATION: 1. Stage 6 chronic kidney disease, stable. 2. Hypertension, stable. 3. Anemia, stable. 4. Medication based on GFR appropriate. Job ID: [id number]
[2020-09-10] MEDS: Insulin Glargine 36 UNITS in Pre-Filled Syringe 1 EACH SC SCH ×2 (16:12→21:38)
[2020-09-10] MEDS ORDERED: Insulin Glargine 12 UNITS in Pre-Filled Syringe 1 EACH SC SCH (21:00)
[2020-09-10] MEDS ORDERED: Melatonin 3 MG TAB PO PRN (23:20)
[2020-09-11] MEDS: HumaLOG 300 UNITS/3 ML VIAL SC PRN ×2 (00:20→06:11)
[2020-09-11 04:34] LABS: #Basophils 0.1 thou/uL (0.0-0.2); #Eosinphils 0.3 thou/uL (0.0-0.7); #Lymphocytes 1.3 thou/uL (1.20-3.40); #Monocytes 0.7 thou/uL (0.11-0.59); #Neutrophils 5.3 thou/uL (1.40-6.50); %Basophils 0.9 % (0.0-1.0); %Eosinophils 3.3 % (0.0-10.0); %Lymphocytes 17.3 % (21.0-51.0); %Monocytes 9.6 % (0.0-10.0); %Neutrophils 68.8 % (42.0-75.0); Hemoglobin 9.9 g/dL (14.0-18.0); Mean Corpuscular HGB CONC 34.2 g/dL (32.0-36.0); Mean Corpuscular Hemoglobin 30.3 pg (27.0-31.0); Mean Corpuscular Volume 88.6 fL (78.0-98.0); Mean Platelet Volume 8.5 fL (7.4-10.4); Platelet Count 218 thou/uL (130-400); RBC Distribution Width 12.1 % (11.5-14.5); Red Blood Cell (RBC) Count 3.26 mill/uL (4.70-6.10); White Blood Cell (WBC) Count 7.7 thou/uL (4.8-10.8)
[2020-09-11 04:53] LABS: Anion Gap 16 mmol/L (10-20); BUN (Urea Nitrogen) 37 mg/dL (8.4-25.7); Calc. Creatinine Clearance 30 mL/min (70-130); Calcium 9.1 mg/dL (7.8-10.44); Carbon Dioxide 27 mmol/L (22-29); Chloride 94 mmol/L (98-107); Glucose 307 mg/dL (70-105); Potassium 3.6 mmol/L (3.5-5.1); Sodium 133 mmol/L (136-145)
--- NOTE | 2020-09-11 06:09 | PDOC.FM ---
- Subjective Subjective: Mr. Brown was sleeping comfortably this morning. He has not had much UOP since his vora was d/c'd. He is resistant to the idea of getting another vora. He is otherwise doing well. - Objective Vital Signs & Weight: Vital Signs (12 hours) Temp Pulse Resp BP BP Pulse Ox 09/11/20 03:33 97.8 F 57 L 18 151/67 H 92 L 09/10/20 21:37 95 09/10/20 19:42 99.1 F 63 18 146/65 H 95 Weight Weight 134.263 kg Most Recent Monitor Data Heart Rate from ECG 66 NIBP 139/66 NIBP BP-Mean 90 Respiration from ECG 13 SpO2 99 I&O: 09/09/20 09/10/20 09/11/20 06:59 06:59 06:59 Intake Total 742 920 800 Output Total 547 315 100 Balance 195 605 700 Result Diagrams: 09/11/20 04:05 09/11/20 04:05 Phys Exam - Physical Examination Constitutional: NAD Neck: supple Respiratory: no rales, clear to auscultation bilateral Cardiovascular: RRR (tele shows NSR in 60s), no significant murmur Musculoskeletal: no edema Neurological: non-focal, moves all 4 limbs Psychiatric: normal affect, A&O x 3 Skin: no rash Dx/Plan - Plan Plan: This is a 55M who presented to the ED with SOB and was found to be in a CHF exacerbation. Acute hypoxic respiratory failure 2/2 CHF exacerbation, improved - strict I/Os - fluid restriction 1.8 L/day - restart home Lasix - euvolemic on exam and back to baseline RA Hx of HTN Hypertensive emergency, resolved - off nitro gtt - BPs better overnight. Continue to monitor. Goal of <160/100 prior to d/c - cardiology consulted. Appreciate continued recs for BP management - coreg, nifedipine, hydralazine HFpEF - 55-60% with diastolic dysfunction on last echo 02/16 - Caution with fluid resuscitation - Strict I/Os and fluid restriction, as above - euvolemic on exam today ESRD on dialysis - normal schedule T//Mon - Nephro consulted, appreciate help with dialysis - Cr increased from Cr 3.95 on admission > 5.19 this am - Vora removed on 09/10 with limited urine output. This am, voided 150mL this am with bladder scan showing post-void of <17mL. Suspect decrease in UOP is d/t progression of CKD Indeterminate trop - cardiology consulted and feel it is likely 2/2 hypertensive emergency DMII - insulin dependent. - continue home regimen of 36u TID - Aggressive SSI and bedtime SSI - q6h accu checks - CC diet h/o paroxysmal a-fib CAD s/p 2 stent s/p pericardial window in 2019 Dispo: Tele inpt. Plan for d/c today. DVT PPx: Heparin Fluids: KVO Diet: Renal, CC, Fluid restrict 1800mL Code: FULL PCP: Chuy Addendum - Attending - Attending Attestation Date/Time: 09/11/20 7287 I personally evaluated the patient and discussed the management with Dr. Simona Rangel. I agree with the History, Examination, Assessment and Plan documented above with any addition or exceptions noted below.
[2020-09-11] MEDS: Atorvastatin Calcium 40 MG TAB PO SCH (09:08)
[2020-09-11] MEDS: Heparin 5,000 UNITS/ML VIAL SC SCH ×2 (09:09→16:18)
[2020-09-11] MEDS: Aspirin 81 mg Enteric Coated Tablet PO SCH (09:11)
[2020-09-11] MEDS: Carvedilol 6.25 MG TAB PO SCH (09:11)
[2020-09-11] MEDS: hydrALAZINE 25 MG TAB PO SCH ×2 (09:11→16:46)
[2020-09-11] MEDS: NIFEdipine XL 90 MG TAB PO SCH (09:12)
[2020-09-11] MEDS: Furosemide 40 MG TAB PO SCH (09:12)
[2020-09-11] MEDS: Senokot S 8.6-50 MG TAB PO SCH (09:12)
[2020-09-11] MEDS: Clopidogrel Bisulfate 75 MG TAB PO SCH (09:12)
[2020-09-11] MEDS: Insulin Glargine 36 UNITS in Pre-Filled Syringe 1 EACH SC SCH (09:12)
--- NOTE | 2020-09-11 12:08 | PRG ---
DATE OF SERVICE: 09/11/2020 SUBJECTIVE: This is a 55-year-old gentleman being seen for end-stage renal disease. The patient denies nausea, vomiting, or chest pain. PHYSICAL EXAMINATION: GENERAL: The patient is awake, alert. VITAL SIGNS: Pulse 75, breathing at 16, blood pressure was 151/67. HEENT: Head normocephalic and atraumatic. Eyes intact, no ulcers. Nose intact, no ulcers. Ears intact, no ulcers. Neck: Supple. No JVD. Chest: Symmetrical and clear. Cardiovascular: Shows S1 and S2, no rub, no murmur. Gastrointestinal: Abdomen is soft, bowel sounds positive. Extremities: Show no edema or ulcers. Skin: Shows no rash or petechiae. Musculoskeletal: Shows no joint swelling or stiffness. Genitourinary: Shows no Garcia or CVA tenderness. Neurologic: Motor intact. Cranial nerves intact. LABORATORY DATA: Hemoglobin 9.9. ASSESSMENT AND PLAN: 1. Chronic kidney disease, stage 6. Plan dialysis schedule. 2. Hypertension, stable. 3. Anemia, stable. 4. Medication based on GFR appropriate. Job ID: [id number]
[2020-09-11 12:15] VITALS: BP 127/60; TEMP 98
[2020-09-11] MEDS ORDERED: Insulin Glargine 36 UNITS in Pre-Filled Syringe 1 EACH SC SCH (21:00)
--- NOTE | 2020-09-11 21:26 | DIS ---
DATE OF ADMISSION: 09/07/2020 DATE OF DISCHARGE: 09/11/2020 RESIDENT: Nadja Rodriguez MD ADMITTING ATTENDING: Jered Romo MD DISCHARGE ATTENDING: Nathan Null MD CONSULTS: 1. Nephrology (Dr. Arredondo, Dr. Waterman)-09/07. 2. Cardiology (Dr. Summers)-09/07. 3. Case Management-09/07. PROCEDURES: 1. Hemodialysis on 09/07, 09/08, 09/10. 2. Chest x-ray (09/06)-bilateral pulmonary opacities: Pulmonary edema of CHF versus bilateral pneumonia. 3. Chest/thorax CTA (09/07)-no evidence of PE; scattered multifocal infiltrates, slightly prominent mediastinal lymph nodes. PRIMARY DIAGNOSES: Acute hypercapnic respiratory failure 2/2 congestive heart failure exacerbation; hypertensive emergency; [id number] myocardial infarction; hyperglycemia; and respiratory acidosis with metabolic compensation. SECONDARY DIAGNOSES: Heart failure with preserved ejection fraction; type 2 diabetes, insulin dependent; end-stage renal disease, requiring dialysis; hypertension; hyperlipidemia; uncertain history of paroxysmal atrial fibrillation, S/P pericardial window in 2019. DISCHARGE MEDICATIONS: The patient should continue, 1. Nifedipine 90 mg p.o. daily. 2. Carvedilol 6.25 mg p.o. b.i.d. 3. Hydralazine 50 mg p.o. t.i.d. 4. Aspirin 81 mg p.o. daily. 5. Atorvastatin 80 mg p.o. daily. 6. Plavix 75 mg p.o. daily. 7. Lasix 40 mg p.o. daily. 8. Lantus 36 units subcu b.i.d. (changed dose). 9. Nitroglycerin 0.4 mg sublingual p.r.n. 10. Calcifediol 30 mcg capsule p.o. daily. 11. Krill oil 500 mg capsule p.o. daily. 12. Senokot 8.6 mg/50 mg one tab p.o. b.i.d. DISCONTINUED MEDICATIONS: 1. Lantus 36 units t.i.d. 2. Nifedipine 60 mg p.o. daily. 3. Hydralazine 50 mg p.o. once daily. HISTORY OF PRESENT ILLNESS/HOSPITAL COURSE: This is a 55-year-old male with a past medical history of HFpEF, insulin-dependent type 2 diabetes, ESRD requiring dialysis on a Monday//Monday regimen, who presented with shortness of breath and was found to be in a CHF exacerbation after having drunk a lot of fluid and failing to take his Lasix that day. In the ED, he was started on BiPAP, given IV Lasix, and insulin, which made him feel better. Chest x-ray and CTA of the chest were obtained with results as stated above. In addition, the patient's BNP was 596, and has improved with IV Lasix, reported the diagnosis of CHF exacerbation. On arrival, he was also found to be in hypertensive emergency with systolic blood pressure greater than 200. He was started on a nitroglycerin drip in the ED. In addition, his troponins were elevated at 0.06 and trended upward until reaching 1.4. Cardiology, Dr. Summers, was consulted and felt his elevated troponin was 2/2 hypertensive crisis. He recommended titrating down the IV nitroglycerin, added aspirin, and started amlodipine. As the patient takes nifedipine at home, the two were combined and he was simply started on an increased nifedipine dose of 60 mg daily. On admission, the patient was also hyperglycemic, but had a normal pH and bicarb of 24. He also had an anion gap of 16 and was monitored for progression to DKA, but never entered it. Dr. Arredondo/[place] were consulted and the patient received hemodialysis on 09/07 and 09/08, prior to being cleared, he returned to his regular Monday//Monday regimen. Concomitantly, despite resolution of a hypertensive emergency, the patient continued to have elevated blood pressures, which were limiting his discharge per Dr. Carballo. Dr. Carballo took over for Dr. Summers and stated that he wanted the patient's blood pressures to be better controlled prior to discharge. As such, in addition to the increased nifedipine dose, the patient's home hydralazine was increased from once daily to t.i.d., and his home carvedilol was continued. On 09/10, the patient's Garcia was removed, but he failed to produce much urine. On 09/11, he managed to void 150 mL and was found to have a postvoid volume of less than 17 mL per bladder scan. On 09/11, his creatinine was 5.19, increased from his arrival creatinine of 3.95. As the patient was not retaining urine, but was rather not producing it, it is felt his oliguria is 2/2 progression of his renal failure. DISPOSITION: Stable. DISCHARGE INSTRUCTIONS: 1. Location: Home. 2. Diet: Diabetic diet, renal diet. 3. Activity: As tolerated. FOLLOWUP: 1. The patient is encouraged to follow up with his PCP, Dr. Vera, in 7-10 days. 2. 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 Job ID: [id number]
== END 2020-09-11 16:06 | disposition home or self-care (01) | DRG 280 ==
LOC: ERS 23:47 → EDBD 23:47 → MERGE 09-07 02:46 → PACU-TCU 09-07 02:46 → 2NO 09-09 15:08
PROVIDERS: ADMIT Family Medicine; ATTEND Family Medicine
PROC: 5A09457 Assistance with Respiratory Ventilation, 24-96 Consecutive Hours, Continuous Positive Airway Pressure (ICD-10-PCS; 2020-09-07)
PROC: 5A1D70Z Performance of Urinary Filtration, Intermittent, Less than 6 Hours Per Day (ICD-10-PCS; principal; 2020-09-08)
DX: I13.2 Hypertensive heart and chronic kidney disease with heart failure and with stage 5 chronic kidney disease, or end stage renal disease (principal); J96.21 Acute and chronic respiratory failure with hypoxia; I21.A1 Myocardial infarction type 2; I50.33 Acute on chronic diastolic (congestive) heart failure; N18.6 End stage renal disease; I16.1 Hypertensive emergency; E87.2 Acidosis; Z20.822 Contact with and (suspected) exposure to COVID-19; E11.65 Type 2 diabetes mellitus with hyperglycemia; E11.22 Type 2 diabetes mellitus with diabetic chronic kidney disease; I48.0 Paroxysmal atrial fibrillation; E78.00 Pure hypercholesterolemia, unspecified; D63.1 Anemia in chronic kidney disease; I16.0 Hypertensive urgency; E78.5 Hyperlipidemia, unspecified; E87.5 Hyperkalemia; Z99.2 Dependence on renal dialysis; Z79.4 Long term (current) use of insulin; Z89.512 Acquired absence of left leg below knee; Z91.14 Patient's other noncompliance with medication regimen; Z79.899 Other long term (current) drug therapy
CPT/HCPCS: 0240U; 36415; 36416; 36600; 51702; 71045; 71275; 80048; 80053; 82010; 82553; 82805; 83036; 83605; 83880; 84145; 84484; 85025; 87040; 87340; 90935; 93005; 93010; 94660; 96365; 96366; 96375; G0257; J1644; J1815; J1940; J2405; Q9967

== ENCOUNTER 2020-09-14 17:37 | Inpatient (IN) | payer MEDICARE, MEDICAID ==
[~2020-09-14 17:37] MED LIST: Amiodarone 150 MG/3 ML VIAL ONE; Calcium Chloride 1 GM/10 ML Abboject SYRINGE ONE; Sodium Bicarb 50 MEQ/50 ML Abboject 8.4% SYRINGE ONE
[2020-09-14] MEDS ORDERED: Fentanyl CADD 100 ML IV SCH (17:45)
[2020-09-14 17:59] LABS: #Basophils 0.1 thou/uL (0.0-0.2); #Eosinphils 0.5 thou/uL (0.0-0.7); #Monocytes 0.7 thou/uL (0.11-0.59); #Neutrophils 8.3 thou/uL (1.40-6.50); %Basophils 0.7 % (0.0-1.0); %Eosinophils 4.1 % (0.0-10.0); %Lymphocytes 23.8 % (21.0-51.0); %Monocytes 5.5 % (0.0-10.0); %Neutrophils 65.9 % (42.0-75.0); Hemoglobin 11.2 g/dL (14.0-18.0); Mean Corpuscular HGB CONC 34.6 g/dL (32.0-36.0); Mean Corpuscular Hemoglobin 31.5 pg (27.0-31.0); Mean Corpuscular Volume 91.2 fL (78.0-98.0); Mean Platelet Volume 8.4 fL (7.4-10.4); Platelet Count 350 thou/uL (130-400); RBC Distribution Width 12.5 % (11.5-14.5); Red Blood Cell (RBC) Count 3.57 mill/uL (4.70-6.10); White Blood Cell (WBC) Count 12.6 thou/uL (4.8-10.8)
[2020-09-14 18:06] LABS: INR-International Normal Ratio 0.9; PTT 28.4 sec (22.9-36.1); Prothrombin Time 12.5 sec (12.0-14.7)
--- NOTE | 2020-09-14 18:09 | RAD ---
Chest one view HISTORY: Chest pain. CPR. COMPARISON: 09/06/2020. FINDINGS: Cardiac silhouette is magnified and enlarged. Pulmonary vasculature more engorged than on t he prior study. Dense, predominantly central bilateral parenchymal infiltrates are more pronounced than on the prior exam. Mediastinum is midline. Tip of an endotracheal catheter overlies the thoracic inlet. Nasogastric tube descends to the abdomen. Tip of a left subclavian central venous catheter projects over the superior vena cava. Apices partially excluded. No evidence of pneumothorax. Left lateral costophrenic angle is not includ ed on image. IMPRESSION : Cardiomegaly with pulmonary edema worse than on the most recent exam. Lines and tubes are in good radiographic position.
[2020-09-14] MEDS ORDERED: Furosemide 40 MG/4 ML VIAL ONE (18:10)
[2020-09-14 18:27] LABS: Actual Bicarbonate (HCO3a) 26.5 mEq/L (22-28); Analyzer IN Cardio ER; Base Excess (BEa) 1.4 mEq/L (-2.0 to +3.0); CO2 Tension 43.9 mmHg (35.0-45.0); Calcium, Ionized (arterial) 1.11 mmol/L (1.12-1.30); Carboxyhemoglobin (COHb) 0.3 gm% (0.0-3.0); Potassium - ABG Lab 4.04 mmol/L (3.70-5.30)
[2020-09-14 18:30] LABS: ALV-art Gradient 384.525 mmHg (0-20); O2 Tension (PaO2), arterial 59.7 mmHg (80.0-100.0); Puncture Site RRA
[2020-09-14 18:42] LABS: CKMB 3.7 ng/mL (0-6.6)
[2020-09-14] MEDS ORDERED: Propofol 1,000 MG/100 ML VIAL IV ONE ×2 (18:56→22:07)
[2020-09-14] MEDS ORDERED: Aspirin 300 MG Suppository ONE ×2 (19:13→19:14)
[2020-09-14] MEDS ORDERED: Cefepime 2 GM VIAL ONE ×2 (19:13→19:14)
[2020-09-14 19:56] LABS: ALT (SGPT) 22 U/L (8-55); AST (SGOT) 43 U/L (5-34); Albumin 3.7 g/dL (3.5-5.0); Alkaline Phosphatase 84 U/L (40-110); Anion Gap 24 mmol/L (10-20); BUN (Urea Nitrogen) 51 mg/dL (8.4-25.7); Bilirubin, Total 0.4 mg/dL (0.2-1.2); CK (CPK) 154 U/L (30-200); Calc. Creatinine Clearance 0 mL/min (70-130); Calcium 9.9 mg/dL (7.8-10.44); Carbon Dioxide 23 mmol/L (22-29); Chloride 99 mmol/L (98-107); Globulin 4.6 g/dL (2.4-3.5); Glucose 350 mg/dL (70-105); Lipase 69 U/L (8-78); Potassium 4.7 mmol/L (3.5-5.1); Protein, Total 8.3 g/dL (6.0-8.3); Sodium 141 mmol/L (136-145)
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
[2020-09-14] MEDS ORDERED: Vancomycin 1 GM/200 ML BAG ONE (20:01)
[2020-09-14 20:26] LABS: Bilirubin Negative (Negative); Blood, Urine 1+ (Negative); Clarity Extra Turbid (Clear); Glucose, Urine (Dipstick) >=1000 mg/dL (Negative); Ketone, Urine Negative (Negative); Leukocyte Negative Leu/uL (Negative); Nitrite Negative (Negative); Protein, Urine (Dipstick) 300 mg/dL (Neg-Trace); Squamous Epithelial None Seen HPF (0-3); Urobilinogen Normal mg/dL (Less than 2); pH, Urine 6.5 (5.0-9.0)
[2020-09-14 20:40] LABS: Sperm/HPF 4+ HPF (None Seen)
[2020-09-14 20:41] LABS: Bacteria/HPF None Seen HPF (None Seen)
[2020-09-14] MEDS ORDERED: Dextrose 5% in Water 1,000 ML IV PRN (20:43)
[2020-09-14] MEDS ORDERED: Dextrose 50% Abboject 50 ML SYRINGE SLOW IVP PRN (20:43)
[2020-09-14 21:12] LABS: SARS-CoV-2 NAA Rapid Test Not Detected (NotDetected)
[2020-09-14 21:17] LABS: Lactic Acid 1.2 mmol/L (0.5-2.2)
[2020-09-14 21:27] LABS: Troponin I 0.183 ng/mL (< 0.028)
[2020-09-15 00:17] LABS: Troponin I 0.398 ng/mL (< 0.028)
[2020-09-15] MEDS ORDERED: Propofol BOLUS 1,000 MG/100 ML VIAL IV PRN (00:45)
[2020-09-15] MEDS ORDERED: Ondansetron ODT 4 MG TAB SL PRN (00:45)
[2020-09-15] MEDS ORDERED: Sodium Chloride 0.9% 1,000 ML IV SCH (00:45)
[2020-09-15] MEDS ORDERED: Ondansetron PF 4 MG/2 ML Vial IVP PRN (00:45)
[2020-09-15] MEDS ORDERED: Fentanyl BOLUS 250 ML IVPB PRN (00:45)
[2020-09-15] MEDS ORDERED: Fentanyl CADD 100 ML IV SCH (00:45)
[2020-09-15] MEDS ORDERED: DISCONTINUE PREVIOUS NARCOTIC PAIN MEDICATIONS AND BENZODIAZEPINES FS SCH (00:45)
[2020-09-15] MEDS ORDERED: Morphine 2 MG/ML VIAL SLOW IVP PRN (00:45)
[2020-09-15] MEDS ORDERED: Lorazepam 2 MG/ML VIAL SLOW IVP PRN (00:45)
[2020-09-15] MEDS: Propofol 1,000 MG/100 ML VIAL IV PRN ×6 (00:55→20:45)
[2020-09-15] MEDS: HumaLOG 300 UNITS/3 ML VIAL SC PRN ×3 (01:02→10:00)
--- NOTE | 2020-09-15 01:14 | PDOC.BPN ---
- Brief Progress Note Encounter Date: 09/15/20 Encounter Time: 00:50 Increase in troponin to critical value noted. Went to evaluate patient and ordered stat EKG. Patient continues to deny chest pain at this time. EKG relatively unchanged from admission. Elevated troponin likely due to myocardial injury from CPR in the setting of ESRD. Of note, QTc is 523ms, will avoid QTc prolonging medications.
[2020-09-15] MEDS ORDERED: Fentanyl CADD 100 ML ONE ×2 (02:08→14:08)
[2020-09-15 02:14] LABS: Amphetamine Not Detected (NotDetected); Barbiturates Screen Not Detected (NotDetected); Benzodiazepine Screen Not Detected (NotDetected); Cocaine Metabolite Screen Not Detected (NotDetected); Medtox Control Line Valid? VALID (VALID); Medtox Reader # READER 4; Methadone Not Detected (NotDetected); Methamphetamine Not Detected (NotDetected); Opiate Screen Not Detected (NotDetected); Oxycodone Screen Not Detected (NotDetected); Phencyclidine (PCP) Not Detected (NotDetected); THC/Cannabinoid Screen Not Detected (NotDetected); Tricyclic Screen Not Detected (NotDetected)
[2020-09-15] MEDS ORDERED: Dextrose 5% in Water 1,000 ML IV PRN (03:32)
[2020-09-15] MEDS ORDERED: Dextrose 50% Abboject 50 ML SYRINGE SLOW IVP PRN (03:32)
[2020-09-15] MEDS ORDERED: Ventilator Sedation Protocol 1 EACH FS SCH (03:32)
[2020-09-15 03:55] LABS: Troponin I 0.671 ng/mL (< 0.028)
[2020-09-15 03:56] LABS: Anion Gap 18 mmol/L (10-20); BUN (Urea Nitrogen) 58 mg/dL (8.4-25.7); Calc. Creatinine Clearance 31 mL/min (70-130); Calcium 8.4 mg/dL (7.8-10.44); Carbon Dioxide 25 mmol/L (22-29); Chloride 100 mmol/L (98-107); Glucose 338 mg/dL (70-105); Potassium 4.4 mmol/L (3.5-5.1); Sodium 139 mmol/L (136-145)
[2020-09-15 04:48] LABS: #Basophils 0.1 thou/uL (0.0-0.2); #Eosinphils 0.2 thou/uL (0.0-0.7); #Lymphocytes 0.9 thou/uL (1.20-3.40); #Monocytes 0.5 thou/uL (0.11-0.59); #Neutrophils 7.3 thou/uL (1.40-6.50); %Basophils 0.8 % (0.0-1.0); %Eosinophils 1.9 % (0.0-10.0); %Lymphocytes 10.3 % (21.0-51.0); %Monocytes 5.8 % (0.0-10.0); %Neutrophils 81.1 % (42.0-75.0); Hemoglobin 8.5 g/dL (14.0-18.0); Mean Corpuscular HGB CONC 35.4 g/dL (32.0-36.0); Mean Corpuscular Hemoglobin 31.6 pg (27.0-31.0); Mean Corpuscular Volume 89.3 fL (78.0-98.0); Mean Platelet Volume 8.4 fL (7.4-10.4); Platelet Count 203 thou/uL (130-400); RBC Distribution Width 12.3 % (11.5-14.5)
[2020-09-15] MEDS: Heparin 5,000 UNITS/ML VIAL SC SCH ×5 (04:56→21:20)
[2020-09-15] MEDS ORDERED: Furosemide 40 MG/4 ML VIAL SLOW IVP SCH (06:00)
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
--- NOTE | 2020-09-15 08:30 | RAD ---
EXAM: Single view of the chest HISTORY: Pulmonary edema COMPARISON: 09/14/2020 FINDINGS: Single view of the chest shows an enlarged cardiomediastinal silhouette. The lines and tub es are unchanged in position. Scattered multifocal infiltrates are seen in the lungs. No acute osseous abnormality. IMPRESSION: Stable cardiomegaly and multifocal infiltrates
[2020-09-15] MEDS ORDERED: Heparin 5,000 UNITS/ML VIAL SC SCH (09:00)
[2020-09-15] MEDS ORDERED: FLU VACC QS2020-21(6MOS UP)/PF 60 MCG/0.5 ML SYRINGE IM ONE (09:00)
[2020-09-15] MEDS ORDERED: Aspirin 81 mg Enteric Coated Tablet PO SCH (09:00)
[2020-09-15] MEDS ORDERED: Furosemide 40 MG TAB PO SCH (09:00)
[2020-09-15] MEDS: Aspirin 81 mg Enteric Coated Tablet PO SCH (10:02)
[2020-09-15] MEDS: Clopidogrel Bisulfate 75 MG TAB PO SCH (10:02)
[2020-09-15] MEDS: Atorvastatin Calcium 40 MG TAB PO SCH (10:02)
[2020-09-15] MEDS: Senokot S 8.6-50 MG TAB PO SCH ×2 (10:03→20:45)
[2020-09-15] MEDS: Pantoprazole 40 MG VIAL IVP SCH (10:03)
--- NOTE | 2020-09-15 13:09 | CON ---
DATE OF CONSULTATION: HISTORY OF PRESENT ILLNESS: The patient is a 55-year-old male with end-stage renal disease. He presented with shortness of breath. EMS was called to his house and was intubated in the field. I was consulted because of his presence in the Critical Care Unit. PAST MEDICAL HISTORY: Remarkable for: 1. End-stage renal disease. 2. History of hypertension. 3. History of atrial fibrillation. 4. History of coronary artery stenting in the past. 5. History of lipid disorder. 6. Diabetes. PAST SURGICAL HISTORY: History of shoulder surgery, knee surgery, vascular access procedures, amputation of the toe, and amputation of his left lower extremity. PHYSICAL EXAMINATION: GENERAL: Apparently, he was waking up this morning following commands. He is currently being dialyzed. VITAL SIGNS: Blood pressure 110/58, heart rate in the 50s, FiO2 is down to 50%, oximetry is 98%. LUNGS: Distant anteriorly. HEART: Regular rhythm. ABDOMEN: Soft. EXTREMITIES: Without clubbing. LABORATORY DATA: White count 9, hemoglobin 8.5, platelets 203. Potassium is 4.4, glucose is 338 this morning. Chest x-ray shows pulmonary edema, done yesterday afternoon. IMPRESSION: Volume overload with respiratory failure. He is currently being dialyzed, and will not be weanable until we see significant improvement in his pulmonary status. Job ID: [id number]
[2020-09-15] MEDS: Acetaminophen 325 MG TAB PO PRN (17:34)
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
[2020-09-16] MEDS: Propofol 1,000 MG/100 ML VIAL IV PRN ×2 (01:26→05:48)
[2020-09-16 05:12] LABS: #Basophils 0.1 thou/uL (0.0-0.2); #Eosinphils 0.4 thou/uL (0.0-0.7); #Lymphocytes 1.1 thou/uL (1.20-3.40); #Monocytes 0.6 thou/uL (0.11-0.59); #Neutrophils 5.9 thou/uL (1.40-6.50); %Basophils 1.2 % (0.0-1.0); %Eosinophils 4.7 % (0.0-10.0); %Lymphocytes 12.9 % (21.0-51.0); %Monocytes 7.9 % (0.0-10.0); %Neutrophils 73.3 % (42.0-75.0); Hemoglobin 8.9 g/dL (14.0-18.0); Mean Corpuscular HGB CONC 35.2 g/dL (32.0-36.0); Mean Corpuscular Hemoglobin 32.3 pg (27.0-31.0); Mean Corpuscular Volume 91.6 fL (78.0-98.0); Mean Platelet Volume 8.7 fL (7.4-10.4); Platelet Count 203 thou/uL (130-400); RBC Distribution Width 12.5 % (11.5-14.5); Red Blood Cell (RBC) Count 2.75 mill/uL (4.70-6.10); White Blood Cell (WBC) Count 8.1 thou/uL (4.8-10.8)
--- NOTE | 2020-09-16 05:22 | PDOC.FM ---
- Subjective Subjective: Patient on minimal sedation, awakened and following commands. He is trying to talk to me with ET tube in place. - Objective MAR Reviewed: Yes Vital Signs & Weight: Vital Signs (12 hours) Temp Pulse Resp Pulse Ox 09/16/20 04:00 24 H 09/16/20 03:32 24 H 95 09/16/20 03:16 58 L 09/16/20 02:00 24 H 09/15/20 23:50 24 H 09/15/20 22:34 61 09/15/20 21:34 24 H 09/15/20 19:57 24 H 09/15/20 19:40 96 09/15/20 18:18 64 09/15/20 18:04 100.6 F H Weight Admit Weight 139.706 kg Weight 137.9 kg Most Recent Monitor Data Heart Rate from ECG 63 NIBP 191/73 NIBP BP-Mean 112 Respiration from ECG 16 SpO2 96 I&O: 09/14/20 09/15/20 09/16/20 06:59 06:59 06:59 Intake Total 0 394.6 Output Total 745 323 Balance -745 71.6 Result Diagrams: 09/16/20 04:00 09/16/20 04:00 Radiology Reviewed by me: Yes Phys Exam - Physical Examination Constitutional: NAD HEENT: PERRLA Respiratory: no wheezing, clear to auscultation bilateral Cardiovascular: RRR, no significant murmur Gastrointestinal: soft, no distention Musculoskeletal: edema present (trace, less than yesterday) Dx/Plan - Plan Plan: Patient is a 55M with PMHx of HFpEF, ESRD on HD (T, TH, Sat), HTN, HLD, paroxysmal afib, CAD s/p 2 stents that is admitted for: Neuro - patient extubated himself this AM - GCS 15 Respiratory Acute on chronic hypoxic respiratory failure 2/2 pulmonary edema - Intubated 09/14-09/16 - DDx: flash pulmonary edema vs CHF exacerbation - continue hemodialysis Cardiovascular ROSC s/p vfib cardiac arrest - Elevated troponin likely 2/2 to arrest, CPR, and/or ESRD - denial of chest pain off sedation. - monitor # HTN - monitor today, restart home meds #HFpEF -EF 55% with diastolic dysfunction present echo 01/2020 -BNP lower than previous admission for CHF exacerbation -monitor fluid status, strict I/O -new echo ordered and pending #CAD s/p 2 stents # Hx of Paroxysmal afib #HLD -continue home meds Gastrointestinal/Nutrition - Diet: pending bedside swallow, HD high protein, CC diet - continue BID sennakot home med - discuss starting tube feeds w/ attending. Renal/ ESRD on HD -Nephro Dr. Arredondo consulted, appreciate recs. - Discontinue lasix. Do not prescribe lasix on discharge. Hematology -heparin TID for dvt ppx 2/2 ESRD -Normocytic Anemia: 2/2 anemia of chronic disease, likely due to ESRD Endocrine # IDDM2 - home dose: 36u lantus BID, restart when has diet - sliding scale insulin Infectious Disease - s/p cefepime and vanc in ED; blood and urine cx pending - procal low: low suspicion for bacterial/septic process - overnight, Tmax was 100.6 F. Patient is clinically well appearing. Diet: NPO pending bedside swallow DVT ppx: heparin GI ppx: protonix, d/c when diet Lines/tubes: L subclavian (09/14) Dispo: inpatient, ICU. Transfer to telemetry today. CODE: Full, confirmed with family PCP: Chuy Case discussed with and patient evaluated by Dr. Lacy Addendum - Attending - Attending Attestation Date/Time: 09/16/20 1012 I personally evaluated the patient and discussed the management with Dr. Martin. I agree with the History, Examination, Assessment and Plan documented above with any addition or exceptions noted below. Patient self-extubated and is breathing comfortably. Will need dialysis. TTE completed. Transfer to tele when able.
[2020-09-16 05:33] LABS: Anion Gap 15 mmol/L (10-20); BUN (Urea Nitrogen) 38 mg/dL (8.4-25.7); Calc. Creatinine Clearance 34 mL/min (70-130); Calcium 8.7 mg/dL (7.8-10.44); Carbon Dioxide 29 mmol/L (22-29); Chloride 98 mmol/L (98-107); Glucose 129 mg/dL (70-105); Potassium 3.5 mmol/L (3.5-5.1); Sodium 138 mmol/L (136-145)
[2020-09-16] MEDS: Heparin 5,000 UNITS/ML VIAL SC SCH ×3 (05:48→23:17)
--- NOTE | 2020-09-16 07:45 | RAD ---
Portable frontal chest radiograph: 09/16/2020 COMPARISON: 09/15/2020 HISTORY: Pulmonary edema FINDINGS: Stable endotracheal tube and nasogastric tube. Cardiac silhouette is enlarged. There is int erstitial opacity in the perihilar regions and both lung bases with pulmonary vascular congestion and superimposed left perihilar/left basilar airspace disease. Aeration within the perihilar region a nd the right base has improved. IMPRESSION: Portable chest radiograph as above.
[2020-09-16] MEDS: Atorvastatin Calcium 40 MG TAB PO SCH (08:28)
[2020-09-16] MEDS: Senokot S 8.6-50 MG TAB PO SCH ×2 (08:28→20:32)
[2020-09-16] MEDS: Aspirin 81 mg Enteric Coated Tablet PO SCH (08:28)
[2020-09-16] MEDS: Clopidogrel Bisulfate 75 MG TAB PO SCH (08:29)
[2020-09-16] MEDS: Carvedilol 6.25 MG TAB PO SCH ×2 (08:29→20:33)
[2020-09-16] MEDS: Pantoprazole 40 MG VIAL IVP SCH (08:29)
--- NOTE | 2020-09-16 09:41 | PRG ---
DATE OF SERVICE: SUBJECTIVE: Mr. Brown was deeply sedated this morning. His ventilatory rate was turned down. His sedation was decreased. He awakened and extubated himself. He is stable post extubation. OBJECTIVE: VITAL SIGNS: Bladder temperature is 100.2, so he is afebrile. Heart rate 64, blood pressure 172/69. LUNGS: Clear. HEART: Regular rhythm. ABDOMEN: Soft. LABORATORY DATA: Chest radiograph shows significant improvement of his edema, although he still has some residual edema. He would likely benefit from volume removal again today. White count is 8.1, hemoglobin 8.9, platelets 203,000. Electrolytes are normal. Potassium 3.5, BUN 38, creatinine 4.6. IMPRESSION: Respiratory failure secondary to volume overload, improved, now extubated. PLAN: Continue supportive care. If he can get dialyzed again today and remains stable, he can move out of the Critical Care Unit. Job ID: [id number]
--- NOTE | 2020-09-16 15:56 | PRG ---
DATE OF SERVICE: 09/16/2020 SUBJECTIVE: The patient was extubated this morning. OBJECTIVE: GENERAL: This is a morbidly obese male, in no apparent distress. VITAL SIGNS: Temperature 100.6, pulse 68, respiratory rate 20, blood pressure 160/72. LABORATORY DATA: Potassium 3.5, BUN is 38, and creatinine is 4.6. ASSESSMENT AND PLAN: 1. End-stage renal disease. Continue dialysis as tolerated. 2. Edema. Remove fluid. 3. Hypertension. 4. Anemia of chronic disease. 5. Acute hypoxic respiratory failure. 6. Fluid overload. 7. Cardiorenal syndrome. Plan to have dialysis as tolerated, had dialysis today, tolerated well, and extubated now. We will follow. Job ID: [id number]
[2020-09-16] MEDS: hydrALAZINE 25 MG TAB PO SCH ×2 (17:10→20:32)
[2020-09-16] MEDS: HumaLOG 300 UNITS/3 ML VIAL SC PRN (17:21)
--- NOTE | 2020-09-16 18:29 | EKG ---
Test Reason : CP Blood Pressure : / mmHG Vent. Rate : 049 BPM Atrial Rate : 049 BPM P-R Int : 224 ms QRS Dur : 110 ms QT Int : 562 ms P-R-T Axes : 006 -25 136 degrees QTc Int : 507 ms Sinus bradycardia with 1st degree A-V block Cannot rule out Anterior infarct , age undetermined Prolonged QT Abnormal ECG When compared with ECG of 07-SEP-2020 11:32, (Unconfirmed) MA interval has increased Confirmed by CJ QUICK, SAydin ([id number]) on 09/16/2020 6:29:44 PM Referred By: SURESH Confirmed By:DR. Afshin CORONA MD
[2020-09-17 04:20] LABS: #Eosinphils 0.3 thou/uL (0.0-0.7); #Lymphocytes 0.7 thou/uL (1.20-3.40); #Monocytes 0.7 thou/uL (0.11-0.59); #Neutrophils 7.1 thou/uL (1.40-6.50); %Basophils 0.5 % (0.0-1.0); %Eosinophils 3.2 % (0.0-10.0); %Lymphocytes 8.2 % (21.0-51.0); %Monocytes 8.1 % (0.0-10.0); %Neutrophils 80.1 % (42.0-75.0); Hemoglobin 9.1 g/dL (14.0-18.0); Mean Corpuscular HGB CONC 34.9 g/dL (32.0-36.0); Mean Corpuscular Hemoglobin 31.2 pg (27.0-31.0); Mean Corpuscular Volume 89.3 fL (78.0-98.0); Mean Platelet Volume 8.4 fL (7.4-10.4); Platelet Count 252 thou/uL (130-400); RBC Distribution Width 12.1 % (11.5-14.5); Red Blood Cell (RBC) Count 2.92 mill/uL (4.70-6.10); White Blood Cell (WBC) Count 8.8 thou/uL (4.8-10.8)
[2020-09-17 04:39] LABS: Anion Gap 16 mmol/L (10-20); BUN (Urea Nitrogen) 44 mg/dL (8.4-25.7); Calc. Creatinine Clearance 32 mL/min (70-130); Calcium 8.8 mg/dL (7.8-10.44); Carbon Dioxide 27 mmol/L (22-29); Chloride 99 mmol/L (98-107); Glucose 183 mg/dL (70-105); Sodium 138 mmol/L (136-145)
[2020-09-17 05:27] VITALS: BMI 42.0
[2020-09-17] MEDS: Heparin 5,000 UNITS/ML VIAL SC SCH ×3 (05:27→22:42)
--- NOTE | 2020-09-17 05:35 | PDOC.FM ---
- Subjective Subjective: Patient AxO x4 this AM. On day of admission he says he drank a 32 oz tea that day. Otherwise, he did not do anything different than usual. - Objective MAR Reviewed: Yes Vital Signs & Weight: Vital Signs (12 hours) Pulse BP Pulse Ox 09/17/20 01:37 98 09/16/20 20:33 171/80 H 09/16/20 20:32 76 171/80 H 09/16/20 19:45 92 L Weight Admit Weight 139.706 kg Weight 133.3 kg Most Recent Monitor Data Heart Rate from ECG 62 NIBP 180/64 NIBP BP-Mean 102 Respiration from ECG 23 SpO2 90 I&O: 09/15/20 09/16/20 09/17/20 06:59 06:59 06:59 Intake Total 0 679.6 200 Output Total 722 160 8817 Balance -745 316.6 -1045 Result Diagrams: 09/17/20 04:00 09/17/20 04:00 Radiology Reviewed by me: Yes (stable) Phys Exam - Physical Examination Constitutional: NAD HEENT: PERRLA Respiratory: no wheezing (mild bibasilar crackles) Cardiovascular: RRR, no significant murmur Gastrointestinal: soft, non-tender, no distention Musculoskeletal: pulses present Neurological: non-focal Psychiatric: normal affect, A&O x 3 Dx/Plan - Plan Plan: Patient is a 55M with PMHx of HFpEF, ESRD on HD (T, TH, Sat), HTN, HLD, paroxysmal afib, CAD s/p 2 stents that is admitted for: Neuro - GCS 15, AxO x4 Respiratory Acute on chronic hypoxic respiratory failure 2/2 pulmonary edema 2/2 noncompliance w/ fluid restriction - Intubated 09/14-09/16 - DDx: flash pulmonary edema vs CHF exacerbation - continue hemodialysis, continue fluid restriction, strict I/Os Cardiovascular ROSC s/p vfib cardiac arrest: stable HTN: resume all home meds today HFpEF: stable, repeat ECHO showed same EF as last year, 50-55% CAD s/p 2 stents Hx of Paroxysmal afib HLD -continue home meds Gastrointestinal/Nutrition - Diet: puree, nectar thick. Renal high protein, CC. - continue BID sennakot home med - Advance diet as tolerated, continue to work w/ speech Renal/ ESRD on HD -Nephro Dr. Arredondo consulted, appreciate recs. -Discontinue lasix. Do not prescribe lasix on discharge. Hematology -heparin TID for dvt ppx 2/2 ESRD -Normocytic Anemia: 2/2 anemia of chronic disease, likely due to ESRD Endocrine IDDM2 - home dose: 36u lantus BID, monitor sugars today and PO intake, continue slidin g scale today and consider starting lantus tonight. - sliding scale insulin Infectious Disease - s/p cefepime and vanc in ED; blood and urine cx NGTD - overnight, Tmax was 100.8 F. Patient is clinically well appearing. Continue to monitor Diet: Renal high protein, CC, puree, nectar thick DVT ppx: heparin GI ppx: discontinued Lines/tubes: L subclavian, Vora (09/14). Order for removal of vora and central line today. Establish PIV access. Dispo: inpatient, ICU. Transfer to telemetry today. CODE: Full, confirmed with family PCP: Chuy Social: patient's main problem seems to be having trouble following his fluid restriction. I have educated him on the seriousness of this with his co- morbidities. We may need to re-evaluate if living with his sister is the best place for him. Case discussed with and patient evaluated by Dr. Lacy Addendum - Attending - Attending Attestation Date/Time: 09/17/20 5905 I personally evaluated the patient and discussed the management with Dr. Kirti sanford. I agree with the History, Examination, Assessment and Plan documented above with any addition or exceptions noted below. Resting comfortably. No f/c/cp/sob/n/v after discussing with resident. Afebrile. Reassuring exam. Dialyze again if possible. Transition to the floor.
--- NOTE | 2020-09-17 08:21 | RAD ---
PORTABLE CHEST: DATE: 09/17/2020. PROVIDED CLINICAL HISTORY: Pulmonary edema. FINDINGS: Comparison 09/16/2020. The cardiac silhouette remains prominently enlarged. Interval extubation and removal of enteric catheter. Left-sided subclavian central line is redemonstrated. Subsegmental ate lectasis versus infiltrate right lung base. No pleural fluid or pneumothorax apparent. Patchy airsp pedro disease involving the left lower lung zone is redemonstrated. IMPRESSION: Interval extubation and removal of enteric catheter. Cardiomegaly and bilateral airspace disease per sists. POS: RIVERA
[2020-09-17] MEDS: hydrALAZINE 25 MG TAB PO SCH ×3 (09:00→20:42)
[2020-09-17] MEDS: Clopidogrel Bisulfate 75 MG TAB PO SCH (09:01)
[2020-09-17] MEDS: NIFEdipine XL 90 MG TAB PO SCH (09:01)
[2020-09-17] MEDS: Atorvastatin Calcium 40 MG TAB PO SCH (09:01)
[2020-09-17] MEDS: Aspirin 81 mg Enteric Coated Tablet PO SCH (09:01)
[2020-09-17] MEDS: Senokot S 8.6-50 MG TAB PO SCH ×2 (09:01→20:42)
[2020-09-17] MEDS: Carvedilol 6.25 MG TAB PO SCH ×2 (09:02→20:41)
--- NOTE | 2020-09-17 12:57 | PRG ---
DATE OF SERVICE: 09/17/2020 SUBJECTIVE: Chapin Brown is sitting on the side of the bed, working with Therapy when I made rounds. Chest x-ray still shows mild edema. He is tolerating this well. He self-extubated yesterday. He is not hoarse. He said he has taken his 32 ounces of tea, fluid restriction every day, though I wonder his dry weight has not dropped. He has been much less active lately. OBJECTIVE: VITAL SIGNS: Heart rate is 62, blood pressure 146/60, respiratory rate 17, oximetry is 97. LUNGS: Clear. HEART: Regular rhythm. ABDOMEN: Soft. LABORATORY DATA: White count is 8.8, hemoglobin 9.1, and platelets 252,000. BUN 44 and creatinine 4.96. IMPRESSION: End-stage renal disease with volume overload, leading to intubation. He is stable at this point in time. In my opinion, he could be transferred out of Critical Care. Job ID: [id number]
--- NOTE | 2020-09-17 14:26 | PRG ---
DATE OF SERVICE: 09/17/2020 SUBJECTIVE: Patient was seen and examined at bedside and overnight events noted. Patient denies any shortness of breath or chest pain or palpitation. No history of nausea or vomiting or diarrhea or fever or chills or cramps. OBJECTIVE: GENERAL: This is a well-built male, in no apparent distress. VITAL SIGNS: Temperature 97.8. Heart Rate 70. Respiratory rate 16. Blood pressure 163/71. HEENT: Atraumatic, normocephalic. Oral mucosa is moist. NECK: Supple. CARDIOVASCULAR: S1, S2 heard. Rate and rhythm regular. RESPIRATORY: Clear to auscultation. GASTROINTESTINAL: Abdomen is soft. MUSCULOSKELETAL: No tenderness. No edema. DERMATOLOGIC: No skin rash. NEUROLOGIC: Alert and awake and oriented x3. No focal neurologic deficits. Moving all the extremities. PSYCHIATRIC: Mood and affect normal. LABORATORY DATA: Potassium 4.0, BUN is 44, and creatinine is 4.9. ASSESSMENT AND PLAN: 1. End-stage renal disease. Continue dialysis as tolerated. 2. Edema. We will remove fluid. 3. Hypertension. 4. Anemia of chronic disease. 5. Acute hypoxic respiratory failure. 6. Fluid overload. 7. Cardiorenal syndrome. Plan to have dialysis as tolerated. Job ID: [id number]
--- NOTE | 2020-09-17 21:17 | EKG ---
Test Reason : Blood Pressure : / mmHG Vent. Rate : 046 BPM Atrial Rate : 046 BPM P-R Int : 232 ms QRS Dur : 116 ms QT Int : 598 ms P-R-T Axes : 044 -29 110 degrees QTc Int : 523 ms Sinus bradycardia with 1st degree A-V block T wave abnormality, consider lateral ischemia Prolonged QT Abnormal ECG Confirmed by DR. Afshin CORONA MD ([id number]) on 09/17/2020 9:17:01 PM Referred By: Confirmed By:DR. Afshin CORONA MD
[2020-09-18] MEDS: Acetaminophen 325 MG TAB PO PRN ×2 (00:22→06:05)
[2020-09-18] MEDS ORDERED: Lidocaine 5% Patch TD SCH (03:00)
[2020-09-18 05:06] LABS: #Basophils 0.1 thou/uL (0.0-0.2); #Eosinphils 0.4 thou/uL (0.0-0.7); #Lymphocytes 1.2 thou/uL (1.20-3.40); #Monocytes 0.7 thou/uL (0.11-0.59); #Neutrophils 5.4 thou/uL (1.40-6.50); %Eosinophils 5.1 % (0.0-10.0); %Lymphocytes 15.1 % (21.0-51.0); %Monocytes 9.1 % (0.0-10.0); %Neutrophils 69.6 % (42.0-75.0); Mean Corpuscular HGB CONC 34.5 g/dL (32.0-36.0); Mean Corpuscular Hemoglobin 30.8 pg (27.0-31.0); Mean Corpuscular Volume 89.4 fL (78.0-98.0); Mean Platelet Volume 7.9 fL (7.4-10.4); Platelet Count 247 thou/uL (130-400); RBC Distribution Width 12.1 % (11.5-14.5); Red Blood Cell (RBC) Count 3.23 mill/uL (4.70-6.10); White Blood Cell (WBC) Count 7.8 thou/uL (4.8-10.8)
[2020-09-18] MEDS ORDERED: Melatonin 3 MG TAB PO PRN (05:20)
[2020-09-18 05:26] LABS: Anion Gap 20 mmol/L (10-20); BUN (Urea Nitrogen) 25 mg/dL (8.4-25.7); Calc. Creatinine Clearance 37 mL/min (70-130); Calcium 9.1 mg/dL (7.8-10.44); Carbon Dioxide 22 mmol/L (22-29); Chloride 97 mmol/L (98-107); Glucose 185 mg/dL (70-105); Potassium 4.6 mmol/L (3.5-5.1); Sodium 134 mmol/L (136-145)
[2020-09-18] MEDS: Heparin 5,000 UNITS/ML VIAL SC SCH (06:04)
[2020-09-18] MEDS: HumaLOG 300 UNITS/3 ML VIAL SC PRN (06:04)
--- NOTE | 2020-09-18 06:28 | PDOC.FM ---
- Subjective Subjective: Pt awake and alert this morning. C/o L sided rib pain, worse with inspiration, cough, or movement. Had difficulty sleeping due to the pain. States he is able to eat without nausea but is having some dysphagia. Overall was in good spirits, making jokes. - Objective Vital Signs & Weight: Vital Signs (12 hours) Temp Pulse Resp BP Pulse Ox 09/18/20 04:00 98.0 F 61 15 145/70 H 97 09/17/20 23:57 98.3 F 62 15 159/70 H 97 09/17/20 20:36 98.3 F 62 15 144/64 H 96 Weight Admit Weight 139.706 kg Weight 133 kg Most Recent Monitor Data Heart Rate from ECG 69 NIBP 146/68 NIBP BP-Mean 94 Respiration from ECG 21 SpO2 97 I&O: 09/16/20 09/17/20 09/18/20 06:59 06:59 06:59 Intake Total 679.6 200 480 Output Total 363 1290 585 Balance 316.6 -1090 -105 Result Diagrams: 09/18/20 04:51 09/18/20 04:52 Phys Exam - Physical Examination Constitutional: NAD Neck: supple Respiratory: no wheezing, clear to auscultation bilateral Cardiovascular: RRR, no significant murmur Gastrointestinal: soft L lower ribs tender to palpation, no lesions seen on exam, L BKA Neurological: non-focal, moves all 4 limbs Psychiatric: normal affect, A&O x 3 Dx/Plan - Plan Plan: Patient is a 55M with PMHx of HFpEF, ESRD on HD (T, TH, Sat), HTN, HLD, paroxysmal afib, CAD s/p 2 stents that is admitted for: Neuro - GCS 15, AxO x4 Respiratory Acute on chronic hypoxic respiratory failure 2/2 pulmonary edema 2/2 noncompliance w/ fluid restriction - Intubated 09/14-09/16 - DDx: flash pulmonary edema vs CHF exacerbation - continue hemodialysis, continue fluid restriction, strict I/Os Cardiovascular ROSC s/p vfib cardiac arrest: stable HTN: resume all home meds today HFpEF: stable, repeat ECHO showed same EF as last year, 50-55% MSK -L rib pain likely due to chest compressions -CXR did not show any acute abnormalities -pending rib XR -pain regimen: tylenol ernst, flexeril prn, tramadol prn, renally dosed. Encourage incentive spirometry CAD s/p 2 stents Hx of Paroxysmal afib HLD -continue home meds Gastrointestinal/Nutrition - Diet: puree, nectar thick. Renal high protein, CC. - continue BID sennakot home med - Advance diet as tolerated, continue to work w/ speech Renal/ ESRD on HD -Nephro Dr. Arredondo consulted, appreciate recs. -Discontinue lasix. Do not prescribe lasix on discharge. Hematology -heparin TID for dvt ppx 2/2 ESRD -Normocytic Anemia: 2/2 anemia of chronic disease, likely due to ESRD Endocrine IDDM2 - home dose: 36u lantus BID, monitor sugars today and PO intake, continue sliding scale today and consider starting lantus tonight. - sliding scale insulin Infectious Disease - s/p cefepime and vanc in ED; blood and urine cx NGTD - Afebrile. Patient is clinically well appearing. Continue to monitor Diet: Renal high protein, CC, puree, nectar thick DVT ppx: heparin GI ppx: discontinued Lines/tubes: L subclavian. Central line- will remove before discharge and Est ablish PIV access. Dispo: inpatient, tele CODE: Full, confirmed with family PCP: Chuy Kirk lines: Radha (09/14-09/17) Social: Discussed home situation with pt. He lives with his sister and plans to return home. He says he has a HH nurse that comes once a week to help with meds, and another helper who comes 3 days a week to help with household activities.
[2020-09-18] MEDS ORDERED: Acetaminophen 500 MG TAB PO SCH ×2 (07:30→12:00)
[2020-09-18] MEDS ORDERED: Cyclobenzaprine 10 MG TAB PO PRN (08:12)
[2020-09-18] MEDS ORDERED: traMADol HCl 50 MG TAB PO PRN (08:13)
--- NOTE | 2020-09-18 09:47 | RAD ---
EXAM: XR Ribs Lt>=2 View STANDARD PROVIDED CLINICAL HISTORY: Left-sided rib pain. COMPARISON: Chest x-ray on 09/17/2020 FINDINGS: Left-sided vascular catheter is again noted in place with tip overlying the expected location of the upper SVC. No obvious left-sided rib fracture is seen. No left-sided pneumothorax or pleural effusion is identif ied. Heart is incompletely imaged, but does appear mildly enlarged. Vascular calcifications are seen overlying the left upper quadrant of the abdomen. Degenerative changes are present in the visualized thoracic and lumbar spine. IMPRESSION: No left-sided rib fracture visualized.
[2020-09-18] MEDS: Senokot S 8.6-50 MG TAB PO SCH (10:00)
[2020-09-18] MEDS: Aspirin 81 mg Enteric Coated Tablet PO SCH (10:00)
[2020-09-18] MEDS: hydrALAZINE 25 MG TAB PO SCH (10:01)
[2020-09-18] MEDS: Clopidogrel Bisulfate 75 MG TAB PO SCH (10:01)
[2020-09-18] MEDS: Carvedilol 6.25 MG TAB PO SCH (10:02)
[2020-09-18] MEDS: NIFEdipine XL 90 MG TAB PO SCH (10:02)
[2020-09-18 10:25] VITALS: BP 125/60; TEMP 98.2
--- NOTE | 2020-09-18 12:22 | PRG ---
DATE OF SERVICE: 09/18/2020 SUBJECTIVE: Patient was seen and examined at bedside and overnight events noted. Patient denies any shortness of breath or chest pain or palpitation. No history of nausea or vomiting or diarrhea or fever or chills or cramps. OBJECTIVE: GENERAL: This is a well-built male, in no apparent distress. VITAL SIGNS: Temperature 98.3. Heart rate 60. Respiratory rate 16. Blood pressure 125/60. HEENT: Atraumatic, normocephalic. Oral mucosa is moist. NECK: Supple. CARDIOVASCULAR: S1, S2 heard. Rate and rhythm regular. RESPIRATORY: Clear to auscultation. GASTROINTESTINAL: Abdomen is soft. MUSCULOSKELETAL: No tenderness. No edema. DERMATOLOGIC: No skin rash. NEUROLOGIC: Alert and awake and oriented x3. No focal neurologic deficits. Moving all the extremities. PSYCHIATRIC: Mood and affect normal. LABORATORY DATA: Potassium 4.6, BUN is 25, and creatinine is 4.1. ASSESSMENT AND PLAN: 1. End-stage renal disease. Continue dialysis on TTS as tolerated. 2. Edema. 3. Hypertension. 4. Anemia of chronic disease. 5. Fluid overload. 6. Cardiorenal syndrome. 7. Hypernatremia. Plan to continue on dialysis on Monday, , and Monday as tolerated. Job ID: [id number]
--- NOTE | 2020-09-18 12:46 | PRG ---
DATE OF SERVICE: 09/18/2020 I have discussed the case with Dr. Cristiane Snow and agreed with her assessment and plan. Job ID: [id number]
[2020-09-18] MEDS ORDERED: Transdermal Patch Removal TOP SCH (15:00)
[2020-09-19] MEDS ORDERED: Lidocaine 5% Patch TD SCH (09:00)
--- NOTE | 2020-09-19 17:33 | EKG ---
Test Reason : Blood Pressure : / mmHG Vent. Rate : 067 BPM Atrial Rate : 067 BPM P-R Int : 190 ms QRS Dur : 134 ms QT Int : 510 ms P-R-T Axes : 061 -29 131 degrees QTc Int : 538 ms Normal sinus rhythm Left ventricular hypertrophy with QRS widening and repolarization abnormality Abnormal ECG Confirmed by TERESA QUICK, KEENAN ([id number]), offline editor BILL ESCALANTE ([id number]) on 09/19/2020 5:32:33 PM Referred By: Confirmed By:KEENAN MOORE MD
[2020-09-19] MEDS ORDERED: Transdermal Patch Removal TOP SCH (21:00)
--- NOTE | 2020-09-20 11:56 | DIS ---
DATE OF ADMISSION: 09/14/2020 DATE OF DISCHARGE: 09/18/2020 RESIDENT: Cristiane Snow, PGY-1. ADMITTING ATTENDING: Jose Lacy MD. DISCHARGE ATTENDING: Henry Yates MD. CONSULTS: 1. Nephrology, Dr. Arredondo. 2. Pulmonology, Dr. Conti. 3. Speech. 4. Wound care. PROCEDURES: Central line, left subclavian. Intubation 09/14 to 09/16. Echocardiogram: EF 50% to 55%, mild mitral regurgitation, mild tricuspid regurgitation. PRIMARY DIAGNOSIS: Acute on chronic hypoxic respiratory failure secondary to pulmonary edema, due to noncompliance with fluid restriction. SECONDARY DIAGNOSES: 1. ROSC, status post VFib cardiac arrest. 2. Hypertension. 3. Hyperlipidemia. 4. Coronary artery disease, status post stents. 5. History of paroxysmal atrial fibrillation. 6. End-stage renal disease, on hemodialysis. 7. Normocytic anemia. 8. Insulin dependent diabetes mellitus type 2. DISCHARGE MEDICATIONS: 1. Acetaminophen 1000 mg p.o. q.6 hours p.r.n. 2. Aspirin 81 mg daily. 3. Atorvastatin 80 mg daily. 4. Calcifediol 30 mcg daily. 5. Carvedilol 6.25 b.i.d. 6. Plavix 75 daily. 7. Flexeril 5 mg p.o. t.i.d. #15 p.r.n. 8. Hydralazine 50 mg t.i.d. 9. Lantus 36 units b.i.d. 10. Krill oil 500 mg daily. 11. Nifedipine 90 mg daily. 12. Nitroglycerin sublingual p.r.n. 13. Senokot one tab b.i.d. 14. Tramadol 50 mg b.i.d. p.r.n. HISTORY OF PRESENT ILLNESS: The patient is a 55-year-old male with history of HFpEF, ESRD on hemodialysis, hypertension, paroxysmal atrial fibrillation, CAD status post stents, who presented to the ED after being found hypoxic and intubated by EMS. Per EMS, when they arrived, his O2 saturation was in the 60s and the temperature in his home was cold after losing power. The patient is not on home oxygen at baseline. The patient states after he woke up, he stated that the only thing he had been different at home was drinking one 32-ounce tea. EMS gave him ketamine and rocuronium to prepare for intubation and then the patient went into VFib cardiac arrest. CPR was performed, atropine, epinephrine, amiodarone were given and ROSC was achieved. The patient was admitted to our ICU. Left subclavian line was placed. The patient had an elevated D-dimer on laboratory analysis. Had a CTA done on September 07 which had ruled out pulmonary embolus at that time. Recently, the patient had been admitted due to CHF exacerbation after not following his fluid restrictions. The patient's occ therapy asst was consulted. He arranged for dialysis. The patient self-extubated on 09/16. Speech was consulted and the patient did well after extubation. He was able to be restarted on a diet. The rest of his hospital stay was unremarkable and his vitals remained stable. The patient was educated on the importance of following with his heart healthy diet including fluid restriction. He shows to discharge back to home where he lives with his sister. It is unclear at this time if this arrangement will be beneficial for him in the future as his sister is intellectually disabled. Of note on labs, UDS and COVID were both negative. The patient was not requiring supplemental oxygen at the time of discharge and was not sent home with home oxygen. His power had been restored at his house before he was discharged. DISPOSITION: Stable. DISCHARGE INSTRUCTIONS: 1. Location: Home. 2. Diet: Heart healthy including fluid restriction. Renal diet with fluid restriction. 3. Activity: As tolerated. 4. Followup: Follow up with his PCP, Dr. Vera within 7 days and with outpatient dialysis as scheduled. Job ID: [id number]
== END 2020-09-18 16:50 | disposition home or self-care (01) | DRG 208 ==
LOC: ERS 17:37 → MERGE 18:47 → CCU 18:47 → 3SE 09-17 12:21
PROVIDERS: ADMIT Emergency Medicine; ATTEND Emergency Medicine
PROC: 5A1945Z Respiratory Ventilation, 24-96 Consecutive Hours (ICD-10-PCS; principal; 2020-09-14)
PROC: 5A12012 Performance of Cardiac Output, Single, Manual (ICD-10-PCS; 2020-09-14)
PROC: 5A1D70Z Performance of Urinary Filtration, Intermittent, Less than 6 Hours Per Day (ICD-10-PCS; 2020-09-15)
DX: J96.21 Acute and chronic respiratory failure with hypoxia (principal); N18.6 End stage renal disease; I49.01 Ventricular fibrillation; I46.9 Cardiac arrest, cause unspecified; I50.33 Acute on chronic diastolic (congestive) heart failure; I13.2 Hypertensive heart and chronic kidney disease with heart failure and with stage 5 chronic kidney disease, or end stage renal disease; Z68.41 Body mass index [BMI] 40.0-44.9, adult; Z20.822 Contact with and (suspected) exposure to COVID-19; Z23 Encounter for immunization; E78.00 Pure hypercholesterolemia, unspecified; E11.22 Type 2 diabetes mellitus with diabetic chronic kidney disease; I48.0 Paroxysmal atrial fibrillation; E66.01 Morbid (severe) obesity due to excess calories; I25.10 Atherosclerotic heart disease of native coronary artery without angina pectoris; D63.1 Anemia in chronic kidney disease; Z95.1 Presence of aortocoronary bypass graft; Z99.2 Dependence on renal dialysis; Z79.82 Long term (current) use of aspirin; Z79.4 Long term (current) use of insulin; Z79.899 Other long term (current) drug therapy; Z91.19 Patient's noncompliance with other medical treatment and regimen
CPT/HCPCS: 36415; 36416; 36556; 36600; 51702; 71045; 80048; 80053; 80306; 81003; 81015; 82550; 82553; 82805; 83605; 83690; 83735; 83880; 84145; 84484; 85025; 85379; 85610; 85730; 87040; 87086; 90935; 93005; 93010; 93306; 94002; 94003; 96365; 96366; 96368; 96375; 99292; C9113; G0257; J0282; J0692; J1644; J1815; J1940; J2405; J2704; J3010; J3370; U0002

== ENCOUNTER 2020-10-05 13:11 | Observation (INO) | payer MEDICARE, MEDICAID ==
[~2020-10-05 13:11] MED LIST changes: -Amiodarone 150 MG/3 ML VIAL ONE; -Calcium Chloride 1 GM/10 ML Abboject SYRINGE ONE; +Iopamidol-370 76% 500 ML 1 ML ONE; -Sodium Bicarb 50 MEQ/50 ML Abboject 8.4% SYRINGE ONE
[2020-10-05 14:03] LABS: #Basophils 0.1 thou/uL (0.0-0.2); #Eosinphils 0.3 thou/uL (0.0-0.7); #Lymphocytes 0.9 thou/uL (1.20-3.40); #Monocytes 0.4 thou/uL (0.11-0.59); #Neutrophils 3.4 thou/uL (1.40-6.50); %Basophils 1.7 % (0.0-1.0); %Eosinophils 5.2 % (0.0-10.0); %Lymphocytes 17.4 % (21.0-51.0); %Monocytes 7.3 % (0.0-10.0); %Neutrophils 68.5 % (42.0-75.0); Hemoglobin 9.3 g/dL (14.0-18.0); Mean Corpuscular Hemoglobin 30.5 pg (27.0-31.0); Mean Corpuscular Volume 89.8 fL (78.0-98.0); Mean Platelet Volume 7.8 fL (7.4-10.4); Platelet Count 189 thou/uL (130-400); RBC Distribution Width 12.5 % (11.5-14.5); Red Blood Cell (RBC) Count 3.06 mill/uL (4.70-6.10); White Blood Cell (WBC) Count 4.9 thou/uL (4.8-10.8)
[2020-10-05 14:31] LABS: ALT (SGPT) 11 U/L (8-55); AST (SGOT) 12 U/L (5-34); Albumin 3.8 g/dL (3.5-5.0); Alkaline Phosphatase 76 U/L (40-110); Anion Gap 15 mmol/L (10-20); BUN (Urea Nitrogen) 21 mg/dL (8.4-25.7); Bilirubin, Total 0.6 mg/dL (0.2-1.2); Calc. Creatinine Clearance 0 mL/min (70-130); Calcium 10.1 mg/dL (7.8-10.44); Carbon Dioxide 31 mmol/L (22-29); Chloride 96 mmol/L (98-107); Globulin 3.6 g/dL (2.4-3.5); Glucose 354 mg/dL (70-105); Potassium 4.5 mmol/L (3.5-5.1); Protein, Total 7.4 g/dL (6.0-8.3); Sodium 137 mmol/L (136-145)
[2020-10-05] MEDS ORDERED: Furosemide 40 MG/4 ML VIAL ONE ×2 (15:09→15:10)
[2020-10-05] MEDS ORDERED: Aspirin Chewable 81 MG TAB ONE (15:09)
[2020-10-05] MEDS ORDERED: Dextrose 5% in Water 1,000 ML IV PRN (15:56)
[2020-10-05] MEDS ORDERED: HumaLOG 300 UNITS/3 ML VIAL SC PRN (15:56)
[2020-10-05] MEDS ORDERED: Dextrose 50% Abboject 50 ML SYRINGE SLOW IVP PRN (15:56)
[2020-10-05] MEDS ORDERED: Acetaminophen 325 MG TAB PO PRN (15:56)
[2020-10-05] MEDS ORDERED: hydrALAZINE 20 MG/ML VIAL SLOW IVP PRN (16:29)
[2020-10-05 17:16] LABS: Troponin I 0.038 ng/mL (< 0.028)
[2020-10-05] MEDS ORDERED: Nitroglycerin 0.4 MG TAB (25 Tab Bottle) SL PRN (17:23)
[2020-10-05] MEDS ORDERED: Cyclobenzaprine 10 MG TAB PO PRN (17:23)
[2020-10-05 17:36] VITALS: BMI 28.5
[2020-10-05] MEDS: Acetaminophen 500 MG TAB PO SCH (18:01)
[2020-10-05] MEDS: HumaLOG 300 UNITS/3 ML VIAL SC PRN (18:14)
[2020-10-05] MEDS: hydrALAZINE 25 MG TAB PO SCH (19:50)
[2020-10-05] MEDS: Heparin 5,000 UNITS/ML VIAL SC SCH (19:50)
[2020-10-05] MEDS: Carvedilol 6.25 MG TAB PO SCH (19:51)
[2020-10-05] MEDS: Insulin Glargine 36 UNITS in Pre-Filled Syringe 1 EACH SC SCH (19:51)
[2020-10-06] MEDS: Acetaminophen 500 MG TAB PO SCH ×4 (00:06→12:30)
[2020-10-06] MEDS: HumaLOG 300 UNITS/3 ML VIAL SC PRN (05:25)
[2020-10-06 05:32] LABS: Anion Gap 16 mmol/L (10-20); BUN (Urea Nitrogen) 37 mg/dL (8.4-25.7); Calc. Creatinine Clearance 29 mL/min (70-130); Calcium 9.5 mg/dL (7.8-10.44); Carbon Dioxide 29 mmol/L (22-29); Chloride 96 mmol/L (98-107); Glucose 156 mg/dL (70-105); Potassium 3.9 mmol/L (3.5-5.1); Sodium 137 mmol/L (136-145)
[2020-10-06] MEDS: Carvedilol 6.25 MG TAB PO SCH (08:10)
[2020-10-06] MEDS: Heparin 5,000 UNITS/ML VIAL SC SCH (08:10)
[2020-10-06] MEDS ORDERED: [UNRECOGNIZED DRUG - OTHER] PO SCH (09:00)
[2020-10-06] MEDS ORDERED: NIFEdipine XL 90 MG TAB PO SCH (09:00)
[2020-10-06] MEDS ORDERED: EPA PO SCH (09:00)
[2020-10-06] MEDS ORDERED: Aspirin 81 mg Enteric Coated Tablet PO SCH (09:00)
[2020-10-06] MEDS ORDERED: Atorvastatin Calcium 40 MG TAB PO SCH (09:00)
[2020-10-06] MEDS ORDERED: KRILL PO SCH (09:00)
[2020-10-06] MEDS ORDERED: AST PO SCH (09:00)
[2020-10-06] MEDS ORDERED: DHA PO SCH (09:00)
[2020-10-06] MEDS ORDERED: Clopidogrel Bisulfate 75 MG TAB PO SCH (09:00)
[2020-10-06] MEDS ORDERED: Calcifediol [Rayaldee] 30 MCG Cap.Sa.24h PO SCH (09:00)
[2020-10-06] MEDS ORDERED: PHOSPHO PO SCH (09:00)
[2020-10-06] MEDS: Insulin Glargine 36 UNITS in Pre-Filled Syringe 1 EACH SC SCH (09:06)
[2020-10-06] MEDS ORDERED: Insulin Glargine 4 UNITS in Pre-Filled Syringe 1 EACH SC SCH (09:30)
[2020-10-06] MEDS ORDERED: traMADol HCl 50 MG TAB PO SCH (10:00)
[2020-10-06] MEDS: hydrALAZINE 25 MG TAB PO SCH (10:19)
[2020-10-06] MEDS ORDERED: Calcium Carbonate 500 MG ChewTAB PO PRN (11:12)
[2020-10-06 11:48] LABS: SARS-CoV-2 PCR NAA for Saliva Not Detected (NotDetected)
[2020-10-06 12:24] VITALS: BP 154/72; TEMP 97.8
[2020-10-06] MEDS ORDERED: Insulin Glargine 40 UNITS in Pre-Filled Syringe 1 EACH SC SCH (21:00)
== END 2020-10-06 13:30 | disposition home or self-care (01) ==
LOC: ERS 13:11 → ERHOLD 15:18 → 3SE 17:47
PROVIDERS: ADMIT Family Medicine; ATTEND Family Medicine
DX: I13.2 Hypertensive heart and chronic kidney disease with heart failure and with stage 5 chronic kidney disease, or end stage renal disease (principal); E11.22 Type 2 diabetes mellitus with diabetic chronic kidney disease; N18.6 End stage renal disease; D63.1 Anemia in chronic kidney disease; I50.30 Unspecified diastolic (congestive) heart failure; I25.10 Atherosclerotic heart disease of native coronary artery without angina pectoris; I48.0 Paroxysmal atrial fibrillation; E78.5 Hyperlipidemia, unspecified; I49.01 Ventricular fibrillation; R07.89 Other chest pain; Z79.02 Long term (current) use of antithrombotics/antiplatelets; Z79.4 Long term (current) use of insulin; Z79.82 Long term (current) use of aspirin; Z79.899 Other long term (current) drug therapy; Z95.5 Presence of coronary angioplasty implant and graft; Z99.2 Dependence on renal dialysis; Z20.822 Contact with and (suspected) exposure to COVID-19
CPT/HCPCS: 71045; 71275; 80048; 80053; 82553; 82962 ×2; 83880; 84484 ×2; 85025; 93005; 94640 ×2; 96374; 99285; U0003; U0005; 36415; 36416; 87635; G0378; J1644; J1815; J1940; J7620; Q9967

== ENCOUNTER 2020-10-08 04:47 | Emergency (ER) | payer MEDICARE, MEDICAID | END 2020-10-08 05:55 | disposition home or self-care (01) | LOC: ERS 04:47 | DX: R06.00 Dyspnea, unspecified (principal); I12.0 Hypertensive chronic kidney disease with stage 5 chronic kidney disease or end stage renal disease; E11.9 Type 2 diabetes mellitus without complications; E78.5 Hyperlipidemia, unspecified; N18.6 End stage renal disease; Z79.4 Long term (current) use of insulin; Z79.899 Other long term (current) drug therapy | CPT/HCPCS: 71045; 93005 ==

== ENCOUNTER 2020-10-10 15:17 | Observation (INO) | payer MEDICARE, MEDICAID ==
[2020-10-10 17:17] LABS: #Basophils 0.1 thou/uL (0.0-0.2); #Eosinphils 0.4 thou/uL (0.0-0.7); #Lymphocytes 0.7 thou/uL (1.20-3.40); #Monocytes 0.4 thou/uL (0.11-0.59); #Neutrophils 4.3 thou/uL (1.40-6.50); %Basophils 1.2 % (0.0-1.0); %Eosinophils 6.2 % (0.0-10.0); %Lymphocytes 12.1 % (21.0-51.0); %Monocytes 6.7 % (0.0-10.0); %Neutrophils 73.7 % (42.0-75.0); Hemoglobin 10.1 g/dL (14.0-18.0); Mean Corpuscular HGB CONC 35.5 g/dL (32.0-36.0); Mean Corpuscular Hemoglobin 31.8 pg (27.0-31.0); Mean Corpuscular Volume 89.6 fL (78.0-98.0); Platelet Count 180 thou/uL (130-400); RBC Distribution Width 12.5 % (11.5-14.5); Red Blood Cell (RBC) Count 3.19 mill/uL (4.70-6.10); White Blood Cell (WBC) Count 5.8 thou/uL (4.8-10.8)
[2020-10-10 17:34] LABS: ALT (SGPT) 16 U/L (8-55); AST (SGOT) 23 U/L (5-34); Albumin 3.9 g/dL (3.5-5.0); Alkaline Phosphatase 81 U/L (40-110); Anion Gap 14 mmol/L (10-20); BUN (Urea Nitrogen) 9 mg/dL (8.4-25.7); Bilirubin, Total 0.6 mg/dL (0.2-1.2); Calc. Creatinine Clearance 0 mL/min (70-130); Calcium 9.4 mg/dL (7.8-10.44); Carbon Dioxide 33 mmol/L (22-29); Chloride 96 mmol/L (98-107); Globulin 3.8 g/dL (2.4-3.5); Glucose 118 mg/dL (70-105); Potassium 3.6 mmol/L (3.5-5.1); Protein, Total 7.7 g/dL (6.0-8.3); Sodium 139 mmol/L (136-145)
[2020-10-10 17:58] LABS: CKMB 6.8 ng/mL (0-6.6)
[2020-10-10] MEDS ORDERED: Aspirin Chewable 81 MG TAB ONE ×2 (18:34→18:35)
[2020-10-10] MEDS ORDERED: Nitroglycerin 2% Ointment 1 INCH/1 GM Packet ONE (18:34)
[2020-10-10] MEDS ORDERED: Calcium Carbonate 500 MG ChewTAB PO PRN (20:03)
[2020-10-10] MEDS ORDERED: Permethrin 5% Cream 60 GM TUBE TOP SCH (20:15)
[2020-10-10 20:29] LABS: Troponin I 0.059 ng/mL (< 0.028)
[2020-10-10 23:40] LABS: Troponin I 0.067 ng/mL (< 0.028)
[2020-10-11] MEDS ORDERED: Dextrose 50% Abboject 50 ML SYRINGE SLOW IVP PRN (05:23)
[2020-10-11] MEDS ORDERED: Dextrose 5% in Water 1,000 ML IV PRN (05:23)
[2020-10-11 05:24] LABS: #Basophils 0.1 thou/uL (0.0-0.2); #Eosinphils 0.3 thou/uL (0.0-0.7); #Lymphocytes 1.1 thou/uL (1.20-3.40); #Monocytes 0.5 thou/uL (0.11-0.59); #Neutrophils 4.4 thou/uL (1.40-6.50); %Basophils 1.4 % (0.0-1.0); %Lymphocytes 17.2 % (21.0-51.0); %Monocytes 8.2 % (0.0-10.0); %Neutrophils 68.2 % (42.0-75.0); Hemoglobin 9.6 g/dL (14.0-18.0); Mean Corpuscular HGB CONC 35.3 g/dL (32.0-36.0); Mean Corpuscular Hemoglobin 31.8 pg (27.0-31.0); Mean Platelet Volume 8.2 fL (7.4-10.4); Platelet Count 191 thou/uL (130-400); RBC Distribution Width 12.4 % (11.5-14.5); Red Blood Cell (RBC) Count 3.02 mill/uL (4.70-6.10); White Blood Cell (WBC) Count 6.4 thou/uL (4.8-10.8)
[2020-10-11] MEDS: Heparin 5,000 UNITS/ML VIAL SC SCH ×4 (05:46→20:17)
[2020-10-11 05:50] LABS: Anion Gap 17 mmol/L (10-20); BUN (Urea Nitrogen) 16 mg/dL (8.4-25.7); Calc. Creatinine Clearance 35 mL/min (70-130); Calcium 9.1 mg/dL (7.8-10.44); Carbon Dioxide 29 mmol/L (22-29); Chloride 96 mmol/L (98-107); Glucose 241 mg/dL (70-105); Potassium 3.7 mmol/L (3.5-5.1); Sodium 138 mmol/L (136-145)
[2020-10-11] MEDS ORDERED: Cyclobenzaprine 10 MG TAB PO PRN (06:16)
[2020-10-11] MEDS: Carvedilol 6.25 MG TAB PO SCH ×2 (08:23→17:42)
[2020-10-11] MEDS: Furosemide 40 MG TAB PO SCH (08:23)
[2020-10-11] MEDS: Clopidogrel Bisulfate 75 MG TAB PO SCH (08:24)
[2020-10-11] MEDS: Atorvastatin Calcium 40 MG TAB PO SCH (08:24)
[2020-10-11] MEDS: Fish Oil 1,000 MG CAP PO SCH (08:25)
[2020-10-11] MEDS: NIFEdipine XL 90 MG TAB PO SCH (08:26)
[2020-10-11] MEDS: hydrALAZINE 25 MG TAB PO SCH ×3 (08:34→20:16)
[2020-10-11] MEDS: Ferrous Sulfate 325 MG TAB PO SCH (08:35)
[2020-10-11] MEDS: Ondansetron PF 4 MG/2 ML Vial IVP PRN ×3 (08:52→23:45)
[2020-10-11] MEDS ORDERED: (Calcifediol [Rayaldee] 30 MCG Cap.Sa.24h) PO SCH (09:00)
[2020-10-11] MEDS: Insulin Glargine 40 UNITS in Pre-Filled Syringe 1 EACH SC SCH ×2 (10:09→20:17)
[2020-10-11 11:42] LABS: Troponin I 0.054 ng/mL (< 0.028)
[2020-10-11] MEDS: HumaLOG 300 UNITS/3 ML VIAL SC PRN ×2 (12:47→17:42)
[2020-10-11] MEDS ORDERED: hydrALAZINE 20 MG/ML VIAL SLOW IVP PRN (18:31)
[2020-10-11] MEDS ORDERED: Melatonin 3 MG TAB PO PRN (23:42)
[2020-10-12] MEDS: Atorvastatin Calcium 40 MG TAB PO SCH (08:39)
[2020-10-12] MEDS: Clopidogrel Bisulfate 75 MG TAB PO SCH (08:39)
[2020-10-12] MEDS: Furosemide 40 MG TAB PO SCH (08:39)
[2020-10-12] MEDS: NIFEdipine XL 90 MG TAB PO SCH (08:40)
[2020-10-12] MEDS: Carvedilol 6.25 MG TAB PO SCH ×3 (08:40→17:00)
[2020-10-12] MEDS: Fish Oil 1,000 MG CAP PO SCH (08:40)
[2020-10-12] MEDS: hydrALAZINE 25 MG TAB PO SCH ×3 (08:40→21:22)
[2020-10-12] MEDS: Ferrous Sulfate 325 MG TAB PO SCH (08:40)
[2020-10-12] MEDS: Heparin 5,000 UNITS/ML VIAL SC SCH ×3 (08:41→21:20)
[2020-10-12] MEDS: Insulin Glargine 42 UNITS in Pre-Filled Syringe 1 EACH SC SCH ×2 (08:43→21:19)
[2020-10-12] MEDS: Ondansetron PF 4 MG/2 ML Vial IVP PRN ×2 (10:02→22:50)
[2020-10-12 13:55] VITALS: BMI 35.3
[2020-10-13] MEDS: Fish Oil 1,000 MG CAP PO SCH (08:02)
[2020-10-13] MEDS: hydrALAZINE 25 MG TAB PO SCH ×3 (08:02→19:10)
[2020-10-13] MEDS: Carvedilol 6.25 MG TAB PO SCH ×2 (08:02→19:10)
[2020-10-13] MEDS: Atorvastatin Calcium 40 MG TAB PO SCH (08:02)
[2020-10-13] MEDS: NIFEdipine XL 90 MG TAB PO SCH (08:02)
[2020-10-13] MEDS: Furosemide 40 MG TAB PO SCH (08:02)
[2020-10-13] MEDS: Heparin 5,000 UNITS/ML VIAL SC SCH ×2 (08:03→14:25)
[2020-10-13] MEDS: Clopidogrel Bisulfate 75 MG TAB PO SCH (08:03)
[2020-10-13] MEDS ORDERED: Aspirin 81 mg Enteric Coated Tablet PO SCH (09:00)
[2020-10-13] MEDS: Insulin Glargine 42 UNITS in Pre-Filled Syringe 1 EACH SC SCH ×2 (09:36→19:11)
[2020-10-13 13:48] LABS: Anion Gap 16 mmol/L (10-20); BUN (Urea Nitrogen) 28 mg/dL (8.4-25.7); Calc. Creatinine Clearance 23 mL/min (70-130); Carbon Dioxide 28 mmol/L (22-29); Chloride 98 mmol/L (98-107); Glucose 162 mg/dL (70-105); Potassium 3.5 mmol/L (3.5-5.1); Sodium 138 mmol/L (136-145)
[2020-10-13 13:51] LABS: Hemoglobin 9.9 g/dL (14.0-18.0); Mean Corpuscular HGB CONC 34.5 g/dL (32.0-36.0); Mean Corpuscular Volume 89.9 fL (78.0-98.0); Mean Platelet Volume 7.9 fL (7.4-10.4); Platelet Count 218 thou/uL (130-400); RBC Distribution Width 12.5 % (11.5-14.5); Red Blood Cell (RBC) Count 3.19 mill/uL (4.70-6.10); White Blood Cell (WBC) Count 7.1 thou/uL (4.8-10.8)
[2020-10-13 13:55] LABS: Band 8 % (5-11); Eosinophils 5 % (0-10); Lymphocytes 7 % (21-51); MDiff Complete? YES; Monocytes 5 % (0-10); Neutrophil 68 % (42-75); Platelet Morphology Comment Appears Adequate; RBC Morphology Normal; Reactive Lymphocytes 3 % (0-10)
[2020-10-13 16:44] VITALS: TEMP 97.7
[2020-10-13] MEDS: Ondansetron PF 4 MG/2 ML Vial IVP PRN (17:56)
[2020-10-13 19:38] VITALS: BP 158/74
== END 2020-10-13 19:47 ==
LOC: ERS 15:17 → 2SW 18:20
PROVIDERS: ADMIT Family Medicine; ATTEND Family Medicine
DX: R07.89 Other chest pain (principal); I13.2 Hypertensive heart and chronic kidney disease with heart failure and with stage 5 chronic kidney disease, or end stage renal disease; E11.22 Type 2 diabetes mellitus with diabetic chronic kidney disease; N18.6 End stage renal disease; I50.30 Unspecified diastolic (congestive) heart failure; D63.1 Anemia in chronic kidney disease; E78.5 Hyperlipidemia, unspecified; I25.10 Atherosclerotic heart disease of native coronary artery without angina pectoris; I48.0 Paroxysmal atrial fibrillation; N25.81 Secondary hyperparathyroidism of renal origin; R60.9 Edema, unspecified; Z79.02 Long term (current) use of antithrombotics/antiplatelets; Z79.4 Long term (current) use of insulin; Z79.82 Long term (current) use of aspirin; Z79.899 Other long term (current) drug therapy; Z95.5 Presence of coronary angioplasty implant and graft; Z99.2 Dependence on renal dialysis
CPT/HCPCS: 71045; 80048 ×2; 80053; 82553; 82962 ×4; 84484 ×3; 85007; 85025 ×2; 85027; 93005; 96374; 96376 ×2; 97139 ×3; 97530; 99285; G0378 ×5; 36415; 36416; J1644; J1815; J2405